=== PATIENT | male | born 1950 | race Caucasian/White ===

== ENCOUNTER 2019-02-05 21:15 | Inpatient (IN) | payer MEDICARE, OTHER, SELFPAY ==
[2019-02-05 21:16] VITALS: BP 155/86; PULSE 52; RESP 18; TEMP 36.6; O2SAT 98; BMI 27.5
--- NOTE | 2019-02-05 21:18 | EKG12_ITS ---
Test Reason : REPEAT Blood Pressure : / mmHG Vent. Rate : 055 BPM Atrial Rate : 055 BPM P-R Int : 178 ms QRS Dur : 094 ms QT Int : 458 ms P-R-T Axes : 022 -01 037 degrees QTc Int : 438 ms Sinus bradycardia with sinus arrhythmia Possible Inferior infarct , age undetermined Anterior infarct , age undetermined Abnormal ECG Confirmed by DAMON VILLARREAL ([id number]), editor managing newspaper SUZE FAULKNER ([id number]) on 02/07/2019 1:41:21 PM Referred By: Confirmed By:DAMON VILLARREAL
--- NOTE | 2019-02-05 21:20 | RAD_ITS ---
STUDY: X-RAY CHEST REASON FOR EXAM: Male, 68 years old. Chest pain TECHNIQUE: AP portable COMPARISON: June 12, 2017 FINDINGS: Diminished inspiratory effort is noted however the lungs are clear.. There is no demonstrated pleural abnormality. Postop change status post median sternotomy and CABG Normal size heart. Normal mediastinum and harriet. Normal visualized pulmonary arteries. Normal visualized aortic arch and descending thoracic aorta. Dorsal spine and shoulders demonstrate degenerative change. Normal visualized ribs, and clavicles There is no demonstrated abnormality of the visualized soft tissue structures of the upper abdomen. No significant change since prior study RAD/Chest 1 View (Portable) IMPRESSION: No acute cardiopulmonary pathology Electronically Signed: Jose Joshi MD at 21:41 EDT , Service support ,
[2019-02-05 21:51] LABS: Absolute Lymphocyte Count 2.27 X10^3/ul (0.83-4.51); Absolute Neutrophil Count 3.9 X10^3/uL (2.0-7.7); Basophil# 0.11 X10^3/uL; Basophil% 1.5 % (0-1); Eosinophils% 6.7 % (0-5); Hematocrit 46.2 % (40-54); Hemoglobin 16.6 g/dl (13.0-16.5); Lymphocyte # 2.27 X10^3/ul (4.0); Lymphocyte % 30.5 % (19-41); Mean Corp Hgb Conc 35.9 g/gl (32-36); Mean Corpuscular Hgb 30.4 pg (27.0-32.0); Mean Corpuscular Volume 84.6 fL (80-94); Mean Platelet Vol. 9.5 fl (6.2-12.0); Monocyte# 0.71 X10^3/uL; Monocyte% 9.5 % (0-10); Neutrophil # 3.85 X10^3/uL (2.7-7.7); Neutrophil % 51.8 % (47-70); Platelet Count 184 K/mm3 (150-450); RBC Distribution Width CV 14.4 % (11.6-14.6); RBC Distribution Width SD 43.9 fl (35.1-43.9); Red Blood Count 5.46 M/mm3 (4.6-6.2); White Blood Count 7.4 K/mm3 (4.4-11.0)
[2019-02-05 21:53] LABS: POSITIVE COUNT NO; POSITIVE DIFFERENTIAL NO; POSITIVE MORPHOLOGY NO
[2019-02-05 22:08] LABS: Anion Gap 11 (5-15); BUN 15 mg/dL (7-18); BUN/Creat Ratio 17.3 RATIO (10-20); Calcium,Total 9.9 mg/dL (8.5-10.1); Chloride 107 mmol/L (98-107); Creatinine, Serum 0.87 mg/dL (0.70-1.30); EST Glomerular Filtration Rate 93 mL/min (>60); Est Glom Filt Rate - Afr Amer 112 mL/min (>60); Estimated Creatinine Clearance 74.92 ml/min; Glucose 100 mg/dL (74-106); Potassium 3.3 mmol/L (3.5-5.1); Sodium Level 139 mmol/L (136-145)
[2019-02-05 22:16] VITALS: BP 139/80; PULSE 60; RESP 17; O2SAT 98
[2019-02-05 22:18] LABS: D-Dimer Quantitative (DVT/PE) 0.27 FEU/ug/m (0.27-0.49)
--- NOTE | 2019-02-05 22:47 | ED.DCSUM_ITS ---
- ER Visit Summary Date of Service: 02/05/19 Chief Complaint: Chest pain History of Present Illness: The patient is a 68 M presenting with chest pain. Patient states this has been intermittent for the past couple of days. He states it is waxing and waning pain. He has associated shortness of breath. He has lightheadedness with no syncope. He denies diaphoresis. Pain is in his mid chest and radiates to his neck. He tried 2 nitro at home with no relief. He has a history of hypercholesterolemia but states he no longer takes this medication. He has history of multiple myeloma. Previous CABG. He is not a smoker. Physical Examination: Vitals are stable. Patient is afebrile. Alert no acute distress. HEENT exam is unremarkable. Neck is supple. Lungs are clear and equal bilaterally. Heart is regular rate and rhythm. Abdomen is soft nontender nondistended. Extremities are unremarkable. Skin is warm and dry. No focal neurologic deficit. Remainder of exam is unremarkable. Emergency Department Course and Treatment: Patient was given aspirin on arrival. EKG is sinus rate is 68 with PVCs. CBC, chemistries unremarkable other than potassium 3.3. Troponin is negative. D-dimer 0.27. Chest x-ray shows no acute process. Discussed with the hospitalist for observation. Disposition: Observation Impression: Chest pain This note was generated with [employer] dictation software. It may contain incorrect words, spelling, and punctuation that were not noted in review of the chart prior to signing ED Disposition - Plan for ED Patient: Referrals: Andrea Tello MD [Primary Care Provider] -
[2019-02-05 22:56] VITALS: BP 139/80; PULSE 69; RESP 20; O2SAT 99
[2019-02-05 23:00] VITALS: BP 139/80; PULSE 58; RESP 16; O2SAT 99
--- NOTE | 2019-02-05 23:00 | PCM.HP.STD ---
Problem List (1) Multiple myeloma Status: Chronic Qualifiers: Multiple myeloma remission status: unspecified Qualified Code(s): C90.00 - Multiple myeloma not having achieved remission (2) Hypertension Status: Chronic Qualifiers: Hypertension type: essential hypertension Qualified Code(s): I10 - Essential (primary) hypertension (3) Coronary artery disease Status: Chronic Qualifiers: Coronary Disease-Associated Artery/Lesion type: [place] artery [place] vs. transplanted heart: [place] heart Associated angina: with unstable angina Qualified Code(s): I25.110 - Atherosclerotic heart disease of [place] coronary artery with unstable angina pectoris Comment: Status post stent in 2000. (4) Chest pain Status: Acute Qualifiers: Chest pain type: unspecified Qualified Code(s): R07.9 - Chest pain, unspecified History of Present Illness Date of Admission: 02/05/19 Chief Complaint: Chest pain -2 days The patient is a 68 year old M with a past medical history of CAD status post stents, CABG, hypertension, hyperlipidemia multiple myeloma who comes in with a 1 week history of chest pain described as pressure-like, substernal associated with nausea and lightheadedness. Chest pain is described as worse when he ambulates. He is noncompliant with his cardiology outpatient visits. Last saw a securities counselor 4 years ago. He denies any smoking. Denies orthopnea or PND or leg swelling. Vitals in the ED showed blood pressure 155/86, temperature 97.9 F, heart rate 52, respiratory rate 18, SPO2 98% on room air. Labs in the ED showed BC count 7.4, hemoglobin 16.6, platelet 184, sodium 139, d-dimer 0.27, potassium 3.3, chloride 107, bicarbonate 21, BUN 15, creatinine 0.87, troponin x1 is negative. Admitting EKG shows no acute ST-T changes, PVCs were seen. Chest x-ray showed no acute cardiopulmonary process. Past Medical History Past Medical History (Chronic Problems): Chronic Problems Multiple myeloma (Chronic) Hypertension (Chronic) Coronary artery disease (Chronic) Status post stent in 2000. Allergies morphine Adverse Reaction (Verified 02/05/19 21:16) Other Home Medications: Ambulatory Orders Medication Instructions Recorded Gabapentin [Neurontin] 600 mg PO TID 02/21/14 Hydrocodone Bitart/Apap 5-325 1 - 2 tablet PO Q6H PRN PRN 02/21/14 [[place] 5/325] Lenalidomide [Revlimid] 5 mg PO DAILY 06/12/15 Surgical History: - - appendectomy, cardiac stent 2000 x1 Psychiatric History: No pertinent psych hx Smoking Status: Never smoker - *Family History Maternal History Items: No pertinent history Paternal History Items: No pertinent history Review of Systems Constitutional: Denies: Chills, Fever, Weight Change HEENT: Denies: Head Aches, Sinus Congestion, Sinus Drainage Cardiovascular: Denies: Chest Pain, Palpitations Respiratory: Denies: Cough, Shortness of breath at rest, Sputum production Gastrointestinal: Denies: Abdominal Pain, Nausea, Vomiting Genitourinary: Denies: Dysuria Musculoskeletal: Denies: Joint Pain, Joint Tenderness Skin: Denies: Rash, Wounds Neurological: Denies: Numbness, Tingling, Focal weakness Psychiatric: Denies: Anxiety, Depression, Homicidal Ideations, Suicidal Ideations Hematologic/ Lymphatic: Denies: Easy Bruising, Easy Bleeding VTE Information - Inpt Only VTE Present on Admission: No VTE Pharm Prophylaxis ordered?: Yes - Physical Exam General: Alert, Oriented x3, Cooperative, No apparent distress HEENT: Atraumatic, PERRLA, EOMI, Normocephalic Oral: Moist Mucosa Neck: Supple Lungs: Clear to auscultation, Normal air movement Cardiovascular: Regular rate, Regular Rhythm, Normal S1, Normal S2, No murmurs Abdomen: Bowel Sounds Present, Soft, Non Tender, Non-Distended, No Hepato-splenomegaly Extremities: No edema Skin: No rashes Musculoskeletal: No Tenderness to Palpation of Joints or Extremities Lymphatic: No Cervical, Supraclavicular, or Inguinal Adenopathy Neurological: Cranial nerves II-XII grossly intact, Neuro grossly intact Psych/Mental Status: Normal Affect, Appropriate Vital Signs Temp Pulse Resp BP Pulse Ox 97.9 F 60 17 139/80 H 98 02/05/19 21:16 02/05/19 22:16 02/05/19 22:16 02/05/19 22:16 02/05/19 22:16 Oxygen Delivery Method Room Air Weight: 79.8 kg Body Mass Index (BMI) 27.5 Finger Stick Blood Glucose 106 Laboratory Tests Past 24 Hrs 02/05/19 02/05/19 02/05/19 21:30 21:30 21:30 WBC 7.4 RBC 5.46 Hgb 16.6 H Hct 46.2 MCV 84.6 MCH 30.4 MCHC 35.9 RDW 14.4 RDW Differential 43.9 Plt Count 184 MPV 9.5 Immature Gran % (Auto) 0.000 Neut % (Auto) 51.8 Lymph % (Auto) 30.5 [place] % (Auto) 9.5 Eos % (Auto) 6.7 H Baso % (Auto) 1.5 H Absolute Neuts (auto) 3.9 Absolute Lymphs (auto) 2.27 Total Counted Not Reportable D-Dimer Quant (PE/DVT) 0.27 Sodium 139 Potassium 3.3 L Chloride 107 Carbon Dioxide 21.0 Anion Gap 11 BUN 15 Creatinine 0.87 Estim Creat Clear Calc 74.92 Est GFR (MDRD) Af Amer 112 Est GFR (MDRD) Non-Af 93 BUN/Creatinine Ratio 17.3 Glucose 100 Calcium 9.9 Troponin I < 0.015 Assessment/Plan All Active Problems Chest pain (Acute) 68 year old M with a past medical history of CAD status post stents, CABG, hypertension, hyperlipidemia, multiple myeloma who comes in with a 1 week history of chest pain described as pressure-like, substernal associated with nausea and lightheadedness. 1. Chest pain, suggestive of angina, patient with history of CAD status post stent and CABG, noncompliant with follow-ups Admitting EKG shows no acute ST-T changes, troponins x1 is negative Plan: Admit to PCU, trend troponins, monitor on telemetry, continue on aspirin, statin, nitro as needed, stress test in a.m. 2. Hypokalemia, replaced, check magnesium as patient has PVCs on EKG, place if low 3. Hypertension, slightly uncontrolled, not on home medications, continue to monitor, hydralazine as needed 4. Hyperlipidemia, will check fasting lipid profile 5. Multiple myeloma, on Revlimid 6. DVT PPx- Heparin SC 7. Code status; DNR-CCA Code Visit OBSV E&M: [id number] Initial observation care L3
[2019-02-05] MEDS: Aspirin 325 MG Tablet PO (23:01)
--- NOTE | 2019-02-05 23:30 | EKG12_ITS ---
Test Reason : CP Blood Pressure : / mmHG Vent. Rate : 068 BPM Atrial Rate : 068 BPM P-R Int : 156 ms QRS Dur : 088 ms QT Int : 434 ms P-R-T Axes : 011 005 040 degrees QTc Int : 461 ms Sinus rhythm with frequent Premature ventricular complexes and Premature atrial complexes Inferior infarct (cited on or before 22-NOV-2013) Anterior infarct (cited on or before 22-NOV-2013) Abnormal ECG Confirmed by DAMON VILLARREAL ([id number]), sound editor SUZE FAULKNER ([id number]) on 02/07/2019 1:41:05 PM Referred By: ALE Confirmed By:DAMON VILLARREAL
--- NOTE | 2019-02-05 23:30 | ED.RN ---
PT CALLS OUT IN PAIN, PT DIAPHORETIC, RESTLESS AND ANXIOUS. DR GORMAN AWARE, CALLED FOR REPEAT EKG. WILL CONTINUE TO MONITOR.
[2019-02-05] MEDS: HYDROmorphone 0.5 MG/0.5 ML SYRINGE IV (23:37)
[2019-02-05] MEDS: Ondansetron 4 MG/2 ML Vial IV (23:37)
[2019-02-05 23:49] VITALS: BP 158/97; PULSE 66; RESP 17; O2SAT 98
[2019-02-06] VITALS (14 sets, daily range): BP systolic 129–153; BP diastolic 67–95; PULSE 48–60; RESP 15–16; TEMP 36.2–36.9; O2SAT 95–99; BMI 27.6
--- NOTE | 2019-02-06 00:01 | ED.RN ---
PT PAIN RESOLVED. PT SITTING IN UP IN BED ON PHONE. STATES FEELS MUCH BETTER. DENIES NEED FOR ADDITIONAL PAIN MEDICATION AT THIS TIME. DR GORMAN AWARE.
--- NOTE | 2019-02-06 00:21 | EKG12_ITS ---
Test Reason : CP ADMISSION Blood Pressure : / mmHG Vent. Rate : 045 BPM Atrial Rate : 045 BPM P-R Int : 186 ms QRS Dur : 096 ms QT Int : 488 ms P-R-T Axes : 021 -12 031 degrees QTc Int : 422 ms Sinus bradycardia Inferior infarct (cited on or before 22-NOV-2013) Anterior infarct (cited on or before 22-NOV-2013) Abnormal ECG When compared with ECG of 13-JUN-2017 05:40, Premature ventricular complexes are no longer Present Confirmed by DAMON VILLARREAL ([id number]), telegraph editor SUZE FAULKNER ([id number]) on 02/07/2019 2:06:04 PM Referred By: AMELIA Confirmed By:DAMON VILLARREAL
[2019-02-06] MEDS: 0.9% Normal Saline 1,000 ML 75 ML IV (00:49)
[2019-02-06] MEDS: Mag Hydrox/Al Hydrox/Simeth 30 ML UDC 15 ML PO (01:16)
[2019-02-06 01:22] LABS: Magnesium 1.7 mg/dL (1.6-2.6)
[2019-02-06 03:37] LABS: Absolute Lymphocyte Count 2.08 X10^3/ul (0.83-4.51); Absolute Neutrophil Count 3.7 X10^3/uL (2.0-7.7); Basophil# 0.09 X10^3/uL; Basophil% 1.2 % (0-1); Eosinophils% 8.3 % (0-5); Hematocrit 46.6 % (40-54); Hemoglobin 16.7 g/dl (13.0-16.5); Lymphocyte # 2.08 X10^3/ul (4.0); Lymphocyte % 28.8 % (19-41); Mean Corp Hgb Conc 35.8 g/gl (32-36); Mean Corpuscular Hgb 29.8 pg (27.0-32.0); Mean Corpuscular Volume 83.1 fL (80-94); Mean Platelet Vol. 9.5 fl (6.2-12.0); Monocyte# 0.76 X10^3/uL; Monocyte% 10.5 % (0-10); Neutrophil # 3.68 X10^3/uL (2.7-7.7); Neutrophil % 50.9 % (47-70); Platelet Count 181 K/mm3 (150-450); RBC Distribution Width CV 14.3 % (11.6-14.6); RBC Distribution Width SD 43.1 fl (35.1-43.9); Red Blood Count 5.61 M/mm3 (4.6-6.2); White Blood Count 7.2 K/mm3 (4.4-11.0)
[2019-02-06 03:45] LABS: POSITIVE COUNT NO; POSITIVE DIFFERENTIAL NO; POSITIVE MORPHOLOGY NO
[2019-02-06] MEDS: HYDROmorphone 0.5 MG/0.5 ML SYRINGE IV ×2 (03:56→21:29)
[2019-02-06] MEDS: 0.9% NaCl Peripheral Flush Adult/Peds IV ×2 (03:58→21:29)
[2019-02-06 04:11] LABS: Anion Gap 8 (5-15); BUN 13 mg/dL (7-18); BUN/Creat Ratio 16.1 RATIO (10-20); Calcium,Total 8.9 mg/dL (8.5-10.1); Chloride 110 mmol/L (98-107); Creatinine, Serum 0.81 mg/dL (0.70-1.30); EST Glomerular Filtration Rate 100 mL/min (>60); Est Glom Filt Rate - Afr Amer 122 mL/min (>60); Estimated Creatinine Clearance 80.47 ml/min; Glucose 88 mg/dL (74-106); Magnesium 1.9 mg/dL (1.6-2.6); Potassium 3.5 mmol/L (3.5-5.1); Sodium Level 141 mmol/L (136-145)
[2019-02-06 04:58] LABS: Cholesterol 130 mg/dL (200); High Density Lipoprotein 36 mg/dL; Triglycerides 163 mg/dL; Very Low Density Lipoprotein 33 mg/dL (5-40)
[2019-02-06] MEDS: Aspirin E.C. 81 MG Tablet PO (05:33)
[2019-02-06] MEDS: Gabapentin 600 MG Tablet PO ×3 (05:33→21:28)
--- NOTE | 2019-02-06 05:55 | ECHOCS_ITS ---
Reason For Study: Chest Pain Procedure This was a 2D Doppler, Color Flow transthoracic echocardiogram. The study was technically difficult. Contrast injection was performed. Exam performed portable in patient room. Left Ventricle Normal size and thickness. The estimated ejection fraction is 60 %. Stage 1 diastolic dysfunction. Anterior [place] : Mildly hypokinetic. Mid-anteroseptal : Mildly hypokinetic. Right Ventricle Normal size and thickness. Normal systolic function. Atria The left atrium is mildly enlarged. Normal right atrium. Normal atrial septum. Mitral Valve The mitral valve is structurally normal. No prolapse or stenosis seen. Trivial mitral valve insufficiency. Tricuspid Valve Normal tricuspid valve. Trivial tricuspid valve insufficiency. Right ventricular systolic pressure estimated to be 34 mmHg. Aortic Valve Trisinus/trileaflet aortic valve. Mild diffuse aortic valve thickening. There is no aortic stenosis. Pulmonic Valve Normal pulmonic valve. Great Vessels Normal aortic root. Normal arch. Normal inferior vena cava. Inferior vena cava collapse with sniff. Pericardium/Pleural No pericardial effusion. Medication Diluted definity 3ml given slow IV push to enhance endocardial definition. MMode/2D Measurements & Calculations LVIDd: 5.1 cm IVSd: 0.99 cm Ao root diam: 3.3 cm LVIDs: 3.2 cm LVPWd: 0.72 cm RVDd: 4.4 cm FS: 37.4 % LAV(MOD-bp): 64.6 ml LVAd ap4: 35.1 cm2 SV(MOD-sp4): 79.7 ml LAV(MOD-bp) Indexed: 33.7 ml/m2 EDV(MOD-sp4): 118.5 ml LAV(MOD-sp2): 63.2 ml EDV(sp4-el): 124.9 ml LAV(MOD-sp4): 60.3 ml LVAs ap4: 17.9 cm2 ESV(MOD-sp4): 38.8 ml ESV(sp4-el): 40.5 ml EF(MOD-sp4): 67.2 % EF(sp4-el): 67.6 % SV(sp4-el): 84.4 ml LA A4 area: 22.0 cm2 LA dimension(2D): 3.6 cm RA A4 area: 13.2 cm2 Doppler Measurements & Calculations MV E max dima: 66.1 cm/sec Lat Peak E' Dima: 7.9 cm/sec Med Peak E' Dima: 4.4 cm/sec MV A max dima: 75.9 cm/sec E/E' lat: 8.4 E/E' med: 15.1 MV E/A: 0.87 Ao V2 max: 104.8 cm/sec LV V1 max: 75.1 cm/sec PA V2 max: 92.5 cm/sec Ao max P.4 mmHg LV V1 max P.3 mmHg Ao V2 mean: 72.1 cm/sec Ao mean P.3 mmHg Ao V2 VTI: 23.8 cm TR max dima: 263.9 cm/sec TR max P.9 mmHg Interpretation Summary The estimated ejection fraction is 60 %. Stage 1 diastolic dysfunction. Trivial mitral valve insufficiency. Trivial tricuspid valve insufficiency. Right ventricular systolic pressure estimated to be 34 mmHg. Compared to echo report dated 05/22/2014, LV function has improved from 45% to 60%; RVSP has remained the same. The study was technically difficult. Contrast injection was performed. Ordering Physician: Jo Gilmore Referring Physician: Andrea Tello Performed By: Elvie Osborn, MEGHNA, RVT
--- NOTE | 2019-02-06 05:55 | EKG12_ITS ---
Test Reason : AM EKG Blood Pressure : / mmHG Vent. Rate : 053 BPM Atrial Rate : 053 BPM P-R Int : 174 ms QRS Dur : 100 ms QT Int : 476 ms P-R-T Axes : 005 -11 013 degrees QTc Int : 446 ms Sinus bradycardia Inferior infarct , age undetermined Anteroseptal infarct , age undetermined Abnormal ECG When compared with ECG of 06-FEB-2019 00:30, MANUAL COMPARISON REQUIRED, DATA IS UNCONFIRMED Confirmed by DAMON VILLARREAL ([id number]), editor newspaper SUZE FAULKNER ([id number]) on 02/07/2019 2:07:03 PM Referred By: AMELIA Confirmed By:DAMON VILLARREAL
[2019-02-06 07:12] LABS: Hemoglobin A1c 5.2 % (4.2-6.3)
--- NOTE | 2019-02-06 12:37 | STRESSREP ---
Stress Test Report Date: 02-06-19 Procedure: Pharmacologic stress nuclear imaging study Indications: Chest pain; CAD; PCI; CABG Consent: Per the patient Procedure: The patient underwent pharmacologic (regadenoson) evaluation with a peak heart rate of 81 bpm (53% predicted maximal heart rate) with a peak blood pressure 150/90 mmHg. The baseline ECG demonstrated normal sinus rhythm with poor R wave progression with an anterior [place] pattern of indeterminate age cannot be excluded. The peak pharmacologic ECG demonstrated no obvious ECG changes. There was a rare PVC pretest. There was no reported chest discomfort during pharmacologic infusion or recovery. The examination was discontinued secondary to completion of protocol Impression: 1. Pharmacologic (regadenoson) evaluation 2. Peak pharmacologic ECG with no obvious ECG changes 3. Rare PVC pretest 4. Nuclear images pending Myocardial perfusion imaging study: Technique: The patient was injected with 11.8 mCi of technetium 99m Cardiolite and subsequently rest SPECT Cardiolite nuclear imaging was obtained and horizontal long, vertical long, and short axis views. The patient underwent pharmacologic (regadenoson) evaluation with a peak heart rate of 81 bpm (53% predicted maximal heart rate) with a peak blood pressure of 150/90 mmHg. The patient was injected with 33.9 mCi of technetium 99m Cardiolite and subsequently stress SPECT Cardiolite nuclear imaging was obtained in the horizontal long, vertical long, and short axis views. A gated Cardiolite study at peak stress was obtained. Interpretation: Rest and stress SPECT current nuclear imaging status post realignment, normalization, and attenuation correction, demonstrates an area of subtle diminished tracer uptake near the distal anterior/anterior apical segments at rest. Status post stress there is notation of additional areas of diminished tracer uptake in the mid to distal anterior segments as well as the anterior apical segments and inferior apical segments. There are similar type findings on the resting and stress polar map images. There is diminished end systolic thickening and brightening in the aforementioned areas. The gated coronary study demonstrates diminished myocardial thickening and a normal motion. The reported LVEF is 54%. Impression: 1. Rest and stress SPECT current nuclear imaging demonstrate myocardial perfusion changes potentially compatible with area of previous myocardial injury/infarction involving portions of the distal anterior/anteroapical segments with post stress myocardial perfusion changes appearing compatible with aracelis-infarct related myocardial ischemia involving portions of the mid to distal anterior, anteroapical, and inferoapical segments. 2. The gated Cardiolite study reports an LVEF of 54%. This note was generated using a voice recognition system and there may be incorrect words, spelling or punctuation that were not noted when reviewing the office note prior to saving.
[2019-02-06] MEDS: Clopidogrel Bisulfate 300 MG Tablet PO (15:19)
[2019-02-06] MEDS: Carvedilol 6.25 MG Tablet PO ×2 (15:21→21:28)
--- NOTE | 2019-02-06 15:47 | CON.PCM_ITS ---
Problem List (1) Coronary artery disease Status: Chronic Qualifiers: Coronary Disease-Associated Artery/Lesion type: [place] artery [place] vs. transplanted heart: [place] heart Associated angina: with unstable angina Qualified Code(s): I25.110 - Atherosclerotic heart disease of [place] coronary artery with unstable angina pectoris Comment: Status post stent in 2000. (2) Chest pain Status: Acute Qualifiers: Chest pain type: unspecified Qualified Code(s): R07.9 - Chest pain, unspecified Reason for Consult Date of Consultation: 02/06/19 Reason for Consultation: Unstable angina, abnormal stress test, coronary disease, status post bypass surgery History of Present Illness: The patient is a 68 year old M, nondiabetic, non-smoker, with a history of hypertension, hypercholesterolemia, very poor medical compliance, previous stents in 2000 in 2008, with subsequent 5 vessel bypass surgery of unknown vessels by Dr. Harmon at [facility] in 2014. Patient has not followed up with cardiology since then, and has discontinued all of his cardiac medications. He also has a history of multiple myeloma, and has been compliant with his daily multiple myeloma oral medications. Patient was in good health up until around and a half ago when he developed recurrent substernal chest pressure, chest pain, with associated shortness of breath, nausea but no vomiting. He attempted to take a sublingual nitroglycerin, which provided no relief. Patient sought medical attention [facility], where an EKG was performed showed normal sinus rhythm, and old anteroseptal and inferior wall microinfarction, and what appeared to be pseudonormalization along the inferolateral leads. He was ruled out for myocardial infarction underwent a non-walking nuclear stress test this morning which was abnormal for aracelis-infarct ischemia, with anteroapical infarct noted. In addition he underwent a 2D echo with Doppler which demonstrated improved LV function from 2013 with an EF of around 60%. Patient states that he is unable to ambulate effectively on a stress test. [] Past Medical History Allergies/Adverse Reactions: Allergies morphine Adverse Reaction (Verified 02/05/19 21:16) Other Home Medications: Ambulatory Orders Medication Instructions Recorded Gabapentin [Neurontin] 600 mg PO TID 02/21/14 Hydrocodone Bitart/Apap 5-325 1 - 2 tablet PO Q6H PRN PRN 02/21/14 [[place] 5/325] Lenalidomide [Revlimid] 5 mg PO DAILY 06/12/15 Past Medical History (Chronic Problems): Chronic Problems Multiple myeloma (Chronic) Hypertension (Chronic) Coronary artery disease (Chronic) Status post stent in 2000. Surgical History: - - appendectomy, cardiac stent 2000 x1 Psychiatric History: No pertinent psych hx - *Family History Maternal History Items: No pertinent history Paternal History Items: No pertinent history Smoking Status: Never smoker Review of Systems - Review of Systems General: Denies: Fever, Night Sweats, Fatigue Cardiovascular: Reports: Chest Discomfort, Chest Discomfort at Rest, Chest Dis comfort with Exertion. Denies: Shortness of Breath, Orthopnea, PND, Peripheral Edema, Palpitations, Lightheadedness, Dizziness, Near Syncope, Syncope Respiratory: Denies: Cough, Sputum Production, Hemoptysis Gastrointestinal: Denies: Hematemesis, Hematochezia, Melena Genitourinary: Denies: Dysuria, Hematuria Skin: Denies: Rash Objective: Vital Signs Temp Pulse Resp BP Pulse Ox 97.1 F L 60 16 129/83 H 97 02/06/19 15:20 02/06/19 15:20 02/06/19 15:20 02/06/19 15:20 02/06/19 15:20 Oxygen Delivery Method Room Air Weight: 173 lb 11.588 oz Body Mass Index (BMI) 27.6 Finger Stick Blood Glucose 106 Intake and Output for Last 24 Hours 02/04/19 02/05/19 02/06/19 23:59 23:59 23:59 Intake Total 575 / 575 Balance 575 / 575 General: Awake, Alert, Oriented x 3 HEENT: PERRL, EOMI, Sclera Non Icteric Neck: Supple, Good ROM, No Lymph Node Enlargement Lungs: Clear to auscultation Cardiovascular: Regular Rhythm, Normal S1, Normal S2, No Murmurs, No Rubs, No Gallops Vascular: No Carotid Bruits, Normal Femoral Pulses, Normal Radial Pulses, Normal Dorsalis Pedal Pulse, Normal Posterior Tibial Pulses Abdomen: Bowel Sounds Present, Soft, Non Tender, No HSM, No Organomegaly Extremities: No Cyanosis, No Clubbing, No edema Neurological: No Focal Motor or Sensory Deficit 02/05/19 21:30: WBC 7.4, RBC 5.46, Hgb 16.6 H, Hct 46.2, MCV 84.6, MCH 30.4, MCHC 35.9, RDW 14.4, RDW Differential 43.9, Plt Count 184, MPV 9.5, Immature Gran % (Auto) 0.000, Neut % (Auto) 51.8, Lymph % (Auto) 30.5, Rankin % (Auto) 9.5, Eos % (Auto) 6.7 H, Baso % (Auto) 1.5 H, Absolute Neuts (auto) 3.9, Total Counted Not Reportable 02/05/19 21:30: Sodium 139, Potassium 3.3 L, Chloride 107, Carbon Dioxide 21.0, Anion Gap 11, BUN 15, Creatinine 0.87, Est GFR (MDRD) Af Amer 112, Est GFR (MDRD) Non-Af 93, BUN/Creatinine Ratio 17.3, Glucose 100, Calcium 9.9, Troponin I < 0.015 02/05/19 21:30: D-Dimer Quant (PE/DVT) 0.27 02/06/19 01:00: Magnesium 1.7 02/06/19 01:00: Troponin I < 0.015 02/06/19 03:30: WBC 7.2, RBC 5.61, Hgb 16.7 H, Hct 46.6, MCV 83.1, MCH 29.8, MCHC 35.8, RDW 14.3, RDW Differential 43.1, Plt Count 181, MPV 9.5, Immature Gran % (Auto) 0.300, Neut % (Auto) 50.9, Lymph % (Auto) 28.8, Rankin % (Auto) 10.5 H, Eos % (Auto) 8.3 H, Baso % (Auto) 1.2 H, Absolute Neuts (auto) 3.7, Total Counted Not Reportable 02/06/19 03:30: Sodium Cancelled, Potassium Cancelled, Chloride Cancelled, Carbon Dioxide Cancelled, Anion Gap Cancelled, BUN Cancelled, Creatinine Cancelled, Est GFR (MDRD) Af Amer Cancelled, Est GFR (MDRD) Non-Af Cancelled, BUN/Creatinine Ratio Cancelled, Glucose Cancelled, Calcium Cancelled, Magnesium Cancelled 02/06/19 03:30: Sodium 141, Potassium 3.5, Chloride 110 H, Carbon Dioxide 23.0, Anion Gap 8, BUN 13, Creatinine 0.81, Est GFR (MDRD) Af Amer 122, Est GFR (MDRD) Non-Af 100, BUN/Creatinine Ratio 16.1, Glucose 88, Calcium 8.9, Magnesium 1.9, Troponin I < 0.015 02/06/19 03:30: Triglycerides 163, Cholesterol 130, LDL Cholesterol 61, VLDL Cholesterol 33, HDL Cholesterol 36 L 02/06/19 03:30: Hemoglobin A1c 5.2 Rhythm: EKG: ECHO: Stress Test: Cardiac Cath: PCI: CT Surgery: Holter monitor: EPS: PPM: CXR: Chest CT Scan: Assessment/Plan 1. Coronary artery disease: The patient presents with recurrent signs and symptoms of coronary occlusive disease consistent with previous angina, as evidenced by a noninvasive non-walking stress test with evidence of anterior apical infarct with aracelis-infarct ischemia. I recommended the patient undergo a repeat left heart catheterization and graft angiography. Prior to this will be restarted and reloaded with aspirin 324 mg x 1, followed by 81 mg a day, as well as Plavix 300 mg x 1 now followed by 75 mg daily. In addition because of his multiple myeloma we will start him on IV fluids at 150 cc/h for the next 12 hours. I had a long thorough discussion regarding the risks/benefits of the procedure including specific attention to lack of on-site surgical back-up, and the patient is agreed to proceed. In addition we will start him on his Coreg 6.25 mill grams p.o. twice daily. Once he is tolerating this, we will consider an Cozaar 25 mg a day. 2. Hyperlipidemia: His LDL is 61, and HDL is 36. The patient denied any complaints of myalgias with previous statin therapy. Resume Lipitor, and repeat lipid profile in 6 weeks time. 3. Patient will follow-up with Dr. Simpson going forward. I explained to him the importance of following up from cardiology standpoint in order to attempt graft preservation as long as possible. The patient voiced understanding and agrees to comply. 4. Thank you very much for the opportunity to precipitate in the cardiac care of your patient. Consultation time took place between 330 and 4 PM. Code Visit Inpatient E&M: 08353 Init Hosp L2
[2019-02-06] MEDS: 0.9% Normal Saline 1,000 ML 150 ML IV ×2 (16:11→22:37)
--- NOTE | 2019-02-06 17:19 | PN_ITS ---
Subjective: She was seen and examined today, he was placed in observation status yesterday for complaints of chest discomfort which she described as burning in nature, patient had a coronary artery bypass 4 years ago and was lost to [id number] stated that he did not like any of his tube coater and did not follow-up concerning his cardiac care. Patient is currently taking no medications at home-including aspirin. Patient had a stress test today which showed some aracelis-infarction ischemia, patient's echocardiogram showed preserved EF. I talked at length with the patient today and he has agreed to see Dr. Simpson for consultation and possibly undergo cardiac catheterization. Patient was made a full admission today, I started the patient on Plavix, statin, and beta-kandis. - Physical Exam General: Alert, Oriented x3, Cooperative, No apparent distress, Well developed HEENT: Atraumatic, PERRLA, EOMI, Normocephalic Oral: Moist Mucosa Neck: Supple, Trachea Midline, Thyroid Normal Size and Texture Lungs: Clear to auscultation, Normal air movement, No rhonchi, No wheeze, No rales Cardiovascular: Regular rate, Regular Rhythm, Normal S1, Normal S2, No murmurs Abdomen: Bowel Sounds Present, Soft, Non Tender, Non-Distended Extremities: No clubbing, No cyanosis, No edema, Capillary Refill Less than 3 Seconds Skin: No rashes, No breakdown Musculoskeletal: No Tenderness to Palpation of Joints or Extremities Neurological: Cranial nerves II-XII grossly intact, Neuro grossly intact, Sensory exam intact to light touch and pain, Coordination normal Psych/Mental Status: Normal Affect, Appropriate, Alert and oriented to time, nazanin ce, person, mood and affect Vital Signs Temp Pulse Resp BP Pulse Ox 97.1 F L 60 16 129/83 H 97 02/06/19 15:20 02/06/19 15:20 02/06/19 15:20 02/06/19 15:20 02/06/19 15:20 Oxygen Delivery Method Room Air Weight: 78.8 kg Body Mass Index (BMI) 27.6 Finger Stick Blood Glucose 106 Intake and Output for Last 24 Hours 02/04/19 02/05/19 02/06/19 23:59 23:59 23:59 Intake Total 575 / 575 Balance 575 / 575 Laboratory Tests Past 24 Hrs 02/05/19 02/05/19 02/05/19 21:30 21:30 21:30 WBC 7.4 RBC 5.46 Hgb 16.6 H Hct 46.2 MCV 84.6 MCH 30.4 MCHC 35.9 RDW 14.4 RDW Differential 43.9 Plt Count 184 MPV 9.5 Immature Gran % (Auto) 0.000 Neut % (Auto) 51.8 Lymph % (Auto) 30.5 [place] % (Auto) 9.5 Eos % (Auto) 6.7 H Baso % (Auto) 1.5 H Absolute Neuts (auto) 3.9 Absolute Lymphs (auto) 2.27 Total Counted Not Reportable D-Dimer Quant (PE/DVT) 0.27 Sodium 139 Potassium 3.3 L Chloride 107 Carbon Dioxide 21.0 Anion Gap 11 BUN 15 Creatinine 0.87 Estim Creat Clear Calc 74.92 Est GFR (MDRD) Af Amer 112 Est GFR (MDRD) Non-Af 93 BUN/Creatinine Ratio 17.3 Glucose 100 Hemoglobin A1c Calcium 9.9 Magnesium Troponin I < 0.015 Triglycerides Cholesterol LDL Cholesterol VLDL Cholesterol HDL Cholesterol 02/06/19 02/06/19 02/06/19 01:00 01:00 03:30 WBC 7.2 RBC 5.61 Hgb 16.7 H Hct 46.6 MCV 83.1 MCH 29.8 MCHC 35.8 RDW 14.3 RDW Differential 43.1 Plt Count 181 MPV 9.5 Immature Gran % (Auto) 0.300 Neut % (Auto) 50.9 Lymph % (Auto) 28.8 [place] % (Auto) 10.5 H Eos % (Auto) 8.3 H Baso % (Auto) 1.2 H Absolute Neuts (auto) 3.7 Absolute Lymphs (auto) 2.08 Total Counted Not Reportable D-Dimer Quant (PE/DVT) Sodium Potassium Chloride Carbon Dioxide Anion Gap BUN Creatinine Estim Creat Clear Calc Est GFR (MDRD) Af Amer Est GFR (MDRD) Non-Af BUN/Creatinine Ratio Glucose Hemoglobin A1c Calcium Magnesium 1.7 Troponin I < 0.015 Triglycerides Cholesterol LDL Cholesterol VLDL Cholesterol HDL Cholesterol 02/06/19 02/06/19 02/06/19 03:30 03:30 03:30 WBC RBC Hgb Hct MCV MCH MCHC RDW RDW Differential Plt Count MPV Immature Gran % (Auto) Neut % (Auto) Lymph % (Auto) [place] % (Auto) Eos % (Auto) Baso % (Auto) Absolute Neuts (auto) Absolute Lymphs (auto) Total Counted D-Dimer Quant (PE/DVT) Sodium Cancelled 141 Potassium Cancelled 3.5 Chloride Cancelled 110 H Carbon Dioxide Cancelled 23.0 Anion Gap Cancelled 8 BUN Cancelled 13 Creatinine Cancelled 0.81 Estim Creat Clear Calc Cancelled 80.47 Est GFR (MDRD) Af Amer Cancelled 122 Est GFR (MDRD) Non-Af Cancelled 100 BUN/Creatinine Ratio Cancelled 16.1 Glucose Cancelled 88 Hemoglobin A1c Calcium Cancelled 8.9 Magnesium Cancelled 1.9 Troponin I < 0.015 Triglycerides 163 Cholesterol 130 LDL Cholesterol 61 VLDL Cholesterol 33 HDL Cholesterol 36 L 02/06/19 03:30 WBC RBC Hgb Hct MCV MCH MCHC RDW RDW Differential Plt Count MPV Immature Gran % (Auto) Neut % (Auto) Lymph % (Auto) [place] % (Auto) Eos % (Auto) Baso % (Auto) Absolute Neuts (auto) Absolute Lymphs (auto) Total Counted D-Dimer Quant (PE/DVT) Sodium Potassium Chloride Carbon Dioxide Anion Gap BUN Creatinine Estim Creat Clear Calc Est GFR (MDRD) Af Amer Est GFR (MDRD) Non-Af BUN/Creatinine Ratio Glucose Hemoglobin A1c 5.2 Calcium Magnesium Troponin I Triglycerides Cholesterol LDL Cholesterol VLDL Cholesterol HDL Cholesterol Medical Necessity - Tobacco Use Smoking Status: Never smoker Assessment/Plan All Active Problems Chest pain (Acute) #1 unstable angina-patient will be seen by cardiology this afternoon, I have mad e additional changes to his medications. #2 coronary artery disease #3 noncompliance with medical regimen-I stressed that it was important for the patient to follow-up with cardiology ongoing #4 multiple myeloma Code Visit Inpatient E&M: 69120 Init Hosp L3
[2019-02-06] MEDS: Atorvastatin Calcium 40 MG Tablet PO (21:28)
--- NOTE | 2019-02-06 21:28 | EKG12_ITS ---
Test Reason : CP Blood Pressure : / mmHG Vent. Rate : 059 BPM Atrial Rate : 059 BPM P-R Int : 180 ms QRS Dur : 088 ms QT Int : 446 ms P-R-T Axes : 019 002 018 degrees QTc Int : 441 ms Sinus bradycardia Inferior infarct , age undetermined Anteroseptal infarct , age undetermined Abnormal ECG When compared with ECG of 06-FEB-2019 05:05, MANUAL COMPARISON REQUIRED, DATA IS UNCONFIRMED Confirmed by STEPHANY PULIDO, JANA ([id number]), rewrite editor SUZE FAULKNER ([id number]) on 02/08/2019 12:43:37 PM Referred By: AMELIA Confirmed By:HAYDE HAMMOND MD
[2019-02-07] VITALS (28 sets, daily range): BP systolic 107–155; BP diastolic 59–95; PULSE 48–63; RESP 14–20; TEMP 36.2–37; O2SAT 93–99
[2019-02-07] MEDS: Clopidogrel Bisulfate 75 MG Tablet PO (05:36)
[2019-02-07] MEDS: DiphenhydrAMINE 25 MG Capsule 50 MG PO (05:36)
[2019-02-07] MEDS: Aspirin E.C. 81 MG Tablet PO (05:36)
[2019-02-07] MEDS: Gabapentin 600 MG Tablet PO ×3 (05:36→22:17)
[2019-02-07] MEDS: 0.9% Normal Saline 1,000 ML 15 ML IV (05:36)
[2019-02-07 05:48] LABS: International Normalized Ratio 1.1
[2019-02-07 05:49] LABS: Absolute Lymphocyte Count 1.87 X10^3/ul (0.83-4.51); Absolute Neutrophil Count 2.4 X10^3/uL (2.0-7.7); Basophil# 0.08 X10^3/uL; Basophil% 1.5 % (0-1); Eosinophil# 0.49 X10^3/uL; Hematocrit 42.7 % (40-54); Lymphocyte # 1.87 X10^3/ul (4.0); Lymphocyte % 34.5 % (19-41); Mean Corp Hgb Conc 35.1 g/gl (32-36); Mean Corpuscular Hgb 30.3 pg (27.0-32.0); Mean Corpuscular Volume 86.3 fL (80-94); Mean Platelet Vol. 9.5 fl (6.2-12.0); Monocyte# 0.54 X10^3/uL; Neutrophil # 2.44 X10^3/uL (2.7-7.7); Partial Thromboplast Time 30.3 Seconds (24.1-36.2); Platelet Count 162 K/mm3 (150-450); RBC Distribution Width CV 14.5 % (11.6-14.6); RBC Distribution Width SD 45.1 fl (35.1-43.9); Red Blood Count 4.95 M/mm3 (4.6-6.2); White Blood Count 5.4 K/mm3 (4.4-11.0)
--- NOTE | 2019-02-07 05:55 | EKG12_ITS ---
Test Reason : AM EKG Blood Pressure : / mmHG Vent. Rate : 048 BPM Atrial Rate : 048 BPM P-R Int : 182 ms QRS Dur : 100 ms QT Int : 488 ms P-R-T Axes : 015 -11 012 degrees QTc Int : 435 ms Sinus bradycardia Inferior infarct , age undetermined Anteroseptal infarct , age undetermined Abnormal ECG When compared with ECG of 06-FEB-2019 21:34, MANUAL COMPARISON REQUIRED, DATA IS UNCONFIRMED Confirmed by STEPHANY PULIDO, JANA ([id number]), editorial director SUZE FAULKNER ([id number]) on 02/08/2019 12:44:39 PM Referred By: STIVEN Confirmed By:HAYDE HAMMOND MD
[2019-02-07 06:02] LABS: Anion Gap 7 (5-15); BUN 11 mg/dL (7-18); BUN/Creat Ratio 13.6 RATIO (10-20); Calcium,Total 7.7 mg/dL (8.5-10.1); Chloride 113 mmol/L (98-107); Creatinine, Serum 0.81 mg/dL (0.70-1.30); EST Glomerular Filtration Rate 100 mL/min (>60); Est Glom Filt Rate - Afr Amer 121 mL/min (>60); Estimated Creatinine Clearance 80.47 ml/min; Glucose 89 mg/dL (74-106); Potassium 3.3 mmol/L (3.5-5.1); Sodium Level 143 mmol/L (136-145)
[2019-02-07 06:15] LABS: POSITIVE COUNT NO; POSITIVE DIFFERENTIAL NO; POSITIVE MORPHOLOGY NO
--- NOTE | 2019-02-07 07:01 | NURSING ---
Called report to Radha in Photonics Engineering Technician
[2019-02-07 07:28] LABS: Glucose, Dipstick Normal (Normal); Ketone-Dipstick 5 mg/dl (Negative); Leukocyte Esterase-Dipstick 25 /ul (Negative); Nitrite-Dipstick Negative (Negative); Occult Blood-Urine Negative /ul (Negative); Protein-Dipstick Negative (Negative); Urine Bilirubin Dipstick Negative (Negative); Urine Urobilinogen Normal (Normal)
[2019-02-07 07:29] LABS: Color, Urine Yellow (Yellow); Urine Clarity Clear (Clear)
[2019-02-07 08:45] LABS: ACT Activated Clotting Time 175 sec (74-137)
--- NOTE | 2019-02-07 08:52 | CL.I_ITS ---
Patient Name: NADIA RICK Study Date: 02/07/2019 Performing: Talib Simpson MD Ht: 66.92 inches 170 cm : 1950 Wt: 174.17 lbs 79 kg Age: 68 Gender: male BSA: 1.91 PROCEDURE(S) PERFORMED [id number]/COR/LV/CABG [id number], SINGLE CORONARY ARTERY CLINICAL PROFILE AND CO-MORBIDITIES Indications: New Onset Angina <= 2 months, Stable Known CAD, LV Dysfunction Heart Failure: NYHA Class: 1, Newly Diagnosed: No, Heart Failure Type: Systolic Stress/Imaging Date: 02/06/2019 Stress Test with SPECT MPI: Positive Low Risk Angina Classification Anginal Classification w/in 2 Weeks: CCS III CAD Presentations: Unstable angina. Other: Dyspnea on exertion Comorbidities/Risk Factors: Hypertension Dyslipidemia Prior PCI Prior CABG CONCLUSIONS Elevated Left Ventricular End Diastolic Pressure LVEF: by LV gram 45 % Segmented LV systolic dysfunction- Severe Triple vessel CAD of the LM, LAD, LCX and RCA Widely patent LUCAS to LAD; LAD is very small Patent SVG to OM#3 Patent SVG to DIAG Patent SVG to acute marginal of RCA with retrograde flow impeded by ostial 85% acute marginal. Successful PCI with PTCA to the mid RCA with a 2.0 x 12 and 2.5 x 12 Emerge balloon. Despite multiple balloon inflations and double wire technique with stiffer run through wire, we were unable to cross lesion with stent. Pt had identical chest pain symptoms with balloon inflations. [place] III flow at conclusion of procedu re and with adequate flow vis a vis SVG to acute marginal, as well as concerns for IV dye load given h/o multiple myeloma, procedure halted RECOMMENDATIONS Referred for immediate PCI Management as per referring Production Leader Highly recommend quitting all tobacco products Follow up with primary collaborating supervising physician Risk factor modification ASA Indefinitley Plavix for at least 12 months Routine post interventional care Refer for Outpatient Cardiac Rehab Manual sheath removal per protocol Follow up with Dr. Simpson asa/plavix for life Manual sheath removal. DESCRIPTION OF PROCEDURE The patient arrived to the procedure lab. The risks and benefits of the procedure as well as a full d escription of our services here and lack of surgical backup were fully explained to the patient and/o r their significant other prior to the catheterization. The Timeout was completed, verifying the lex ect patient and procedure. The patient's procedural site was prepped and draped in the usual fashion. Local anesthetic was given subcutaneously to right groin region with Lidocaine 2%. Using a modified Seldinger technique, arterial access was obtained via the right femoral artery, a 4Fr sheath was inse rted. Left Coronary Artery selective angiography was performed in multiple views using a 4 Fr. JL5 c atheter. Right Coronary Artery selective angiography was then performed in multiple views using a 4 F r. 3DRC catheter. Saphenous Vein graft to the Acute marginal selective angiography was performed in m ultiple views using a 4 Fr. 3DRC catheter. Saphenous Vein graft to the OM 1 selective angiography was performed in multiple views using a 4 Fr. 3DRC catheter. Left internal mammary artery graft to the LAD selective angiography was performed in multiple views using a 4 Fr. 3DRC catheter. Saphenous Vein graft to the DIAG 1 selective angiography was performed in multiple views using a 4 Fr . AR MOD 2 catheter. Left Ventriculography was performed in [place] projection using a 4 Fr. Pigtail cath eter. LV to AO pullback pressures were then recordedThe images were reviewed and options discussed. A decision was then made to proceed with an Intervention, IVUS or other adjunct procedure. Arterial sheath was exchanged for a 6 Fr Sheath. HS II SH Guide catheter was inserted and engaged into the RCA. BMW Pierron Guide wire was advanced to the PDA. Emerge 2.0 x 12 Balloon catheter was inserted. Balloon catheter was advanced across lesion in the right coronary, mid. PTCA balloon infla kiki at 6 atms for 7 secs. PTCA balloon inflated at 6 atms for 6 secs. PTCA balloon inflated at 6 atms for 8 secs. PTCA balloon inflated at 7 atms for 12 secs. PTCA balloon inflated at 6 atms for 9 secs. PTCA balloon inflated at 6 atms for 8 secs. Angiogram performed post balloon dilatation. PTCA balloo n inflated at 6 atms for 6 secs. PTCA balloon inflated at 6 atms for 6 secs. PTCA balloon inflated at 6 atms for 7 secs. Synergy 2.25 x 16 Drug Eluting stent was inserted. Angiogram performed pre stent deployment. Drug Eluting stent was removed intact, failed to cross lesion Emerge 2.5 x 12 Balloon cat heter was inserted. Balloon catheter was advanced across lesion in the right coronary, mid. PTCA balloon inflated at 6 atms for 8 secs. PTCA balloon inflated at 6 atms for 7 secs. PTCA bal loon inflated at 7 atms for 9 secs. PTCA balloon inflated at 6 atms for 6 secs. Synergy 2.25 x 16 Damian g Eluting stent was reinserted Runthrough Guide wire was inserted as a marbin wire Synergy 2.25 x 16 D rug Eluting stent was inserted. Contrast was injected through the sheath and the Right Iliac and Femo ral artery were assessed for possible closure device. The arterial sheath was pulled and manual comp ression applied until hemostasis is achieved. CORONARY ANGIOGRAPHY DOMINANCE: Right Dominant LEFT HEART ASSESSMENT Left Ventricular Ejection Fraction: by LV Gram 45 % Depressed Left Ventricular systolic function LVEDP: 20 mmHg Elevated Left Ventricular End Diastolic Pressure Inferior Apical Hypokinesis - Severe LEFT MAIN: 40 distal % Stenosis LEFT ANTERIOR DESCENDING ARTERY: PROX LAD: Previously placed stent has an instent 60 % restenosis MID LAD: Mild luminal irregularities less than 30% CIRCUMFLEX ARTERY: MID CIRC: Previously placed stent has an instent 70 % restenosis RIGHT CORONARY ARTERY: MID RCA: 85 % Stenosis, Moderate calcification DISTAL RCA: Moderate luminal irregularities up to 50% RT PDA: Mid - Mild luminal irregularities less than 30% ACUTE MARGINAL: 85 ostial % Stenosis GRAFTS: LUCAS graft to the LAD is patent Saphenous Vein graft to the 1st Diagonal is patent Saphenous Vein graft to the RCA is patent Saphenous Vein graft to the 3rd OM is patent INTERVENTION INFORMATION LESION SITE: RCA (Mid) Lesion Complexity: High/C, lesion at bifurcation: No, thrombus present: No, lesion length: 45 mm, cul prit lesion: Yes Pre Stenosis: 85 % Pre intervention [place] flow: 3 PROCEDURE: Balloon Angioplasty Post Stenosis: 50 % Post intervention [place] flow: 3 Lesion Devices: [employer] 6 Fr HSII SH 100cm Guide Catheter Matthews .014 BMW Pierron Straight 190cm Harpal Sci EMERGE MR 2.00x12 BALLOON Harpal Sci Synergy MR PILY 2.25x16 Harpal Sci EMERGE MR 2.50x12 BALLOON Terumo .014 Runthrough Extra Floppy 180cm straight COMPLICATIONS No Complications PROCEDURE MEDICATIONS Oxygen: 2 L/min via nasal cannula Heparin 6000 unit(s) IV 02/07/2019 08:03:54 Nitro 200 mcg IC 02/07/2019 08:11:45 Nitro 200 mcg IC 02/07/2019 08:11:45 IV Bolus: .9 NaCl 500 ml total 02/07/2019 08:04:31 IV Fluids: .9 NaCl decreased to 150 ml/hr 02/07/2019 08:35:27 SUMMARY OF HEMODYNAMIC DATA Time AIR REST ECG 07:20:05 AO 119/71 (92) SA 07:44:29 LV 139/-8, 17 07:59:31 LV 143/-9, 16 07:59:38 LVp 142/-10, 23 07:59:44 AOp 143/66 (94) 07:59:49 Signed By Talib Simpson MD On 02/07/2019 08:51:55 Talib Simpson MD
--- NOTE | 2019-02-07 09:10 | NURSING ---
In ICU 202 per bed from laborer filter plant, laboratory technology teacher RN in attendance
--- NOTE | 2019-02-07 09:33 | EKG12_ITS ---
Test Reason : AMEKG Blood Pressure : / mmHG Vent. Rate : 060 BPM Atrial Rate : 060 BPM P-R Int : 180 ms QRS Dur : 090 ms QT Int : 442 ms P-R-T Axes : 018 002 019 degrees QTc Int : 442 ms Normal sinus rhythm Inferior infarct , age undetermined Anterior infarct , age undetermined Abnormal ECG When compared with ECG of 07-FEB-2019 09:22, MANUAL COMPARISON REQUIRED, DATA IS UNCONFIRMED Confirmed by STEPHANY PULIDO, JANA ([id number]), telegraph editor SUZE FAULKNER ([id number]) on 02/15/2019 1:57:28 PM Referred By: STIVEN Confirmed By:HAYDE HAMMOND MD
[2019-02-07] MEDS: HYDROmorphone 0.5 MG/0.5 ML SYRINGE IV (09:53)
--- NOTE | 2019-02-07 11:08 | CRPHASE1_ITS ---
Patient Communication Former Patient:: Phase II PHII Cardiac Rehab Discussed with Patient:: Yes Guide to Cardiac Rehab Given to Patient:: Yes Cardiac Rehab Facility Choice List Given to Patient:: Yes Choice Program [facility] CR PHII:: Communication Given to CR, Refer to [facility] Choice Program Other:: Communication Given to CR, With permission faxed order and referral information [employer]:: Talib Simpson Phase II Cardiac Rehab:: Yes Sessions:: 36 sessions - 3 days/wk, 12 weeks - DAUGHTER AT BEDSIDE. PT EAGER TO START CR... PREVIOUS PATIENT Risk Factors/Lifestyle Smoking Status: Never smoker Hx Hypertension: Yes Hx Diabetes Mellitus Type 1: No Hx Diabetes Mellitus Type 2: No Hx Metabolic Disorders: Yes Hx Dyslipidemia: Yes Hx Obesity: No - BMI 27.2 Height: 5 ft 7 in Stress: Home/Family Risk Factor for Sedentary Lifestyle: Moderate Risk Past Cardiac Illness: Coronary Artery Disease, Previous PCI w/Stent, Coronary Artery Bypass Graft Laboratory Values: Cardiac Rehab Phase I Labs 5.2 % (4.2-6.3) 02/06/19 03:30 Triglycerides 163 mg/dL (-199) 02/06/19 03:30 Cholesterol 130 mg/dL (200) 02/06/19 03:30 61 mg/dL (0-130) 02/06/19 03:30 36 mg/dL (40-) L 02/06/19 03:30 Phase I Education Given On:: [place], Nutrition, Antiplatelet medication Issues Affecting Care:: None Knowledge of Condition:: Yes Learning Preferences: Verbal, Written - PATIENT IS UNCOMPLIANT WITH MEDICATIONS AND FOLLOW-UPS Hospital Course Presenting Symptoms:: UNSTABLE ANGINA Medical/Surgical History VT:: No Angina:: Yes - UNSTABLE CAD:: Yes Cardiomyopathy:: No Diabetes:: No Hypertension:: Yes Dyslipidemia:: Yes Arrhythmias:: No Cancer:: Yes - HX MULTIPLE MYELOMA CABG: Yes PTCA:: Yes - X2 Discharge/Home/Social Eval Discharge Disposition: Home Cardiac Rehabilitation Info Cardiac Rehabilitation Program Information: Cardiac Rehabilitation is important for patients like you who are recovering from a heart problem. Cardiac rehabilitation programs are recognized as integral to the continued care of the patient with coronary heart disease. The cardiac rehabilitation program is designed to optimize a patient's physical, psychological, and social functioning. Health plant health care technician work in cardiac rehabilitation programs and assist you with getting the treatm ents you need to get stronger and healthier - like exercise, healthy eating habits, and medications. Cardiac rehabilitation has been show to help people with heart problems live longer and have better life enjoyment than people who do not go to cardiac rehabilitation. Please contact the Cardiac Rehabilitation Program at [facility] at in two weeks if you have not heard from them.
[2019-02-07] MEDS: Carvedilol 6.25 MG Tablet PO (11:11)
--- NOTE | 2019-02-07 11:12 | CRPH1.INSTRU ---
General Education CAD and cardiac anatomy and function:: Patient communicates acknowledgment, Family communicates acknowledgment Explanation of diagnoses and procedures:: Patient communicates acknowledgment, Family communicates acknowledgment Sign/Symptoms of IL:: Patient communicates acknowledgment, Family communicates acknowledgment Antiplatelet therapy: Patient communicates acknowledgment, Family communicates acknowledgment Proper use of NTG-SL: Not instructed Emergency procedures and activation of EMS: Patient communicates acknowledgment, Family communicates acknowledgment Compliance of all prescribed medications: Patient communicates acknowledgment, Family communicates acknowledgment Smoking Recommendations Include:: Previous smoker; encourage continued cessation Nicotine/Smoking Response Code:: Patient communicates acknowledgment Dyslipidemia Patient Dyslipidemia Risk Factors Are:: Total Cholesterol, Triglycerides, HDL, LDL Recommendations Include:: Lipid profile provided, Reviewed NCEP/ATP guidelines, Therapeutic Lifestyle Change dietary guidelines Dyslipidemia Response Code:: Patient communicates acknowledgment, Family communicates acknowledgment Overweight/Obesity Patient Overweight/Obesity Risk Factors Are:: Overweight = 26-29 Recommendations Include:: Weight loss of 5-10%, Reduced calorie diet, Exercise 5-7 times/week Overweight/Obesity:: Patient communicates acknowledgment Hypertension Recommendations Include:: Maintain BP <130/85, DASH dietary guidelines, Decrease/maintain normal body weight, Moderation of ETOH Hypertension:: Patient communicates acknowledgment, Family communicates acknowledgment Heart Disease Patient Heart Disease Risk Factors Are:: Previous cardiac event Recommendations Include:: Educated family members of their risk, Educated family members of importance of prevention of heart disease Heart Disease Response Code:: Patient communicates acknowledgment, Family communicates acknowledgment Diabetes Patient Diabetes Risk Factors Are:: No documented hx of diabetes Metabolic Syndrome Patient Metabolic Syndrome Risk Factors Are [3 of 5]:: High triglyceride >150, Hypertension, Low HDL <40 [male] or < 50 [female] Recommendations Include:: Reinforce compliance to risk factor modifications, Encouraged follow-up with Primary Care Physician Metabolic Syndrome Response Code:: Patient communicates acknowledgment, Family communicates acknowledgment Sedentary Patient Sedentary Risk Factors Are:: Lack of regular exercise Recommendations Include:: Aerobic exercise 5-7 times/week for 20-30 minutes continuously, Benefits of regular exercise, Discussed home walking program, Monitored Outpatient Cardiac Rehab Sedentary Response Code:: Patient communicates acknowledgment, Family communicates acknowledgment Stress Recommendations Include:: Identification of stressors, and assessment of coping skills, Stress management techniques Stress Response Code:: Patient communicates acknowledgment, Family communicates acknowledgment
[2019-02-07] MEDS: 0.9% Normal Saline 1,000 ML 150 ML IV (12:55)
--- NOTE | 2019-02-07 14:35 | CASEMGMT ---
RN CM Assessment Presentation: presented with chest pain. PTCA intervention 02/07/19. To ICU post procedure Intro role of CM and purpose of RN CM assessment to patient in room. Pt is awake, alert and able to participate in assessment.. Demographics, PCP and Pharmacy verified. Pt states he is independent, no DME and does not anticipate any discharge needs. PCP: Dr. Tello Specialists: Dr. Simpson Preferred Pharmacy: Pt states he prefers [facility] pharmacy in [place]. Insurance: [facility] Prescription Benefit: yes. Anticipate pt will return home on Plavix LNOK: SonJose A Living Arrangements: Lives independently at home. Denies any care needs. Transportation: Drives DME: none HHC: none Patient DC goals: Home on discharge DC PLAN: Home. No care needs identified. Checo MCKEEN RN ACM
--- NOTE | 2019-02-07 16:20 | PCM.PROGNOTE ---
Subjective: Patient was seen and examined today, he underwent coronary angiogram today which showed occlusive disease in the mid right coronary artery, and the patient had a balloon angioplasty-a stent was unable be placed. Patient has no complaints of any chest pain or shortness of breath at the time my examination this afternoon. Nursing mentioned to me that they thought he might be depressed, I did not directly ask him about depression but I asked him if he had any other medical issues that he would want to discuss and he said no. - Physical Exam General: Alert, Oriented x3, Cooperative HEENT: Atraumatic, PERRLA, EOMI, Normocephalic Oral: Moist Mucosa Neck: Supple, No Nuchal Rigidity, Trachea Midline, Thyroid Normal Size and Texture Lungs: Clear to auscultation, Normal air movement, No rhonchi, No wheeze, No rales Cardiovascular: Regular rate, Regular Rhythm, Normal S1, Normal S2, No murmurs, PMI Normal, No rub noted, No Gallop Abdomen: Bowel Sounds Present, Soft, Non Tender, Non-Distended, No hernias noted Extremities: No edema, Capillary Refill Less than 3 Seconds Skin: No rashes, No breakdown Musculoskeletal: No Tenderness to Palpation of Joints or Extremities Neurological: Cranial nerves II-XII grossly intact, Neuro grossly intact, Sensory exam intact to light touch and pain, Coordination normal Psych/Mental Status: Normal Affect, Appropriate, Alert and oriented to time, place, person, mood and affect Vital Signs Temp Pulse Resp BP Pulse Ox 98.6 F 49 L 14 123/66 H 95 02/07/19 12:00 02/07/19 14:00 02/07/19 14:00 02/07/19 14:00 02/07/19 14:00 Oxygen Delivery Method Room Air Weight: 78.8 kg Body Mass Index (BMI) 27.6 Finger Stick Blood Glucose 106 Intake and Output for Last 24 Hours 02/05/19 02/06/19 02/07/19 23:59 23:59 23:59 Intake Total 3142 / 3142 1288 / 1288 Output Total 300 / 300 Balance 3142 / 3142 988 / 988 Laboratory Tests Past 24 Hrs 02/07/19 02/07/19 02/07/19 05:15 05:15 05:15 WBC 5.4 RBC 4.95 Hgb 15.0 Hct 42.7 MCV 86.3 MCH 30.3 MCHC 35.1 RDW 14.5 RDW Differential 45.1 H Plt Count 162 MPV 9.5 Immature Gran % (Auto) 0.000 Neut % (Auto) 45.0 L Lymph % (Auto) 34.5 [place] % (Auto) 10.0 Eos % (Auto) 9.0 H Baso % (Auto) 1.5 H Absolute Neuts (auto) 2.4 Absolute Lymphs (auto) 1.87 Total Counted Not Reportable PT 14.0 INR 1.1 APTT 30.3 Activated Clotting Time Sodium 143 Potassium 3.3 L Chloride 113 H Carbon Dioxide 23.0 Anion Gap 7 BUN 11 Creatinine 0.81 Estim Creat Clear Calc 80.47 Est GFR (MDRD) Af Amer 121 Est GFR (MDRD) Non-Af 100 BUN/Creatinine Ratio 13.6 Glucose 89 Calcium 7.7 L Urine Color Urine Clarity Urine pH Ur Specific [place] Urine Protein Urine Glucose (UA) Urine Ketones Urine Occult Blood Urine Nitrite Urine Bilirubin Urine Urobilinogen Ur Leukocyte Esterase 02/07/19 02/07/19 08:31 Unknown WBC RBC Hgb Hct MCV MCH MCHC RDW RDW Differential Plt Count MPV Immature Gran % (Auto) Neut % (Auto) Lymph % (Auto) [place] % (Auto) Eos % (Auto) Baso % (Auto) Absolute Neuts (auto) Absolute Lymphs (auto) Total Counted PT INR APTT Activated Clotting Time 175 H Sodium Potassium Chloride Carbon Dioxide Anion Gap BUN Creatinine Estim Creat Clear Calc Est GFR (MDRD) Af Amer Est GFR (MDRD) Non-Af BUN/Creatinine Ratio Glucose Calcium Urine Color Yellow Urine Clarity Clear Urine pH 6.0 Ur Specific [place] 1.020 Urine Protein Negative Urine Glucose (UA) Normal Urine Ketones 5 H Urine Occult Blood Negative Urine Nitrite Negative Urine Bilirubin Negative Urine Urobilinogen Normal Ur Leukocyte Esterase 25 H Medical Necessity - Tobacco Use Smoking Status: Never smoker Assessment/Plan All Active Problems (Last Updated 02/07/19 @ 16:05 by Joanna Worthy) Chest pain (Acute) #1 unstable angina-patient underwent angioplasty this morning, his grafts are currently open #2 occlusive coronary artery disease-patient will need to stay on medications and be compliant-I talked with him about this and he assured me that he would #3 coronary artery disease #4 noncompliance with medical regimen #5 multiple myeloma #6 nonocclusive coronary artery disease-medical treatment is indicated #7 multiple myeloma Code Visit Inpatient E&M: 44496 Subs Hosp L2
[2019-02-07] MEDS: 0.9% NaCl Peripheral Flush Adult/Peds IV (17:24)
[2019-02-07] MEDS: HYDROcodone Bitartrate/Apap 5/325 Tablet PO (20:09)
[2019-02-07] MEDS: Hydrocortisone 2.5% Crm 1 APPLIC TOPICAL (22:16)
[2019-02-07] MEDS: Atorvastatin Calcium 40 MG Tablet PO (22:17)
[2019-02-08] VITALS (12 sets, daily range): BP systolic 104–160; BP diastolic 45–95; PULSE 53–68; RESP 15–24; TEMP 36.7–37; O2SAT 93–97
[2019-02-08 04:23] LABS: Hematocrit 41.8 % (40-54); Hemoglobin 14.8 g/dl (13.0-16.5); Mean Corp Hgb Conc 35.4 g/gl (32-36); Mean Corpuscular Hgb 30.1 pg (27.0-32.0); Mean Corpuscular Volume 85.1 fL (80-94); Mean Platelet Vol. 9.4 fl (6.2-12.0); Platelet Count 156 K/mm3 (150-450); RBC Distribution Width CV 14.6 % (11.6-14.6); Red Blood Count 4.91 M/mm3 (4.6-6.2); White Blood Count 5.5 K/mm3 (4.4-11.0)
[2019-02-08 04:25] LABS: Scan Indicated on CBC? Y/N NO
[2019-02-08 04:34] LABS: Anion Gap 6 (5-15); BUN 8 mg/dL (7-18); BUN/Creat Ratio 10.8 RATIO (10-20); Chloride 114 mmol/L (98-107); Creatinine, Serum 0.74 mg/dL (0.70-1.30); EST Glomerular Filtration Rate 111 mL/min (>60); Est Glom Filt Rate - Afr Amer 134 mL/min (>60); Estimated Creatinine Clearance 65.18 ml/min; Glucose 95 mg/dL (74-106); Potassium 3.5 mmol/L (3.5-5.1); Sodium Level 143 mmol/L (136-145)
[2019-02-08] MEDS: Gabapentin 600 MG Tablet PO (06:05)
--- NOTE | 2019-02-08 07:44 | DCINST_ITS ---
- Discharge Diagnoses Current Active Problems: Current Active and Chronic Problems (Last Updated 02/07/19 @ 16:05 by Joanna Worthy) Atherosclerotic heart disease of [place] coronary artery without angina pectoris (Chronic) Elevated Left Ventricular End Diastolic Pressure LVEF: by LV gram 45 % Segmented LV systolic dysfunction- Severe Triple vessel CAD of the LM, LAD, LCX and RCA Widely patent LUCAS to LAD; LAD is very small Patent SVG to OM#3 Patent SVG to DIAG; Patent SVG to acute marginal of RCA with retrograde flow impeded by ostial 85% acute marginal. Successful PCI with PTCA to the mid RCA with a 2.0 x 12 and 2.5 x 12 Emerge balloon. Despite multiple balloon inflations and double wire technique with stiffer run through wire, we were unable to cross lesion with stent. Pt had identical chest pain symptoms with balloon inflations. [place] III flow at conclusion of procedure and with adequate flow vis a vis SVG to acute marginal, as well as concerns for IV dye load given h/o multiple myeloma, procedure halted. 02/07/2019 per JIE @ [facility] 02/24/[address] Simpson: Mcguffey Monorail 2.5X8mm from proximal to mid CX; BMS 2.5 X 16 mm placed from mid to distal left posterior atrioventricular artery; 3 .0 X 12 mm to proximal to mid CX Stented coronary artery (Chronic 02/07/19) Elevated Left Ventricular End Diastolic Pressure LVEF: by LV gram 45 % Segmented LV systolic dysfunction- Severe Triple vessel CAD of the LM, LAD, LCX and RCA Widely patent LUCAS to LAD; LAD is very small Patent SVG to OM#3 Patent SVG to DIAG; Patent SVG to acute marginal of RCA with retrograde flow impeded by ostial 85% acute marginal. Successful PCI with PTCA to the mid RCA with a 2.0 x 12 and 2.5 x 12 Emerge balloon. Despite multiple balloon inflat ions and double wire technique with stiffer run through wire, we were unable to cross lesion with stent. Pt had identical chest pain symptoms with balloon inflations. [place] III flow at conclusion of procedure and with adequate flow vis a vis SVG to acute marginal, as well as concerns for IV dye load given h/o multiple myeloma, procedure halted. 02/07/2019 per JIE @ [facility] 02/24/[address] Simpson: [place]guf[place] Monorail 2.5X8mm from proximal to mid CX; BMS 2.5 X 16 mm placed from mid to distal left posterior atrioventricular artery; 3 .0 X 12 mm to proximal to mid CX Multiple myeloma (Chronic) You will use the following diet at home:: No restrictions Your food should be the consistency of: Regular Your liquids should be the consistency of: Regular/Thin Discharge Activity: Return to Normal Activity Weight Bearing Status: Full weight bearing Allergies/Adverse Reactions: Allergies morphine Adverse Reaction (Verified 02/05/19 21:16) Other Medications to take at Discharge Gabapentin [Neurontin] 600 mg PO TID 02/21/14 Hydrocodone Bitart/Apap 5-325 [[place] 5/325] 1 - 2 tablet PO Q6H PRN PRN 02/21/14 Lenalidomide [Revlimid] 5 mg PO DAILY 06/12/15 Aspirin E.C. [Ecotrin] 81 mg PO DAILY@0800 tab 02/08/19 Atorvastatin Calcium [Lipitor] 40 mg PO QHS #30 tab 02/08/19 Carvedilol [Coreg (Beta Wen)] 12.5 mg PO BID #120 tab 02/08/19 Clopidogrel Bisulfate [Plavix] 75 mg PO DAILY #30 tab 02/08/19 Lisinopril 5 mg PO DAILY #30 tab 02/08/19 Nitroglycerin 0.4 mg SL UD #20 tab.subl 02/08/19 The following prescriptions were given: Carvedilol [Coreg (Beta Wen)] 12.5 mg PO BID #120 tab Transmission Status: Received by [facility] Atorvastatin Calcium [Lipitor] 40 mg PO QHS #30 tab Transmission Status: Received by [facility] Lisinopril 5 mg PO DAILY #30 tab Transmission Status: Received by [facility] Nitroglycerin 0.4 mg SL UD #20 tab.subl Transmission Status: Received by [facility] Clopidogrel Bisulfate [Plavix] 75 mg PO DAILY #30 tab Transmission Status: Received by [facility] Orders to be completed after discharge: Phase II, Outpatient Cardiac Rehab Location: None Selected Primary Care Physician: Andrea Tello MD [Primary Care Provider] - Please follow up with your Primary Care Physician in: in 2-3 weeks Test Results: Test results from this visit will be discussed in further detail at your follow- up appointment, if applicable. Please Follow Up With: Talib Simpson MD When: next week
[2019-02-08] MEDS: Carvedilol 6.25 MG Tablet PO (08:18)
[2019-02-08] MEDS: Aspirin E.C. 81 MG Tablet PO (08:18)
[2019-02-08] MEDS: Clopidogrel Bisulfate 75 MG Tablet PO (08:18)
--- NOTE | 2019-02-08 09:13 | PN.CARD_ITS ---
Subjectve: Patient doing very well this morning, and in fact feels much better. No chest pain overnight. Telemetry normal sinus rhythm with rare PVCs. EKG shows normal sinus rhythm with old inferior and anterior wall myocardial infarction, no acute changes. Hemoglobin and creatinine are within nominal limits. Right groin is clean/dry/intact without evidence of thrills, bruits or hematoma. Objective: Vital Signs Temp Pulse Resp BP Pulse Ox 98.6 F 58 L 19 H 160/75 H 95 02/08/19 08:00 02/08/19 08:00 02/08/19 08:00 02/08/19 08:00 02/08/19 08:00 Oxygen Delivery Method Room Air Weight: 176 lb 5.917 oz Body Mass Index (BMI) 27.6 Finger Stick Blood Glucose 106 Intake and Output for Last 24 Hours 02/06/19 02/07/19 02/08/19 23:59 23:59 23:59 Intake Total 3142 / 3142 2468 / 2468 0 / 0 Output Total 925 / 925 0 / 0 Balance 3142 / 3142 1543 / 1543 0 / 0 General: Awake, Alert, Oriented x 3 HEENT: PERRL, EOMI, Sclera Non Icteric Neck: Supple, Good ROM, No Lymph Node Enlargement Lungs: Clear to auscultation Cardiovascular: Regular Rhythm, Normal S1, Normal S2, No Murmurs, No Rubs, No Gallops Vascular: No Carotid Bruits, Normal Femoral Pulses, Normal Radial Pulses, Normal Dorsalis Pedal Pulse, Normal Posterior Tibial Pulses Abdomen: Bowel Sounds Present, Soft, Non Tender, No HSM, No Organomegaly Extremities: No Cyanosis, No Clubbing, No edema Neurological: No Focal Motor or Sensory Deficit 02/08/19 04:05: WBC 5.5, RBC 4.91, Hgb 14.8, Hct 41.8, MCV 85.1, MCH 30.1, MCHC 35.4, RDW 14.6, RDW Differential 44.0 H, Plt Count 156, MPV 9.4 02/08/19 04:05: Sodium 143, Potassium 3.5, Chloride 114 H, Carbon Dioxide 23.0, Anion Gap 6, BUN 8, Creatinine 0.74, Est GFR (MDRD) Af Amer 134, Est GFR (MDRD) Non-Af 111, BUN/Creatinine Ratio 10.8, Glucose 95, Calcium 8.0 L Rhythm: EKG: ECHO: Stress Test: Cardiac Cath: PCI: CT Surgery: Holter monitor: EPS: PPM: CXR: Chest CT Scan: Medical Necessity - Tobacco Use Smoking Status: Never smoker Assessment/Plan 1. Coronary artery disease: The patient presents with recurrent signs and symptoms of coronary occlusive disease consistent with previous angina, as evidenced by a noninvasive non-walking stress test with evidence of anterior apical infarct with aracelis-infarct ischemia. I recommended the patient undergo a repeat left heart catheterization and graft angiography. This was performed yesterday, 02/07/2019 which demonstrated severe three-vessel coronary disease, widely patent LUCAS to the LAD, widely patent saphenous vein graft to the diagonal, widely patent saphenous vein graft to the distal circumflex, and widely patent saphenous vein graft to the acute marginal branch. The patient had severe [place] proximal and mid right coronary artery stenosis, and the retrograde leg of the acute marginal branch appeared to have an ostial lesion in it. Because of this an attempt was made at balloon angioplasty only of his proximal and mid right coronary artery with a fairly decent result. Due to the small nature of the vessel, and its calcification, we are unable to place any stents. The patient however did very well overnight, had no further chest pain and effect feels much better. At this point I would recommend continuing the patient on baby aspirin, Plavix for life given his multivessel coronary disease and peripheral vascular disease. I would not make any further attempts at angioplasty of his RCA without rotablation consideration, and that may even be too risky given the small caliber nature of the vessel. In addition we will start him on his Coreg 6.25 mill grams p.o. twice daily. Once he is tolerating this, we will consider an Cozaar 25 mg a day. 2. Hyperlipidemia: His LDL is 61, and HDL is 36. The patient denied any complaints of myalgias with previous statin therapy. Resume Lipitor, and repeat lipid profile in 6 weeks time. 3. Patient will follow-up with Dr. Simpson going forward. I explained to him the importance of following up from cardiology standpoint in order to attempt graft preservation as long as possible. The patient voiced understanding and agrees to comply. 4. Thank you very much for the opportunity to precipitate in the cardiac care of your patient. Patient may be discharged home and follow-up with Dr. Simpson going forward. Code Visit Inpatient E&M: 37705 Subs Hosp L2
--- NOTE | 2019-02-08 09:33 | EKG12_ITS ---
Test Reason : Blood Pressure : / mmHG Vent. Rate : 055 BPM Atrial Rate : 055 BPM P-R Int : 180 ms QRS Dur : 098 ms QT Int : 480 ms P-R-T Axes : 018 -03 047 degrees QTc Int : 459 ms Sinus bradycardia Inferior infarct , age undetermined Anteroseptal infarct , age undetermined Abnormal ECG When compared with ECG of 07-FEB-2019 05:32, MANUAL COMPARISON REQUIRED, DATA IS UNCONFIRMED Confirmed by STEPHANY PULIDO, JANA ([id number]), fan mail editor SUZE FAULKNER ([id number]) on 02/15/2019 1:58:34 PM Referred By: Confirmed By:HAYDE HAMMOND MD
--- NOTE | 2019-02-10 09:13 | PCM.DC.SUM ---
Discharge Date and Diagnosis Date of Admission: 02/05/19 Date of Discharge: 02/08/19 - Primary Discharge Diagnosis #1 unstable angina #2 occlusive coronary artery disease #3 nonocclusive coronary artery disease #4 noncompliance with medical regimen #5 multiple myeloma #6 multiple myeloma #7 ischemic cardiomyopathy with EF 45% - Secondary Discharge Diagnosis Chronic Problems (Last Updated 02/07/19 @ 16:05 by Joanna Worthy) Atherosclerotic heart disease of [place] coronary artery without angina pectoris (Chronic) Elevated Left Ventricular End Diastolic Pressure LVEF: by LV gram 45 % Segmented LV systolic dysfunction- Severe Triple vessel CAD of the LM, LAD, LCX and RCA Widely patent LUCAS to LAD; LAD is very small Patent SVG to OM#3 Patent SVG to DIAG; Patent SVG to acute marginal of RCA with retrograde flow impeded by ostial 85% acute marginal. Successful PCI with PTCA to the mid RCA with a 2.0 x 12 and 2.5 x 12 Emerge balloon. Despite multiple balloon inflations and double wire technique with stiffer run through wire, we were unable to cross lesion with stent. Pt had identical chest pain symptoms with balloon inflations. [place] III flow at conclusion of procedure and with adequate flow vis a vis SVG to acute marginal, as well as concerns for IV dye load given h/o multiple myeloma, procedure halted. 02/07/2019 per JIE @ [facility] 02/24/[address] Simpson: [place] Mon[place] 2.5X8mm from proximal to mid CX; BMS 2.5 X 16 mm placed from mid to distal left posterior atrioventricular artery; 3 .0 X 12 mm to proximal to mid CX Stented coronary artery (Chronic 02/07/19) Elevated Left Ventricular End Diastolic Pressure LVEF: by LV gram 45 % Segmented LV systolic dysfunction- Severe Triple vessel CAD of the LM, LAD, LCX and RCA Widely patent LUCAS to LAD; LAD is very small Patent SVG to OM#3 Patent SVG to DIAG; Patent SVG to acute marginal of RCA with retrograde flow impeded by ostial 85% acute marginal. Successful PCI with PTCA to the mid RCA with a 2.0 x 12 and 2.5 x 12 Emerge balloon. Despite multiple balloon inflations and double wire technique with stiffer run through wire, we were unable to cross lesion with stent. Pt had identical chest pain symptoms with balloon inflations. [place] III flow at conclusion of procedure and with adequate flow vis a vis SVG to acute marginal, as well as concerns for IV dye load given h/o multiple myeloma, procedure halted. 02/07/2019 per JIE @ [facility] 02/24/[address] Simpson: [place] 2.5X8mm from proximal to mid CX; BMS 2.5 X 16 mm placed from mid to distal left posterior atrioventricular artery; 3 .0 X 12 mm to proximal to mid CX Multiple myeloma (Chronic) Hypertension (Chronic) Hospital Course and Treatment Operations: None Procedures: Cardiac catheterization - With angioplasty to right coronary artery Summary of Care Provided: The patient is a 68 year old M who was seen in the emergency room at [facility] with chief complaint of chest pain which was intermittent, work-up in the emergency room revealed no ischemic changes on his EKG, potassium was 3.3, troponin was unremarkable, chest x-ray showed no acute process. Patient has had a history of coronary artery bypass and he did not follow-up with cardiology as directed and was taking no medications at home. Patient was admitted to PCU, enzymes were cycled and these remained negative, patient was seen in consultation by cardiology who recommended repeat cardiac catheterization, cardiac catheterization was carried out and showed occlusive coronary disease and right coronary artery, this area was angioplastied but a stent was unable be placed. Patient also had triple-vessel disease with an EF of 45%. On 02/08/2019, patient was seen and examined: On examination he appeared in good health and spirits. Vital signs as documented. Skin warm and dry and without overt rashes. Neck without JVD. Lungs clear. Heart exam notable for regular rhythm, normal sounds and absence of murmurs, rubs or gallops. Abdomen unremarkable and without evidence of organomegaly, masses, or abdominal aortic enlargement. Extremities nonedematous. Neuro: Cranial nerves II through XII are grossly intact, no focal motor deficits were noted, sensation to light touch and pinprick intact. Psych: Patient is alert and oriented x3, he does not appear anxious or depressed On 02/08/2019, patient was seen and examined in follow-up in stable condition for discharge home. - Physical Exam Vital Signs Temp Pulse Resp BP Pulse Ox 98.6 F 65 18 135/85 H 95 02/08/19 09:10 02/08/19 09:10 02/08/19 09:10 02/08/19 09:10 02/08/19 09:10 Oxygen Delivery Method Room Air Weight: 80 kg Body Mass Index (BMI) 27.6 Finger Stick Blood Glucose 106 Intake and Output for Last 24 Hours 02/08/19 02/09/19 02/10/19 23:59 23:59 23:59 Intake Total 0 / 0 Output Total 0 / 0 Balance 0 / 0 Discharge Activity: Return to Normal Activity Weight Bearing Status: Full weight bearing Home Medications: Medications to take at Discharge Gabapentin [Neurontin] 600 mg PO TID 02/21/14 Hydrocodone Bitart/Apap 5-325 [Pease 5/325] 1 - 2 tablet PO Q6H PRN PRN 02/21/14 Lenalidomide [Revlimid] 5 mg PO DAILY 06/12/15 Aspirin E.C. [Ecotrin] 81 mg PO DAILY@0800 tab 02/08/19 Atorvastatin Calcium [Lipitor] 40 mg PO QHS #30 tab 02/08/19 Carvedilol [Coreg (Beta Wen)] 12.5 mg PO BID #120 tab 02/08/19 Clopidogrel Bisulfate [Plavix] 75 mg PO DAILY #30 tab 02/08/19 Lisinopril 5 mg PO DAILY #30 tab 02/08/19 Nitroglycerin 0.4 mg SL UD #20 tab.subl 02/08/19 Following Prescrptions Were Given to Patient: Carvedilol [Coreg (Beta Wen)] 12.5 mg PO BID #120 tab Transmission Status: Received by [facility] Atorvastatin Calcium [Lipitor] 40 mg PO QHS #30 tab Transmission Status: Received by [facility] Lisinopril 5 mg PO DAILY #30 tab Transmission Status: Received by [facility] Nitroglycerin 0.4 mg SL UD #20 tab.subl Transmission Status: Received by [facility] Clopidogrel Bisulfate [Plavix] 75 mg PO DAILY #30 tab Transmission Status: Received by [facility] Other Amb Orders: Phase II, Outpatient Cardiac Rehab Location: None Selected Primary Care Physician: Andrea Tello MD [Primary Care Provider] - Please follow up with your Primary Care Physician in: in 2-3 weeks Please Follow Up With: Talib Simpson MD When: next week Disposition: Home Minutes spent on discharge:: 34 Patient Condition:: Stable Medical Necessity - Tobacco Use Smoking Status: Never smoker Meaningful Use Info Meaningful Use Diagnoses (Choose all that apply): None applicable Code Visit Inpatient E&M: 46494 Disch Hosp
== END 2019-02-08 10:20 | disposition home or self-care (01) | DRG 251 ==
LOC: ED 23:15 → PCU 23:21 → ICU 02-07 10:32
PROVIDERS: Internal Medicine Cardiovascular Disease; Admitting Provider Internal Medicine; Emergency Provider Emergency Medicine; Family Provider Family Medicine; PCP Family Medicine; Visit Provider Internal Medicine
DX: I25.110 Atherosclerotic heart disease of native coronary artery with unstable angina pectoris (principal); C90.00 Multiple myeloma not having achieved remission; T82.855A Stenosis of coronary artery stent, initial encounter; E87.6 Hypokalemia; Z95.1 Presence of aortocoronary bypass graft; Z95.5 Presence of coronary angioplasty implant and graft; Z91.19 Patient's noncompliance with other medical treatment and regimen; Z66 Do not resuscitate; E78.5 Hyperlipidemia, unspecified; I25.5 Ischemic cardiomyopathy; I10 Essential (primary) hypertension
CPT/HCPCS: 36415; 71045; 78452; 80048; 80061; 81002; 83036; 83735; 84484; 85025; 85027; 85347; 85379; 85610; 85730; 92920; 93005; 93017; 93306; 93459; 99285; A9500; J7030; Q9957; Q9967; A4216; C1725; C1769; C1887; C1894; C8929; J2405; J2785

== ENCOUNTER → 2019-02-19 | Outpatient (CLI) | payer MEDICARE, OTHER, SELFPAY ==
[2019-02-06 00:31] VITALS: BMI 27.6
--- NOTE | 2019-02-19 09:21 | CR.HP_ITS ---
CR - History & Physical - General Arrival date:: 02/19/19 Arrival time:: 09:21 Date of Referral:: 02/07/19 Date of CR Evaluation:: 02/19/19 Referring Physician: DR. DAMON SIMPSON Primary Diagnosis: PTCA, PCI W/CORONARY STENTING - History of Present Cardiac Event Onset Date: Enter Onset Date of cardiac illnesses in Comment field below PTCA or coronary stenting:: Yes - 02/07/2019 Type of Symptoms:: DISCOMFORT, SHORTNESS OF BREATH Interventions with present event:: LEFT HEART CATH, STRESS TEST. Were there any complications?: NONE - Medications Home Medications: Ambulatory Orders Medication Instructions Recorded Gabapentin [Neurontin] 600 mg PO TID 02/21/14 Hydrocodone Bitart/Apap 5-325 1 - 2 tablet PO Q6H PRN PRN 02/21/14 [[place] 5/325] Lenalidomide [Revlimid] 5 mg PO DAILY 06/12/15 Aspirin E.C. [Ecotrin] 81 mg PO DAILY@0800 tab 02/08/19 Atorvastatin Calcium [Lipitor] 40 mg PO QHS #30 tab 02/08/19 Carvedilol [Coreg (Beta Wen)] 12.5 mg PO BID #120 tab 02/08/19 Clopidogrel Bisulfate [Plavix] 75 mg PO DAILY #30 tab 02/08/19 Lisinopril 5 mg PO DAILY #30 tab 02/08/19 Nitroglycerin 0.4 mg SL UD #20 tab.subl 02/08/19 - Allergies Allergies/Adverse Reactions: Allergies morphine Adverse Reaction (Verified 02/05/19 21:16) Other - Sleep Disorder Evaluation Hx of Sleep Apnea: Yes Do you snore loudly (louder than talking or can be heard through closed doors)?: Yes Do you often feel tired/ fatigued/ sleepy during daytime?: No Has anyone observed you stop breathing during sleep?: No History of Hypertension (for STOP score): Yes - HAD A SLEEP STUDY, AND WORE CPAP, SENT IT BACK (NON-COMLIANT) STOP Results: Positive Advanced Directives - Advanced Directives Power of Chief Mate: Yes - BOTH OF HIS CHILDREN ARE POA FOR HEALTHCARE Living Will: Yes Advance Directives Information Provided: No Advance Directives on File: No DNR Order?:: No - MOLST See MOLST form: No Past Medical History - Past Medical Illness Medical History: Past Medical History (Last Updated 02/07/19 @ 16:05 by Joanna Worthy) Atherosclerotic heart disease of [place] coronary artery without angina pectoris (Chronic) I25.10 Elevated Left Ventricular End Diastolic Pressure LVEF: by LV gram 45 % Segmented LV systolic dysfunction- Severe Triple vessel CAD of the LM, LAD, LCX and RCA Widely patent LUCAS to LAD; LAD is very small Patent SVG to OM#3 Patent SVG to DIAG; Patent SVG to acute marginal of RCA with retrograde flow impeded by ostial 85% acute marginal. Successful PCI with PTCA to the mid RCA with a 2.0 x 12 and 2.5 x 12 Emerge balloon. Despite multiple balloon inflations and double wire technique with stiffer run through wire, we were unable to cross lesion with stent. Pt had identical chest pain symptoms with balloon inflations. [place] III flow at conclusion of procedure and with adequate flow vis a vis SVG to acute marginal, as well as concerns for IV dye load given h/o multiple myeloma, procedure halted. 02/07/2019 per JIE @ [facility] 02/24/[address] Simpson: [place] Mon[place]ail 2.5X8mm from proximal to mid CX; BMS 2.5 X 16 mm placed from mid to distal left posterior atrioventricular artery; 3 .0 X 12 mm to proximal to mid CX - Past Surgical History Surgical History: Past Surgical History (Last Updated 02/07/19 @ 15:55 by Joanna Worthy) Stented coronary artery (Chronic) Onset Date: 02/07/19 Z95.5 Elevated Left Ventricular End Diastolic Pressure LVEF: by LV gram 45 % Segmented LV systolic dysfunction- Severe Triple vessel CAD of the LM, LAD, LCX and RCA Widely patent LUCAS to LAD; LAD is very small Patent SVG to OM#3 Patent SVG to DIAG; Patent SVG to acute marginal of RCA with retrograde flow impeded by ostial 85% acute marginal. Successful PCI with PTCA to the mid RCA with a 2.0 x 12 and 2.5 x 12 Emerge balloon. Despite multiple balloon inflations and double wire technique with stiffer run through wire, we were unable to cross lesion with stent. Pt had identical chest pain symptoms with balloon inflations. [place] III flow at conclusion of procedure and with adequate flow vis a vis SVG to acute marginal, as well as concerns for IV dye load given h/o multiple myeloma, procedure halted. 02/07/2019 per JIE @ [facility] 02/24/[address] Simpson: [place] 2.5X8mm from proximal to mid CX; BMS 2.5 X 16 mm placed from mid to distal left posterior atrioventricular artery; 3 .0 X 12 mm to proximal to mid CX Surgical History: - - appendectomy, cardiac stent 2000 x1 Social History - Smoking History Smoking Status: Never smoker Hx Tobacco Use: No Hx Smoking Exposure: No - Alcohol Use Alcohol Usage: No - Substance Abuse Hx Substance Use: No - Occupation Occupation (List type of work in comments):: Retired - Hobbies, Recreation, Social Activities Hobbies: Exercise - [employer] AT HOME, Other - [employer], [employer], [employer] GOING ON ROAD TRIPS. Recreational Activities: I am able to engage in all my recreational activities Social Environment - Status Marital Status: - Current Living Arrangements Living Environment:: Alone - Children How many children do you have?: 2 Do any of your children live nearby?: Yes - [place] AND [place], [place] - Safety Do you feel safe in your surroundings?: Yes - HAVE [place] FAMILY KEEPS AN EYE ON ME. - Assistance Do you need any assistance at home?: NONE Review of Systems - Review of Systems Hints: Right click = Denies (Slash). Left click = Reports ([place]) Review of Present Symptoms: Reports: Shortness of Breath at Rest - INCREASED HEAT AND HUMIDITY LAST COUPLE OF DAYS HAVE NOTICED MORE SHORTNESS OF BREATH., Shortness of Breath with Exertion - WITH HEAT AND HUMIDITY, Dizziness /Lightheadedness - OCCASSIONAL, Fatigue - MORE TIRED THAN NORMAL, GOING TO TALK TO DR. SIMPSON ON MONDAY ABOUT SOME OF THE MEDICATIONS, Appetite - Normal, Sleep - Normal. Denies: Heart Arrhythmia/Irregularities, Appetite - Special Diet - Pain Is Patient Pain Free?: Yes Pain Location: none Pain Level: 0/10 Risk Factor Assessment - Chief Complaint Chief Complaint: PATIENT PRESENTS TO CARDIAC REHAB TODAY FOLLOWING RECENT ABNORMAL STRESS TEST AND LEFT HEART CATH RELATED TO CHEST DISCOMFORT AND SHORTNESS OF BREATH. - Vital Signs Temperature: 98.7 F Respiratory Rate: 16 Pulse Ox: 95 Blood Pressure: 135/85 Nailbeds:: NORMAL - Pulse Pulse Rate: 76 Pulse Rhythm: Regular - Hypertension How long have you been treated?: 2000 Blood Pressure Sitting - Right Arm: 135/85 - Diabetes Nutrition Referral for Diabetes: No - Obesity Height: 5 ft 7 in Weight:: 176 lb Weight in Pounds: 176.0 lbs Weight Source: Stated by Patient Body Mass Index (BMI): 27.6 Nutritional Referral for Obesity: No - Physical Inactivity Physical Inactivity: Reg Exercise 30 min/day - [employer] AT HOME HE USED ABOUT 30-45 MINUTES - Risk Stratification Risk Guidelines: Lowest Risk: Risk Factor for Smoking, Risk Factor for Diabetes, Risk Factor for Sedentary Lifestyle, Risk Factor for Depression, Moderate Risk: Risk Factor for Dyslipidemia, Risk Factor for Obesity, Risk Factor for Hypertension - For Smoking Smoking Risk Guidelines: Smoking Low Risk: None or quit greater than 6 months ago. Smoking Moderate Risk: Smoker or quit 6 months or less ago. Smoking High Risk: Smoker - For Dyslipidemia Dyslipidemia Risk Guidelines: Low Risk: Moderate Risk: High Risk: 15-25% fat 25.1-29% fat >/= 30% fat. <7% sat fat 7-9% sat fat >9% sat fat. <150 mg chol 150-299 mg chol >/= 300 mg chol. LDL <100 LDL 100-129 LDL >/= 130. Chol/HDL ratio <5.0 Chol/HDL ratio 5.0-6.0 Chol/HDL ratio >6.0. Triglycerides <100 Triglycerides 100- 149 Triglycerides >/= 150 - For Diabetes Mellitus Diabetes Risk Guidelines: Diabetes Low Risk: HgA1c <6.5% and/or FBG <120. Diabetes Moderate Risk: HgA1c 6.6-7.9% and/or FBG 120-180. Diabetes High Risk: HgA1c >/= 8% and/or FBG >180 - For Obesity/Overweight Obesity/Overweight Risk Guidelines: Obesity Low Risk: BMI <25.0. Obesity Moderate Risk: BMI 25-29.9. Obesity High Risk: BMI >/= 30.0 - For Hypertension Hypertension Risk Guidelines: Hypertension Low Risk: Systolic <120 and Diastolic <80. Hypertension Moderate Risk: Systolic 120-139 and Diastolic 80-89. Hypertension High Risk: Systolic >/= 140 and Diastolic >/= 90 - For Sedentary Lifestyle Sedentary Lifestyle Risk Guidelines: Sedentary Lifestyle Low Risk: >/= 1,500 kcal/week. Sedentary Lifestyle Moderate Risk: 700-1,499 kcal/week. Sedentary Lifestyle High Risk: < 700 kcal/week - For Depression Depression Risk Guidelines: Depression Low Risk: Not clinically depressed. Depression Moderate Risk: Mildly depressed. Depression High Risk: Clinically depressed Motivation - Motivation to Participate On a scale of 1 to 10, how prepared are you to commit to attending program?: 10 What do you see as barriers to successfully being able to complete the program?: NONE What do you see as the benefits of succesfully completing the program? In other words, what do you hope to get out of participating in the program?: LIVE LONGER, WANT TO BE AROUND FOR MY GRANDCHILDREN Are there issues you are dealing with that will interfere with completing the program?: NONE Do you have a spouse or signficant other, family or friends who will help support you to complete the program?: YES.
[2019-02-19 09:34] VITALS: BP 135/85; PULSE 76; RESP 16; TEMP 37.1; O2SAT 95; BMI 27.6
--- NOTE | 2019-02-19 10:42 | CR.ITP_ITS ---
General Information - General Information Admitting Diagnosis: PTCA PCI - Education/Goals Barriers to Learning: Hearing Impairment Individual Counseling: Initial Assessment: Abnormal Cholesterol Levels, High Blood Pressure, Overweight/Obesity Cardiac Rehabilitation Goals: 1. Maintain the individual as the primary focus of care. 2. To improve the patient's quality of life. 3. Identification of cardiac risk factors and provide cardiac risk factor management. 4. Enhance the psychosocial status of the patient. 5. Reconditioning enough to allow the patient to resume customary activities. 6. Control symptoms of cardiac disease Scale for measuring improvement of personal goals: Enter appropriate number in Comments. 2 = Unchanged. 3 = Slightly Better. 4 = Moderate Improvement. 5 = Met my Goal Personal Goals: Initial Assessment: Improve management of stress and emotions, Improve energy level, Participate in home exercise program, Improve muscle strength and endurance, Control risk factors (learn risk factor modification) Exercise - Initial Assessment - Visit Date of Eval: 02/19/19 Session #:: 0 - STARTING CR 02/25/2019 - Stages of Change Stages of Change:: Action - Physician Prescribed Exercise Modalities: Treadmill, Rower, NuStep Frequency (days/week): 3x/week for 12 weeks [36 sessions] Duration (Minutes):: 30-45 Intensity: 60-80% age predicted maximum heart rate reserve METs - Progression: 0.5-1.0 MET, RPE 11-14 WEEK: 2.5 - Hypertension Do any of the following apply?: Yes, Medication Resting Blood Pressure:: 134/84 - Intervention Home Exercise/Activity Goal:: Moderate Exercise 30 min/day x 5 days/wk - Education Goals:: Warm-up, RPE LORETO Scale, S/S, Safe Exercise, Self-Monitoring - Exercise Program Goals Exercise Program Goals: Aerobic Activity >30 min - PATIENT HAS HISTORY OF MEDICAL NON-COMPLIANCE Nutrition - Initial Assessment - Program Goals Nutrition Program Goals: LDL <70. Total Cholesterol <200. HDL >45. Triglycerides <150. HgbA1C <7%. BMI <25 - Visit Date of Assessment:: 02/19/19 - Stages of Change Stages of Change:: Action - Diabetes Diabetes:: No Insulin: No Non-Insulin Dependent?: No Do you monitor your blood sugar at home?: Yes - TWICE DAILY - Weight Management Height: 5 ft 7 in Weight:: 176 lb Body Fat %:: 27.6 - Intervention Referral to dietitian:: No Referral to Diabetic Clinic:: No Will attend diet classes:: No - PATIENT DECLINED EDUCATION DUE TO PRIOR CR PARTICIPATION. MAY REVIEW SOME. - Education Gave educational materials for:: Healthy eating Tobacco - Initial Assessment - Program Goals Tobacco Program Goals: Complete smoking cessation. Attend education classes. Improve Knowledge Test score - Stage of Change Stages of Change:: Action - Learning Barriers Learning Barriers: Hearing, Ready to Learn - Family Support Do you have family support?: Yes - Tobacco Use Tobacco Use: Non-smoker Do you use smokeless tobacco?: No - Intervention Smoking Cessation Referral:: No Individual Education/Counseling:: No Education Schedule Given:: Yes - Education Attended class for:: Treating Heart Disease, How The Heart Works, What it means to have Heart Disease, How Coronary Artery Disease is Diagnosed, Heart Procedures, What Heart Medications Do, Risk Factors & Modifications, Living an Active Life, Nutrition, Emotions & Heart Disease, Stress Management & Relaxation, Sleep Disorders & Heart Disease Psychosocial - Initial Assess - Target Goals Target Goals: Assess presence or absence of depression. Using a valid screening tool, maximizes coping skills. Positive support system - Stages of Change Stages of Change:: Action - Psychosocial Test Tool Used:: HANDS Depression Questionnaire - Intervention PS - Interventions: Yes Attend Stress Management Classes, Yes Uses Stress Management Skills, No Referral to Mental Health, No Referral to [facility] Case Management, No Referral to Physician - Education Gave educational materials for:: Coping techniques, Signs & symptoms of depression, Stress management, Relaxation techniques - Patient/Program Goal Preventative Medication(s):: Aspirin, Clopidogrel, Beta kandis, Statin/lipid - Assistive Devices Assistive Devices:: None Fall Risk Assessed:: Yes Patient Health Questionnaire Initial Assessment 1. Little interest or pleasure in doing things: Not at all 2. Feeling down, depressed, or hopeless: Not at all 3. Trouble falling or staying asleep, or sleeping too much: Several days 4. Feeling tired or having little energy: Nearly every day 5. Poor appetite or overeating: Not at all 6. Feeling bad about yourself -- or that you are a failure or have let yourself or your family down: Not at all 7. Trouble concentrating on things, such as reading the newspaper or watching television: Not at all 8. Moving or speaking so slowly that other people could have noticed. Or the opposite - being so fidgety or restless that you have been moving around a lot more than usual: Several days 9. Thoughts that you would be better off , or of hurting yourself in some way: Not at all Total Score: 5 IVAN-Q SV Test - Statements CAD is a disease of the arteries in the heart: False Examples of risk factors for heart disease: True Angina is chest pain or discomfort: True The benefits of resistance training include: I Don't Know Eating more meat and dairy products: I Don't Know Anti-platelet medications such as aspirin are important: True The only effective way to manage stress: False An exercise warm-up slowly increases heart rate: True Prepared, processed foods usually have high sodium: True Depression is common after a heart attack: True The statin medications lower cholesterol: I Don't Know To control blood pressure, lower the amount of sodium: True If someone gets chest discomfort during walking: False Transfats are partially hydrogenated vegetable oils: False Sleep apnea that is not treated increases the risk: False To control cholesterol, one should become a vegetarian: False Someone knows if he/she is exercising at the right level: True Diabetes cannot be prevented with exercise & health eating: False Stress is a large risk for heart attack: True A diet that can help lower blood pressure is rich in: True - Total Score Total Correct Responses: 16 Self-Efficacy Initial Assessment We would like to know how confident you are in doing certain activities. Please select your confidence level for:: Select your confidence level for the following using the scale 1-10 where 1 is not at all confident and 10 is totally confident. Your score is the average of all 6 responses. Fatigue: How confident are you that you can keep the fatigue caused by your disease from interfering with the things you want to do? Select Number: 10 Physical Discomfort or Pain: How confident are you that you can keep the physical discomfort or pain of your disease from interfering with the things you want to do? Select Number: 10 Emotional Distress: How confident are you that you can keep the emotional dist ress caused by your disease from interfering with the things you want to do? Select Number: 9 Other Symptoms or Health Problems: How confident are you that you can keep other symptoms or health problems from interfering with the things you want to do? Select Number: 10 Different Tasks and Activities: How confident are you that you can do the different tasks and activities needed to manage your health condition so as to reduce your need to see a doctor? Select Number: 10 Medication: How confident are you that you can do things other than just taking medication to reduce how much your illness affects your everyday life? Select Number: 10 Total Score:: 9 Nutrition Survey - Nutrition Survey Instructions Scoring Instructions: Scoring is as follows: Yes = 1 points. No = 0 point. Patient score that is >/=12 is considered to be at potential nutritional risk and could benefit from a referral to a registered dietitian. - Nutrition Survey Initial Have you lost >10 lbs over the past 2 months without trying?: Yes Are you following a special diet at home for diabetes, low fat, or low salt?: No Are you interested in meeting with a dietitian for help understanding your diet?: No Do you eat less than 3 meals a day?: No Do you eat fatty meats (davey, sausage, ribs, etc), fried foods, desserts, large amounts of salad dressings, margarine, butter, or cheese most days?: Yes Do you have food allergies? [Enter types in comment field]: No Do you eat in restaurants more than 3 times a week?: Yes Do you season food with salt, seasoning salt, or garlic salt?: Yes Do you used canned, boxed, frozen meals, or soups, seasoning packets?: Yes Total Score:: 5
[2019-02-19 10:49] VITALS: BP 134/84
== END | disposition home or self-care (01) ==
LOC: CR 08:54
PROVIDERS: Family Provider Family Medicine; PCP Family Medicine; Referring Provider Internal Medicine Cardiovascular Disease; Visit Provider Internal Medicine Cardiovascular Disease
DX: I25.10 Atherosclerotic heart disease of native coronary artery without angina pectoris (principal); Z95.5 Presence of coronary angioplasty implant and graft

== ENCOUNTER 2019-02-27 11:12 | Outpatient (RCR) | payer MEDICARE, OTHER, SELFPAY ==
[2019-02-19 09:34] VITALS: BMI 27.6
[2019-02-22 11:23] VITALS: BMI 27.8
== END 2019-02-27 23:59 ==
LOC: CR 11:12
PROVIDERS: Family Provider Family Medicine; PCP Family Medicine; Referring Provider Internal Medicine Cardiovascular Disease; Visit Provider Internal Medicine Cardiovascular Disease
DX: I25.10 Atherosclerotic heart disease of native coronary artery without angina pectoris (principal); Z95.5 Presence of coronary angioplasty implant and graft
CPT/HCPCS: 93798

== ENCOUNTER → 2019-03-13 | Outpatient (CLI) | payer MEDICARE, OTHER, SELFPAY ==
[2019-02-22 11:23] VITALS: BMI 27.8
[2019-03-13 12:07] LABS: AST(SGOT) 20 U/L (15-37); Alanine Aminotransfer ALT/SGPT 27 U/L (16-61); Alkaline Phosphatase 66 U/L (45-117); Bilirubin, Direct 0.29 mg/dL (0.00-0.30); Cholesterol 83 mg/dL (200); Globulin 3.4 g/dL (2.2-4.2); High Density Lipoprotein 39 mg/dL; Protein, Total 7.4 g/dL (6.4-8.2); Triglycerides 83 mg/dL; Very Low Density Lipoprotein 17 mg/dL (5-40)
== END | disposition home or self-care (01) ==
PROVIDERS: Family Provider Family Medicine; PCP Family Medicine; Referring Provider Physician Assistant Medical; Visit Provider Physician Assistant Medical
DX: I25.10 Atherosclerotic heart disease of native coronary artery without angina pectoris (principal)
CPT/HCPCS: 36415; 80061; 80076

== ENCOUNTER 2019-03-29 10:15 | Outpatient (RCR) | payer MEDICARE, OTHER, SELFPAY ==
[2019-02-22 11:23] VITALS: BMI 27.8
--- NOTE | 2019-03-20 12:02 | CR.ITP_ITS ---
Exercise - 30-day Assessment - Visit Date of Eval: 03/20/19 Session #:: 10 - Stages of Change Stages of Change:: Action - Physician Prescribed Exercise Modalities: Treadmill, Rower, Airdyne, NuStep Frequency (days/week): 3 Duration (Minutes):: 30-45 Intensity: 60-80% age predicted maximum heart rate reserve METs - Progression: 0.5-1.0 MET, RPE 11-14 WEEK: 3.0 Target Heart Rate:: 98-128 - Hypertension Resting Blood Pressure:: 140/70 Peak Exercise Blood Pressure:: 140/70 Medication Changes:: No - Intervention Home Exercise/Activity Goal:: Moderate Exercise 30 min/day x 5 days/wk - Education Goals:: Warm-up, RPE LORETO Scale, S/S, Safe Exercise, Self-Monitoring - Exercise Program Goals Exercise Program Goals: Aerobic Activity >30 min Nutrition - Initial Assessment - Program Goals Nutrition Program Goals: LDL <70. Total Cholesterol <200. HDL >45. Triglycerides <150. HgbA1C <7%. BMI <25 - Diabetes Do you monitor your blood sugar at home?: Yes - TWICE DAILY Nutrition - 30-Day Assessment - Program Goals Nutrition Program Goals: LDL <70. Total Cholesterol <200. HDL >45. Triglycerides <150. HgbA1C <7%. BMI <25 - Visit Date of Eval: 03/20/19 - Stages of Change Stages of Change:: Action - Lipids Has the patient seen the dietitian?: No - Diabetes Diabetes:: No Insulin: No Non-Insulin Dependent?: No - Weight Management Weight:: 177 lb - up from 173.5 - Intervention Referral to dietitian:: No Referral to Diabetic Clinic:: No Will attend diet classes:: Yes - Education Attended class for:: Healthy eating Tobacco - Initial Assessment - Program Goals Tobacco Program Goals: Complete smoking cessation. Attend education classes. Improve Knowledge Test score - Learning Barriers Learning Barriers: Hearing, Ready to Learn Tobacco - 30-Day Assessment - Program Goals Tobacco Program Goals: Complete smoking cessation. Attend education classes. Improve Knowledge Test score - Stage of Change Stages of Change:: Action - Learning Barriers Learning Barriers: Participates in education, Change in behavior - Family Support Do you have family support?: Yes - Tobacco Use Tobacco Use: Non-smoker Do you use smokeless tobacco?: No - Intervention Smoking Cessation Referral:: No Individual Education/Counseling:: No Education Schedule Given:: Yes - Education Attended class for:: Treating Heart Disease, How The Heart Works, What it means to have Heart Disease, How Coronary Artery Disease is Diagnosed, Heart Procedures, What Heart Medications Do, Risk Factors & Modifications, Living an Active Life, Nutrition, Emotions & Heart Disease, Stress Management & Relaxation, Sleep Disorders & Heart Disease Psychosocial - Initial Assess - Target Goals Target Goals: Assess presence or absence of depression. Using a valid screening tool, maximizes coping skills. Positive support system - Psychosocial Test Tool Used:: HANDS Depression Questionnaire - Assistive Devices Fall Risk Assessed:: Yes Psychosocial - 30-Day Assess - Target Goals Target Goals: Assess presence or absence of depression. Using a valid screening tool, maximizes coping skills. Positive support system - Stages of Change Stages of Change:: Action - Psychosocial Test Tool Used:: HANDS Depression Questionnaire - Intervention PS - Interventions: Yes Attend Stress Management Classes, Yes Uses Stress Management Skills, No Referral to Mental Health, No Referral to [facility] Case Management, No Referral to Physician - Education Attended classes for:: Coping techniques, Signs & symptoms of depression, Stress management, Relaxation techniques - Patient/Program Goal Preventative Medication(s):: Aspirin, IRASEMA inhibitor, Clopidogrel, Beta kandis, Statin/lipid - Assistive Devices Assistive Devices:: None Fall Risk Assessed:: Yes Patient Health Questionnaire 30-Day Re-eval Assessment 1. Little interest or pleasure in doing things: Not at all 2. Feeling down, depressed, or hopeless: Not at all 3. Trouble falling or staying asleep, or sleeping too much: Several days 4. Feeling tired or having little energy: More than half the days 5. Poor appetite or overeating: Not at all 6. Feeling bad about yourself -- or that you are a failure or have let yourself or your family down: Not at all 7. Trouble concentrating on things, such as reading the newspaper or watching television: Not at all 8. Moving or speaking so slowly that other people could have noticed. Or the opposite - being so fidgety or restless that you have been moving around a lot more than usual: Several days 9. Thoughts that you would be better off , or of hurting yourself in some way: Not at all How difficult have these problems made it for you to do your work, take care of things at home, or get along with other people?: Somewhat difficult Total Score: 4 Self-Efficacy 30-Day Re-eval Assessment We would like to know how confident you are in doing certain activities. Please select your confidence level for:: Select your confidence level for the following using the scale 1-10 where 1 is not at all confident and 10 is totally confident. Your score is the average of all 6 responses. Fatigue: How confident are you that you can keep the fatigue caused by your disease from interfering with the things you want to do? Select Number: 10 Physical Discomfort or Pain: How confident are you that you can keep the physical discomfort or pain of your disease from interfering with the things you want to do? Select Number: 10 Emotional Distress: How confident are you that you can keep the emotional distress caused by your disease from interfering with the things you want to do? Select Number: 10 Other Symptoms or Health Problems: How confident are you that you can keep other symptoms or health problems from interfering with the things you want to do? Select Number: 10 Different Tasks and Activities: How confident are you that you can do the different tasks and activities needed to manage your health condition so as to reduce your need to see a doctor? Select Number: 10 Medication: How confident are you that you can do things other than just taking medication to reduce how much your illness affects your everyday life? Select Number: 10 Total Score:: 10
[2019-03-20 12:06] VITALS: BP 140/70
== END 2019-03-30 23:59 ==
LOC: CR 10:15
PROVIDERS: Family Provider Family Medicine; PCP Family Medicine; Referring Provider Internal Medicine Cardiovascular Disease; Visit Provider Internal Medicine Cardiovascular Disease
DX: I25.10 Atherosclerotic heart disease of native coronary artery without angina pectoris (principal); Z95.5 Presence of coronary angioplasty implant and graft
CPT/HCPCS: 93798

== ENCOUNTER 2019-04-26 10:15 | Outpatient (RCR) | payer MEDICARE, OTHER, SELFPAY ==
[2019-02-22 11:23] VITALS: BMI 27.8
[2019-03-31 01:03] VITALS: BP 140/70
--- NOTE | 2019-04-19 08:02 | CR.ITP_ITS ---
General Information - General Information Admitting Diagnosis: PCI with coronary stent - Education/Goals Barriers to Learning: None Cardiac Rehabilitation Goals: 1. Maintain the individual as the primary focus of care. 2. To improve the patient's quality of life. 3. Identification of cardiac risk factors and provide cardiac risk factor management. 4. Enhance the psychosocial status of the patient. 5. Reconditioning enough to allow the patient to resume customary activities. 6. Control symptoms of cardiac disease Scale for measuring improvement of personal goals: Enter appropriate number in Comments. 2 = Unchanged. 3 = Slightly Better. 4 = Moderate Improvement. 5 = Met my Goal Exercise - 60-Day Assessment - Visit Date of Eval: 04/19/19 Session #:: 19 - Stages of Change Stages of Change:: Action - Physician Prescribed Exercise Modalities: Treadmill, Rower, NuStep Frequency (days/week): 3 Duration (Minutes):: 30-45 Intensity: 60-80% age predicted maximum heart rate reserve METs - Progression: 0.5-1.0 MET, RPE 11-14 WEEK: 5.5 Target Heart Rate:: 98-128 Max HR 114 - Hypertension Resting Blood Pressure:: 102/40 Peak Exercise Blood Pressure:: 118/52 Medication Changes:: Yes - dec metoprolol to 25 mg, added lisinopril 2.5 mg, ta msulusin .4mg, rosovast - Intervention Home Exercise/Activity Goal:: Sitting Time <3 hrs/day - Education Goals:: Warm-up, RPE LORETO Scale, S/S, Safe Exercise, Self-Monitoring - Exercise Program Goals Exercise Program Goals: Aerobic Activity >30 min, B/P <130/80 Nutrition - Initial Assessment - Program Goals Nutrition Program Goals: LDL <70. Total Cholesterol <200. HDL >45. Triglycerides <150. HgbA1C <7%. BMI <25 - Diabetes Do you monitor your blood sugar at home?: Yes - TWICE DAILY Nutrition - 60-Day Assessment - Program Goals Nutrition Program Goals: LDL <70. Total Cholesterol <200. HDL >45. Triglycerides <150. HgbA1C <7%. BMI <25 - Visit Date of Eval: 04/19/19 - Stages of Change Stages of Change:: Action - Lipids Has the patient seen the dietitian?: No - Weight Management Weight:: 79.379 kg - Intervention Referral to dietitian:: No Referral to Diabetic Clinic:: No Will attend diet classes:: Yes - Education Attended class for:: Signs & symptoms of hypoglycemia, Signs & symptoms of hyperglycemia, Relate diabetes to coronary artery disease, Healthy eating Tobacco - Initial Assessment - Program Goals Tobacco Program Goals: Complete smoking cessation. Attend education classes. Improve Knowledge Test score - Learning Barriers Learning Barriers: Hearing, Ready to Learn Tobacco - 60-Day Assessment - Program Goals Tobacco Program Goals: Complete smoking cessation. Attend education classes. Improve Knowledge Test score - Stage of Change Stages of Change:: Action - Learning Barriers Learning Barriers: Participates in education - Family Support Do you have family support?: Yes - Tobacco Use Tobacco Use: Non-smoker Do you use smokeless tobacco?: No - Intervention Smoking Cessation Referral:: No Individual Education/Counseling:: No Education Schedule Given:: Yes - Education Attended class for:: Treating Heart Disease, How The Heart Works, What it means to have Heart Disease, How Coronary Artery Disease is Diagnosed, Heart Procedures, What Heart Medications Do, Risk Factors & Modifications, Living an Active Life, Nutrition, Emotions & Heart Disease, Stress Management & Relaxation, Sleep Disorders & Heart Disease Psychosocial - Initial Assess - Target Goals Target Goals: Assess presence or absence of depression. Using a valid screening tool, maximizes coping skills. Positive support system - Psychosocial Test Tool Used:: HANDS Depression Questionnaire - Assistive Devices Fall Risk Assessed:: Yes Psychosocial - 60-Day Assess - Target Goals Target Goals: Assess presence or absence of depression. Using a valid screening tool, maximizes coping skills. Positive support system - Stages of Change Stages of Change:: Action - Psychosocial Test Tool Used:: HANDS Depression Questionnaire - Intervention PS - Interventions: Yes Attend Stress Management Classes, Yes Uses Stress Man agement Skills, No Referral to Mental Health, No Referral to [facility] Case Management, No Referral to Physician - Education Attended classes for:: Coping techniques, Signs & symptoms of depression, Stress management, Relaxation techniques - Assistive Devices Assistive Devices:: None Fall Risk Assessed:: Yes Patient Health Questionnaire 60-Day Re-eval Assessment 1. Little interest or pleasure in doing things: Not at all 2. Feeling down, depressed, or hopeless: Not at all 3. Trouble falling or staying asleep, or sleeping too much: Several days 4. Feeling tired or having little energy: More than half the days 5. Poor appetite or overeating: Not at all 6. Feeling bad about yourself -- or that you are a failure or have let yourself or your family down: Not at all 7. Trouble concentrating on things, such as reading the newspaper or watching television: Not at all 8. Moving or speaking so slowly that other people could have noticed. Or the opposite - being so fidgety or restless that you have been moving around a lot more than usual: Several days 9. Thoughts that you would be better off , or of hurting yourself in some way: Not at all How difficult have these problems made it for you to do your work, take care of things at home, or get along with other people?: Somewhat difficult Total Score: 4 Self-Efficacy 60-Day Re-eval Assessment We would like to know how confident you are in doing certain activities. Please select your confidence level for:: Select your confidence level for the following using the scale 1-10 where 1 is not at all confident and 10 is totally confident. Your score is the average of all 6 responses. Fatigue: How confident are you that you can keep the fatigue caused by your disease from interfering with the things you want to do? Select Number: 10 Physical Discomfort or Pain: How confident are you that you can keep the physical discomfort or pain of your disease from interfering with the things you want to do? Select Number: 10 Emotional Distress: How confident are you that you can keep the emotional distress caused by your disease from interfering with the things you want to do? Select Number: 10 Other Symptoms or Health Problems: How confident are you that you can keep other symptoms or health problems from interfering with the things you want to do? Select Number: 10 Different Tasks and Activities: How confident are you that you can do the different tasks and activities needed to manage your health condition so as to reduce your need to see a doctor? Select Number: 10 Medication: How confident are you that you can do things other than just taking medication to reduce how much your illness affects your everyday life? Select Number: 10 Total Score:: 10
[2019-04-19 08:15] VITALS: BP 102/40; BP 118/52
== END 2019-04-29 23:59 ==
LOC: CR 10:15
PROVIDERS: Family Provider Family Medicine; PCP Family Medicine; Referring Provider Internal Medicine Cardiovascular Disease; Visit Provider Internal Medicine Cardiovascular Disease
DX: I25.10 Atherosclerotic heart disease of native coronary artery without angina pectoris (principal); Z95.5 Presence of coronary angioplasty implant and graft
CPT/HCPCS: 93798

== ENCOUNTER 2019-05-22 10:15 | Outpatient (RCR) | payer MEDICARE, OTHER, SELFPAY ==
[2019-02-22 11:23] VITALS: BMI 27.8
[2019-04-30 00:56] VITALS: BP 102/40; BP 118/52
--- NOTE | 2019-05-17 09:04 | PCM.CR.ITP ---
Exercise - Final/Discharge - Visit Date of Eval: 05/17/19 Session #:: 33 - Stages of Change Stages of Change:: Action - Physician Prescribed Exercise Modalities: Treadmill, Airdyne, NuStep Frequency (days/week): 3 Duration (Minutes):: 30-45 Intensity: 60-80% age predicted maximum heart rate reserve METs - Progression: 0.5-1.0 MET, RPE 11-14 WEEK: 6 increased from initial 2.5 METs Target Heart Rate:: 98-128 w/max HR 100 - Hypertension Do any of the following apply?: Yes, Medication, Diet Resting Blood Pressure:: 128/82 Peak Exercise Blood Pressure:: 172/88 - Intervention Home Exercise/Activity Goal:: Moderate Exercise 30 min/day x 5 days/wk - Education Goal Progress: Goal Met - Exercise Program Goals Exercise Program Goals: Aerobic Activity >30 min Nutrition - Initial Assessment - Program Goals Nutrition Program Goals: LDL <70. Total Cholesterol <200. HDL >45. Triglycerides <150. HgbA1C <7%. BMI <25 - Diabetes Do you monitor your blood sugar at home?: Yes - TWICE DAILY Nutrition - Final Assessment - Program Goals Nutrition Program Goals: LDL <70. Total Cholesterol <200. HDL >45. Triglycerides <150. HgbA1C <7%. BMI <25 - Visit Date of Eval: 05/17/19 - Stages of Change Stages of Change:: Action - Diabetes Diabetes:: No Insulin: No Non-Insulin Dependent?: No - Weight Management Height: 5 ft 7 in Weight:: 180 lb - Intervention Referral to dietitian:: No Referral to Diabetic Clinic:: No Will attend diet classes:: Yes - Education Education Goal Reached?: Yes Tobacco - Initial Assessment - Program Goals Tobacco Program Goals: Complete smoking cessation. Attend education classes. Improve Knowledge Test score - Learning Barriers Learning Barriers: Hearing, Ready to Learn Tobacco - Final Assessment - Program Goals Tobacco Program Goals: Complete smoking cessation. Attend education classes. Improve Knowledge Test score - Stage of Change Stages of Change:: Action - Learning Barriers Cardiac Knowledge Test Score:: 14 - unchanged; patient did not participate in education & training sessions. - Family Support Do you have family support?: Yes - Tobacco Use Tobacco Use: Non-smoker Do you use smokeless tobacco?: No - Intervention Smoking Cessation Referral:: No Individual Education/Counseling:: No Education Schedule Given:: Yes - Education Education Goal Reached?: Yes Psychosocial - Initial Assess - Target Goals Target Goals: Assess presence or absence of depression. Using a valid screening tool, maximizes coping skills. Positive support system - Psychosocial Test Tool Used:: HANDS Depression Questionnaire - Assistive Devices Fall Risk Assessed:: Yes Psychosocial - Final Assessmen - Target Goals Target Goals: Assess presence or absence of depression. Using a valid screening tool, maximizes coping skills. Positive support system - Stages of Change Stages of Change:: Action - Psychosocial Test Tool Used:: HANDS Depression Questionnaire - Intervention PS - Interventions: Yes Attend Stress Management Classes, Yes Uses Stress Management Skills, No Referral to Mental Health, No Referral to [facility] Case Management, No Referral to Physician - Education Education Goal Reached?: Yes - Patient/Program Goal Preventative Medication(s):: Aspirin, IRASEMA inhibitor, Clopidogrel, Beta kandis, Statin/lipid - Assistive Devices Assistive Devices:: None Fall Risk Assessed:: Yes Patient Health Questionnaire Discharge Assessment 1. Little interest or pleasure in doing things: Not at all 2. Feeling down, depressed, or hopeless: Not at all 3. Trouble falling or staying asleep, or sleeping too much: Several days 4. Feeling tired or having little energy: More than half the days 5. Poor appetite or overeating: Not at all 6. Feeling bad about yourself -- or that you are a failure or have let yourself or your family down: Not at all 7. Trouble concentrating on things, such as reading the newspaper or watching television: Not at all 8. Moving or speaking so slowly that other people could have noticed. Or the opposite - being so fidgety or restless that you have been moving around a lot more than usual: Several days 9. Thoughts that you would be better off , or of hurting yourself in some way: Not at all How difficult have these problems made it for you to do your work, take care of things at home, or get along with other people?: Somewhat difficult Total Score: 4 IVAN-Q SV Test - Statements CAD is a disease of the arteries in the heart: False Examples of risk factors for heart disease: True Angina is chest pain or discomfort: True The benefits of resistance training include: True Eating more meat and dairy products: I Don't Know Anti-platelet medications such as aspirin are important: I Don't Know The only effective way to manage stress: True An exercise warm-up slowly increases heart rate: False Prepared, processed foods usually have high sodium: True Depression is common after a heart attack: True The statin medications lower cholesterol: I Don't Know To control blood pressure, lower the amount of sodium: True If someone gets chest discomfort during walking: False Transfats are partially hydrogenated vegetable oils: False Sleep apnea that is not treated increases the risk: False To control cholesterol, one should become a vegetarian: False Someone knows if he/she is exercising at the right level: True Diabetes cannot be prevented with exercise & health eating: False Stress is a large risk for heart attack: True A diet that can help lower blood pressure is rich in: True - Total Score Total Correct Responses: 14 Self-Efficacy Discharge Assessment We would like to know how confident you are in doing certain activities. Please select your confidence level for:: Select your confidence level for the following using the scale 1-10 where 1 is not at all confident and 10 is totally confident. Your score is the average of all 6 responses. Fatigue: How confident are you that you can keep the fatigue caused by your disease from interfering with the things you want to do? Select Number: 10 Physical Discomfort or Pain: How confident are you that you can keep the physical discomfort or pain of your disease from interfering with the things you want to do? Select Number: 10 Emotional Distress: How confident are you that you can keep the emotional distress caused by your disease from interfering with the things you want to do? Select Number: 10 Other Symptoms or Health Problems: How confident are you that you can keep other symptoms or health problems from interfering with the things you want to do? Select Number: 10 Different Tasks and Activities: How confident are you that you can do the different tasks and activities needed to manage your health condition so as to reduce your need to see a doctor? Select Number: 10 Medication: How confident are you that you can do things other than just taking medication to reduce how much your illness affects your everyday life? Select Number: 10 Total Score:: 10
[2019-05-17 09:11] VITALS: BP 128/82; BP 172/88
== END 2019-05-30 23:59 ==
LOC: CR 10:15
PROVIDERS: Family Provider Family Medicine; PCP Family Medicine; Referring Provider Internal Medicine Cardiovascular Disease; Visit Provider Internal Medicine Cardiovascular Disease
DX: I25.10 Atherosclerotic heart disease of native coronary artery without angina pectoris (principal); Z95.5 Presence of coronary angioplasty implant and graft
CPT/HCPCS: 93798

== ENCOUNTER → 2019-06-12 08:42 | Outpatient (CLI) | payer MEDICARE, OTHER, SELFPAY ==
[2019-02-22 11:23] VITALS: BMI 27.8
[2019-06-12 12:05] LABS: Absolute Lymphocyte Count 1.52 X10^3/uL (0.83-4.51); Absolute Neutrophil Count 4.3 X10^3/uL (2.0-7.7); Basophil# 0.05 X10^3/uL; Basophil% 0.7 % (0-1); Eosinophil# 0.42 X10^3/uL; Hematocrit 49.6 % (40-54); Hemoglobin 16.2 g/dL (13.0-16.5); Lymphocyte # 1.52 X10^3/ul (4.0); Lymphocyte % 21.6 % (19-41); Mean Corp Hgb Conc 32.7 g/dL (32-36); Mean Corpuscular Hgb 29.9 pg (27.0-32.0); Mean Corpuscular Volume 91.7 fL (80-94); Mean Platelet Vol. 10.7 fl (6.2-12.0); Monocyte# 0.63 X10^3/uL; NRBC Flagged by Analyzer 0 % (0-5); Neutrophil # 4.33 X10^3/uL (2.7-7.7); Neutrophil % 61.6 % (47-70); Platelet Count 180 K/mm3 (150-450); RBC Distribution Width SD 47.2 fl (35.1-43.9); Red Blood Count 5.41 M/mm3 (4.6-6.2)
[2019-06-12 12:40] LABS: Hemoglobin A1c 5.1 % (4.2-6.3)
[2019-06-12 12:53] LABS: ALB/GLOB Ratio 1.4 RATIO (0.9-2.4); AST(SGOT) 25 U/L (15-37); Alanine Aminotransfer ALT/SGPT 39 U/L (16-61); Albumin, Serum 4.2 g/dL (3.2-5.0); Alkaline Phosphatase 66 U/L (45-117); Anion Gap 6 (5-15); BUN 16 mg/dL (7-18); BUN/Creat Ratio 18.4 RATIO (10-20); Calcium,Total 9.1 mg/dL (8.5-10.1); Chloride 110 mmol/L (98-107); Creatinine, Serum 0.87 mg/dL (0.70-1.30); EST Glomerular Filtration Rate 92 mL/min (>60); Est Glom Filt Rate - Afr Amer 112 mL/min (>60); Globulin 3.1 g/dL (2.2-4.2); Glucose 117 mg/dL (74-106); Potassium 3.8 mmol/L (3.5-5.1); Protein, Total 7.3 g/dL (6.4-8.2); Sodium Level 141 mmol/L (136-145); Thyroid Stim Hormone (TSH) 2.42 uIU/mL (0.358-3.74)
[2019-06-14 12:07] LABS: PROEL- A/G Ratio 1.2 (0.7-1.7); PROEL- Albumin 3.7 g/dL (2.9-4.4); PROEL- Alpha-1 Globulin 0.2 g/dL (0.0-0.4); PROEL- Alpha-2 Globulin 0.8 g/dL (0.4-1.0); PROEL- Globulin, Total 3.1 g/dL (2.2-3.9); PROEL- TOTAL PROTEIN 6.8 g/dL (6.0-8.5); PROELU- Albumin, Urine 41.7 % (.); PROELU- Alpha-1-Globulin,Ur 3.2 % (.); PROELU- Alpha-2-Globulin,Ur 14.7 % (.); PROELU- Beta Globulin, Ur 28.6 % (.); PROELU- Gamma Globulin, Ur 11.7 % (.); Total Protein, Ur 31.2 mg/dL (Not Estab.)
[2019-06-14 15:39] LABS: Immunoglobulin M 46 mg/dL (20-172)
[2019-06-16 20:10] LABS: Immunoglobulin A 136 mg/dL (61-437); Immunoglobulin E 14 IU/mL (6-495); Immunoglobulin G 1030 mg/dL (700-1600)
== END ==
PROVIDERS: Family Provider Family Medicine; PCP Family Medicine; Visit Provider Family Medicine
DX: C90.00 Multiple myeloma not having achieved remission (principal); G62.9 Polyneuropathy, unspecified; E78.5 Hyperlipidemia, unspecified; R73.01 Impaired fasting glucose
CPT/HCPCS: 36415; 80053; 82784; 82785; 83036; 84165; 84166; 84443; 85025

== ENCOUNTER → 2019-06-26 12:09 | Outpatient (CLI) | payer MEDICARE, OTHER, SELFPAY ==
[2019-06-19 13:40] VITALS: BMI 29.0
--- NOTE | 2019-06-26 12:25 | RAD_ITS ---
STUDY: X-RAY BONE SURVEY COMPLETE REASON FOR EXAM: Male, 69 years old. TECHNIQUE: One view of the pelvis was obtained. views of the cervical spine were obtained. views of the thoracic spine were obtained. views of the lumbar spine were obtained. views of the femur. views of the humerus. : views of the skull were obtained. COMPARISON: None. FINDINGS: CHEST: The lungs are clear and expanded. There is no demonstrated pleural abnormality. Normal size heart. Normal mediastinum and harriet. Normal visualized pulmonary arteries. Normal visualized aortic arch and descending thoracic aorta. Normal visualized thoracic spine. Normal visualized ribs, clavicles, and shoulders. There is no demonstrated abnormality of the visualized soft tissue structures of the upper abdomen. PELVIS: There is a non-specific bowel gas pattern. Normal visualized soft tissue structures. Normal bilateral iliac wings, sacroiliac joints and visualized sacrum. Normal visualized bilateral superior and inferior pubic rami. Normal pubic symphysis. Normal ischial tuberosities. Normal visualized right femoral head. Normal right acetabulum. Normal right hip joint. Normal visualized left femoral head. Normal left acetabulum. Normal left hip joint. CERVICAL SPINE: Normal anterior atlantoaxial articulation. Normal odontoid process. Normal cervical lordosis. Normal vertebral bodies and endplates. Normal disc space heights. Normal visualized intervertebral neuroforamina. The soft tissue structures are unremarkable. THORACIC SPINE: Normal kyphosis of the thoracic spine. There is no substantial scoliosis. Normal thoracic vertebrae and endplates with moderate hypertrophic changes in the mid dorsal spine.. Normal disc space heights. The soft tissue structures are unremarkable. LUMBAR SPINE: There is straightening of the lumbar lordosis. There is vertebroplasty is seen involving L1 and L2 with markedly narrowing cough the intervertebral disc in between. There is also narrowing of the disc material. At L5-S1. No obvious lytic lesion seen. There is some of the intervertebral discs are maintained. RIGHT FEMUR: There is small punched out lesion in the mid femur. LEFT FEMUR: There are multiple small punched-out lesions . RIGHT HUMERUS : There are multiple punched out lesions in the right humerus LEFT HUMERUS:Normal visualized humerus. There is no demonstrated fracture or osseous destructive process. There is no demonstrated soft tissue abnormality. SKULL: There are multiple punched-out lesions involving the entire skull RAD/Bone Survey Comp(Axial&Append) IMPRESSION: The findings in the skeletal survey are consistent with multiple myeloma. Electronically Signed: Aicha Quiñonez, at 16:37 EST Tel , Service support ,
== END ==
PROVIDERS: Family Provider Family Medicine; PCP Family Medicine; Referring Provider Internal Medicine Hematology & Oncology; Visit Provider Internal Medicine Hematology & Oncology
DX: C90.00 Multiple myeloma not having achieved remission (principal)
CPT/HCPCS: 77075

== ENCOUNTER → 2020-07-14 17:24 | Outpatient (CLI) | payer MEDICARE, OTHER, SELFPAY ==
[2020-06-22 14:50] VITALS: BMI 29.6
== END ==
PROVIDERS: PCP Family Medicine; Referring Provider Family Medicine; Visit Provider Family Medicine
DX: R50.9 Fever, unspecified (principal)
CPT/HCPCS: 87635; C9803; U0003

== ENCOUNTER 2020-08-30 13:18 | Emergency (ER) | payer MEDICARE, OTHER, SELFPAY ==
[2020-08-13 10:48] VITALS: BMI 30.4
[2020-08-30 13:18] VITALS: PULSE 68; RESP 17; O2SAT 97
[2020-08-30 13:19] VITALS: BP 187/76; PULSE 67; RESP 20; TEMP 36.5; O2SAT 99; BMI 33.3
--- NOTE | 2020-08-30 13:23 | ED.RN ---
FRIEND RASTA BOATENG [phone]
[2020-08-30 13:27] VITALS: BMI 33.3
--- NOTE | 2020-08-30 13:28 | EKG12_ITS ---
Test Reason : NEURO Blood Pressure : / mmHG Vent. Rate : 067 BPM Atrial Rate : 067 BPM P-R Int : 150 ms QRS Dur : 084 ms QT Int : 414 ms P-R-T Axes : 029 -08 028 degrees QTc Int : 437 ms Normal sinus rhythm Inferior infarct , age undetermined Anteroseptal infarct , age undetermined Abnormal ECG Confirmed by DENIA PULIDO, TAMELA ([id number]), editorial specialist STERLING GOMES ([id number]) on 08/31/2020 1:10:12 PM Referred By: MR Confirmed By:TAMELA LOZA MD
--- NOTE | 2020-08-30 13:29 | CT_ITS ---
STUDY: CT BRAIN WITH AND WITHOUT CONTRAST REASON FOR EXAM: Male, 70 years old. RIGHT FACIAL DROOP THIS AMHX-MULTIPLE MYELOMA RADIATION DOSAGE (If Supplied By Facility): CTDIvol = ( 44.99 ) mGy, DLP = ( 1648.46 ) mGycm TECHNIQUE: Transaxial CT imaging of the brain was performed pre and post contrast administration. The examination was performed with intravenous administration of IV 50mL Isovue-370. Individualized dose optimization techniques were used for this CT. COMPARISON: 06/12/2015 FINDINGS: Normal soft tissue structures. There are multiple lytic lesions of the calvarium compatible with history provided of multiple myeloma. There is mild cerebral atrophy with widening of the extra-axial spaces and ventricular dilatation. There are areas of decreased attenuation within the white matter tracts of the supratentorial brain, consistent with microvascular disease changes. Normal basal ganglia and thalami. Normal brainstem. Normal cerebellum. There is no intracranial hemorrhage. There are no findings of an acute ischemic infarction. No abnormal contrast enhancement. Normal visualized paranasal sinuses. CT/Brain/Head W/WO Contrast IMPRESSION: 1. No acute intracranial hemorrhage or mass effect. No abnormal contrast enhancement. 2. Multiple calvarial lytic lesions compatible with multiple myeloma, grossly similar. Electronically Signed: Sina Flores MD ([place]) at 14:02 EST , Service support ,
[2020-08-30 13:31] LABS: Bedside Glucose 84 mg/dL (70-110)
[2020-08-30 13:32] VITALS: BP 151/90; PULSE 70; RESP 18; O2SAT 99
[2020-08-30 13:37] LABS: Absolute Lymphocyte Count 1.41 X10^3/uL (0.83-4.51); Absolute Neutrophil Count 4.7 X10^3/uL (2.0-7.7); Basophil# 0.21 X10^3/uL; Basophil% 2.2 % (0-1); Eosinophil# 1.99 X10^3/uL; Eosinophils% 20.8 % (0-5); Hematocrit 46.3 % (40-54); Hemoglobin 15.5 g/dL (13.0-16.5); Lymphocyte # 1.41 X10^3/ul (4.0); Lymphocyte % 14.8 % (19-41); Mean Corp Hgb Conc 33.5 g/dL (32-36); Mean Corpuscular Hgb 30.2 pg (27.0-32.0); Mean Corpuscular Volume 90.3 fL (80-94); Mean Platelet Vol. 9.4 fl (6.2-12.0); Monocyte% 11.5 % (0-10); NRBC Flagged by Analyzer 0 % (0-5); Neutrophil # 4.69 X10^3/uL (2.7-7.7); Neutrophil % 49.1 % (47-70); Platelet Count 281 K/mm3 (150-450); RBC Distribution Width CV 15.3 % (11.6-14.6); RBC Distribution Width SD 49.8 fl (35.1-43.9); Red Blood Count 5.13 M/mm3 (4.6-6.2); White Blood Count 9.6 K/mm3 (4.4-11.0)
[2020-08-30 13:42] LABS: Prothrombin Time (Protime)PT. 12.6 SECONDS (11.7-14.9)
[2020-08-30 13:43] LABS: Partial Thromboplast Time 28.8 Seconds (24.1-36.2)
[2020-08-30 13:51] LABS: Anion Gap 5 (5-15); BUN 25 mg/dL (7-18); BUN/Creat Ratio 23.1 RATIO (10-20); Calcium,Total 8.9 mg/dL (8.5-10.1); Chloride 106 mmol/L (98-107); Creatinine, Serum 1.08 mg/dL (0.70-1.30); EST Glomerular Filtration Rate 72 mL/min (>60); Est Glom Filt Rate - Afr Amer 87 mL/min (>60); Estimated Creatinine Clearance 58.65 ml/min; Glucose 87 mg/dL (74-106); Potassium 3.9 mmol/L (3.5-5.1); Sodium Level 138 mmol/L (136-145)
[2020-08-30 14:17] VITALS: BP 145/88; PULSE 74; RESP 17; O2SAT 97
--- NOTE | 2020-08-30 14:30 | ED.DCSUM_ITS ---
History of Present Illness Chief Complaint: Neuro S/Sx Narrative: Patient presenting for evaluation secondary to right-sided facial weakness. Patient reports that his last known well was last night. Patient has a underlying history of multiple myeloma, is currently undergoing treatment. Patient states that today he noted that he woke up and was having some pain underneath his right ear. He states that that was associated with a numb and weakness feeling over the right side of his face with some facial droop and difficulty with closing his eye. He reports that he has been suffering from dry eyes due to difficulty with blinking. He denies any visual changes associated with this. He denies any numbness or weakness of the upper or lower extremities, speech difficulty. Patient denies any facial rashes. Review of systems otherwise negative. Past Medical History - Allergies and Home Meds Allergies/Adverse Reactions: Allergies oxycodone Allergy (Severe, Verified 08/30/20 13:18) Anaphylaxis UNAWARE OF SURROUNDINGS BECAME UNCONSCIOIUS morphine Adverse Reaction (Severe, Verified 08/30/20 13:18) Anaphylaxis Primary Care Physician: Andrea Tello MD [Primary Care Provider] - Prior records reviewed: Yes Past Medical History: - - Multiple myeloma Surgical History: - - appendectomy, cardiac stent 2000 x1 Smoking Status: Never smoker Alcohol: None Drugs: None - Family History Maternal Family History: Family History (Last Reviewed 08/13/20 @ 10:46 by Jade Swift) Father Brain cancer Sister Liver cancer Mother Leukemia Family History: Reports: No pertinent history Paternal Family History: Family History (Last Reviewed 08/13/20 @ 10:46 by Jade Swift) Father Brain cancer Sister Liver cancer Mother Leukemia Family History: Reports: No pertinent history Review of Systems All systems negative except as indicated General: Denies: Chills, Fever, Sweats Eyes: Denies: Visual changes - bilaterally, Diplopia ENT: Denies: Rhinorrhea, Sore throat Cardiovascular: Denies: Chest pain, Palpitations Respiratory: Denies: Dyspnea, Cough, Dyspnea on exertion Gastrointestinal: Denies: Abdominal pain, Nausea, Vomiting, Diarrhea, Melena, Hematochezia Genitourinary: Denies: Dysuria, Hematuria, Frequency Musculoskeletal: Denies: Back pain, Extremity Pain Skin: Denies: Rash, Wounds Neurological: Reports: Weakness, Parasthesia Physical Exam Vital Signs/Narrative: Vital Signs Temp Pulse Resp BP Pulse Ox 08/30/20 14:17 74 17 145/88 H 97 08/30/20 13:32 70 18 151/90 H 99 08/30/20 13:19 97.7 F L 67 20 H 187/76 H 99 08/30/20 13:18 68 17 97 Inital Vital Signs reviewed: Yes General: Well nourished, Well developed, No Acute Distress Head: Normocephalic, Atraumatic, - - Right-sided facial droop Eyes: Perrl, EOMI ENT: Moist mucous membranes, No rhinorrhea Neck: Supple, Nontender Cardiovascular: Regular rate, Regular rhythm, No murmurs Respiratory: No distress, CTA bilaterally, Chest nontender Abdomen: Soft, Nontender, Nondistended, Normal bowel sounds Back: Nontender, Normal Inspection Extremities: Nontender, No edema Skin: Normal color, No rash Neurological: Alert, Oriented x3, - - NIH stroke scale is 3. Patient has weakness of the right side of his face. This involves the lower face, as well as significantly the right eyelid. Patient is able to minimally move his right forehead although this is decreased compared to the left. Decreased sensation of the right face Psychological: Normal affect, Normal Mood Diagnostic/Tx/Re-eval Clinical Impression(s) from Imaging Studies Brain CT 08/30/20 13:29 IMPRESSION: 1. No acute intracranial hemorrhage or mass effect. No abnormal contrast enhancement. 2. Multiple calvarial lytic lesions compatible with multiple myeloma, grossly similar. Electronically Signed: Sina Flores MD ([place]) at 14:02 EST , Service support , Laboratory Data 08/30/20 08/30/20 08/30/20 13:25 13:25 13:25 WBC 9.6 RBC 5.13 Hgb 15.5 Hct 46.3 MCV 90.3 MCH 30.2 MCHC 33.5 RDW Std Deviation 49.8 H RDW Coeff of Amrita 15.3 H Plt Count 281 MPV 9.4 Immature Gran % (Auto) 1.600 H Neut % (Auto) 49.1 Lymph % (Auto) 14.8 L Throckmorton % (Auto) 11.5 H Eos % (Auto) 20.8 H Baso % (Auto) 2.2 H Absolute Neuts (auto) 4.7 Absolute Lymphs (auto) 1.41 Nucleated RBC % 0 PT 12.6 INR 1.0 APTT 28.8 Sodium 138 Potassium 3.9 Chloride 106 Carbon Dioxide 27.0 Anion Gap 5 BUN 25 H Creatinine 1.08 Estim Creat Clear Calc 58.65 Est GFR (MDRD) Af Amer 87 Est GFR (MDRD) Non-Af 72 BUN/Creatinine Ratio 23.1 H Glucose 87 Calcium 8.9 Troponin I < 0.015 POC Glucose 08/30/20 13:28 WBC RBC Hgb Hct MCV MCH MCHC RDW Std Deviation RDW Coeff of Amrita Plt Count MPV Immature Gran % (Auto) Neut % (Auto) Lymph % (Auto) Throckmorton % (Auto) Eos % (Auto) Baso % (Auto) Absolute Neuts (auto) Absolute Lymphs (auto) Nucleated RBC % PT INR APTT Sodium Potassium Chloride Carbon Dioxide Anion Gap BUN Creatinine Estim Creat Clear Calc Est GFR (MDRD) Af Amer Est GFR (MDRD) Non-Af BUN/Creatinine Ratio Glucose Calcium Troponin I POC Glucose 84 - EKG Initial EKG Interpretation: - - Sinus rhythm at 67, isoelectric ST segments normal T waves, inferior and anteroseptal Q waves, no evidence of acute ischemia. - Medical Decision Making Patient presented secondary to facial weakness. Patient has a significant amount of involvement of his upper eyelid but is still able to somewhat move his forehead so I did perform work-up including lab work EKG and CT imaging. CT imaging was performed both with and without contrast due to his history of multiple myeloma. This shows only changes of his multiple myeloma, no evidence of intracranial issues. Lab work grossly unremarkable, EKG shows no signs of ischemia. Did repeat evaluation on the patient. 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 Patient is already on Valtrex due to his multiple myeloma be placed on a weeks worth of steroids. I contacted his primary care doctor who agrees to see the patient in follow-up in 2 days. Patient was discharged in stable condition. ED Disposition - Plan for ED Patient: Disposition: Home or Assisted Living Diagnosis: Olvera's palsy Instructions: ED Olvera's Palsy Prescriptions: Prednisone [Deltasone] 60 mg PO DAILY #21 tab Prescription Printed Referrals: Andrea Tello MD [Primary Care Provider] - 09/01/20 3:00 pm
[2020-08-30 14:57] VITALS: BP 145/95; PULSE 68; RESP 23; O2SAT 97
== END 2020-08-30 14:58 | disposition home or self-care (01) ==
PROVIDERS: Emergency Provider Emergency Medicine; PCP Family Medicine
DX: G51.0 Bell's palsy (principal); C90.00 Multiple myeloma not having achieved remission; Z79.899 Other long term (current) drug therapy
CPT/HCPCS: 70470; 80048; 82962; 84484; 85025; 85610; 85730; 93005; 99284; Q9967; A4216

== ENCOUNTER 2020-09-16 10:56 | Outpatient (RCR) | payer MEDICARE, OTHER, SELFPAY ==
[2020-09-07 11:49] VITALS: BMI 31.1
--- NOTE | 2020-09-16 11:00 | SOAP_ITS ---
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 The patient reports occasional right sided bolus loss particularly during ingestion of liquids (though occasionally with solids) along with intermittent coughing during ingestion, though with less frequency over the past week. he denies any further overt signs and symptoms of aspiration. He reports occasional diurnal sialorrhea (drooling during the daytime), though this too is improving. He denies issues with dysgeusia / hypogeusia / ageusia / hyposmia; denies issues with xerostomia (dry mouth); denies any symptoms associate with trismus; denies odynophagia (pain during swallow); denies issues with reflux / heartburn, globus sensation, post prandial substernal discomfort, or feelings of bolus stasis; denies any current or previous issues with aspiration related pulmonary complications, to include pneumonia, bronchitis, or unexplained asthma symptoms. He appears cognitively intact, affect appears appropriate. The patient is fully ambulatory with occasional use of assistive devices (walking cane); no difficulties with posture maintenance; appears well nourished. 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, atherosclerotic heart disease of [place] coronary artery without angina pectoris, myocardial infarction (x4), angina, atrial fibrillation, coronary artery disease, status post coronary artery bypass graft, status post coronary artery stent, hypertension, hyperlipidemia, vertebroplasty of L1-L2, chronic back pain, neuropathy, arthritis, status post appendectomy, hard of hearing, recovering alcoholic PREVIOUS MODIFIED BARIUM SWALLOW STUDY: None ADDITIONAL OBJECTIVE ASSESSMENT RESULTS: 08/30/2020 CT of the brain revealed no acute intracranial hemorrhage or mass effect; no abnormal contrast enhancement; multiple calvarial lytic lesions compatible with multiple myeloma, grossly similar. 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 ORAL MOTOR / MODIFIED CRANIAL NERVE ASSESSMENT: TRIGEMINAL NERVE (CNV): no clinically significant abnormalities observed FACIAL NERVE (CNVII): impaired; right facial asymmetry at rest / upon retraction; right labial asymmetry at rest / upon retraction / upon protrusion GLOSSOPHARYNGEAL NERVE (CNIX): no clinically significant abnormalities observed VAGUS NERVE (CNX): no clinically significant abnormalities observed HYPOGLOSSAL NERVE (CNXII): no clinically significant abnormalities observed CLINICAL ASSESSMENT OF SWALLOW FUNCTION (QUANTITATIVE): SIALORRHEA SCORING SCALE (SSS): SSS SCORE: 4 (of 9) SSS DESCRIPTION: moderate, wet on the lips and chin, occasionally REPETITIVE SALIVA SWALLOWING TEST (RSST): RSST RESULT: pass RSST DESCRIPTION: able to elicit 2 dry swallows within 30 seconds. 1OZ WATER SWALLOWING TEST (1OZ WST): 1OZ WST RESULTS: normal ? 1 (of 5) 1OZ WST DESCRIPTION: single swallow without coughing during ingestion DRINKING EPISODES: none 3OZ WATER SWALLOWING TEST (3OZ WST): 3OZ WST RESULTS: abnormal DRINKING EPISODES: stopping and starting MADRID ASSESSMENT OF SWALLOWING ABILITY (MASA): MASA SEVERITY SCORE: 192 MASA SEVERITY SCORE DESCRIPTION: unremarkable MASA ASPIRATION SEVERITY SCORE: 192 MASA ASPIRATION SEVERITY SCORE DESCRIPTION: unremarkable MASA DYSPHAGIA RISK RATING: possible; lowered probability of disorder CLINICAL ASSESSMENT OF SWALLOW FUNCTION (QUALITATIVE): ORAL PREPARATORY PHASE: competent bolus manipulation without fragmented swallowing (piecemeal deglutition); sufficient anterior oral containment during manipulation (though occasional right sided loss reported); preserved management of breathing / bolus formation without disrupted E ? S ? E pattern ORAL TRANSITIONAL PHASE: no signs of transitional incompetence; no signs of bolus consolidation impairments; no signs or symptoms of premature posterior bolus loss; PHARYNGEAL PHASE: appropriate hyolaryngeal excursion upon digital palpation; no obvious findings suggestive of pharyngeal phase delay / dyssynchrony; no subjective signs of pharyngeal dysmotility; no subjective signs of velopharyngeal impairments; no signs or symptoms of penetration / aspiration throughout trials. ESOPHAGEAL PHASE: esophageal phase appears unremarkable CLINICAL ASSESSMENT OF SWALLOW FUNCTION (SEVERITY GRADING): SWALLOWING PERFORMANCE SCALE (SPS): SPS SCORE: 3 (of 7) SPS SEVERITY LEVEL: mild SPS SCORE DESCRIPTION: mild dysfunction in oral or pharyngeal stage; requires modified diet or need for therapeutic swallowing precautions. INTERVENTION CONSIDERATIONS AND RECOMMENDATIONS: We discussed options for continued dysphagia based interventions, though the patient elected to proceed without continued intervention, stating a desire to continue with recommended strategies provided this date, which is reasonable given the anticipated improvements that he will achieve, though will continue to inform his care team in regard to his reported dysphagia symptoms and desires for further intervention. RECOMMENDATIONS FOR INTERVENTION: No further speech-language pathology services warranted at this time targeting dysphagia. DIET TEXTURE RECOMMENDATIONS: Regular ? easy to chew textured (IDDSI: 7), thin liquid diet (IDDSI: 0) diet RECOMMENDED COMPENSATORY STRATEGIES: Left sided bolus placement, seated upright at 90 degrees during PO intake, remain upright for 30-60 minutes post meal (GERD precaution) Can Rincon M.A., CCC-[place], CBIS MBSImP Certified, LSVT Certified [facility] Speech-Language Pathology Department Email: [email or web address]
== END 2020-09-16 19:00 | disposition home or self-care (01) ==
LOC: SP 10:56
PROVIDERS: PCP Family Medicine; Referring Provider Nurse Practitioner Family; Visit Provider Nurse Practitioner Family
DX: G51.0 Bell's palsy (principal); R13.10 Dysphagia, unspecified
CPT/HCPCS: 92610

== ENCOUNTER → 2020-09-24 11:29 | Outpatient (CLI) | payer MEDICARE, OTHER, SELFPAY ==
[2020-09-21 14:22] VITALS: BMI 31.8
--- NOTE | 2020-09-24 11:32 | RAD_ITS ---
STUDY: X-RAY - LUMBAR SPINE REASON FOR EXAM: Male, 70 years old. WORSENING NEUROPATHY BILAT FEET UP THRU KNEES X 6YRS. GETTING WORSE TECHNIQUE: 5 view(s) of the lumbar spine were obtained. COMPARISON: 06/24/2015. FINDINGS: The patient is status post interval L1 and L2 vertebroplasty. There is minimal, grade 1 degenerative listhesis at L5-S1. No evidence of lysis on the submitted oblique views. Moderate multilevel spondylosis involving L4, L5, L2, L1 and T12. Moderate L4-L5 and L5-S1 degenerative disc disease. No acute fracture lucency or cortical step-off. No acute compression fracture/deformity. The soft tissue structures are unremarkable. RAD/L/S Spine Min 4 Views IMPRESSION: Status post L1 and L2 vertebroplasty. Spondylosis and degenerative disc disease as above. No acute osseous abnormality. Electronically Signed: Joel Curry MD at 8:27 EST , Service support ,
== END ==
PROVIDERS: PCP Family Medicine; Referring Provider Family Medicine; Visit Provider Family Medicine
DX: M54.9 Dorsalgia, unspecified (principal); G89.29 Other chronic pain; G62.9 Polyneuropathy, unspecified; S22.080A Wedge compression fracture of T11-T12 vertebra, initial encounter for closed fracture
CPT/HCPCS: 72110

== ENCOUNTER → 2020-09-28 06:12 | Outpatient (CLI) | payer MEDICARE, OTHER, SELFPAY ==
[2020-09-07 11:49] VITALS: BMI 31.1
[2020-09-21 14:22] VITALS: BMI 31.8
[2020-09-28 07:43] LABS: Cholesterol 116 mg/dL (200); High Density Lipoprotein 44 mg/dL; Triglycerides 127 mg/dL; Very Low Density Lipoprotein 25 mg/dL (5-40)
[2020-09-28 08:16] LABS: Hemoglobin A1c 5.6 % (3.8-5.6)
== END ==
PROVIDERS: PCP Family Medicine; Referring Provider Family Medicine; Visit Provider Family Medicine
DX: I10 Essential (primary) hypertension (principal); R73.01 Impaired fasting glucose
CPT/HCPCS: 36415; 80061; 83036

== ENCOUNTER → 2020-09-29 14:11 | Outpatient (CLI) | payer MEDICARE, OTHER, SELFPAY ==
[2020-09-21 14:22] VITALS: BMI 31.8
[2020-09-29 17:33] LABS: Vitamin B12 1188 pg/mL (211-911)
[2020-09-29 17:41] LABS: ALB/GLOB Ratio 1.1 RATIO (0.9-2.4); AST(SGOT) 22 U/L (15-37); Alanine Aminotransfer ALT/SGPT 36 U/L (16-61); Albumin, Serum 4.1 g/dL (3.2-5.0); Alkaline Phosphatase 81 U/L (45-117); Anion Gap 8 (5-15); BUN 22 mg/dL (7-18); BUN/Creat Ratio 17.7 RATIO (10-20); Calcium,Total 9.2 mg/dL (8.5-10.1); Chloride 107 mmol/L (98-107); Creatinine, Serum 1.24 mg/dL (0.70-1.30); EST Glomerular Filtration Rate 61 mL/min (>60); Est Glom Filt Rate - Afr Amer 74 mL/min (>60); Globulin 3.7 g/dL (2.2-4.2); Glucose 117 mg/dL (74-106); Potassium 4.2 mmol/L (3.5-5.1); Protein, Total 7.8 g/dL (6.4-8.2); Sodium Level 138 mmol/L (136-145); Thyroid Stim Hormone (TSH) 1.04 uIU/mL (0.358-3.74)
== END ==
PROVIDERS: PCP Family Medicine; Visit Provider Family Medicine
DX: C90.00 Multiple myeloma not having achieved remission (principal); I10 Essential (primary) hypertension; R25.1 Tremor, unspecified
CPT/HCPCS: 36415; 80053; 82607; 84439; 84443

== ENCOUNTER 2021-06-15 10:46 | Emergency (ER) | payer MEDICARE, OTHER, SELFPAY ==
[2021-06-15] VITALS (11 sets, daily range): BP systolic 112–158; BP diastolic 52–91; PULSE 80–113; RESP 18–28; TEMP 36.6–38.7; O2SAT 91–95; BMI 30.4
--- NOTE | 2021-06-15 10:54 | EKG12_ITS ---
Test Reason : SOB Blood Pressure : / mmHG Vent. Rate : 088 BPM Atrial Rate : 088 BPM P-R Int : 156 ms QRS Dur : 092 ms QT Int : 360 ms P-R-T Axes : 026 -04 072 degrees QTc Int : 435 ms Normal sinus rhythm Inferior infarct , age undetermined Anteroseptal infarct , age undetermined Abnormal ECG Confirmed by PALMA PULIDO, ALFREDA ([id number]), metropolitan editor STERLING GOMES ([id number]) on 06/16/2021 1:13:14 PM Referred By: BURKE Confirmed By:ALFREDA WALDROP MD
--- NOTE | 2021-06-15 11:08 | RAD_ITS ---
STUDY: X-RAY CHEST REASON FOR EXAM: Male, 71 years old. COUGH AND FEVER TECHNIQUE: Single AP portable view of the chest. COMPARISON: 02/05/2019 FINDINGS: EKG leads overlie the chest The lungs are clear and expanded. There is no demonstrated pleural abnormality. Sternal cerclage wires and vascular clips are present from a prior sternotomy and coronary artery bypass graft procedure (CABG). Normal mediastinum and harriet. Normal visualized pulmonary arteries. Normal visualized aortic arch and descending thoracic aorta. There are diffuse degenerative changes of the visualized thoracic spine. There is degenerative osteoarthritis of the bilateral shoulders. There is no demonstrated abnormality of the visualized soft tissue structures of the upper abdomen. RAD/Chest 1 View (Portable) IMPRESSION: No acute pulmonary process Electronically Signed: Tyler David MD at 11:26 EST , Service support ,
[2021-06-15] MEDS: Albuterol 2.5 MG/3 ML VIAL.NEB. INHALATION ×3 (11:10→12:39)
--- NOTE | 2021-06-15 11:35 | EDS_ITS ---
HPI History of Present Illness Chief Complaint: Shortness of Breath Narrative Narrative: Patient with past medical history of bone cancer on chemotherapy (oral) presents with upper respiratory infection type symptoms and difficulty breathing over the last 5 days. States has had intermittent fever, nasal congestion and rhinorrhea, and increased difficulty breathing. He has an occasional cough. He was states he was tested for Covid at the urgent care on Monday, 4 days ago, and was negative. Said intermittent fevers and wheezing. Called EMS today because his breathing is getting worse even though he is on medication from the urgent care for his breathing difficulty. He denies any past medical history of asthma or COPD, does not wear oxygen at home. No chest pain or leg swelling. PFSH PFSH Medical History Acute bronchitis, unspecified Atherosclerotic heart disease of [place] coronary artery without angina pectoris Chronic back pain Encounter for screening for COVID-19 [place] (hard of hearing) Hyperlipidemia Hypertension Left-sided Olvera's palsy Multiple myeloma Neuropathy Recovering alcoholic Home Medications nitroglycerin 0.4 mg SUBLINGUAL UD #20 tab.subl 02/08/19 [Rx Last Taken Unknown] aspirin 81 mg tablet,delayed release 81 mg PO DAILY@0800 #90 tab 05/14/19 [Rx Last Taken 06/14/21] lisinopril 5 mg tablet 5 mg PO DAILY #90 tab 06/14/19 [Rx Last Taken 06/14/21] ondansetron 4 mg PO Q8H PRN PRN #30 tab 07/14/20 [Rx Last Taken Unknown] melatonin 10 mg capsule 10 mg PO HS PRN 05/31/21 [History Last Taken 06/14/21] amoxicillin 875 mg-potassium clavulanate 125 mg tablet 1 tab PO BID #20 tab 06/14/21 [Rx Last Taken 06/13/21] albuterol sulfate [Ventolin HFA] 2 puff INHALATION Q4H PRN PRN #1 ea 06/15/21 [Rx Last Taken Unknown] atorvastatin 40 mg PO QHS 06/15/21 [History Last Taken 06/14/21] gabapentin 600 mg PO TID 06/15/21 [History Last Taken 06/14/21] polyethylene glycol 3350 17 g PO DAILY 06/15/21 [History Last Taken 06/14/21] pomalidomide [Pomalyst] 4 mg PO DAILY 06/15/21 [History Last Taken 06/14/21] prednisone 40 mg PO DAILY #14 tab 06/15/21 [Rx Last Taken Unknown] Allergy/AdvReac Type Severity Reaction Status Date / Time morphine Allergy Severe Anaphylaxis Verified 05/24/21 13:05 oxycodone Allergy Severe Anaphylaxis Verified 05/24/21 13:05 Family History Father Brain cancer Sister Liver cancer Mother Leukemia Surgical History Hx of CABG Stented coronary artery (02/07/19) Social History housing: house Smoking Status: Never smoker details: occasionally wine substance use type: does not use what type of physical activity do you participate in: walking frequency: daily duration: 15-30 minutes/day [place]/church: [employer] do you feel safe at home: Yes ROS ROS ED ROS Narrative Constitutional: No fever, no chills. HEENT: Intermittent sore throat. No neck pain. No loss of vision. Positive nasal congestion and rhinorrhea. Cardiovascular: No chest pain. No palpitations. No pedal edema. Respiratory: Occasional cough, positive shortness of breath. Positive wheezing Abdominal: No abdominal pain. No nausea. No vomiting. Genitourinary: No dysuria. No hematuria. Musculoskeletal: No myalgias. No arthralgias. Neurologic: No headaches. No dizziness. No lightheadedness. Skin: No rash. No change in color. Psychiatric: No depression. No anxiety. EXAM Physical Exam Narrative Exam Narrative: Afebrile. Vital signs noted. HEENT: Normocephalic. Atraumatic. PERRL, EOMI. Neck soft and supple. No point tenderness or step off. Cardiovascular: Regular rate and rhythm. No murmurs, rubs, or gallops appreciated. Respiratory: Positive tachypnea. Audible wheezing. Occasional rhonchi. Gastrointestinal: Abdomen soft, nontender, with normoactive bowel sounds. No rebound or guarding. Neurological: Awake. Alert. Nonfocal, nonlateralizing. Skin: No rash. Normal color. No pallor. Musculoskeletal: No pedal edema. Full range of motion extremities. Const Vital Signs: 06/15/21 10:47 06/15/21 11:10 06/15/21 11:40 Temperature 101.0 F H 101.6 F H Temperature Source Oral Oral Pulse Rate 93 88 106 H Respiratory Rate 28 H 24 H 18 Respiratory Effort Short of Breath Respiratory Pattern Tachypnea Blood Pressure 144/71 H 158/91 H Blood Pressure Mean 95 113 Pulse Ox 91 92 95 Oxygen Delivery Method Room Air Room Air Room Air 06/15/21 11:57 06/15/21 12:00 06/15/21 12:39 Temperature 98 F 98 F Temperature Source Temporal Temporal Pulse Rate 113 H 103 H 110 H Respiratory Rate 18 20 H 24 H Respiratory Effort Respiratory Pattern Blood Pressure 146/73 H 146/73 H Blood Pressure Mean 97 97 Pulse Ox 93 93 93 Oxygen Delivery Method Room Air 06/15/21 12:55 06/15/21 13:15 06/15/21 14:00 Temperature 98 F 100 F H 100 F H Temperature Source Temporal Oral Oral Pulse Rate 105 H 106 H 95 Respiratory Rate 20 H 20 H 20 H Respiratory Effort Respiratory Pattern Blood Pressure 146/73 H 112/69 124/52 H Blood Pressure Mean 97 83 76 Pulse Ox 93 93 94 Oxygen Delivery Method Room Air Room Air 06/15/21 15:00 Temperature 99.6 F H Temperature Source Oral Pulse Rate 85 Respiratory Rate 18 Respiratory Effort Respiratory Pattern Blood Pressure 118/64 Blood Pressure Mean 82 Pulse Ox 94 Oxygen Delivery Method Room Air MDM MDM MDM Narrative Medical decision making narrative: Patient has a fever of 101 ?F here in the emergency department. Pulse ox is 91 to 92% on room air. He was placed on nasal cannula oxygen for comfort. Comprehensive/sepsis work-up was pursued. His work-up is essentially negative. He has a white count of 5.0, hemoglobin hemoconcentrated at 17.0, hematocrit 48.8. Platelet count slightly low at 141, coags are negative. Lactic acid is normal at 1.2. Sodium slightly low 133, BUN of 21 with a creatinine normal at 1.05. Glucose appropriately elevated at 119. His Covid swab was negative, but given his profound wheezing he was given a DuoNeb by squad and 2 albuterol aerosols and Solu-Medrol 125 mg here in the emergency department. His pulse ox remained 92% at rest. I obtained a CT of the chest with IV contrast to rule out pulmonary embolism which shows bilateral infiltrates consistent with Covid pneumonia. PCR was sent. We will treat him as a Covid pneumonia. However, when he ambulated his pulse ox stayed 94% and improved. I had initially discussed possible admission with Dr. Santos, but currently he does not meet any admission criteria for Covid as he is not hypoxic. He and his are instructed to get a pulse ox and return should he become hypoxic. He was given a prescription for an albuterol MDI and a prednisone burst for the next 7 days. Return instructions to the emergency department were reviewed. Although his Covid swab/rapid swab was negative, given his findings of multifocal infiltrates bilaterally, he will be assumed to have COVID-19 and treat will be symptomatic. Return instructions were reviewed. His PCR is currently pending. Disposition is discharged home in stable condition. Lab Data Attestation: I reviewed the patient's lab results. Labs: Laboratory Results - last 24 hr 06/15/21 06/15/21 06/15/21 11:00 11:00 11:00 WBC 5.0 RBC 5.56 Hgb 17.0 H Hct 48.8 MCV 87.8 MCH 30.6 MCHC 34.8 RDW Std Deviation 46.0 H RDW Coeff of Amrita 14.5 Plt Count 141 L MPV 10.6 Immature Gran % (Auto) 0.800 Neut % (Auto) 71.4 H Lymph % (Auto) 10.3 L [place] % (Auto) 13.5 H Eos % (Auto) 1.4 Baso % (Auto) 2.6 H Absolute Neuts (auto) 3.5 Absolute Lymphs (auto) 0.51 L Nucleated RBC % 0 PT 13.0 INR 1.0 APTT 30.5 Sodium 133 L Potassium 3.7 Chloride 100 Carbon Dioxide 23.0 Anion Gap 10 BUN 21 H Creatinine 1.05 Estim Creat Clear Calc 57.39 Est GFR (MDRD) Af Amer 89 Est GFR (MDRD) Non-Af 74 BUN/Creatinine Ratio 20.0 Glucose 119 H Lactic Acid Calcium 8.5 Total Bilirubin 1.20 H AST 17 ALT 23 Alkaline Phosphatase 78 Total Protein 8.8 H Albumin 3.6 Globulin 5.2 H Albumin/Globulin Ratio 0.7 L 06/15/21 11:00 WBC RBC Hgb Hct MCV MCH MCHC RDW Std Deviation RDW Coeff of Amrita Plt Count MPV Immature Gran % (Auto) Neut % (Auto) Lymph % (Auto) [place] % (Auto) Eos % (Auto) Baso % (Auto) Absolute Neuts (auto) Absolute Lymphs (auto) Nucleated RBC % PT INR APTT Sodium Potassium Chloride Carbon Dioxide Anion Gap BUN Creatinine Estim Creat Clear Calc Est GFR (MDRD) Af Amer Est GFR (MDRD) Non-Af BUN/Creatinine Ratio Glucose Lactic Acid 1.2 Calcium Total Bilirubin AST ALT Alkaline Phosphatase Total Protein Albumin Globulin Albumin/Globulin Ratio Radiography Diagnostic Testing: Clinical Impression(s) from Imaging Studies Chest X-Ray 06/15/21 11:08 IMPRESSION: No acute pulmonary process Electronically Signed: Tyler David MD at 11:26 EST , Service support , Chest CTA 06/15/21 13:10 IMPRESSION: No demonstrated PE, or thoracic aortic aneurysm or dissection Diffuse interstitial and airspace opacifications in both lung pinto suspicious for Covid pneumonia. Remote CABG Degenerative bony changes Electronically Signed: Tyler David MD at 13:48 EST , Service support , Discharge Plan Triage Chief Complaint: Shortness of Breath ED Provider: Lauri Rivas Dx/Rx/DC Orders Clinical Impression: Suspected 2019 novel coronavirus infection, SOB (shortness of breath), Wheezing Instructions: Coronavirus Disease 2019 (COVID-19): Overview, ED Bronchitis with Wheezing (Adult), ED Dyspnea Prescriptions: New albuterol sulfate [Ventolin HFA] 90 mcg/actuation HFA aerosol inhaler 2 puff inhalation Q4H PRN PRN (Reason: Wheezing) Qty: 1 RF: 0 prednisone 20 mg tablet 40 mg PO DAILY Qty: 14 RF: 0 No Action lisinopril 5 mg tablet 5 mg PO DAILY Qty: 90 RF: 3 melatonin 10 mg capsule 10 mg PO HS PRN (Reason: Sleep) RF: 0 amoxicillin-pot clavulanate 875-125 mg tablet 1 tab PO BID Qty: 20 RF: 0 nitroglycerin 0.4 MG tablet, sublingual 0.4 mg sublingual UD Qty: 20 RF: 0 ondansetron 4 MG tablet 4 mg PO Q8H PRN PRN (Reason: Nausea/Vomiting) Qty: 30 RF: 1 gabapentin 600 mg tablet 600 mg PO TID RF: 0 polyethylene glycol 3350 17 gram/dose Powder 17 g PO DAILY RF: 0 Pomalyst 4 mg capsule 4 mg PO DAILY RF: 0 atorvastatin 40 mg tablet 40 mg PO QHS RF: 0 aspirin 81 mg tablet,delayed release (DR/EC) 81 mg PO DAILY@0800 Qty: 90 RF: 3 Primary Care Provider: Adnrea Tello Referrals: Andrea Tello MD [Primary Care Provider] - 06/17/21 Disposition Disposition: Home, Self Care
[2021-06-15 11:52] LABS: Absolute Lymphocyte Count 0.51 X10^3/uL (0.83-4.51); Absolute Neutrophil Count 3.5 X10^3/uL (2.0-7.7); Basophil# 0.13 X10^3/uL; Basophil% 2.6 % (0-1); Eosinophil# 0.07 X10^3/uL; Eosinophils% 1.4 % (0-5); Hematocrit 48.8 % (40-54); Lymphocyte # 0.51 X10^3/ul (0.83-4.51); Lymphocyte % 10.3 % (19-41); Mean Corp Hgb Conc 34.8 g/dL (32-36); Mean Corpuscular Hgb 30.6 pg (27.0-32.0); Mean Corpuscular Volume 87.8 fL (80-94); Mean Platelet Vol. 10.6 fl (6.2-12.0); Monocyte# 0.67 X10^3/uL; Monocyte% 13.5 % (0-10); NRBC Flagged by Analyzer 0 % (0-5); Neutrophil # 3.53 X10^3/uL (2.7-7.7); Neutrophil % 71.4 % (47-70); POSITIVE DIFFERENTIAL YES; Platelet Count 141 K/mm3 (150-450); RBC Distribution Width CV 14.5 % (11.6-14.6); Red Blood Count 5.56 M/mm3 (4.6-6.2)
[2021-06-15 11:55] LABS: Differential Indicated SCAN CRITERIA MET
[2021-06-15 12:01] LABS: Partial Thromboplast Time 30.5 Seconds (24.1-36.2)
[2021-06-15 12:02] LABS: Lactic Acid 1.2 mmol/L (0.4-1.9)
[2021-06-15 12:03] LABS: ALB/GLOB Ratio 0.7 RATIO (0.9-2.4); AST(SGOT) 17 U/L (15-37); Alanine Aminotransfer ALT/SGPT 23 U/L (16-61); Albumin, Serum 3.6 g/dL (3.2-5.0); Alkaline Phosphatase 78 U/L (45-117); Anion Gap 10 (5-15); BUN 21 mg/dL (7-18); Calcium,Total 8.5 mg/dL (8.5-10.1); Chloride 100 mmol/L (98-107); Creatinine, Serum 1.05 mg/dL (0.70-1.30); EST Glomerular Filtration Rate 74 mL/min (>60); Est Glom Filt Rate - Afr Amer 89 mL/min (>60); Estimated Creatinine Clearance 57.39 ml/min; Globulin 5.2 g/dL (2.2-4.2); Glucose 119 mg/dL (74-106); Potassium 3.7 mmol/L (3.5-5.1); Protein, Total 8.8 g/dL (6.4-8.2); Sodium Level 133 mmol/L (136-145)
[2021-06-15] MEDS: Acetaminophen 325 MG Tablet 650 MG PO (12:51)
--- NOTE | 2021-06-15 13:10 | CT_ITS ---
STUDY: CTA CHEST REASON FOR EXAM: Male, 71 years old. Shortness of Breath, Wheezing RADIATION DOSAGE (If Supplied By Facility): CTDIvol = ( 9.40 ) mGy, DLP = ( 386.55 ) mGycm TECHNIQUE: The examination was performed with the intravenous administration of IV 100ML ISOVUE 370. Post-processing of the angiographic images was performed, with multiplanar reformation and 3D reconstruction. Individualized dose optimization techniques were used for this CT. COMPARISON: None. FINDINGS: Normal enhancement of the main pulmonary artery and right and left pulmonary arteries. Normal enhancement of the bilateral peripheral pulmonary arteries. There is no demonstrated pulmonary embolism. There is atherosclerotic calcification of the aortic arch with tortuosity. There is no demonstrated aortic dissection. Sternal cerclage wires and vascular clips are present from a prior sternotomy and coronary artery bypass graft procedure (CABG). Normal mediastinum. Normal hilar regions. There is peribronchial thickening. The lungs are well expanded. Diffuse interstitial and airspace opacifications in both lung pinto without effusions. This pattern of opacification is consistent with, and suspicious for Covid pneumonia. Normal pleura. Normal chest wall structures. There are degenerative changes of thoracic spine. Normal visualized upper abdomen. CT/CTA Chest W/WO Contrast IMPRESSION: No demonstrated PE, or thoracic aortic aneurysm or dissection Diffuse interstitial and airspace opacifications in both lung pinto suspicious for Covid pneumonia. Remote CABG Degenerative bony changes Electronically Signed: Tyler David MD at 13:48 EST , Service support ,
[2021-06-15] MEDS: MethylPREDNISolone 125 MG/2 ML Vial IV (14:15)
== END 2021-06-15 16:24 | disposition home or self-care (01) ==
PROVIDERS: Emergency Provider Emergency Medicine; PCP Family Medicine
DX: R06.02 Shortness of breath (principal); R06.2 Wheezing; Z20.822 Contact with and (suspected) exposure to COVID-19; I10 Essential (primary) hypertension; G62.9 Polyneuropathy, unspecified; G89.29 Other chronic pain; I25.10 Atherosclerotic heart disease of native coronary artery without angina pectoris; E78.5 Hyperlipidemia, unspecified; Z95.1 Presence of aortocoronary bypass graft; Z79.82 Long term (current) use of aspirin; Z79.899 Other long term (current) drug therapy
CPT/HCPCS: 71045; 71275; 80053; 83605; 85025; 85610; 85730; 87040; 87426; 87635; 93005; 94640; 96374; 99285; Q9967; U0005; A4216; U0003

== ENCOUNTER → 2021-07-02 | Outpatient (CLI) | payer MEDICARE, OTHER, SELFPAY | END | disposition home or self-care (01) | LOC: LABSPEC 15:49 | PROVIDERS: PCP Family Medicine; Referring Provider Family Medicine; Visit Provider Family Medicine | DX: Z20.828 Contact with and (suspected) exposure to other viral communicable diseases (principal) | CPT/HCPCS: 87633; 87635; U0005; U0003 ==

== ENCOUNTER 2021-11-09 13:00 | Outpatient (RCR) | payer MEDICARE, OTHER, SELFPAY ==
--- NOTE | 2021-10-07 15:23 | HP.PTEVAL_ITS ---
Patient's Visit Information NADIA RICK is a 71 year old M referred to Physical Therapy by Dr. Andrea Tello MD with a diagnosis of Imbalance. Date of Evaluation: 10/07/21 Physical Therapist: Jillian Butler DPT - Visit Plan Frequency: 2x /Week Duration: 4 Weeks Plan: Balance Assessment- focus on balance, LE and core strength/stabilization with a focus on functional mobility - Subjective Patient reports that he reports he has had declining balance 8-9 years ago. Falls down at least 2x a week- turns really quick, gets out of bed and falls, or can just be standing there and down he goes. Does a lot of fishing and he is tired of falling in the water. He is in a boat- ties himself to the seat and wears a lifejacket. Does not fall one way or the other he just falls down. Fell yesterday- does not normally hit his head- usually catches himself on his knees. He can get himself back up but it takes effort as he has bad knees. Does have low back pain- 8 years ago had back surgery- L1-3 fusion. Does feel that it has contributed to his balance. No radiating back pain- does not know if his back and balance are related. has neuropathy in his feet on both sides to his knees- takes medications. Does not feel that his legs buckle under him but they hurt. When he gets up he has to take a minute to get his balance before he can move. Dizziness when he looks up and sometimes when he rolls over in bed. Lives alone- has life alert- fully I with all of his ADL's- does it a lot slower than he use to be. Does have a cane- only uses it when he is on uneven surfaces- will use in the house if he has a bad day. He wears SAS shoes without orthotics- does not like the lace up kind. He has a TM and uses it daily- he walks and performs a slow run- hangs on the rails. No weight training. Does have stairs but uses 2 handrails to help pull him up. PMHx/Meds: see list in chart from oncology 10/07 - Objective Posture: Fh,RS, can correct but does not maintain. Gait: wide base of support- no AD. Stairs: asc/desc 8 recip with 2 HR poor control and retro lean. Balance: SLS: WS each side, Tandem stance: required UE A to attain position but was able to hold 1-2 sec each side, See FGA. ROM: WFL. Sensation: WFL. Strength: Core: fair minus Hip: flexion: 4/5, Abd: 4+/5, Add: 4+/5, Extn: 4/5, IR/ER: 4/5, Knee: Flexion: 4/5, Extn: 4/5, Ankle: 5/5. Flex: HS: severe Gastroc: moderate - Balance/Special Test Scores Functional Gait Assessment Score: 12 % Disability: 60.0000 - Goals Goal 1:: Patient will be I with HEP and progression Goal Time Frame: 4-6 Weeks Goal 2:: Patient will asc/desc 8 recip with 1 HR Goal Time Frame: 4-6 Weeks Goal 3:: Patient will improve TUG to under 10 seconds Goal Time Frame: 4-6 Weeks Goal 4:: Patient will sit to stand without UE A x5 Goal Time Frame: 4-6 Weeks Goal 5:: Patient will improve his FGA to WFL - Rehabilitation Potential Physical Therapy Diagnosis: Patient presents with hypomobility- he has decreased LE and core strength/stabilization, flex, proprioception and endurance leading to poor posture, imbalance and decreased ability to perform safe ADL's. Rehabilitation Potential: Fair - Anticipated Interventions Patient/Client Instruction: Educate patient on: Benefits of Fitness Program Therapeutic Exercise to Include: Strength training, Endurance training, Balance training, Coordination, Agility training, Body mechanics, Postural training, Flexibilty training, Gait and locomotor training, Neuromotor development, Dynamic Lumbar Stabilization, Scapular Strength/Stabilization For the Purpose of:: To improve muscle performance and motor function Thank you for the opportunity to evaluate your patient. For Medicare and Medicare HMO plans, please review the plan of care and approve it. It will need to be FAXED BACK to us at [phone] for Medicare purposes. For Medicare only, by signing this I certify the plan of care. Please let me know if there are questions or concerns regarding this plan of care. Physician Signature: Date:
--- NOTE | 2021-10-13 09:49 | HP.PTCOM_ITS ---
PT Communication Note 10/13/[address] Andrea Tello MD , Thank you for the referral of Ralph to [facility] for balance performance assessment. i have enclosed a copy of the results for your review. In summation, he scored low on vestibular portion of the Sensory Organization. He scored poorly of forward weight shifting in the Limits of stability Test. He also had a slight positive R Hallpike daisy today which I treated with the frank maneuver. With these results in mind, His plan of caare of 2x/week for 4 weeks is appropriate and we will add balance exercises for his specific deficits. We can also montior his needs for positional treatment. Thank you for this referral. Sincerely, Aris Horton, DPT, OCS, CSCS Contact Information
--- NOTE | 2021-11-15 10:10 | HP.PT.NRP ---
NADIA Pope MARLENELVIA was seen in my office for initial evaluation on 10/07/21. The following Plan of Care was established for this patient: Initial Frequency: 2x /Week Initial Duration: 4 Weeks Patient/Client Instruction: Educate patient on: Benefits of Fitness Program Therapeutic Exercise to Include: Strength training, Endurance training, Balance training, Coordination, Agility training, Body mechanics, Postural training, Flexibilty training, Gait and locomotor training, Neuromotor development, Dynamic Lumbar Stabilization, Scapular Strength/Stabilization For the Purpose of:: To improve muscle performance and motor function This patient was last seen in our office . Pertinent comments regarding their Physical therapy will appear below: Patient reports that he does not feel that PT is appropriate and he is not getting better and would like to be discharge from PT. Return to MD for further evaluation. At this point I will be discontinuing this patient from physical therapy. I would be happy to see this patient again in the future if found appropriate by the physician. Thank you! Jillian Butler, DPT Balance/Gait/Functional tests - Balance/Special Test Scores Functional Gait Assessment Score: 12 % Disability: 60.0000 Lower Extremity Functional Score: 23 Tug Test: 20-30sec.=variable mobility
== END 2021-11-09 19:00 | disposition home or self-care (01) ==
LOC: PT 13:00
PROVIDERS: PCP Family Medicine; Referring Provider Family Medicine; Visit Provider Family Medicine
DX: R26.89 Other abnormalities of gait and mobility (principal)
CPT/HCPCS: 97110; 97162; 97750

== ENCOUNTER 2021-11-18 13:23 | Emergency (ER) | payer MEDICARE, OTHER, SELFPAY ==
[2021-11-18 13:24] VITALS: BP 135/71; PULSE 75; RESP 18; TEMP 36.2; O2SAT 96; BMI 29.4
--- NOTE | 2021-11-18 14:05 | EKG12_ITS ---
Test Reason : CP Blood Pressure : / mmHG Vent. Rate : 071 BPM Atrial Rate : 071 BPM P-R Int : 144 ms QRS Dur : 084 ms QT Int : 380 ms P-R-T Axes : 021 -06 059 degrees QTc Int : 412 ms Sinus rhythm with occasional Premature ventricular complexes Inferior infarct , age undetermined Anteroseptal infarct , age undetermined Abnormal ECG Confirmed by PALMA PULIDO, ALFREDA ([id number]), offline editor STERLING GOMES ([id number]) on 11/23/2021 8:52:16 AM Referred By: ASMITA Confirmed By:ALFREDA WALDROP MD
--- NOTE | 2021-11-18 14:08 | CT_ITS ---
STUDY: CTA CHEST REASON FOR EXAM: Male, 71 years old. chest pain, SOB, tachycardia, fatigue x 1 week. Hx multiple myeloma, hypertension, CABG, stents, afib. RADIATION DOSAGE (If Supplied By Facility): CTDIvol = ( 13.81 ) mGy, DLP = ( 443.23 ) mGycm TECHNIQUE: The examination was performed with the intravenous administration of IV 100mL Isovue-370. Post-processing of the angiographic images was performed, with multiplanar reformation and 3D reconstruction. Individualized dose optimization techniques were used for this CT. COMPARISON: 06/15/2021 FINDINGS: Bilateral gynecomastia. Normal enhancement of the main pulmonary artery and right and left pulmonary arteries. Normal enhancement of the bilateral peripheral pulmonary arteries. There is no demonstrated pulmonary embolism. Normal thoracic aorta and visualized great vessels. There is no demonstrated aortic dissection. Normal heart and pericardium. Sternal cerclage wires and vascular clips are present from a prior sternotomy and coronary artery bypass graft procedure (CABG). There are calcified mediastinal lymph nodes. There are calcified bilateral hilar lymph nodes. Normal visualized trachea and bronchi. The lungs are under expanded. No airspace consolidation. Granuloma in the right lower lobe. 5.8 x 6.3 mm nodule in the left lower lobe on image 94 series 2 is not evident on prior CT. Normal pleura. Normal chest wall structures. There are degenerative changes of thoracic spine. Granulomatous calcifications of the liver and spleen. CT/CTA Chest W/WO Contrast IMPRESSION: 1. No central or segmental pulmonary embolism. 2. Clearing of patchy infiltrate seen on prior CTA chest. 3. 5.8 x 6.3 mm nodule in the left lower lobe, new since prior exam. Nodule is below size limitations of PET scan/biopsy. Recommend follow-up CT in 3 months. Electronically Signed: Sina Flores MD ([place]) at 15:02 EDT Reading Location ID and State: , Service support ,
--- NOTE | 2021-11-18 14:14 | EDS_ITS ---
HPI History of Present Illness Chief Complaint: General Illness Informant: patient Narrative Narrative: Patient is a 71-year-old male with history of coronary artery disease status post CABG 5 years ago as well as multiple myeloma currently undergoing treatment with Dr. Thomas, finished cycle 8 yesterday presenting from oncology office for concerns of hypotension tachycardia and chest pain. Patient was at the office today was found to have a blood pressure of 107 systolic and tachycardia. He is also diaphoretic. He told the office that he had chest pain earlier this week that lasted for about an hour and he had to take 3 nitroglycerin for tjis. He does not currently follow with a marine steward but has previously seen Dr. Mcclain. He is not had a stress test or echocardiogram in at least 4 years. He denies any swelling of his legs. He does note these had increased exercise intolerance and dyspnea on exertion over the past month. Per Tania from oncology, he is at increased risk of VTE with his chemotherapy. He had lab work yesterday which showed a potassium of 3.3 but otherwise was unremarkable. Patient denies any other complaints at this time. He denies any current chest pain, shortness of breath or difficulty breathing. He notes he has had some mild nasal congestion and a cold for the past month. Denies any fever or chills. [facility] Medical History Acute bronchitis, unspecified Atherosclerotic heart disease of [place] coronary artery without angina pectoris Chronic back pain Encounter for screening for COVID-19 [place] (hard of hearing) Hyperlipidemia Hypertension Irregular heart rate Left-sided Olvera's palsy Multiple myeloma Neuropathy Recovering alcoholic Tachycardia Home Medications nitroglycerin 0.4 mg SUBLINGUAL UD #20 tab.subl 02/08/19 [Rx Last Taken Unknown] aspirin 81 mg tablet,delayed release 81 mg PO DAILY@0800 #90 tab 05/14/19 [Rx Last Taken 06/14/21] lisinopril 5 mg tablet 5 mg PO DAILY #90 tab 06/14/19 [Rx Last Taken 06/14/21] ondansetron 4 mg PO Q8H PRN PRN #30 tab 07/14/20 [Rx Last Taken Unknown] melatonin 10 mg capsule 10 mg PO HS PRN 05/31/21 [History Last Taken 06/14/21] albuterol sulfate [Ventolin HFA] 2 puff INHALATION Q4H PRN PRN #1 ea 06/15/21 [Rx Last Taken Unknown] atorvastatin 40 mg PO QHS 06/15/21 [History Last Taken 06/14/21] gabapentin 600 mg PO TID 06/15/21 [History Last Taken 06/14/21] polyethylene glycol 3350 17 g PO DAILY 06/15/21 [History Last Taken 06/14/21] dexamethasone 4 mg tablet 20 mg PO .weekly #60 tab 09/22/21 [Rx Last Taken Unknown] Pomalyst 4 mg capsule See Rx Instructions .ROUTE .COMPLEX #21 capsule NS 11/15/21 [Rx Last Taken Unknown] Allergy/AdvReac Type Severity Reaction Status Date / Time morphine Allergy Severe Anaphylaxis Verified 11/18/21 13:27 oxycodone Allergy Severe Anaphylaxis Verified 11/18/21 13:27 Family History Father Brain cancer Sister Liver cancer Mother Leukemia Surgical History Hx of CABG Stented coronary artery (02/07/19) Social History housing: house Smoking Status: Never smoker details: occasionally wine substance use type: does not use what type of physical activity do you participate in: walking frequency: daily duration: 15-30 minutes/day hilton/restoration: Lutheran do you feel safe at home: Yes ROS ROS ED Constitutional Constitutional ED: Reports other Details: Diaphoresis earlier today ; Denies chills, fever(s) or sweats Eyes Eyes: Denies blurry vision or change in vision ENT ENT ED: Reports rhinorrhea; Denies sore throat Cardiovascular Cardiovascular: Reports chest pain; Denies orthopnea or palpitations Respiratory/Chest Respiratory/Chest: Reports cough, dyspnea and dyspnea on exertion; Denies orthopnea Gastrointestinal Gastrointestinal: Denies abdominal pain, diarrhea, melena, nausea or vomiting Genitourinary Genitourinary ED: Denies dysuria or hematuria Musculoskeletal Musculoskeletal: Denies myalgias Integumentary Denies rash Neurologic Neurologic: Denies headache(s), paresthesias or weakness Psychiatric Psychiatric: Denies depression EXAM Physical Exam Const Vital Signs: 11/18/21 13:24 11/18/21 14:06 11/18/21 15:28 Temperature 97.2 F L Temperature Source Temporal Pulse Rate 75 65 Pulse Rate [Lying] Pulse Rate [Sitting (for 1 minute prior to obtaining)] Pulse Rate [Standing (for 1 minute prior to obtaining)] Respiratory Rate 18 18 Respiratory Pattern Normal Blood Pressure 135/71 H Blood Pressure [Lying] Blood Pressure [Sitting (for 1 minute prior to obtaining)] Blood Pressure [Standing (for 1 minute prior to obtaining)] Blood Pressure Mean 92 Blood Pressure Mean [Lying] Blood Pressure Mean [Sitting (for 1 minute prior to obtaining)] Blood Pressure Mean [Standing (for 1 minute prior to obtaining)] Pulse Ox 96 99 Oxygen Delivery Method Room Air Room Air 11/18/21 15:33 Temperature Temperature Source Pulse Rate Pulse Rate [Lying] 63 Pulse Rate [Sitting (for 1 minute prior to obtaining)] 60 Pulse Rate [Standing (for 1 minute prior to obtaining)] 75 Respiratory Rate Respiratory Pattern Blood Pressure Blood Pressure [Lying] 123/74 H Blood Pressure [Sitting (for 1 minute prior to obtaining)] 115/60 Blood Pressure [Standing (for 1 minute prior to obtaining)] 114/74 Blood Pressure Mean Blood Pressure Mean [Lying] 90 Blood Pressure Mean [Sitting (for 1 minute prior to obtaining)] 78 Blood Pressure Mean [Standing (for 1 minute prior to obtaining)] 87 Pulse Ox Oxygen Delivery Method Positive well nourished and well developed General Appearance ED: well developed and NAD HEENT Reports moist mucous membranes Negative for trauma Eyes PERRL and EOMs intact bilaterally Neck supple and no JVD Chest Wall inspection of chest normal and palpation of chest normal Resp normal respiratory effort and clear to auscultation bilaterally Cardio regular rate, regular rhythm and no murmurs GI normal to inspection, nondistended, normoactive bowel sounds and non-tender Palpation: soft Back/Spine no CVA tenderness Neuro oriented x3 Sensorium / Orientation: alert Motor Exam: Negative for general weakness Psych mental status grossly normal Skin no rashes or lesions noted and no wounds MDM MDM MDM Narrative Medical decision making narrative: Patient evaluated for an episode of what sounds like near syncope. He was diaphoretic, hypotensive and tachycardic. The symptoms have resolved since arrival to the ER. Patient's lab work is stable. He does not have any signs of infection. He is at increased risk of PE given his chemotherapy. CTA does not show any acute PE and shows resolution of prior pneumonia. He does have a pulmonary nodule which he is informed of. His high- sensitivity troponin is 12. He had chest pain a week ago but had not had any since. I do not think this episode was cardiac in nature. Clinically patient does not appear to be in heart failure. Case is discussed with cardiology on- call who is agreeable with outpatient follow-up. He has an appointment to see Dr. Mcclain in 2 weeks. Patient is counseled on return precautions. He verbalizes agreement understand this plan. He is discharged home in stable condition. Lab Data Attestation: I reviewed the patient's lab results. Labs: Laboratory Results - last 24 hr 11/18/21 11/18/21 11/18/21 14:00 14:00 14:00 WBC 6.9 RBC 4.93 Hgb 15.0 Hct 44.9 MCV 91.1 MCH 30.4 MCHC 33.4 RDW Std Deviation 48.5 H RDW Coeff of Amrita 14.8 H Plt Count 186 MPV 10.0 Immature Gran % (Auto) 1.900 H Neut % (Auto) 60.1 Lymph % (Auto) 11.7 L [place] % (Auto) 22.6 H Eos % (Auto) 3.3 Baso % (Auto) 0.4 Absolute Neuts (auto) 4.2 Absolute Lymphs (auto) 0.81 L Nucleated RBC % 0 Differential Comment SCANNED PT 12.9 INR 1.0 Sodium 139 Potassium 3.8 Chloride 109 H Carbon Dioxide 24.0 Anion Gap 6 BUN 28 H Creatinine 1.06 Estim Creat Clear Calc 58.89 Est GFR (MDRD) Af Amer 88 Est GFR (MDRD) Non-Af 73 BUN/Creatinine Ratio 26.4 H Glucose 113 H Calcium 9.1 Troponin I High Sens 12 B-Natriuretic Peptide 11/18/21 14:00 WBC RBC Hgb Hct MCV MCH MCHC RDW Std Deviation RDW Coeff of Amrita Plt Count MPV Immature Gran % (Auto) Neut % (Auto) Lymph % (Auto) [place] % (Auto) Eos % (Auto) Baso % (Auto) Absolute Neuts (auto) Absolute Lymphs (auto) Nucleated RBC % Differential Comment PT INR Sodium Potassium Chloride Carbon Dioxide Anion Gap BUN Creatinine Estim Creat Clear Calc Est GFR (MDRD) Af Amer Est GFR (MDRD) Non-Af BUN/Creatinine Ratio Glucose Calcium Troponin I High Sens B-Natriuretic Peptide 111.8 H Radiography Diagnostic Testing: Clinical Impression(s) from Imaging Studies Chest CTA 11/18/21 14:08 IMPRESSION: 1. No central or segmental pulmonary embolism. 2. Clearing of patchy infiltrate seen on prior CTA chest. 3. 5.8 x 6.3 mm nodule in the left lower lobe, new since prior exam. Nodule is below size limitations of PET scan/biopsy. Recommend follow-up CT in 3 months. Electronically Signed: Sina Flores MD ([place]) at 15:02 EDT Reading Location ID and State: [id number] [place] , Service support , Rhythm Strip Rhythm Strip: Sinus Rhythm Rate: 71 Ectopy: PVC(s) EKG Initial EKG: Attestation: I personally reviewed and interpreted this EKG as follows: Interpretation: Sinus Rhythm Comments: Normal sinus rhythm at a rate of 71 with PVCs Normal axis Normal intervals Normal ST segments Subtle T wave flattening in V4 through V6 more pronounced compared to prior EKG on 06/15/2021 Discharge Plan Triage Chief Complaint: General Illness ED Provider: Alise Keller Dx/Rx/DC Orders Clinical Impression: Near syncope, Chest pain, Hx of CABG Instructions: ED Chest Pain, Uncertain Cause, ED Near-Fainting, Uncertain Cause Prescriptions: No Action lisinopril 5 mg tablet 5 mg PO DAILY Qty: 90 RF: 3 melatonin 10 mg capsule 10 mg PO HS PRN (Reason: Sleep) RF: 0 dexamethasone 4 mg tablet 20 mg PO .weekly Qty: 60 RF: 1 nitroglycerin 0.4 MG tablet, sublingual 0.4 mg sublingual UD Qty: 20 RF: 0 ondansetron 4 MG tablet 4 mg PO Q8H PRN PRN (Reason: Nausea/Vomiting) Qty: 30 RF: 1 gabapentin 600 mg tablet 600 mg PO TID RF: 0 polyethylene glycol 3350 17 gram/dose Powder 17 g PO DAILY RF: 0 atorvastatin 40 mg tablet 40 mg PO QHS RF: 0 albuterol sulfate [Ventolin HFA] 90 mcg/actuation HFA aerosol inhaler 2 puff inhalation Q4H PRN PRN (Reason: Wheezing) Qty: 1 RF: 0 aspirin 81 mg tablet,delayed release (DR/EC) 81 mg PO DAILY@0800 Qty: 90 RF: 3 Pomalyst 4 mg capsule See Rx Instructions .ROUTE .COMPLEX Qty: 21 RF: 0 Primary Care Provider: Andrea Tello Referrals: John Mcclain MD [STAFF PHYSICIAN] - Andrea Tello MD [Primary Care Provider] - Disposition Disposition: Home, Self Care
[2021-11-18 14:38] LABS: Absolute Lymphocyte Count 0.81 X10^3/uL (0.83-4.51); Absolute Neutrophil Count 4.2 X10^3/uL (2.0-7.7); Basophil# 0.03 X10^3/uL; Basophil% 0.4 % (0-1); Eosinophil# 0.23 X10^3/uL; Eosinophils% 3.3 % (0-5); Hematocrit 44.9 % (40-54); Lymphocyte # 0.81 X10^3/ul (0.83-4.51); Lymphocyte % 11.7 % (19-41); Mean Corp Hgb Conc 33.4 g/dL (32-36); Mean Corpuscular Hgb 30.4 pg (27.0-32.0); Mean Corpuscular Volume 91.1 fL (80-94); Monocyte# 1.57 X10^3/uL; Monocyte% 22.6 % (0-10); NRBC Flagged by Analyzer 0 % (0-5); Neutrophil # 4.17 X10^3/uL (2.7-7.7); Neutrophil % 60.1 % (47-70); POSITIVE DIFFERENTIAL YES; Platelet Count 186 K/mm3 (150-450); RBC Distribution Width CV 14.8 % (11.6-14.6); RBC Distribution Width SD 48.5 fl (35.1-43.9); Red Blood Count 4.93 M/mm3 (4.6-6.2); White Blood Count 6.9 K/mm3 (4.4-11.0)
[2021-11-18 14:42] LABS: Differential Indicated SCAN CRITERIA MET
[2021-11-18 14:58] LABS: Prothrombin Time (Protime)PT. 12.9 SECONDS (11.7-14.9)
[2021-11-18 15:00] LABS: Anion Gap 6 (5-15); BUN 28 mg/dL (7-18); BUN/Creat Ratio 26.4 RATIO (10-20); Calcium,Total 9.1 mg/dL (8.5-10.1); Chloride 109 mmol/L (98-107); Creatinine, Serum 1.06 mg/dL (0.70-1.30); EST Glomerular Filtration Rate 73 mL/min (>60); Est Glom Filt Rate - Afr Amer 88 mL/min (>60); Estimated Creatinine Clearance 58.89 ml/min; Glucose 113 mg/dL (74-106); Potassium 3.8 mmol/L (3.5-5.1); Sodium Level 139 mmol/L (136-145); Troponin-I HS 12 pg/mL (3.0-78.0)
[2021-11-18 15:08] LABS: BNP,B-Type NATRIURETIC PEPTIDE 111.8 pg/mL (0-100)
[2021-11-18 15:17] LABS: Differential Comment SCANNED
[2021-11-18 15:28] VITALS: PULSE 65; RESP 18; O2SAT 99
[2021-11-18 15:33] VITALS: BP 114/74; BP 115/60; BP 123/74; PULSE 60; PULSE 63; PULSE 75
[2021-11-18 17:05] VITALS: BP 119/99; PULSE 60; RESP 16; O2SAT 99
== END 2021-11-18 17:10 | disposition home or self-care (01) ==
PROVIDERS: Emergency Provider Emergency Medicine; PCP Family Medicine; Visit Provider Emergency Medicine
DX: R07.9 Chest pain, unspecified (principal); C90.02 Multiple myeloma in relapse; R55 Syncope and collapse; R91.1 Solitary pulmonary nodule; I10 Essential (primary) hypertension; I25.10 Atherosclerotic heart disease of native coronary artery without angina pectoris; E78.5 Hyperlipidemia, unspecified; M54.9 Dorsalgia, unspecified; R09.81 Nasal congestion; Z95.1 Presence of aortocoronary bypass graft; I49.3 Ventricular premature depolarization; Z87.01 Personal history of pneumonia (recurrent); R05.9 Cough, unspecified; R06.00 Dyspnea, unspecified; Z79.82 Long term (current) use of aspirin; Z79.899 Other long term (current) drug therapy; G89.29 Other chronic pain; G62.9 Polyneuropathy, unspecified
CPT/HCPCS: 36415; 71275; 80048; 80053; 82784; 83880; 83883; 84165; 84484; 85025; 85610; 86334; 93005; 99284; Q9967; A4216

== ENCOUNTER → 2022-02-04 | Outpatient (CLI) | payer MEDICARE, OTHER, SELFPAY ==
--- NOTE | 2022-02-04 13:33 | ECHOD_ITS ---
Reason For Study: Chest Pain Procedure This was a 2D Doppler, Color Flow transthoracic echocardiogram. The study was technically difficult. Exam performed in department. Left Ventricle Normal LV size. Mild segmental systolic dysfunction (see wall motion). The estimated ejection fraction is 45 %. Diastolic function is indeterminate. Mid-Inferior: Akinetic. Mid-inferoseptal : Akinetic. Mid-anteroseptal : Hypokinetic. Anterior [place] : Akinetic. Inferior [place] : Akinetic. Septal [place] : Hypokinetic. Right Ventricle Normal RV size. Normal systolic function. Atria Normal left atrium. Normal right atrium. No doppler evidence for ASD. Mitral Valve There is no mitral annular calcification. Normal mitral valve. Trivial mitral valve insufficiency. Tricuspid Valve Normal tricuspid valve. Mild tricuspid valve insufficiency. Right ventricular systolic pressure estimated to be 33 mmHg. Aortic Valve Trisinus/trileaflet aortic valve. Mild focal aortic valve calcification. Pulmonic Valve The pulmonic valve is not well visualized. Great Vessels Normal sized aortic root. Pericardium/Pleural No pericardial effusion. MMode/2D Measurements & Calculations LVIDd: 4.3 cm IVSd: 1.5 cm Ao root diam: 3.3 cm LVIDs: 2.9 cm LVPWd: 1.2 cm LA dimension: 3.7 cm RVDd: 3.8 cm FS: 32.4 % LAV(MOD-bp): 70.7 ml LA A4 area: 23.8 cm2 RA A4 area: 13.1 cm2 LAV(MOD-bp) Indexed: 35.0 ml/m2 LAV(MOD-sp2): 66.5 ml LAV(MOD-sp4): 75.7 ml Time Measurements MV dec time: 0.22 sec Doppler Measurements & Calculations MV E max dima: 68.7 cm/sec Lat Peak E' Dima: 7.4 cm/sec Med Peak E' Dima: 5.7 cm/sec MV A max dima: 87.2 cm/sec E/E' lat: 9.3 E/E' med: 12.0 MV E/A: 0.79 MV V2 max: 86.3 cm/sec MV P1/2t max dima: 64.7 cm/sec Ao V2 max: 107.6 cm/sec MV max P.0 mmHg MV P1/2t: 94.2 msec Ao max P.6 mmHg MV V2 mean: 38.2 cm/sec MV dec slope: 201.2 cm/sec2 MV mean P.74 mmHg MVA(P1/2t): 2.3 cm2 MV V2 VTI: 34.9 cm LV V1 max: 80.5 cm/sec TR max dima: 273.3 cm/sec LV V1 max P.6 mmHg TR max P.9 mmHg ECHO/Echo Complete Interpretation Summary The study was technically difficult. Mild segmental systolic dysfunction (see wall motion). The estimated ejection fraction is 45 %. Trivial mitral valve insufficiency. Mild tricuspid valve insufficiency. Mild focal aortic valve calcification. Right ventricular systolic pressure estimated to be 33 mmHg. Diastolic function is indeterminate. Ordering Physician: John Mcclain Referring Physician: Andrea Tello Performed By: Abelino Harkins RCS
== END | disposition home or self-care (01) ==
LOC: CVS 13:30
PROVIDERS: PCP Family Medicine; Referring Provider Internal Medicine Cardiovascular Disease; Visit Provider Internal Medicine Cardiovascular Disease
DX: R07.9 Chest pain, unspecified (principal); I25.119 Atherosclerotic heart disease of native coronary artery with unspecified angina pectoris; Z95.1 Presence of aortocoronary bypass graft
CPT/HCPCS: 93306

== ENCOUNTER → 2022-02-09 | Outpatient (CLI) | payer MEDICARE, OTHER, SELFPAY ==
[2022-02-09 11:15] LABS: Absolute Lymphocyte Count 0.54 X10^3/uL (0.83-4.51); Absolute Neutrophil Count 9.2 X10^3/uL (2.0-7.7); Basophil# 0.05 X10^3/uL; Basophil% 0.5 % (0-1); Eosinophil# 0.02 X10^3/uL; Eosinophils% 0.2 % (0-5); Hematocrit 46.4 % (40-54); Hemoglobin 15.9 g/dL (13.0-16.5); Lymphocyte # 0.54 X10^3/ul (0.83-4.51); Lymphocyte % 5.3 % (19-41); Mean Corp Hgb Conc 34.3 g/dL (32-36); Mean Corpuscular Hgb 31.7 pg (27.0-32.0); Mean Corpuscular Volume 92.4 fL (80-94); Monocyte# 0.23 X10^3/uL; Monocyte% 2.3 % (0-10); NRBC Flagged by Analyzer 0 % (0-5); Neutrophil # 9.15 X10^3/uL (2.7-7.7); Neutrophil % 90.2 % (47-70); POSITIVE DIFFERENTIAL YES; Platelet Count 193 K/mm3 (150-450); RBC Distribution Width CV 15.6 % (11.6-14.6); RBC Distribution Width SD 53.1 fl (35.1-43.9); Red Blood Count 5.02 M/mm3 (4.6-6.2); White Blood Count 10.1 K/mm3 (4.4-11.0)
[2022-02-09 11:20] LABS: Differential Indicated SCAN CRITERIA MET
--- NOTE | 2022-02-09 11:30 | RAD_ITS ---
EXAM: XR CHEST, 2 VIEWS CLINICAL INDICATION: chest pain TECHNIQUE: Frontal and lateral views of the chest. This report was created using [employer] report generation technology. COMPARISON: 06/15/2021 FINDINGS: LUNGS AND PLEURAL SPACES: Unremarkable. No consolidation or edema. No pneumothorax. No effusion. HEART: Unremarkable. Cardiac silhouette not enlarged. MEDIASTINUM: Central airways and mediastinal contour are unremarkable. BONES/JOINTS: Unremarkable. SOFT TISSUES: Unremarkable. RAD/Chest PA and Lateral IMPRESSION: No radiographic evidence of acute cardiopulmonary disease. Electronically Signed: Jordan Kerr MD at 17:59 EDT ,
[2022-02-09 11:33] LABS: Partial Thromboplast Time 26.3 Seconds (24.1-36.2); Prothrombin Time (Protime)PT. 12.5 SECONDS (11.7-14.9)
[2022-02-09 11:37] LABS: AST(SGOT) 15 U/L (15-37); Alanine Aminotransfer ALT/SGPT 23 U/L (16-61); Alkaline Phosphatase 67 U/L (45-117); Anion Gap 8 (5-15); BUN 19 mg/dL (7-18); BUN/Creat Ratio 21.1 RATIO (10-20); Bilirubin, Direct 0.19 mg/dL (0.00-0.30); Calcium,Total 9.7 mg/dL (8.5-10.1); Chloride 106 mmol/L (98-107); Cholesterol 206 mg/dL (200); EST Glomerular Filtration Rate 88 mL/min (>60); Est Glom Filt Rate - Afr Amer 106 mL/min (>60); Globulin 3.6 g/dL (2.2-4.2); Glucose 150 mg/dL (74-106); High Density Lipoprotein 63 mg/dL; Potassium 4.1 mmol/L (3.5-5.1); Protein, Total 7.6 g/dL (6.4-8.2); Sodium Level 136 mmol/L (136-145); Triglycerides 94 mg/dL; Very Low Density Lipoprotein 19 mg/dL (5-40)
[2022-02-14 07:35] VITALS: BMI 31.1
== END | disposition home or self-care (01) ==
LOC: PAT 02-24 13:28
PROVIDERS: PCP Family Medicine; Visit Provider Internal Medicine Cardiovascular Disease
DX: R07.9 Chest pain, unspecified (principal); I25.10 Atherosclerotic heart disease of native coronary artery without angina pectoris; Z95.1 Presence of aortocoronary bypass graft; R06.02 Shortness of breath
CPT/HCPCS: 36415; 71046; 80048; 80061; 80076; 85025; 85610; 85730

== ENCOUNTER 2022-02-12 18:45 | Observation (INO) | payer MEDICARE, OTHER, SELFPAY ==
[2022-02-12 18:47] VITALS: BP 145/73; PULSE 75; RESP 20; TEMP 36.7; O2SAT 94; BMI 32.3
--- NOTE | 2022-02-12 19:09 | EKG12_ITS ---
Test Reason : SYNCOPE Blood Pressure : / mmHG Vent. Rate : 076 BPM Atrial Rate : 076 BPM P-R Int : 154 ms QRS Dur : 082 ms QT Int : 362 ms P-R-T Axes : 015 009 011 degrees QTc Int : 407 ms Sinus rhythm with occasional Premature ventricular complexes Inferior infarct (cited on or before 22-NOV-2013) Anteroseptal infarct (cited on or before 22-NOV-2013) Abnormal ECG Confirmed by DENIA PULIDO, TAMELA ([id number]), metropolitan editor GERTRUDE CEJA ([id number]) on 02/14/2022 11:07:54 AM Referred By: HARPREET Confirmed By:TAMELA LOZA MD
[2022-02-12] MEDS: Aspirin 81 MG TAB.CHEW 324 MG PO (19:18)
[2022-02-12 19:21] LABS: Absolute Lymphocyte Count 0.89 X10^3/uL (0.83-4.51); Absolute Neutrophil Count 2.7 X10^3/uL (2.0-7.7); Basophil# 0.07 X10^3/uL; Basophil% 1.3 % (0-1); Eosinophil# 0.86 X10^3/uL; Eosinophils% 15.5 % (0-5); Hematocrit 45.2 % (40-54); Hemoglobin 15.3 g/dL (13.0-16.5); Lymphocyte # 0.89 X10^3/ul (0.83-4.51); Mean Corp Hgb Conc 33.8 g/dL (32-36); Mean Corpuscular Hgb 31.7 pg (27.0-32.0); Mean Corpuscular Volume 93.6 fL (80-94); Mean Platelet Vol. 10.5 fl (6.2-12.0); Monocyte# 0.99 X10^3/uL; Monocyte% 17.8 % (0-10); NRBC Flagged by Analyzer 0 % (0-5); Neutrophil # 2.67 X10^3/uL (2.7-7.7); Platelet Count 125 K/mm3 (150-450); RBC Distribution Width CV 15.6 % (11.6-14.6); RBC Distribution Width SD 53.9 fl (35.1-43.9); Red Blood Count 4.83 M/mm3 (4.6-6.2); White Blood Count 5.6 K/mm3 (4.4-11.0)
--- NOTE | 2022-02-12 19:24 | RAD_ITS ---
STUDY: X-RAY CHEST REASON FOR EXAM: Male, 71 years old. chest pain TECHNIQUE: Single AP portable view of the chest. COMPARISON: 02/09/2022. FINDINGS: The lungs are clear and expanded. There is no demonstrated pleural abnormality. Normal size heart. Normal mediastinum and harriet. Normal visualized pulmonary arteries. Normal visualized aortic arch and descending thoracic aorta. Normal visualized thoracic spine. Normal visualized ribs, clavicles, and shoulders. There is no demonstrated abnormality of the visualized soft tissue structures of the upper abdomen. RAD/Chest 1 View (Portable) IMPRESSION: Normal x-ray examination of the chest. Electronically Signed: Hanane Castellano MD at 21:50 EDT Reading Location ID and State: [id number] / Tel , Service support ,
[2022-02-12 19:36] LABS: Anion Gap 10 (5-15); BUN 28 mg/dL (7-18); BUN/Creat Ratio 26.2 RATIO (10-20); Calcium,Total 9.6 mg/dL (8.5-10.1); Chloride 109 mmol/L (98-107); Creatinine, Serum 1.07 mg/dL (0.70-1.30); EST Glomerular Filtration Rate 72 mL/min (>60); Est Glom Filt Rate - Afr Amer 87 mL/min (>60); Estimated Creatinine Clearance 58.34 ml/min; Glucose 184 mg/dL (74-106); Potassium 3.6 mmol/L (3.5-5.1); Sodium Level 143 mmol/L (136-145); Troponin-I HS (w/2H Reflex) 80 pg/mL (3.0-78.0)
--- NOTE | 2022-02-12 20:04 | EDS_ITS ---
HPI History of Present Illness Chief Complaint: Syncope Informant: patient and spouse/S.O. Narrative Narrative: Patient had syncopal episode today. He was feeling normally today. He had eaten dinner. He was sitting down. turned and noticed that he really was not responding. She tried to talk to them. He would make some noises. He would wax and wane like this for almost 5 minutes. He then came out of it. He has been feeling normal since. He does not recall her talking to him at any time. He does remember feeling very lightheaded getting sweaty and have his vision narrowed down and then he does not remember anything. She states he was sweaty at the time. On further review of systems I find that the patient has been having increasing chest pain over the last weeks. He was taking 1 2 and now occasionally has had even for nitroglycerin to get rid of the pain. He talked to his water manager. They plan a heart cath for this Monday on the . He does not recall having chest pain with this episode tonight though. He does have a history of heart disease and four-vessel by bypass about 5 years ago. He had stents prior to this but not since. He is taking all his. He is on aspirin. I do not think he is on any other antiplatelet agent. PFSH PFS Medical History Acute bronchitis, unspecified Atherosclerotic heart disease of [place] coronary artery without angina pectoris Olvera's palsy Chronic back pain Congestion of nasal sinus Constipation Cough Encounter for education Encounter for screening for COVID-19 Essential hypertension Heartburn symptom [place] (hard of hearing) Hyperlipidemia Irregular heart rate Left-sided Olvera's palsy Multiple myeloma Neuropathy Recovering alcoholic Sore throat Suspected 2019 novel coronavirus infection Tachycardia Home Medications aspirin 81 mg tablet,delayed release 81 mg PO DAILY@0800 #90 tabs 05/14/19 [Rx Last Taken 06/14/21] ondansetron 4 mg disintegrating tablet 4 mg PO Q8H PRN PRN Nausea/Vomiting #30 tabs 07/14/20 [Rx Last Taken Unknown] melatonin 10 mg capsule 10 mg PO HS PRN Sleep 05/31/21 [History Last Taken 06/14/21] albuterol sulfate 90 mcg/actuation aerosol inhaler (Ventolin HFA) 2 puff inhalation Q4H PRN PRN Wheezing #1 ea 06/15/21 [Rx Last Taken Unknown] gabapentin 600 mg tablet 600 mg PO TID NERVE PAIN 06/15/21 [History Last Taken 06/14/21] dexamethasone 4 mg tablet 20 mg PO .weekly #60 tabs 09/22/21 [Rx Last Taken Unknown] Bacillus coagulans 10 billion cell capsule,delayed release (Probiotic (B. coagulans)) 1 cell PO 01/12/22 [History Last Taken Unknown] atorvastatin 40 mg tablet 40 mg PO DAILY #90 tabs 01/13/22 [Rx Last Taken Unknown] isosorbide mononitrate 30 mg tablet,extended release 24 hr 30 mg PO DAILY #90 tabs 01/13/22 [Rx Last Taken Unknown] lisinopril 5 mg tablet 5 mg PO DAILY #90 tabs 01/13/22 [Rx Last Taken Unknown] metoprolol tartrate 25 mg tablet 25 mg PO BID #180 tabs 01/13/22 [Rx Last Taken Unknown] nitroglycerin 0.4 mg sublingual tablet 0.4 mg sublingual Q5-15M PRN chest pain #25 tabs 01/13/22 [Rx Last Taken Unknown] polyethylene glycol 3350 17 gram/dose oral powder 17 g PO DAILY PRN CONSTIPATION 01/13/22 [History Last Taken Unknown] pomalidomide 4 mg capsule (Pomalyst) 4 mg PO QHS 02/12/22 [History Last Taken Unknown] Allergy/AdvReac Type Severity Reaction Status Date / Time morphine Allergy Severe Anaphylaxis Verified 01/24/22 14:58 oxycodone Allergy Severe Anaphylaxis Verified 01/24/22 14:58 Family History Father Brain cancer Sister Liver cancer Mother Leukemia Surgical History History of coronary artery bypass surgery (~08/15/14) Hx of CABG Stented coronary artery (02/07/19) Social History (Updated 02/12/22 @ 21:39 by Tamika Mcclure) household members: none housing: house number of children: 2 service: Yes ([employer]) current occupational status: retired pets and animals: Yes Smoking Status: Never smoker alcohol intake: former substance use type: does not use what type of physical activity do you participate in: walking frequency: daily duration: 15-30 minutes/day hilton/worship: Sabianist do you feel safe at home: Yes ROS ROS ED Constitutional Constitutional ED: Denies fever(s) Eyes Eyes: Denies change in vision ENT ENT ED: Denies rhinorrhea or sore throat Cardiovascular Cardiovascular: Denies chest pain, palpitations or racing heartbeat Respiratory/Chest Respiratory/Chest: Denies cough or dyspnea Gastrointestinal Gastrointestinal: Denies abdominal pain, nausea or vomiting Genitourinary Genitourinary ED: Denies hematuria Musculoskeletal Musculoskeletal: Denies back pain or neck pain Integumentary Denies rash Neurologic Neurologic: Denies headache(s) Endocrine Endocrinology: Denies polydipsia or polyuria Hematologic/Lymphatic Hematologic/Lymphatic: Denies easy bleeding or easy bruising Allergic/Immunologic Allergic/Immunologic ED: Denies urticaria EXAM Physical Exam Const Vital Signs: 02/12/22 18:47 02/12/22 18:56 02/12/22 20:18 Temperature 98.0 F 98.0 F Temperature Source Oral Oral Pulse Rate 75 68 Respiratory Rate 20 H 15 Respiratory Effort Normal Non-Labored Respiratory Pattern Normal Blood Pressure 145/73 H 129/73 H Blood Pressure Mean 97 91 Pulse Ox 94 94 Oxygen Delivery Method Room Air Room Air Positive well nourished and well developed Constitutional Narrative: Patient reportedly was diaphoretic per but is not at this time. General Appearance ED: well developed and NAD; Negative for diaphoretic or pallor HEENT Reports moist mucous membranes Eyes EOMs intact bilaterally Neck no JVD Chest Wall inspection of chest normal Resp normal respiratory effort and clear to auscultation bilaterally Cardio regular rate and regular rhythm GI normal to inspection, nondistended, normoactive bowel sounds and non-tender Back/Spine no CVA tenderness Extremity normal to inspection General Extremety ED: Negative for tenderness Neuro oriented x3 Psych mental status grossly normal Skin no rashes or lesions noted General Skin Exam: Negative for jaundice or pallor MDM MDM MDM Narrative Medical decision making narrative: NCV seizures no marked abnormalities. Minimally low platelets. Electrolytes show slight elevation in the BUN but I do not think this alone caused his symptoms. Troponin was slightly elevated at 80. Chest x-ray was normal. With this patient's history of heart disease, worsening chest pain and increased use of nitro recently, now syncope I do think this patient should come in the hospital. He does have a slight elevation of his troponin. He is rechecked and is asymptomatic at this time. I discussed case with hospitalist. Lab Data Attestation: I reviewed the patient's lab results. Labs: Laboratory Results - last 24 hr 02/12/22 02/12/22 02/12/22 18:40 18:40 18:40 WBC 5.6 RBC 4.83 Hgb 15.3 Hct 45.2 MCV 93.6 MCH 31.7 MCHC 33.8 RDW Std Deviation 53.9 H RDW Coeff of Amrita 15.6 H Plt Count 125 L MPV 10.5 Immature Gran % (Auto) 1.400 H Neut % (Auto) 48.0 Lymph % (Auto) 16.[address] [place] % (Auto) 17.8 H Eos % (Auto) 15.5 H Baso % (Auto) 1.3 H Absolute Neuts (auto) 2.7 Absolute Lymphs (auto) 0.89 Nucleated RBC % 0 Sodium 143 Potassium 3.6 Chloride 109 H Carbon Dioxide 24.0 Anion Gap 10 BUN 28 H Creatinine 1.07 Estim Creat Clear Calc 58.34 Est GFR (MDRD) Af Amer 87 Est GFR (MDRD) Non-Af 72 BUN/Creatinine Ratio 26.2 H Glucose 184 H Calcium 9.6 Magnesium 1.5 L Troponin I High Sens 80 H Radiography Diagnostic Testing: Clinical Impression(s) from Imaging Studies Chest X-Ray 02/12/22 19:24 IMPRESSION: Normal x-ray examination of the chest. Electronically Signed: Hanane Castellano MD at 21:50 EDT Reading Location ID and State: [id number] / Tel , Service support , EKG Initial EKG: Comments: EKG done for syncope read by me shows sinus rhythm with occasional PVC. Discharge Plan Dx/Rx/DC Orders Clinical Impression: Syncope, Elevated troponin Disposition Disposition: Acute Care Hospital [facility] Discharge Date/Time: 02/12/22 21:10
--- NOTE | 2022-02-12 20:15 | PCM.HP.STD ---
HPI - General General Date of Admission: 02/12/22 Date of Service: 02/12/22 Chief Complaint: Syncopal event. HPI Narrative The patient is a 71 y/o M w/ PMHx: CAD s/p CABG and PCI, HTN, HLD, Hx ETOH abuse in recovery/sober, GERD, Hx Multiple myeloma, Hx L sided Olvera's palsy, Chronic back pain who presents to the [facility] ED on 02/12/22 secondary to syncopal event following dinner, seated talking, went unresponsive and slumped forward for several minutes of decreased responsiveness reporting narrowing vision, diaphoresis and lightheadedness prior to onset of event with no specific chest pain at that time prompting ED evaluation. Patient per report has upcoming pre-planned cardiac catheterization on 02/15/22 with recently Cardiology evaluation 01/13/22 with compliant of chest pain usually starting his left chest with radiation to the left neck as well as left shoulder and subsequently down both upper extremities with nitroglycerin self administration with some discomfort improvement with additionally history of exertional dyspnea although he does have some shortness of breath at baseline as well as mild orthopnea in addition to sensation of dizziness but no prior lightheadedness or syncopal events until presentation currently. Patient with recent evaluation also including 02/04/22 ECHO w/ mild segmental systolic dysfunction, EF 45%, trivial MVI, mild TVI, RVSP 33 mmHg, diastolic function indeterminate. Work-up in the ED included T 98, heart 75, BP 145/73, respiratory rate 20, 94% on room air, CBC with WBC 5.6, hemoglobin 15.3, platelet 125 with increased immature granulocytes, BMP with chloride 109, BUN/creat 20/1.07, glucose 184, troponin 80, chest x-ray with no acute cardiopulmonary findings, EKG with SR with PVC similar to prior without acute evidence of ischemia. In the ED patient ministered full-strength aspirin therapy. FOR[facility]LY [facility] Medical History Acute bronchitis, unspecified Atherosclerotic heart disease of [place] coronary artery without angina pectoris Olvera's palsy Chronic back pain Congestion of nasal sinus Constipation Cough Encounter for education Encounter for screening for COVID-19 Essential hypertension Heartburn symptom [place] (hard of hearing) Hyperlipidemia Irregular heart rate Left-sided Olvera's palsy Multiple myeloma Neuropathy Recovering alcoholic Sore throat Suspected 2019 novel coronavirus infection Tachycardia Home Medications aspirin 81 mg tablet,delayed release 81 mg PO DAILY@0800 #90 tabs 05/14/19 [Rx Last Taken 06/14/21] ondansetron 4 mg disintegrating tablet 4 mg PO Q8H PRN PRN Nausea/Vomiting #30 tabs 07/14/20 [Rx Last Taken Unknown] melatonin 10 mg capsule 10 mg PO HS PRN Sleep 05/31/21 [History Last Taken 06/14/21] albuterol sulfate 90 mcg/actuation aerosol inhaler (Ventolin HFA) 2 puff inhalation Q4H PRN PRN Wheezing #1 ea 06/15/21 [Rx Last Taken Unknown] gabapentin 600 mg tablet 600 mg PO TID NERVE PAIN 06/15/21 [History Last Taken 06/14/21] dexamethasone 4 mg tablet 20 mg PO .weekly #60 tabs 09/22/21 [Rx Last Taken Unknown] Bacillus coagulans 10 billion cell capsule,delayed release (Probiotic (B. coagulans)) 1 cell PO 01/12/22 [History Last Taken Unknown] atorvastatin 40 mg tablet 40 mg PO DAILY #90 tabs 01/13/22 [Rx Last Taken Unknown] isosorbide mononitrate 30 mg tablet,extended release 24 hr 30 mg PO DAILY #90 tabs 01/13/22 [Rx Last Taken Unknown] lisinopril 5 mg tablet 5 mg PO DAILY #90 tabs 01/13/22 [Rx Last Taken Unknown] metoprolol tartrate 25 mg tablet 25 mg PO BID #180 tabs 01/13/22 [Rx Last Taken Unknown] nitroglycerin 0.4 mg sublingual tablet 0.4 mg sublingual Q5-15M PRN chest pain #25 tabs 01/13/22 [Rx Last Taken Unknown] polyethylene glycol 3350 17 gram/dose oral powder 17 g PO DAILY PRN CONSTIPATION 01/13/22 [History Last Taken Unknown] pomalidomide 4 mg capsule (Pomalyst) 4 mg PO QHS 02/12/22 [History Last Taken Unknown] Allergy/AdvReac Type Severity Reaction Status Date / Time morphine Allergy Severe Anaphylaxis Verified 01/24/22 14:58 oxycodone Allergy Severe Anaphylaxis Verified 01/24/22 14:58 Family History Father Brain cancer Sister Liver cancer Mother Leukemia Surgical History History of coronary artery bypass surgery (~08/15/14) Hx of CABG Stented coronary artery (02/07/19) Social History (Updated 02/12/22 @ 20:[address] Mica Yip MD) household members: none housing: house Smoking Status: Never smoker alcohol intake: former substance use type: does not use what type of physical activity do you participate in: walking frequency: daily duration: 15-30 minutes/day hilton/mandaeism: Taoist do you feel safe at home: Yes ROS ROS Narrative Admission Review of Systems: CONSTITUTIONAL: No weight loss, fever, chills, + weakness or fatigue. HEENT: + Transient tunnel vision prior to syncope. Eyes: No visual loss, blurred vision, double vision or yellow sclerae. Ears, Nose, Throat: No hearing loss, sneezing, congestion, runny nose or sore throat. SKIN: No rash or itching, lesions, wounds. CARDIOVASCULAR: + Chest pain, orthopnea, syncopal event. No palpitations, edema. RESPIRATORY: + Shortness of breath, No cough or sputum, wheezing, hemoptysis. GASTROINTESTINAL: + Constipated, but does vascillate with diarrhea. No anorexia, nausea, vomiting or diarrhea, abdominal pain, melena, BRBPR. GENITOURINARY: No dysuria, frequency, urgency or retention. NEUROLOGICAL: + Dizziness, syncope, transient tunnel vision, peripheral chronic neuropathy. No headache, paralysis, ataxia, focal weakness, change in bowel or bladder control, seizure. MUSCULOSKELETAL: + muscle, back pain, joint pain or stiffness. HEMATOLOGIC: No anemia, bleeding or bruising. LYMPHATICS: No enlarged nodes. No history of splenectomy. PSYCHIATRIC: No history of depression or anxiety. ENDOCRINOLOGIC: + reports of sweating, cold or heat intolerance. No polyuria or polydipsia. ALLERGIES: No history of asthma, hives, eczema or rhinitis. Vital Signs Vital Signs Vital Signs: 02/12/22 18:47 02/12/22 18:56 Temperature 98.0 F Temperature Source Oral Pulse Rate 75 Respiratory Rate 20 H Respiratory Effort Normal Non-Labored Respiratory Pattern Normal Blood Pressure 145/73 H Blood Pressure Mean 97 Pulse Ox 94 Oxygen Delivery Method Room Air Weight Weight: 206 lb 12.697 oz Body Mass Index (BMI) 32.3 Physical Exam Narrative Physical Examination: General: Awake, alert, oriented x 3 and cooperative, seated upright in the ED bed, fatigued appearing but otherwise no acute distress. Skin: Normal color, normal turgor, no icterus, no cyanosis. HEENT: AT/NC, EOMI, PERRLA, mild bilateral scleral injection present, MMM, no carotid bruits or JVD noted. Lungs: CTA bilaterally, moderate effort, mild decrease BL bases, no rales, ronchi or wheezing. Heart: Regular rate and rhythm; no gallop, rub audible. Abdomen: Soft, overweight, NTTP, mildly distended, tympanitic, reports sensation of being constipated, mildly hyperactive BS, no HSM. Extremities: No cyanosis, clubbing, or edema. Neurological: Patient awake, alert, oriented as noted, cognitive function intact; pupils equally reactive to light and accommodation, cranial nerves II-XII grossly normal, moving all 4 extremities, no focal deficits, strength preserved. Psychiatric: Affect appears fatigued otherwise normal, no acute evidence of depressive or anxiety feelings. Results Lab / Micro Data Result Diagrams: 02/12/22 18:40 02/12/22 18:40 Labs: Laboratory Results - last 24 hr 02/12/22 18:40: WBC 5.6, RBC 4.83, Hgb 15.3, Hct 45.2, MCV 93.6, MCH 31.7, MCHC 33.8, RDW Std Deviation 53.9 H, RDW Coeff of Amrita 15.6 H, Plt Count 125 L, MPV 10.5, Immature Gran % (Auto) 1.400 H, Neut % (Auto) 48.0, Lymph % (Auto) 16.0 L, [place] % (Auto) 17.8 H, Eos % (Auto) 15.5 H, Baso % (Auto) 1.3 H, Absolute Neuts (auto) 2.7, Absolute Lymphs (auto) 0.89, Nucleated RBC % 0 02/12/22 18:40: Sodium 143, Potassium 3.6, Chloride 109 H, Carbon Dioxide 24.0, Anion Gap 10, BUN 28 H, Creatinine 1.07, Estim Creat Clear Calc 58.34, Est GFR (MDRD) Af Amer 87, Est GFR (MDRD) Non-Af 72, BUN/Creatinine Ratio 26.2 H, Glucose 184 H, Calcium 9.6, Troponin I High Sens 80 H Assessment & Plan Assessment/Plan (1) Syncope: PLAN: Plan The patient is a 71 y/o M w/ PMHx: CAD s/p CABG and PCI, HTN, HLD, Hx ETOH abuse in recovery/sober, GERD, Hx Multiple myeloma, Hx L sided Olvera's palsy, Chronic back pain who presents to the [facility] ED on 02/12/22 secondary to syncopal event following dinner, seated talking, went unresponsive and slumped forward for several minutes of decreased responsiveness reporting narrowing vision, diaphoresis and lightheadedness prior to onset of event with no specific chest pain at that time prompting ED evaluation. #1. Syncopal event w/ Recent Hx Ongoing Chest Pain with indeterminate cardiac enzyme: ED evaluation with troponin 80, chest x-ray with no acute cardiopulmonary findings, EKG with SR with PVC similar to prior without acute evidence of ischemia. Will admit to PCU, place on a monitored bed to assure no acute myocardial infarction with serial cardiac enzymes and EKGs. We will continue with cardiology consultation given recent plans for upcoming cardiac catheterization. FLP in AM. Magnesium level requested. ASA, NG. Noted morphine anaphylaxis allergy. #2. CAD: s/p CABG and PCI, last cardiac catheterization noted 02/07/2019 with LV 45%, segmented LV systolic dysfunction noted to be severe, triple-vessel CAD of the LM, LAD, LCx and RCA with a widely patent LUCAS to LAD, LAD noted to be very small with a patent SVG to OM #3, SVG to diagonal, SVG to acute marginal of RCA with retrograde flow impeded by ostial 85% acute marginal with successful PCI with PTCA, continue asa, metoprolol, lisinopril #3. 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 Encourage continued evaluation with Oncology, Dr. Proctor w/ last evaluation 01/24/22. From current med records maintained on Pomalyst. #4. Hypertension: Continue home regimen including isosorbide, lisinopril, metoprolol with hold parameters as needed, PRN hydralazine. #5. Hyperlipidemia: Continue home statin regimen. AM FLP. #6. Chronic peripheral neuropathy: As noted associated with multiple myeloma treatments, we will continue patient home gabapentin regimen. #7. Obesity: Weight loss and lifestyle changes encouraged. #8. History of alcohol abuse: Encouraged continued sobriety. #9. GERD: Not on regimen, may add PPI versus H2 kandis pending symptoms. #10. DVT prophylaxis: SCDs, Lovenox. #11. CODE status: Patient PRITI is his son Jose A and living will is currently in place. Discussed CODE status at length including difference between FULL code, DNR-CCA and DNR-CC status. Following discussions about the differences in these status, requested DNR-CCA, no intubation status and was very adamant about the status. Advanced Care Planning Face to Face Time: 16 minutes. Charges/Coding Visit Charges OBSV E&M: 66541 Initial observation care L3 Procedures Hospitalists Procedures: 72251 Advncd Care Plan 30 Min
[2022-02-12 20:18] VITALS: BP 129/73; PULSE 68; RESP 15; TEMP 36.7; O2SAT 94
[2022-02-12 20:45] VITALS: BP 115/56; PULSE 69; RESP 20; O2SAT 95
[2022-02-12 21:15] LABS: Reflex Troponin-HS? (from REC) Y
[2022-02-12 21:17] VITALS: BMI 30.9
--- NOTE | 2022-02-12 21:35 | EKG12_ITS ---
Test Reason : am ekg Blood Pressure : / mmHG Vent. Rate : 050 BPM Atrial Rate : 042 BPM P-R Int : 152 ms QRS Dur : 088 ms QT Int : 458 ms P-R-T Axes : 031 003 047 degrees QTc Int : 417 ms Marked sinus bradycardia with occasional Premature ventricular complexes Possible Inferior infarct , age undetermined Anteroseptal infarct , age undetermined Abnormal ECG When compared with ECG of 13-FEB-2022 05:46, MANUAL COMPARISON REQUIRED, DATA IS UNCONFIRMED Confirmed by DENIA PULIDO, TAMELA ([id number]), social media editor STERLING GOMES ([id number]) on 02/22/2022 11:11:16 AM Referred By: Theodora Confirmed By:TAMELA LOZA MD
[2022-02-12 21:39] VITALS: BP 125/75; PULSE 56; RESP 18; TEMP 36.5; O2SAT 97
[2022-02-12 21:47] VITALS: PULSE 69
[2022-02-12 21:58] LABS: Magnesium 1.5 mg/dL (1.6-2.6)
[2022-02-12] MEDS: Gabapentin 600 MG Tablet PO (22:01)
[2022-02-12 22:21] LABS: Troponin-I HS 86 pg/mL (3.0-78.0)
[2022-02-12 22:30] VITALS: BP 125/75; PULSE 69
[2022-02-12] MEDS: Metoprolol Tartrate 25 MG Tablet PO (22:30)
[2022-02-13] VITALS (10 sets, daily range): BP systolic 116–125; BP diastolic 64–81; PULSE 46–57; RESP 16–18; TEMP 36.3–36.8; O2SAT 95–98
[2022-02-13 00:47] LABS: Troponin-I HS 84 pg/mL (3.0-78.0)
[2022-02-13] MEDS: 0.9% Saline Lock 10 ML Syringe IV ×2 (05:57→08:29)
[2022-02-13] MEDS: Gabapentin 600 MG Tablet PO ×3 (06:04→21:35)
[2022-02-13 06:25] LABS: Absolute Lymphocyte Count 0.89 X10^3/uL (0.83-4.51); Absolute Neutrophil Count 1.9 X10^3/uL (2.0-7.7); Basophil# 0.09 X10^3/uL; Basophil% 1.7 % (0-1); Eosinophil# 1.21 X10^3/uL; Eosinophils% 23.4 % (0-5); Hematocrit 43.6 % (40-54); Hemoglobin 14.5 g/dL (13.0-16.5); Lymphocyte # 0.89 X10^3/ul (0.83-4.51); Lymphocyte % 17.2 % (19-41); Mean Corp Hgb Conc 33.3 g/dL (32-36); Mean Corpuscular Hgb 31.5 pg (27.0-32.0); Mean Corpuscular Volume 94.6 fL (80-94); Mean Platelet Vol. 10.7 fl (6.2-12.0); Monocyte# 0.96 X10^3/uL; Monocyte% 18.6 % (0-10); NRBC Flagged by Analyzer 0 % (0-5); Neutrophil # 1.94 X10^3/uL (2.7-7.7); Neutrophil % 37.7 % (47-70); Platelet Count 106 K/mm3 (150-450); RBC Distribution Width CV 15.7 % (11.6-14.6); RBC Distribution Width SD 54.8 fl (35.1-43.9); Red Blood Count 4.61 M/mm3 (4.6-6.2); White Blood Count 5.2 K/mm3 (4.4-11.0)
[2022-02-13 06:43] LABS: Prothrombin Time (Protime)PT. 12.7 SECONDS (11.7-14.9)
[2022-02-13 06:44] LABS: Partial Thromboplast Time 26.1 Seconds (24.1-36.2)
[2022-02-13 06:58] LABS: ALB/GLOB Ratio 1.1 RATIO (0.9-2.4); AST(SGOT) 13 U/L (15-37); Alanine Aminotransfer ALT/SGPT 21 U/L (16-61); Albumin, Serum 3.3 g/dL (3.2-5.0); Alkaline Phosphatase 61 U/L (45-117); Anion Gap 5 (5-15); BUN 23 mg/dL (7-18); BUN/Creat Ratio 27.1 RATIO (10-20); Calcium,Total 8.7 mg/dL (8.5-10.1); Chloride 107 mmol/L (98-107); Cholesterol 150 mg/dL (200); Creatinine, Serum 0.85 mg/dL (0.70-1.30); EST Glomerular Filtration Rate 94 mL/min (>60); Est Glom Filt Rate - Afr Amer 114 mL/min (>60); Estimated Creatinine Clearance 73.44 ml/min; Glucose 107 mg/dL (74-106); High Density Lipoprotein 44 mg/dL; Potassium 3.5 mmol/L (3.5-5.1); Protein, Total 6.3 g/dL (6.4-8.2); Sodium Level 139 mmol/L (136-145); Triglycerides 167 mg/dL; Very Low Density Lipoprotein 33 mg/dL (5-40)
[2022-02-13 08:00] LABS: Hemoglobin A1c 5.3 % (3.8-5.6)
[2022-02-13] MEDS: Aspirin E.C. 81 MG Tablet PO (08:29)
--- NOTE | 2022-02-13 09:34 | CON.PCM.CA_ITS ---
Assessment & Plan Assessment/Plan (1) Syncope: PLAN: He presented with an episode of syncope. The etiology is not entirely clear however it appears that he may have been somewhat dehydrated based on his BUN/creatinine ratio. I would recommend that we increase his fluid intake. His recent echocardiogram performed demonstrated an ejection fraction of 45% with segmental wall motion abnormalities present. (2) History of coronary artery bypass surgery: PLAN: He is status post coronary bypass surgery. His last catheterization in 2019 demonstrated patency of his bypass grafts. He was scheduled to undergo a cardiac catheterization this week. Will defer to primary historic site administrator as to timing of the above. (3) Essential hypertension: PLAN: His blood pressure appears to be under good control. I would not make any changes regarding his medications. (4) Chest pain: QUALIFIERS: Chest pain type: unspecified Qualified Code(s): R07.9 - Chest pain, unspecified PLAN: He does have some chest discomfort which has been present. The etiology is not entirely clear but at this time it appears that he has been scheduled for a cardiac catheterization for further elucidation of the etiology. Thank you for allowing me to participate in the care of your patient. Please don't hesitate to call if any issues arise. . (5) Hyperlipidemia: PLAN: Patient has a history of hyperlipidemia. The plan to be to continue with aggressive risk factor modification. HPI Consult Data Date of Consult: 02/13/22 HPI Narrative HPI Narrative: NADIA RICK, is a 71 M who presents to the emergency room with an episode of syncope. He said that he went to a winery and then he started feeling warm and diaphoretic and apparently passed out for a few seconds. He had not complained of any chest pain prior to the above. The EMS was called and by the time they got there he was conscious. His vital signs were noted to be fairly normal with his EKG demonstrated normal sinus rhythm with a right bundle branch block and premature ventricular complexes. He does have a history of coronary artery disease status post coronary bypass surgery percutaneous PCI as well as hypertension hyperlipidemia and multiple myeloma. He has been followed and was recently seen by Dr. John Mcclain MD of the heart group. He was apparently scheduled to have a heart catheterization on 02/15/2022 for recurrent ongoing atypical chest discomfort. He has not had any previous syncopal episode. He was admitted to the telemetry care unit with mildly abnormal cardiac enzymes and cardiology called for further evaluation and management especially as he was scheduled to undergo a procedure. PENDING SALE TO [facility] Medical History Acute bronchitis, unspecified Atherosclerotic heart disease of [place] coronary artery without angina pectoris Olvera's palsy Chronic back pain Congestion of nasal sinus Constipation Cough Encounter for education Encounter for screening for COVID-19 Essential hypertension Heartburn symptom [place] (hard of hearing) Hyperlipidemia Irregular heart rate Left-sided Olvera's palsy Multiple myeloma Neuropathy Recovering alcoholic Sore throat Suspected 2019 novel coronavirus infection Tachycardia Home Medications aspirin 81 mg tablet,delayed release 81 mg PO DAILY@0800 #90 tabs 05/14/19 [Rx Last Taken 06/14/21] ondansetron 4 mg disintegrating tablet 4 mg PO Q8H PRN PRN Nausea/Vomiting #30 tabs 07/14/20 [Rx Last Taken Unknown] melatonin 10 mg capsule 10 mg PO HS PRN Sleep 05/31/21 [History Last Taken 06/14/21] albuterol sulfate 90 mcg/actuation aerosol inhaler (Ventolin HFA) 2 puff inhalation Q4H PRN PRN Wheezing #1 ea 06/15/21 [Rx Last Taken Unknown] gabapentin 600 mg tablet 600 mg PO TID NERVE PAIN 06/15/21 [History Last Taken 06/14/21] dexamethasone 4 mg tablet 20 mg PO .weekly #60 tabs 09/22/21 [Rx Last Taken Unknown] Bacillus coagulans 10 billion cell capsule,delayed release (Probiotic (B. coagulans)) 1 cell PO 01/12/22 [History Last Taken Unknown] atorvastatin 40 mg tablet 40 mg PO DAILY #90 tabs 01/13/22 [Rx Last Taken Unknown] isosorbide mononitrate 30 mg tablet,extended release 24 hr 30 mg PO DAILY #90 tabs 01/13/22 [Rx Last Taken Unknown] lisinopril 5 mg tablet 5 mg PO DAILY #90 tabs 01/13/22 [Rx Last Taken Unknown] metoprolol tartrate 25 mg tablet 25 mg PO BID #180 tabs 01/13/22 [Rx Last Taken Unknown] nitroglycerin 0.4 mg sublingual tablet 0.4 mg sublingual Q5-15M PRN chest pain #25 tabs 01/13/22 [Rx Last Taken Unknown] polyethylene glycol 3350 17 gram/dose oral powder 17 g PO DAILY PRN CONSTIPATION 01/13/22 [History Last Taken Unknown] pomalidomide 4 mg capsule (Pomalyst) 4 mg PO QHS 02/12/22 [History Last Taken Unknown] Allergy/AdvReac Type Severity Reaction Status Date / Time morphine Allergy Severe Anaphylaxis Verified 01/24/22 14:58 oxycodone Allergy Severe Anaphylaxis Verified 01/24/22 14:58 Family History Father Brain cancer Sister Liver cancer Mother Leukemia Surgical History History of coronary artery bypass surgery (~08/15/14) Hx of CABG Stented coronary artery (02/07/19) Social History (Updated 02/12/22 @ 21:39 by Tamika Mcclure) household members: none housing: house number of children: 2 service: Yes ([employer]) current occupational status: retired pets and animals: Yes Smoking Status: Never smoker alcohol intake: former substance use type: does not use what type of physical activity do you participate in: walking frequency: daily duration: 15-30 minutes/day hilton/mu-ism: Lutheran do you feel safe at home: Yes ROS Constitutional Constitutional: Denies fever(s) or weight loss Eyes Eyes: Reports systems reviewed and no addt'l complaints, except as documented ENT HEENT: Reports systems reviewed and no addt'l complaints, except as documented Cardiovascular Cardiovascular: Reports syncope; Denies chest pain at rest, chest pain with activity, dyspnea at rest, dyspnea on exertion, edema, palpitations or paroxysmal nocturnal dyspnea Respiratory/Chest Respiratory/Chest: Denies dyspnea on exertion, productive cough, shortness of breath at rest or shortness of breath with exertion Gastrointestinal Gastrointestinal: Denies change in bowel habits, nausea, vomiting or weight changes Genitourinary Genitourinary: Denies difficulty urinating Musculoskeletal Musculoskeletal: Denies joint stiffness or muscle weakness Integumentary Integumentary: Denies lesions Neurologic Neurologic: Reports dizziness and syncope Psychiatric Psychiatric: Denies anxiety Endocrine Endocrinology: Denies excessive sweating or fatigue Hematologic/Lymphatic Hematologic/Lymphatic: Denies anemia Allergic/Immunologic Allergic/Immunologic: Denies seasonal rhinorrhea Physical Exam Const alert, oriented x3 and no apparent distress General Appearance: cooperative HEENT hearing grossly normal bilaterally Head and Scalp: atraumatic Eyes EOMs intact bilaterally Neck General: normal visual inspection Chest inspection of chest normal and palpation of chest normal Resp normal respiratory effort Auscultation: clear to auscultation bilaterally Cardio regular rate, regular rhythm, S1 normal heart sound and S2 normal heart sound Jugular Venous Distention: JVD GI normal to inspection, nondistended, normoactive bowel sounds Extremity normal capillary refill and no pedal edema Peripheral Pulses: Yes pulses 2+ throughout and femoral pulses present Skin no rashes or lesions noted Neuro oriented x3 and CN's II-XII intact bilaterally Psych Appearance: grossly normal and appropriate Risk Stratification Risk Stratification Applicable: No Objective Data Vital Signs: Vital Signs Temp Pulse Resp BP Pulse Ox O2 Del Method 97.3 F L 51 L 18 124/64 H 96 Room Air 02/13/22 04:02 02/13/22 06:59 02/13/22 04:02 02/13/22 04:02 02/13/22 04:02 02/13/22 08:43 Oxygen Delivery Method Room Air Weight: 197 lb 12.074 oz Body Mass Index (BMI) 30.9 Intake & Output: Intake and Output for Last 24 Hours 02/11/22 02/12/22 02/13/22 23:59 23:59 23:59 Intake Total 804 / 804 Output Total 700 / 700 Balance 104 / 104 Lab / Micro Data Result Diagrams: 02/13/22 05:50 02/13/22 05:50 Labs: Laboratory Results - last 24 hr 02/12/22 18:40: WBC 5.6, RBC 4.83, Hgb 15.3, Hct 45.2, MCV 93.6, MCH 31.7, MCHC 33.8, RDW Std Deviation 53.9 H, RDW Coeff of Amrita 15.6 H, Plt Count 125 L, MPV 10.5, Immature Gran % (Auto) 1.400 H, Neut % (Auto) 48.0, Lymph % (Auto) 16.0 L, [place] % (Auto) 17.8 H, Eos % (Auto) 15.5 H, Baso % (Auto) 1.3 H, Absolute Neuts (auto) 2.7, Absolute Lymphs (auto) 0.89, Nucleated RBC % 0 02/12/22 18:40: Sodium 143, Potassium 3.6, Chloride 109 H, Carbon Dioxide 24.0, Anion Gap 10, BUN 28 H, Creatinine 1.07, Estim Creat Clear Calc 58.34, Est GFR (MDRD) Af Amer 87, Est GFR (MDRD) Non-Af 72, BUN/Creatinine Ratio 26.2 H, Glucose 184 H, Calcium 9.6, Troponin I High Sens 80 H 02/12/22 18:40: Magnesium 1.5 L 02/12/22 21:31: Troponin I High Sens 86 H 02/13/22 00:10: Troponin I High Sens 84 H 02/13/22 05:50: WBC 5.2, RBC 4.61, Hgb 14.5, Hct 43.6, MCV 94.6 H, MCH 31.5, MCHC 33.3, RDW Std Deviation 54.8 H, RDW Coeff of Amrita 15.7 H, Plt Count 106 L, MPV 10.7, Immature Gran % (Auto) 1.400 H, Neut % (Auto) 37.7 L, Lymph % (Auto) 17.2 L, [place] % (Auto) 18.6 H, Eos % (Auto) 23.4 H, Baso % (Auto) 1.7 H, Absolute Neuts (auto) 1.9 L, Absolute Lymphs (auto) 0.89, Nucleated RBC % 0 02/13/22 05:50: PT 12.7, INR 1.0, APTT 26.1 02/13/22 05:50: Sodium 139, Potassium 3.5, Chloride 107, Carbon Dioxide 27.0, Anion Gap 5, BUN 23 H, Creatinine 0.85, Estim Creat Clear Calc 73.44, Est GFR (MDRD) Af Amer 114, Est GFR (MDRD) Non-Af 94, BUN/Creatinine Ratio 27.1 H, Glucose 107 H, Calcium 8.7, Total Bilirubin 0.60, AST 13 L, ALT 21, Alkaline Phosphatase 61, Total Protein 6.3 L, Albumin 3.3, Globulin 3.0, Albumin/Globulin Ratio 1.1, Triglycerides 167, Cholesterol 150, LDL Cholesterol 73, VLDL Cholesterol 33, HDL Cholesterol 44 02/13/22 05:50: Hemoglobin A1c 5.3 Cardiology Labs/Tests 02/12/22 18:40: WBC 5.6, RBC 4.83, Hgb 15.3, Hct 45.2, MCV 93.6, MCH 31.7, MCHC 33.8, Plt Count 125 L, MPV 10.5, Immature Gran % (Auto) 1.400 H, Neut % (Auto) 48.0, Lymph % (Auto) 16.0 L, [place] % (Auto) 17.8 H, Eos % (Auto) 15.5 H, Baso % (Auto) 1.3 H, Absolute Neuts (auto) 2.7, Nucleated RBC % 0 02/12/22 18:40: Sodium 143, Potassium 3.6, Chloride 109 H, Carbon Dioxide 24.0, Anion Gap 10, BUN 28 H, Creatinine 1.07, Est GFR (MDRD) Af Amer 87, Est GFR (MDRD) Non-Af 72, BUN/Creatinine Ratio 26.2 H, Glucose 184 H, Calcium 9.6 02/12/22 18:40: Magnesium 1.5 L 02/13/22 05:50: WBC 5.2, RBC 4.61, Hgb 14.5, Hct 43.6, MCV 94.6 H, MCH 31.5, MCHC 33.3, Plt Count 106 L, MPV 10.7, Immature Gran % (Auto) 1.400 H, Neut % (Auto) 37.7 L, Lymph % (Auto) 17.2 L, [place] % (Auto) 18.6 H, Eos % (Auto) 23.4 H, Baso % (Auto) 1.7 H, Absolute Neuts (auto) 1.9 L, Nucleated RBC % 0 02/13/22 05:50: PT 12.7, INR 1.0, APTT 26.1 02/13/22 05:50: Sodium 139, Potassium 3.5, Chloride 107, Carbon Dioxide 27.0, Anion Gap 5, BUN 23 H, Creatinine 0.85, Est GFR (MDRD) Af Amer 114, Est GFR (MDRD) Non-Af 94, BUN/Creatinine Ratio 27.1 H, Glucose 107 H, Calcium 8.7, Total Bilirubin 0.60, Triglycerides 167, Cholesterol 150, LDL Cholesterol 73, VLDL Cholesterol 33, HDL Cholesterol 44 02/13/22 05:50: Hemoglobin A1c 5.3 Rhythm: EKG: ECHO: Stress Test: Cardiac Cath: PCI: CT Surgery: Holter monitor: EPS: PPM: CXR: Chest CT Scan: Radiography Diagnostic Testing: Radiology Impression Chest X-Ray 02/12/22 19:24 IMPRESSION: Normal x-ray examination of the chest. Electronically Signed: Hanane Castellano MD at 21:50 EDT Reading Location ID and State: [id number] / Tel , Service support ,
[2022-02-13] MEDS: Enoxaparin 40 MG/0.4 ML Syringe SC (10:43)
[2022-02-13] MEDS: Isosorbide Mononitrate 30 MG Tablet PO (10:43)
--- NOTE | 2022-02-13 12:42 | PN.HOSP_ITS ---
Documented by User: Charlotte Elizabeth NP, [employer] 02/13/22 12:53 Subjective Subjective Patient seen and examined. No further chest pain overnight or this morning. Denies dizziness, lightheadedness. Denies shortness of breath. Objective Data Objective Data Vital Signs: Vital Signs Temp Pulse Resp BP Pulse Ox O2 Del Method 98.2 F 52 L 16 125/71 H 96 Room Air 02/13/22 10:36 02/13/22 10:36 02/13/22 10:36 02/13/22 10:36 02/13/22 10:36 02/13/22 10:36 Oxygen Delivery Method Room Air Weight: 197 lb 12.074 oz Body Mass Index (BMI) 30.9 Intake & Output: Intake and Output for Last 24 Hours 02/11/22 02/12/22 02/13/22 23:59 23:59 23:59 Intake Total 1054 / 1054 Output Total 700 / 700 Balance 354 / 354 Lab / Micro Data Result Diagrams: 02/13/22 05:50 02/13/22 05:50 Labs: Laboratory Results - last 24 hr 02/12/22 18:40: WBC 5.6, RBC 4.83, Hgb 15.3, Hct 45.2, MCV 93.6, MCH 31.7, MCHC 33.8, RDW Std Deviation 53.9 H, RDW Coeff of Amrita 15.6 H, Plt Count 125 L, MPV 10.5, Immature Gran % (Auto) 1.400 H, Neut % (Auto) 48.0, Lymph % (Auto) 16.0 L, Braxton % (Auto) 17.8 H, Eos % (Auto) 15.5 H, Baso % (Auto) 1.3 H, Absolute Neuts (auto) 2.7, Absolute Lymphs (auto) 0.89, Nucleated RBC % 0 02/12/22 18:40: Sodium 143, Potassium 3.6, Chloride 109 H, Carbon Dioxide 24.0, Anion Gap 10, BUN 28 H, Creatinine 1.07, Estim Creat Clear Calc 58.34, Est GFR (MDRD) Af Amer 87, Est GFR (MDRD) Non-Af 72, BUN/Creatinine Ratio 26.2 H, Glucose 184 H, Calcium 9.6, Troponin I High Sens 80 H 02/12/22 18:40: Magnesium 1.5 L 02/12/22 21:31: Troponin I High Sens 86 H 02/13/22 00:10: Troponin I High Sens 84 H 02/13/22 05:50: WBC 5.2, RBC 4.61, Hgb 14.5, Hct 43.6, MCV 94.6 H, MCH 31.5, MCHC 33.3, RDW Std Deviation 54.8 H, RDW Coeff of Amrita 15.7 H, Plt Count 106 L, MPV 10.7, Immature Gran % (Auto) 1.400 H, Neut % (Auto) 37.7 L, Lymph % (Auto) 17.2 L, Braxton % (Auto) 18.6 H, Eos % (Auto) 23.4 H, Baso % (Auto) 1.7 H, Absolute Neuts (auto) 1.9 L, Absolute Lymphs (auto) 0.89, Nucleated RBC % 0 02/13/22 05:50: PT 12.7, INR 1.0, APTT 26.1 02/13/22 05:50: Sodium 139, Potassium 3.5, Chloride 107, Carbon Dioxide 27.0, Anion Gap 5, BUN 23 H, Creatinine 0.85, Estim Creat Clear Calc 73.44, Est GFR (MDRD) Af Amer 114, Est GFR (MDRD) Non-Af 94, BUN/Creatinine Ratio 27.1 H, Glucose 107 H, Calcium 8.7, Total Bilirubin 0.60, AST 13 L, ALT 21, Alkaline Phosphatase 61, Total Protein 6.3 L, Albumin 3.3, Globulin 3.0, Albumin/Globulin Ratio 1.1, Triglycerides 167, Cholesterol 150, LDL Cholesterol 73, VLDL Cholesterol 33, HDL Cholesterol 44 02/13/22 05:50: Hemoglobin A1c 5.3 Radiography Diagnostic Testing: Radiology Impression Chest X-Ray 02/12/22 19:24 IMPRESSION: Normal x-ray examination of the chest. Electronically Signed: Hanane Castellano MD at 21:50 EDT Reading Location ID and State: [id number] / Tel , Service support , Physical Exam Const alert, oriented x3 and no apparent distress Orientation / Consciousness: awake, oriented to person, oriented to place and oriented to time HEENT normocephalic and moist oral mucous membranes Eyes PERRL, EOMs intact bilaterally and conjunctivae normal Neck no lymphadenopathy Resp normal respiratory effort and clear to auscultation bilaterally Cardio regular rate, regular rhythm and no murmurs Peripheral Pulses: pulses 2+ throughout GI normal to inspection, nondistended, normoactive bowel sounds, non-tender and non-distended Extremity normal to inspection Skin no rashes or lesions noted Lesions: no lesions Rashes: no rashes Trauma: no lacerations or abrasions Neuro CN's II-XII intact bilaterally, no focal motor deficits, no sensory deficits noted and deep tendon reflexes 2+ bilaterally Psych mental status grossly normal and affect normal Assessment & Plan Assessment/Plan (1) Syncope: (2) Angina pectoris: PLAN: Plan 1. Syncope/chest pain/abnormal troponin-cardiology consulted. Recent echo with EF 45%, segmental wall motion abnormalities present. Possible heart cath. Continue current medical management. 2. CAD with history of CABG/PCI-continue aspirin, statin, metoprolol. Follows with Dr. Mcclain. 3. Multiple myeloma- Follows with Dr. Proctor. On Pomalyst. 4. Hypertension-stable, continue current regimen. 5. Hyperlipidemia-continue statin. 6. Peripheral neuropathy-on gabapentin. DVT prophylaxis-Lovenox subcu This patient was seen by ANGELA Ball under the supervision of Dr. Quiros. Documented by User: Dr. Uri Quiros MD 02/13/22 13:11 Objective Data Lab / Micro Data Result Diagrams: 02/13/22 05:50 02/13/22 05:50 Assessment & Plan Assessment/Plan (1) Syncope: (2) Angina pectoris: Addt'l Comments This patient was seen in conjunction with ANGELA Ball . I have independently interviewed and examined the patient and reviewed pertinent historical, laboratory, and other data. Please refer to ANGELA Ball note for details of this patient's presentation, findings, and recommendations. I have reviewed ANGELA Ball note and concur with documented findings. In brief, patient is a 71-year-old gentleman with history of coronary artery disease with ischemic cardiomyopathy with an ejection fraction of 45% admitted with syncopal episode found to have elevated troponin admitted to a monitored bed with consultation placed to cardiology Physical Examination: GENERAL: cooperative HEENT: Atraumatic; EYES; Anicteric, Normal Conjunctiva NECK; supple, normal thyroid, RESPIRATORY: Diminished to auscultation CARDIOVASCULAR: Regular S1 S2, GI: soft, normoactive bowel sounds, : No Renal angle tenderness; EXTREMITIES: No edema, no clubbing, MUSCULOSKELETAL: no muscle wasting NEURO: Awake; no lateralizing signs. SKIN: No Rash PSYCH; Flat affect Assessment: 1. Syncopal episode 2. Elevated troponin 3. Coronary artery disease with previous CABG and PCI 4. Ischemic cardiomyopathy with an ejection fraction of 45% with segmental wall motion abnormalities based on a recent echo 5. Essential hypertension 6. Dyslipidemia 7. Multiple myeloma currently followed by oncology as outpatient 8. Peripheral neuropathy 9. Class I obesity with BMI of 31 Recommendations: 1. I have discussed the results of my overview and impressions with the patient 2. Options for management were reviewed Total time spent by myself and the advanced practice practitioner evaluating patient, reviewing labs, subsequent management decisions, discussion with enedelia hernandez as well as other providers 40 minutes ( 25 of which was spent by myself) Charges/Coding Visit Charges OBSV E&M: 24046 Subsequent observation care L3
[2022-02-13] MEDS: Polyethylene Glycol 3350 17 GM PACKET PO (16:44)
[2022-02-13] MEDS: Lisinopril 5 MG Tablet PO (21:20)
[2022-02-13] MEDS: Atorvastatin Calcium 40 MG Tablet PO (21:20)
[2022-02-14] VITALS (16 sets, daily range): BP systolic 97–138; BP diastolic 61–83; PULSE 44–61; RESP 16–20; TEMP 36.4–36.6; O2SAT 93–100
[2022-02-14] MEDS: 0.9% Normal Saline 1,000 ML 100 ML IV ×2 (00:12→10:20)
[2022-02-14] MEDS: 0.9% Saline Lock 10 ML Syringe IV (00:12)
--- NOTE | 2022-02-14 04:42 | NURSING ---
Pt's heart rate dropped to 36 on the telemetry, Bp checked 114/83, hr 46. Pt states he has been having shortness of breath off and on. Encouraged pt to report shortness of breath is it returns. Dr Yip was notified of pt condition. States if symptoms continue may need atropine. Placed pt on 2l o2. Lopressor was dc'd per dr yip
[2022-02-14 05:21] LABS: Absolute Lymphocyte Count 0.92 X10^3/uL (0.83-4.51); Absolute Neutrophil Count 1.6 X10^3/uL (2.0-7.7); Basophil# 0.05 X10^3/uL; Basophil% 1.1 % (0-1); Eosinophil# 1.02 X10^3/uL; Hematocrit 39.8 % (40-54); Hemoglobin 13.1 g/dL (13.0-16.5); Lymphocyte # 0.92 X10^3/ul (0.83-4.51); Lymphocyte % 20.7 % (19-41); Mean Corp Hgb Conc 32.9 g/dL (32-36); Mean Corpuscular Hgb 31.8 pg (27.0-32.0); Mean Corpuscular Volume 96.6 fL (80-94); Mean Platelet Vol. 10.5 fl (6.2-12.0); Monocyte# 0.83 X10^3/uL; Monocyte% 18.7 % (0-10); NRBC Flagged by Analyzer 0 % (0-5); Neutrophil # 1.57 X10^3/uL (2.7-7.7); Neutrophil % 35.4 % (47-70); POSITIVE COUNT YES; Platelet Count 81 K/mm3 (150-450); RBC Distribution Width CV 15.6 % (11.6-14.6); RBC Distribution Width SD 55.5 fl (35.1-43.9); Red Blood Count 4.12 M/mm3 (4.6-6.2); White Blood Count 4.4 K/mm3 (4.4-11.0)
[2022-02-14 05:23] LABS: Differential Indicated SCAN CRITERIA MET
[2022-02-14] MEDS: Isosorbide Mononitrate 30 MG Tablet PO (05:27)
[2022-02-14] MEDS: Aspirin E.C. 81 MG Tablet PO (05:28)
[2022-02-14] MEDS: Gabapentin 600 MG Tablet PO ×2 (05:31→15:05)
[2022-02-14 05:49] LABS: AST(SGOT) 12 U/L (15-37); Alanine Aminotransfer ALT/SGPT 20 U/L (16-61); Alkaline Phosphatase 48 U/L (45-117); Anion Gap 6 (5-15); BUN 21 mg/dL (7-18); BUN/Creat Ratio 27.3 RATIO (10-20); Calcium,Total 8.4 mg/dL (8.5-10.1); Chloride 109 mmol/L (98-107); Creatinine, Serum 0.77 mg/dL (0.70-1.30); EST Glomerular Filtration Rate 105 mL/min (>60); Est Glom Filt Rate - Afr Amer 127 mL/min (>60); Estimated Creatinine Clearance 62.43 ml/min; Globulin 2.9 g/dL (2.2-4.2); Glucose 92 mg/dL (74-106); Potassium 3.7 mmol/L (3.5-5.1); Protein, Total 5.9 g/dL (6.4-8.2); Prothrombin Time (Protime)PT. 12.8 SECONDS (11.7-14.9); Sodium Level 141 mmol/L (136-145)
[2022-02-14 05:50] LABS: Partial Thromboplast Time 29.6 Seconds (24.1-36.2)
--- NOTE | 2022-02-14 05:55 | EKG12_ITS ---
Test Reason : elevated troponin Blood Pressure : / mmHG Vent. Rate : 057 BPM Atrial Rate : 051 BPM P-R Int : 152 ms QRS Dur : 088 ms QT Int : 442 ms P-R-T Axes : 028 000 079 degrees QTc Int : 430 ms Sinus bradycardia with frequent Premature ventricular complexes Inferior infarct , age undetermined Anteroseptal infarct , age undetermined Abnormal ECG When compared with ECG of 12-FEB-2022 19:01, MANUAL COMPARISON REQUIRED, DATA IS UNCONFIRMED Confirmed by DENIA PULIDO, TAMELA ([id number]), proposal editor STERLING GOMES ([id number]) on 02/22/2022 11:12:25 AM Referred By: Confirmed By:TAMELA LOZA MD
[2022-02-14 06:44] LABS: Anisocytosis 1+; Macrocytosis 1+; Platelet Estimate MOD DEC (ADEQ)
--- NOTE | 2022-02-14 08:34 | PCM.PN.CARD ---
Subjective Subjective The patient is awake and alert. He states he has had is intermittent on and off chest discomfort which was concerning based upon his history of CAD/CABG leading to his upcoming outpatient diagnostic cardiac catheterization. In the interim he states [place] the win[place] listening to music after drinking a half a glass of wine he appeared to become unconscious. His states she tried to arouse him and he was slow to arouse and appeared somewhat slumped over . She states she had to call the EMS to bring him to the hospital. Since being here he states he feels tired and fatigued. Objective Data Vital Signs: Vital Signs Temp Pulse Resp BP Pulse Ox O2 Del Method O2 Flow Rate 97.9 F 54 L 16 116/81 H 95 Room Air 2 02/14/22 06:41 02/14/22 07:01 02/14/22 06:41 02/14/22 06:41 02/14/22 08:34 02/14/22 08:34 02/14/22 06:41 Oxygen Flow Rate (L/min) 2 Oxygen Delivery Method Room Air Weight: 199 lb 8.293 oz Body Mass Index (BMI) 30.9 Intake & Output: Intake and Output for Last 24 Hours 02/12/22 02/13/22 02/14/22 23:59 23:59 23:59 Intake Total 1554 / 1854 350 / 350 Output Total 700 / 700 Balance 854 / 1154 350 / 350 Lab / Micro Data Result Diagrams: 02/14/22 04:50 02/14/22 04:50 Labs: Laboratory Results - last 24 hr 02/14/22 04:50: WBC 4.4, RBC 4.12 L, Hgb 13.1, Hct 39.8 L, MCV 96.6 H, MCH 31.8, MCHC 32.9, RDW Std Deviation 55.5 H, RDW Coeff of Amrita 15.6 H, Plt Count 81 L, MPV 10.5, Immature Gran % (Auto) 1.100 H, Neut % (Auto) 35.4 L, Lymph % (Auto) 20.7, Daggett % (Auto) 18.7 H, Eos % (Auto) 23.0 H, Baso % (Auto) 1.1 H, Absolute Neuts (auto) 1.6 L, Absolute Lymphs (auto) 0.92, Nucleated RBC % 0, Platelet Estimate MOD DEC, Anisocytosis 1+, Macrocytosis 1+ 02/14/22 04:50: PT 12.8, INR 1.0, APTT 29.6 02/14/22 04:50: Sodium 141, Potassium 3.7, Chloride 109 H, Carbon Dioxide 26.0, Anion Gap 6, BUN 21 H, Creatinine 0.77, Estim Creat Clear Calc 62.43, Est GFR (MDRD) Af Amer 127, Est GFR (MDRD) Non-Af 105, BUN/Creatinine Ratio 27.3 H, Glucose 92, Calcium 8.4 L, Magnesium 2.0, Total Bilirubin 0.80, AST 12 L, ALT 20, Alkaline Phosphatase 48, Total Protein 5.9 L, Albumin 3.0 L, Globulin 2.9, Albumin/Globulin Ratio 1.0 Cardiology Labs/Tests 02/14/22 04:50: WBC 4.4, RBC 4.12 L, Hgb 13.1, Hct 39.8 L, MCV 96.6 H, MCH 31.8, MCHC 32.9, Plt Count 81 L, MPV 10.5, Immature Gran % (Auto) 1.100 H, Neut % (Auto) 35.4 L, Lymph % (Auto) 20.7, Daggett % (Auto) 18.7 H, Eos % (Auto) 23.0 H, Baso % (Auto) 1.1 H, Absolute Neuts (auto) 1.6 L, Nucleated RBC % 0 02/14/22 04:50: PT 12.8, INR 1.0, APTT 29.6 02/14/22 04:50: Sodium 141, Potassium 3.7, Chloride 109 H, Carbon Dioxide 26.0, Anion Gap 6, BUN 21 H, Creatinine 0.77, Est GFR (MDRD) Af Amer 127, Est GFR (MDRD) Non-Af 105, BUN/Creatinine Ratio 27.3 H, Glucose 92, Calcium 8.4 L, Magnesium 2.0, Total Bilirubin 0.80 Rhythm: Sinus bradycardia; PVCs EKG: Sinus bradycardia; PVCs; anteroseptal [place] of indeterminate age cannot be excluded; inferior [place] of indeterminate age cannot be excluded ECHO: 02-04-2022 Interpretation Summary The study was technically difficult. ? Mild segmental systolic dysfunction (see wall motion). The estimated ejection fraction is 45 %. Trivial mitral valve insufficiency. Mild tricuspid valve insufficiency. Mild focal aortic valve calcification. Right ventricular systolic pressure estimated to be 33 mmHg. Diastolic function is indeterminate. Stress Test Report Date: 02-06-19 Procedure: Pharmacologic stress nuclear imaging study Indications: Chest pain; CAD; PCI; CABG Consent: Per the patient Procedure: The patient underwent pharmacologic (regadenoson) evaluation with a peak heart rate of 81 bpm (53% predicted maximal heart rate) with a peak blood pressure 150/90 mmHg. The baseline ECG demonstrated normal sinus rhythm with poor R wave progression with an anterior [place] pattern of indeterminate age cannot be excluded.? The peak pharmacologic ECG demonstrated no obvious ECG changes. There was a rare PVC pretest. There was no reported chest discomfort during pharmacologic infusion or recovery. The examination was discontinued secondary to completion of protocol Impression: 1.? Pharmacologic (regadenoson) evaluation 2.? Peak pharmacologic ECG with no obvious ECG changes 3.? Rare PVC pretest 4.? Nuclear images pending Myocardial perfusion imaging study: Technique: The patient was injected with 11.8 mCi of technetium 99m Cardiolite and subsequently rest SPECT Cardiolite nuclear imaging was obtained and horizontal long, vertical long, and short axis views.? The patient underwent pharmacologic (regadenoson) evaluation with a peak heart rate of 81 bpm (53% predicted maximal heart rate) with a peak blood pressure of 150/90 mmHg.? The patient was injected with 33.9 mCi of technetium 99m Cardiolite and subsequently stress SPECT Cardiolite nuclear imaging was obtained in the horizontal long, vertical long, and short axis views.? A gated Cardiolite study at peak stress was obtained. Interpretation: Rest and stress SPECT current nuclear imaging status post realignment, normalization, and attenuation correction, demonstrates an area of subtle diminished tracer uptake near the distal anterior/anterior apical segments at rest.? Status post stress there is notation of additional areas of diminished tracer uptake in the mid to distal anterior segments as well as the anterior apical segments and inferior apical segments.? There are similar type findings on the resting and stress polar map images.? There is diminished end systolic thickening and brightening in the aforementioned areas.? The gated coronary study demonstrates diminished myocardial thickening and a normal motion.? The reported LVEF is 54%. Impression: 1.? Rest and stress SPECT current nuclear imaging demonstrate myocardial perfusion changes potentially compatible with area of previous myocardial injury/infarction involving portions of the distal anterior/anteroapical segments with post stress myocardial perfusion changes appearing compatible with aracelis-infarct related myocardial ischemia involving portions of the mid to distal anterior, anteroapical, and inferoapical segments. 2.? The gated Cardiolite study reports an LVEF of 54%. Cardiac Cath: 02-07-2019 Cardiac cath / PCI:? 02/07/2019 CONCLUSIONS Elevated Left Ventricular End Diastolic Pressure LVEF: by LV gram 45 % Segmented LV systolic dysfunction- Severe Triple vessel CAD of the LM, LAD, LCX and RCA Widely patent LUCAS to LAD; LAD is very small Patent SVG to OM#3 Patent SVG to DIAG Patent SVG to acute marginal of RCA with retrograde flow impeded by ostial 85% acute marginal. Successful PCI with PTCA to the mid RCA with a 2.0 x 12 and 2.5 x 12 Emerge balloon. Despite multiple balloon inflations and double wire technique with stiffer run through wire, we were unable to cross lesion with stent. Pt had identical chest pain symptoms with balloon inflations.? [place] III flow at conclusion of procedure and with adequate flow vis a vis SVG to acute marginal, as well as concerns for IV dye load given h/o multiple myeloma, procedure halted RECOMMENDATIONS Referred for immediate PCI Management as per referring Upholstery Technician Highly recommend quitting all tobacco products Follow up with primary surfacing technician Risk factor modification ASA Indefinitley Plavix for at least 12 months Routine post interventional care Refer for Outpatient Cardiac Rehab Manual sheath removal per protocol Follow up with Dr. Calvin arora/luke for life Manual sheath removal. DESCRIPTION OF? PROCEDURE The patient arrived to the procedure lab. The risks and benefits of the procedure as well as a full description of our services here and lack of surgical backup were fully explained to the patient and/or their significant other prior to the catheterization. The Timeout was completed, verifying the correct patient and procedure. The patient's procedural site was prepped and draped in the usual fashion. Local anesthetic was given subcutaneously to right groin region with Lidocaine 2%. Using a modified Seldinger technique, arterial access was obtained via the right femoral artery, a 4Fr sheath was inserted.? Left Coronary Artery selective angiography was performed in multiple views using a 4 Fr. JL5 catheter. Right Coronary Artery selective angiography was then performed in multiple views using a 4 Fr. 3DRC catheter. Saphenous Vein graft to the Acute marginal selective angiography was performed in multiple views using a 4 Fr. 3DRC catheter. Saphenous Vein graft to the OM 1 selective angiography was performed in multiple views using a 4 Fr. 3DRC catheter. Left internal mammary artery graft to the LAD selective angiography was performed in multiple views using a 4 Fr. 3DRC catheter. Saphenous Vein graft to the DIAG 1 selective angiography was performed in multiple views using a 4 Fr. AR MOD 2 catheter. Left Ventriculography was performed in GILLIAM projection using a 4 Fr. Pigtail catheter. LV to AO pullback pressures were then recordedThe images were reviewed and options discussed. A decision was then made to proceed with an Intervention, IVUS or other adjunct procedure. ? ? Arterial sheath was exchanged for a 6 Fr Sheath. HS II SH Guide catheter was inserted and engaged into the RCA. BMW Garber Guide wire was advanced to the PDA. Emerge 2.0 x 12 Balloon catheter was inserted. Balloon catheter was advanced across lesion in the right coronary, mid. PTCA balloon inflated at 6 atms for 7 secs. PTCA balloon inflated at 6 atms for 6 secs. PTCA balloon inflated at 6 atms for 8 secs. PTCA balloon inflated at 7 atms for 12 secs. PTCA balloon inflated at 6 atms for 9 secs. PTCA balloon inflated at 6 atms for 8 secs. Angiogram performed post balloon dilatation. PTCA balloon inflated at 6 atms for 6 secs. PTCA balloon inflated at 6 atms for 6 secs. PTCA balloon inflated at 6 atms for 7 secs. Synergy 2.25 x 16 Drug Eluting stent was inserted. Angiogram performed pre stent deployment. Drug Eluting stent was removed intact, failed to cross lesion Emerge 2.5 x 12 Balloon catheter was inserted. Balloon catheter was advanced across lesion in the right coronary, mid. PTCA balloon inflated at 6 atms for 8 secs. PTCA balloon inflated at 6 atms for 7 secs. PTCA balloon inflated at 7 atms for 9 secs. PTCA balloon inflated at 6 atms for 6 secs. Synergy 2.25 x 16 Drug Eluting stent was reinserted Runthrough Guide wire was inserted as a marbin wire Synergy 2.25 x 16 Drug Eluting stent was inserted. Contrast was injected through the sheath and the Right Iliac and Femoral artery were assessed for possible closure device.? The arterial sheath was pulled and manual compression applied until hemostasis is achieved. CORONARY ANGIOGRAPHY DOMINANCE:? Right Dominant LEFT HEART ASSESSMENT Left Ventricular Ejection Fraction: by LV Gram 45 % Depressed Left Ventricular systolic function LVEDP: 20 mmHg Elevated Left Ventricular End Diastolic Pressure Inferior Apical Hypokinesis - Severe LEFT MAIN: ?40 distal % Stenosis LEFT ANTERIOR DESCENDING ARTERY: PROX LAD: Previously placed stent has an instent 60 % restenosis MID LAD: Mild luminal irregularities less than 30% CIRCUMFLEX ARTERY: MID CIRC: Previously placed stent has an instent 70 % restenosis RIGHT CORONARY ARTERY: MID RCA: 85 % Stenosis, Moderate calcification DISTAL RCA: Moderate luminal irregularities up to 50% RT PDA: Mid - Mild luminal irregularities less than 30% ACUTE MARGINAL: 85 ostial % Stenosis GRAFTS: LUCAS graft to the LAD is patent Saphenous Vein graft to the 1st Diagonal is patent Saphenous Vein graft to the RCA is patent Saphenous Vein graft to the 3rd OM is patent INTERVENTION INFORMATION LESION SITE: RCA (Mid) Lesion Complexity: High/C, lesion at bifurcation: No, thrombus present: No, lesion length: 45 mm, culprit lesion: Yes ?Pre Stenosis: 85 % Pre intervention [place] flow: 3 PROCEDURE: Balloon Angioplasty Post Stenosis: 50 %? Post intervention [place] flow: 3 Lesion Devices: Appthoritytronic 6 Fr HSII SH 100cm Guide Catheter Matthews .014 BMW Garber Straight 190cm Harpal Sci EMERGE MR 2.00x12 BALLOON Harpal Sci Synergy MR PILY 2.25x16 Harpal Sci EMERGE MR 2.50x12 BALLOON Terumo .014 Runthrough Extra Floppy 180cm straight CAB08-15-2014: [place], [place] LUCAS to the LAD SVG to the diagonal branch SVG to the high lateral LCX SVG to the posterior lateral LCX SVG to the acute marginal of the RCA Physical Exam Const alert, oriented x3 and no apparent distress Orientation / Consciousness: awake HEENT normocephalic, head/scalp atraumatic and hearing grossly normal bilaterally Eyes PERRL, EOMs intact bilaterally, conjunctivae normal and no scleral icterus Neck full ROM, supple and no JVD Chest Chest: midline sternotomy incision Resp clear to auscultation bilaterally Cardio regular rhythm, S1 normal heart sound and S2 normal heart sound Rate: bradycardia GI normal to inspection, nondistended, normoactive bowel sounds Extremity no pedal edema Skin no rashes or lesions noted Psych mental status grossly normal Assessment & Plan Assessment/Plan (1) Syncope: PLAN: The patient was reported as having a syncopal event. The etiology is unclear. There are concerns as to whether or not the patient may have been dehydrated and became orthostatic. At the same time there are concerns about his underlying cardiovascular disease based upon his ongoing chest discomfort and his underlying CAD/graft status. There may be concerns with respect to his underlying bradycardia and cardiac ectopy. At the moment he has been receiving IV hydration. He has been receiving his medical management for his underlying cardiovascular disease. Based upon his bradycardia may not be unreasonable to decrease his beta-kandis dose. He has already been evaluated noninvasively earlier this month with a transthoracic echocardiogram with results as noted. He has already been scheduled for an outpatient cardiac catheterization which was due to take place tomorrow. An attempt will be made to have this accomplished today. (2) Atherosclerotic heart disease of [place] coronary artery without angina pectoris: QUALIFIERS: [place] vs. transplanted heart: [place] heart Qualified Code(s): I25.10 - Atherosclerotic heart disease of [place] coronary artery without angina pectoris PLAN: He does have a history of extensive CAD as noted. It appears in 2019 he underwent RCA PTCA/no stent. Based upon his previous clinical concerns he was already scheduled for an upcoming outpatient cardiac catheterization. He will continue medical therapy and proceed with evaluation as best as possible. (3) Stented coronary artery: PLAN: The patient has a history of PCI. His last PCI was in 2019 which included a PTCA to the RCA system. A stent was unable to be deployed. He will continue evaluation care as noted above. (4) History of coronary artery bypass surgery: PLAN: He has a history of CABG. His last cardiac catheterization and subsequent CABG angiography is noted. At the present time he will continue his medical management. Attempt will be made to proceed with his diagnostic cardiac catheterization procedure to reassess his coronary/graft status. (5) Bradycardia: PLAN: He does have a history of bradycardia. Is unclear whether this is contributing to his recent event. His beta-kandis dose will be decreased and depending upon the findings may eventually need to be further adjusted. If there is concern going forward as to whether or not his bradycardia is contributing to any of his symptoms and/or findings then he may need further adjustment of his medication and/or consideration for future pacemaker support. (6) Hyperlipidemia: PLAN: He will continue risk factor evaluation care. (7) Essential hypertension: PLAN: His medicines can be adjusted as deemed appropriate. (8) Angina pectoris: PLAN: Based upon his previous outpatient history and ongoing history of chest discomfort there is been concern is whether or not he has had any angina pectoris. He has been on medical management. He is undergone noninvasive valuation. Has been scheduled for upcoming diagnostic cardiac catheterization. An attempt will be made to have this accomplished today if possible. (9) Multiple myeloma: QUALIFIERS: Multiple myeloma remission status: in relapse Qualified Code(s): C90.02 - Multiple myeloma in relapse PLAN: He will continue evaluation care by his other physicians. Addt'l Comments The above was discussed and reviewed with the patient, his spouse, and Dr. Raymond. This note was generated using a voice recognition system and there may be incorrect words, spelling or punctuation that were not noted when reviewing the office note prior to saving. Procedure Criteria Type of Procedure Procedure Type: Elective Elective Risks - COVID COVID Risk Discussion: The surgeon/proceduralist and patient have discussed in detail the risk of exposure to and/or potential harm posed by the COVID-19 virus with having a surgery/procedure at this time versus the risk of delaying the surgery/procedure. It is not possible to know either the risk of delaying the surgery or procedure or chance of getting an infection with perfect accuracy, but a joint decision was made between the patient and the surgeon/proceduralist to proceed at this time with the scheduled surgery/procedure as indicated on the consent form.
--- NOTE | 2022-02-14 11:00 | CASEMGMT ---
NADYA CM in to complete NUNEZ form with patient. RN LUANN explained NUNEZ form to patient, patient voiced understanding. Patient signed NUNEZ form and filed in chart. Patient provided with copy of signed NUNEZ form. Patient had no further questions or concerns at this time.
--- NOTE | 2022-02-14 11:45 | NURSING ---
Report called to airport maintenance laborer nurse Radha, will assume care of pt during cath
--- NOTE | 2022-02-14 12:47 | PN.HOSP_ITS ---
Subjective Subjective Patient seen and examined. Reports intermittent chest discomfort overnight. Denies shortness of breath. Patient noted to have bradycardia overnight. Objective Data Objective Data Vital Signs: Vital Signs Temp Pulse Resp BP Pulse Ox O2 Del Method O2 Flow Rate 97.9 F 54 L 16 116/81 H 95 Room Air 2 02/14/22 06:41 02/14/22 07:01 02/14/22 06:41 02/14/22 06:41 02/14/22 08:34 02/14/22 09:00 02/14/22 06:41 Oxygen Flow Rate (L/min) 2 Oxygen Delivery Method Room Air Weight: 199 lb 8.293 oz Body Mass Index (BMI) 30.9 Intake & Output: Intake and Output for Last 24 Hours 02/12/22 02/13/22 02/14/22 23:59 23:59 23:59 Intake Total 1554 / 1854 1500 / 1500 Output Total 700 / 700 Balance 854 / 1154 1500 / 1500 Lab / Micro Data Result Diagrams: 02/14/22 04:50 02/14/22 04:50 Labs: Laboratory Results - last 24 hr 02/14/22 04:50: WBC 4.4, RBC 4.12 L, Hgb 13.1, Hct 39.8 L, MCV 96.6 H, MCH 31.8, MCHC 32.9, RDW Std Deviation 55.5 H, RDW Coeff of Amrita 15.6 H, Plt Count 81 L, MPV 10.5, Immature Gran % (Auto) 1.100 H, Neut % (Auto) 35.4 L, Lymph % (Auto) 20.7, Grainger % (Auto) 18.7 H, Eos % (Auto) 23.0 H, Baso % (Auto) 1.1 H, Absolute Neuts (auto) 1.6 L, Absolute Lymphs (auto) 0.92, Nucleated RBC % 0, Platelet Estimate MOD DEC, Anisocytosis 1+, Macrocytosis 1+ 02/14/22 04:50: PT 12.8, INR 1.0, APTT 29.6 02/14/22 04:50: Sodium 141, Potassium 3.7, Chloride 109 H, Carbon Dioxide 26.0, Anion Gap 6, BUN 21 H, Creatinine 0.77, Estim Creat Clear Calc 62.43, Est GFR (MDRD) Af Amer 127, Est GFR (MDRD) Non-Af 105, BUN/Creatinine Ratio 27.3 H, Glucose 92, Calcium 8.4 L, Magnesium 2.0, Total Bilirubin 0.80, AST 12 L, ALT 20, Alkaline Phosphatase 48, Total Protein 5.9 L, Albumin 3.0 L, Globulin 2.9, Albumin/Globulin Ratio 1.0 Physical Exam Const alert, oriented x3 and no apparent distress Orientation / Consciousness: awake, oriented to person, oriented to place and oriented to time HEENT normocephalic and moist oral mucous membranes Eyes PERRL, EOMs intact bilaterally and conjunctivae normal Neck no lymphadenopathy Resp normal respiratory effort and clear to auscultation bilaterally Cardio regular rhythm and no murmurs Cardio Narrative: Mild bradycardia Peripheral Pulses: pulses 2+ throughout GI normal to inspection, nondistended, normoactive bowel sounds, non-tender and non-distended Extremity normal to inspection Skin no rashes or lesions noted Lesions: no lesions Rashes: no rashes Trauma: no lacerations or abrasions Neuro CN's II-XII intact bilaterally, no focal motor deficits, no sensory deficits noted and deep tendon reflexes 2+ bilaterally Psych mental status grossly normal and affect normal Assessment & Plan Assessment/Plan (1) Angina pectoris: (2) Syncope: (3) Bradycardia: PLAN: Plan 1.? Syncope/chest pain-cardiology consulted.? Recent echo with EF 45%, segmental wall motion abnormalities present.? Continue current medical management. Plan is for heart cath. Check orthostatic vitals. 2. Bradycardia-metoprolol decreased to 12.5 mg twice daily. Monitor telemetry. 3. CAD with history of CABG/PCI-continue aspirin, statin, metoprolol. Follows with Dr. Mcclain. 4. Multiple myeloma- Follows with Dr. Proctor.? On Pomalyst. 5. Hypertension-stable, continue current regimen. 6. Hyperlipidemia-continue statin. 7. Peripheral neuropathy-on gabapentin. DVT prophylaxis-Lovenox subcu This patient was seen by ANGELA Ball under the supervision of Dr. Gomez. Time spent examining patient, reviewing data and subsequent management of care: 12 minutes
--- NOTE | 2022-02-14 13:49 | CL.D_ITS ---
Patient Name: NADIA RICK Study Date: 02/14/2022 Performing: John Mcclain MD Ht: 66.93 inches 170 cm : 1950 Wt: 200.62 lbs 91 kg Age: 71 Gender: male BSA: 2.02 PROCEDURE(S) PERFORMED [id number])LHC/COR/CABG CLINICAL PROFILE AND INDICATIONS Indications: Syncope, Worsening Angina, Suspected CAD Heart Failure: None Stress/Imaging Date: 02/06/2019Stress Test with SPECT MPI: Positive Intermediate Risk Angina Classification Anginal Classification w/in 2 Weeks: CCS IV (syncope; worsening angina) CAD Presentations: Other: syncope; worsening angina CONCLUSIONS [place] Multivessel CAD LUCAS to LAD: patent SVG to DX1: patent SVG to LCX Distal: patent SVG to RCA Acute Marginal Branch: patent RECOMMENDATIONS Risk factor modification Medical therapy Comment: c/w the previous cardiac catheterization / PCI (PTCA of the RCA) from 02/07/2019: there are similar type changes DESCRIPTION OF PROCEDURE The patient arrived to the procedure lab. The risks and benefits of the procedure as well as a full d escription of our services here and current unavailability of surgical backup were fully explained to the patient and/or their significant other prior to the catheterization. The Timeout was completed, verifying the correct patient and procedure. The patient's procedural site was prepped and draped in the usual fashion. Local anesthetic was given subcutaneously to right groin region with Lidocaine 2%. Using a modified Seldinger technique, arterial access was obtained via the right femoral artery, a 4 Fr sheath was inserted Left Coronary Artery selective angiography was performed in multiple views us ing a 4 Fr. JL5 catheter. Right Coronary Artery selective angiography was then performed in multiple views using a 4 Fr. 3DRC catheter. Saphenous Vein graft to the OM selective angiography was performed in multiple views using a 4 Fr. 3DRC catheter. Saphenous Vein graft to the RCA selective angiography was performed in multiple views using a 4 Fr. 3DRC catheter. Left internal mammary artery graft to the LAD selective angiography was performed in multiple views using a 4 Fr. 3DRC catheter. Left internal mammary artery graft to the LAD selective angiography was performed in multiple views u sing a 4 Fr. IM catheter. Saphenous Vein graft to the DIAG 1 selective angiography was performed in m ultiple views using a 4 Fr. AR MOD 2 catheter.The arterial sheath was pulled and manual compression a pplied until hemostasis is achieved. CORONARY ANGIOGRAPHY DOMINANCE: Right Dominant LEFT MAIN: Mild luminal irregularities, distal: 50 % Stenosis LEFT ANTERIOR DESCENDING ARTERY: PROX LAD: Previously placed stent has an instent 50 - 75 % restenosis MID LAD: is occluded CIRCUMFLEX ARTERY: Mild luminal irregularities MID CIRC: Previously placed stent has an instent 50 - 75 % restenosis DISTAL CIRC: diffuse: 50 - 75 % Stenosis OM 1: Ostial - small caliber vessel: 85 % Stenosis OM 3: Proximal - small caliber vessel: 75 % Stenosis RIGHT CORONARY ARTERY: diffuse: 85 % Stenosis RT PDA: Proximal - appearing to fill somewhat late and faintly in a retrograde fashion from SVG to th e acute marginal branch GRAFTS: LUCAS graft to the Mid LAD supplying two very small caliber branches with no obvious flow into the re mainder of the mid to distal LAD system Saphenous Vein graft to the 1st Diagonal is patent Saphenous Vein graft to the Distal CIRC is patent Saphenous Vein graft to the Acute Marginal is patent COMPLICATIONS No Complications PROCEDURE MEDICATIONS Versed 1 mg IV Oxygen: 2 L/min via nasal cannula IV Bolus: .9 NaCl 400ml total 02/14/2022 12:35:40 SUMMARY OF HEMODYNAMIC DATA Time AIR REST ECG 12:13:11 AO 71/51 (59) SA 12:35:18 AO 98/59 (76) 12:38:19 Signed By John Mcclain MD On 02/14/2022 13:48:01 John Mcclain MD
--- NOTE | 2022-02-14 14:56 | CHAPLAIN ---
Type of Pastoral Visit _x__ Initial Visit ___ Follow-up Visit ___ On-call Visit ___ General Patient Visit ___ Spiritual Assessment ___ Family Conference ___ Bereavement ___ Rapid Response ___ Code Blue ___ Other (describe below) Pastoral Care Referral From _x__ Patient ___ Family ___ Nurse ___ Physician ___ Sewing Machine Attachment Tester ___ Material Combiner ___ Other (describe below) Sacrament/Intervention _x__ Active listening ___ Anointing ___ Yazidi ___ Bereavement ___ Communion ___ [place] exploration ___ _x__ Life review _x__ Prayer ___ Reconciliation ___ Sacrament of Sick _x__ Supportive presence ___ Wedding ___ Other (describe below) Pastoral Comments patient just returned from [employer] and nothing was found; pt says goal is to find out what is needed; pt gives health history of several surgeries and heart issues; family and SO are in room and giving support; pt states that he is not too concerned as I've been through all this before and it is what it is; pt says that a prayer would be helpful and I know Who is in charge
--- NOTE | 2022-02-14 14:57 | DCINST_ITS ---
Discharge Instructions Diet Discharge Diet: Low fat / Low cholesterol Activity Discharge Activity: Return to Normal Activity and - (Follow-up post cath instructions) Dressing / Incision Call your doctor if your incision/area has: Continuous Slow Oozing, Sudden Increased Bleeding, Increased Pain/ Swelling, Increased Redness, Foul Smelling Discharge and Swelling at the incision site Call your doctor if you observe: Shortness of breath, Dizziness and Chest pain Follow Up Care Test Results: Test results from this visit will be discussed in further detail at your follow- up appointment, if applicable. Discharge Plan Admission Admit Date/Time: 02/12/22 20:19 Primary Reason for Your Visit: Chest pain Attending Provider: Doug Gomez Primary Care Provider: Andrea Tello Consulting Providers: Jesu Raymond ; Mica Yip ; Uri Quiros Instructions Additional Instructions / Restrictions: Hold metoprolol for 2 weeks. Follow-up with cardiology in 2 weeks to discuss resuming/ongoing dose. Discharge Orders/Prescriptions Prescriptions: New isosorbide mononitrate 60 mg Tablet Extended Release 24 Hr 60 mg PO DAILY 30 Days Qty: 30 0RF Continued melatonin 10 mg capsule 10 mg PO HS PRN (Reason: Sleep) dexamethasone 4 mg tablet 20 mg PO .weekly Qty: 60 1RF nitroglycerin 0.4 mg tablet, sublingual 0.4 mg sublingual Q5-15M PRN (Reason: chest pain) Qty: 25 4RF Rx Instructions: use one sub lingual every 5 min to maximum of three doses as needed for chest pain atorvastatin 40 mg tablet 40 mg PO DAILY Qty: 90 3RF lisinopril 5 mg tablet 5 mg PO DAILY Qty: 90 4RF Probiotic (B. coagulans) 10 billion cell capsule,delayed release(DR/EC) 1 cell PO DAILY ondansetron 4 MG tablet 4 mg PO Q8H PRN PRN (Reason: Nausea/Vomiting) Qty: 30 1RF gabapentin 600 mg tablet 600 mg PO TID albuterol sulfate [Ventolin HFA] 90 mcg/actuation HFA aerosol inhaler 2 puff inhalation Q4H PRN PRN (Reason: Wheezing) Qty: 1 0RF polyethylene glycol 3350 17 gram/dose powder 17 g PO DAILY PRN (Reason: CONSTIPATION) Pomalyst 4 mg capsule 4 mg PO QHS Rx Instructions: TAKE 1 CAPSULE DAILY FOR 21 DAYS ON, THEN OFF 7 DAYS EVERY 28 DAYS. aspirin 81 mg tablet,delayed release (DR/EC) 81 mg PO DAILY@0800 Qty: 90 3RF Discontinued isosorbide mononitrate 30 mg tablet extended release 24 hr 30 mg PO DAILY Qty: 90 3RF metoprolol tartrate 25 mg tablet 25 mg PO BID Qty: 180 3RF Referrals / Follow Up: Jayne Proctor MD [STAFF PHYSICIAN] - See Referral Note (As scheduled 02/22/2022) John Mcclain MD [STAFF PHYSICIAN] - Within 2 Weeks Andrea Tello MD [Primary Care Provider] - In 1 Week Disposition Disposition (needs filled in before D/C Order can be placed): Home, Self Care
--- NOTE | 2022-02-14 15:03 | DS.PCM_ITS ---
Documented by User: Charlotte Elizabeth NP, LOADING UNIT OPERATOR-C 02/14/22 15:08 Providers Date of Admission: 02/12/22 Date of Discharge: 02/14/22 Primary Care Physician: Dr. Andrea Tello MD Consultations 02/12/22 21:35 Consult: Cardiology Routine Consulting Provider: Jesu Raymond Reason for Consult: Ongoing chest pain episodes, now syncope event, had planned 02/15 cath plan EMERGENT Consult: No MD Notified: Yes Date Notified: 02/12/22 Time Notified: 21:00 Method of Notification: Text Reason For Visit: SYNCOPE, RECENT CP Diagnosis Discharge Diagnosis (1) Angina pectoris: Status: Acute Code(s): I20.9 - Angina pectoris, unspecified (2) Syncope: Status: Acute Code(s): R55 - Syncope and collapse (3) Bradycardia: Status: Acute Code(s): R00.1 - Bradycardia, unspecified Medications at Discharge Home Medications aspirin 81 mg tablet,delayed release 81 mg PO DAILY@0800 #90 tabs 05/14/19 ondansetron 4 mg disintegrating tablet 4 mg PO Q8H PRN PRN Nausea/Vomiting #30 tabs 07/14/20 melatonin 10 mg capsule 10 mg PO HS PRN Sleep 05/31/21 albuterol sulfate 90 mcg/actuation aerosol inhaler (Ventolin HFA) 2 puff inhalation Q4H PRN PRN Wheezing #1 ea 06/15/21 gabapentin 600 mg tablet 600 mg PO TID NERVE PAIN 06/15/21 dexamethasone 4 mg tablet 20 mg PO .weekly #60 tabs 09/22/21 Bacillus coagulans 10 billion cell capsule,delayed release (Probiotic (B. coa gulans)) 1 cell PO DAILY 01/12/22 atorvastatin 40 mg tablet 40 mg PO DAILY #90 tabs 01/13/22 lisinopril 5 mg tablet 5 mg PO DAILY #90 tabs 01/13/22 nitroglycerin 0.4 mg sublingual tablet 0.4 mg sublingual Q5-15M PRN chest pain #25 tabs 01/13/22 polyethylene glycol 3350 17 gram/dose oral powder 17 g PO DAILY PRN CONSTIPATION 01/13/22 pomalidomide 4 mg capsule (Pomalyst) 4 mg PO QHS 02/12/22 isosorbide mononitrate 60 mg tablet,extended release 24 hr 60 mg PO DAILY 30 days #30 tabs 02/14/22 Hospital Course Operations None Procedures Cardiac catheterization Summary of Care Provided Hospital Course: Patient is a 71-year-old male admitted 02/12/2022 due to chest pain and syncope. 1.? Syncope/chest pain-cardiology consulted during admission.? Recent echo with EF 45%, segmental wall motion abnormalities present. Underwent heart cath which demonstrated [place] multivessel nonobstructive CAD. Continue medical management. Isosorbide increased to 60 mg daily. Bradycardia and mild orthostasis possibly contributing to syncope. Beta-kandis held at discharge. IV fluids during admission. Follow-up with cardiology within 2 weeks. 2.? Bradycardia-hold beta-kandis for 2 weeks. Follow-up with cardiology within 2 weeks to discuss ongoing dose adjustment. 3. CAD with history of CABG/PCI-continue aspirin, statin, Follows with Dr. Mcclain. Continue medical management. Outpatient follow-up. 4. Multiple myeloma- Follows with Dr. Proctor.? On Pomalyst. 5. Hypertension-stable, continue current regimen. 6. Hyperlipidemia-continue statin. 7. Peripheral neuropathy-on gabapentin. Physical Exam Const alert, oriented x3 and no apparent distress Orientation / Consciousness: awake, oriented to person, oriented to place and oriented to time HEENT normocephalic and moist oral mucous membranes Eyes PERRL, EOMs intact bilaterally and conjunctivae normal Neck no lymphadenopathy Resp normal respiratory effort and clear to auscultation bilaterally Cardio regular rhythm and no murmurs Cardio Narrative: Mild bradycardia Peripheral Pulses: pulses 2+ throughout GI normal to inspection, nondistended, normoactive bowel sounds, non-tender and non-distended Extremity normal to inspection Skin no rashes or lesions noted Lesions: no lesions Rashes: no rashes Trauma: no lacerations or abrasions Neuro CN's II-XII intact bilaterally, no focal motor deficits, no sensory deficits noted and deep tendon reflexes 2+ bilaterally Psych mental status grossly normal and affect normal Patient seen and examined prior to discharge. Physical assessment as noted abo ve. Patient is stable for discharge with follow up recommendations as noted above. This patient was seen by ANGELA Ball under the supervision of Dr. Gomez. Time spent examining patient, reviewing data and subsequent management of care: 25 minutes Weight / BMI Weight Weight: 199 lb 8.293 oz Body Mass Index (BMI) 30.9 ABG / Lab / Microbiology Data Result Diagrams: 02/14/22 04:50 02/14/22 04:50 Laboratory: Laboratory Results - last 24 hr 02/14/22 04:50: WBC 4.4, RBC 4.12 L, Hgb 13.1, Hct 39.8 L, MCV 96.6 H, MCH 31.8, MCHC 32.9, RDW Std Deviation 55.5 H, RDW Coeff of Amrita 15.6 H, Plt Count 81 L, MPV 10.5, Immature Gran % (Auto) 1.100 H, Neut % (Auto) 35.4 L, Lymph % (Auto) 20.7, [place] % (Auto) 18.7 H, Eos % (Auto) 23.0 H, Baso % (Auto) 1.1 H, Absolute Neuts (auto) 1.6 L, Absolute Lymphs (auto) 0.92, Nucleated RBC % 0, Platelet Estimate MOD DEC, Anisocytosis 1+, Macrocytosis 1+ 02/14/22 04:50: PT 12.8, INR 1.0, APTT 29.6 02/14/22 04:50: Sodium 141, Potassium 3.7, Chloride 109 H, Carbon Dioxide 26.0, Anion Gap 6, BUN 21 H, Creatinine 0.77, Estim Creat Clear Calc 62.43, Est GFR (MDRD) Af Amer 127, Est GFR (MDRD) Non-Af 105, BUN/Creatinine Ratio 27.3 H, Glucose 92, Calcium 8.4 L, Magnesium 2.0, Total Bilirubin 0.80, AST 12 L, ALT 20, Alkaline Phosphatase 48, Total Protein 5.9 L, Albumin 3.0 L, Globulin 2.9, Albumin/Globulin Ratio 1.0 D/C Instructions Discharge Diet: Low fat / Low cholesterol Call your doctor if your incision/area has: Continuous Slow Oozing, Sudden Increased Bleeding, Increased Pain/ Swelling, Increased Redness, Foul Smelling Discharge and Swelling at the incision site Call your doctor if you observe: Shortness of breath, Dizziness and Chest pain Meaningful Use Info Meaningful Use Diagnoses (Choose all that apply): None applicable Discharge Plan Admission Admit Date/Time: 02/12/22 20:19 Primary Reason for Your Visit: Chest pain Attending Provider: Doug Gomez Primary Care Provider: Andrea Tello Consulting Providers: Jesu Raymond ; Mica Yip ; Uri Quiros Instructions Additional Instructions / Restrictions: Hold metoprolol for 2 weeks. Follow-up with cardiology in 2 weeks to discuss resuming/ongoing dose. Discharge Orders/Prescriptions Prescriptions: New isosorbide mononitrate 60 mg Tablet Extended Release 24 Hr 60 mg PO DAILY 30 Days Qty: 30 0RF Continued melatonin 10 mg capsule 10 mg PO HS PRN (Reason: Sleep) dexamethasone 4 mg tablet 20 mg PO .weekly Qty: 60 1RF nitroglycerin 0.4 mg tablet, sublingual 0.4 mg sublingual Q5-15M PRN (Reason: chest pain) Qty: 25 4RF Rx Instructions: use one sub lingual every 5 min to maximum of three doses as needed for chest pain atorvastatin 40 mg tablet 40 mg PO DAILY Qty: 90 3RF lisinopril 5 mg tablet 5 mg PO DAILY Qty: 90 4RF Probiotic (B. coagulans) 10 billion cell capsule,delayed release(DR/EC) 1 cell PO DAILY ondansetron 4 MG tablet 4 mg PO Q8H PRN PRN (Reason: Nausea/Vomiting) Qty: 30 1RF gabapentin 600 mg tablet 600 mg PO TID albuterol sulfate [Ventolin HFA] 90 mcg/actuation HFA aerosol inhaler 2 puff inhalation Q4H PRN PRN (Reason: Wheezing) Qty: 1 0RF polyethylene glycol 3350 17 gram/dose powder 17 g PO DAILY PRN (Reason: CONSTIPATION) Pomalyst 4 mg capsule 4 mg PO QHS Rx Instructions: TAKE 1 CAPSULE DAILY FOR 21 DAYS ON, THEN OFF 7 DAYS EVERY 28 DAYS. aspirin 81 mg tablet,delayed release (DR/EC) 81 mg PO DAILY@0800 Qty: 90 3RF Discontinued isosorbide mononitrate 30 mg tablet extended release 24 hr 30 mg PO DAILY Qty: 90 3RF metoprolol tartrate 25 mg tablet 25 mg PO BID Qty: 180 3RF Referrals / Follow Up: Jayne Proctor MD [STAFF PHYSICIAN] - See Referral Note (As scheduled 02/22/2022) John Mcclain MD [STAFF PHYSICIAN] - Within 2 Weeks Andrea Tello MD [Primary Care Provider] - In 1 Week Disposition Disposition (needs filled in before D/C Order can be placed): Home, Self Care Documented by User: Dr. Doug Gomez MD 02/14/22 16:02 Providers Date of Admission: 02/12/22 Reason For Visit: SYNCOPE, RECENT CP Diagnosis Discharge Diagnosis (1) Angina pectoris: Status: Acute Code(s): I20.9 - Angina pectoris, unspecified (2) Syncope: Status: Acute Code(s): R55 - Syncope and collapse (3) Bradycardia: Status: Acute Code(s): R00.1 - Bradycardia, unspecified Medications at Discharge Home Medications aspirin 81 mg tablet,delayed release 81 mg PO DAILY@0800 #90 tabs 05/14/19 ondansetron 4 mg disintegrating tablet 4 mg PO Q8H PRN PRN Nausea/Vomiting #30 tabs 07/14/20 melatonin 10 mg capsule 10 mg PO HS PRN Sleep 05/31/21 albuterol sulfate 90 mcg/actuation aerosol inhaler (Ventolin HFA) 2 puff inhalation Q4H PRN PRN Wheezing #1 ea 06/15/21 gabapentin 600 mg tablet 600 mg PO TID NERVE PAIN 06/15/21 dexamethasone 4 mg tablet 20 mg PO .weekly #60 tabs 09/22/21 Bacillus coagulans 10 billion cell capsule,delayed release (Probiotic (B. coagulans)) 1 cell PO DAILY 01/12/22 atorvastatin 40 mg tablet 40 mg PO DAILY #90 tabs 01/13/22 lisinopril 5 mg tablet 5 mg PO DAILY #90 tabs 01/13/22 nitroglycerin 0.4 mg sublingual tablet 0.4 mg sublingual Q5-15M PRN chest pain #25 tabs 01/13/22 polyethylene glycol 3350 17 gram/dose oral powder 17 g PO DAILY PRN CONSTIPATION 01/13/22 pomalidomide 4 mg capsule (Pomalyst) 4 mg PO QHS 02/12/22 isosorbide mononitrate 60 mg tablet,extended release 24 hr 60 mg PO DAILY 30 days #30 tabs 02/14/22 ABG / Lab / Microbiology Data Result Diagrams: 02/14/22 04:50 02/14/22 04:50 Discharge Plan Admission Admit Date/Time: 02/12/22 20:19 Primary Reason for Your Visit: Chest pain Attending Provider: Doug Gomez Primary Care Provider: Andera Tello Consulting Providers: Jesu Raymond ; Mica Yip ; Uri Quiros Instructions Additional Instructions / Restrictions: Hold metoprolol for 2 weeks. Follow-up with cardiology in 2 weeks to discuss resuming/ongoing dose. Discharge Orders/Prescriptions Prescriptions: New isosorbide mononitrate 60 mg Tablet Extended Release 24 Hr 60 mg PO DAILY 30 Days Qty: 30 0RF Continued melatonin 10 mg capsule 10 mg PO HS PRN (Reason: Sleep) dexamethasone 4 mg tablet 20 mg PO .weekly Qty: 60 1RF nitroglycerin 0.4 mg tablet, sublingual 0.4 mg sublingual Q5-15M PRN (Reason: chest pain) Qty: 25 4RF Rx Instructions: use one sub lingual every 5 min to maximum of three doses as needed for chest pain atorvastatin 40 mg tablet 40 mg PO DAILY Qty: 90 3RF lisinopril 5 mg tablet 5 mg PO DAILY Qty: 90 4RF Probiotic (B. coagulans) 10 billion cell capsule,delayed release(DR/EC) 1 cell PO DAILY ondansetron 4 MG tablet 4 mg PO Q8H PRN PRN (Reason: Nausea/Vomiting) Qty: 30 1RF gabapentin 600 mg tablet 600 mg PO TID albuterol sulfate [Ventolin HFA] 90 mcg/actuation HFA aerosol inhaler 2 puff inhalation Q4H PRN PRN (Reason: Wheezing) Qty: 1 0RF polyethylene glycol 3350 17 gram/dose powder 17 g PO DAILY PRN (Reason: CONSTIPATION) Pomalyst 4 mg capsule 4 mg PO QHS Rx Instructions: TAKE 1 CAPSULE DAILY FOR 21 DAYS ON, THEN OFF 7 DAYS EVERY 28 DAYS. aspirin 81 mg tablet,delayed release (DR/EC) 81 mg PO DAILY@0800 Qty: 90 3RF Discontinued isosorbide mononitrate 30 mg tablet extended release 24 hr 30 mg PO DAILY Qty: 90 3RF metoprolol tartrate 25 mg tablet 25 mg PO BID Qty: 180 3RF Referrals / Follow Up: Jayne Proctor MD [STAFF PHYSICIAN] - See Referral Note (As scheduled 02/22/2022) John Mcclain MD [STAFF PHYSICIAN] - Within 2 Weeks Andrea Tello MD [Primary Care Provider] - In 1 Week Disposition Disposition (needs filled in before D/C Order can be placed): Home, Self Care Charges/Coding Addendum Addendum: Addendum: Dr. Gomez I personally examined the patient and reviewed the chart. I agree with the above. 71-year-old male presented to the hospital with multiple episodes of syncope as well as some chest pain and shortness of breath. He was scheduled to have a cardiac catheterization done this week and that was done today which was unremarkable and cardiology recommended further medication management. He was also noted to be bradycardic so his beta-kandis has been discontinued and this is likely the cause of his syncopal episodes. During my examination his heart rate was sitting in the 40s but since he was laying in bed he was asymptomatic. His last dose of beta-kandis was on 02/12/2022 at 10:30 PM so I would anticipate that his heart rate would start climbing over the next several days in the meantime he will need to follow-up with his PCP as an outpatient as well as cardiology. Once he is off the beta-kandis for about 2 to 3 weeks he can get an outpatient Holter monitor or 30-day event monitor to check for any other types of arrhythmias that might explain his syncopal episodes. In the meantime his Imdur was increased to cardiology's recommendation. No other changes were made to his medication regimen. It was noted that he was having some shortness of breath and this is likely cardiac related however I did advise the family to discuss the situation with the oncologist to see if the chemotherapy he is on for multiple myeloma could have any effect in terms of pulmonary fibrosis or any other type entity affecting his pulmonary system. I discussed with him the plan for discharge today he expressed understanding of the risk benefits of going home and wants to go home today. Clinical time spent in all aspects of patient care: 35 minutes Visit Charges OBSV E&M: 64099 Observation care discharge
== END 2022-02-14 14:59 | disposition home or self-care (01) ==
LOC: ED 20:22 → PCU 20:40
PROVIDERS: Admitting Provider Family Medicine; Emergency Provider Emergency Medicine; PCP Family Medicine; Visit Provider Family Medicine
DX: I25.119 Atherosclerotic heart disease of native coronary artery with unspecified angina pectoris (principal); C90.00 Multiple myeloma not having achieved remission; R55 Syncope and collapse; Z68.31 Body mass index [BMI] 31.0-31.9, adult; E66.9 Obesity, unspecified; R73.9 Hyperglycemia, unspecified; I25.5 Ischemic cardiomyopathy; R06.02 Shortness of breath; Z79.82 Long term (current) use of aspirin; G62.9 Polyneuropathy, unspecified; I10 Essential (primary) hypertension; E78.5 Hyperlipidemia, unspecified; G89.29 Other chronic pain; I45.10 Unspecified right bundle-branch block; I49.3 Ventricular premature depolarization; Z79.899 Other long term (current) drug therapy; Z95.1 Presence of aortocoronary bypass graft; Z87.891 Personal history of nicotine dependence; K21.9 Gastro-esophageal reflux disease without esophagitis
CPT/HCPCS: 36415; 71045; 80048; 80053; 80061; 83036; 83735; 84484; 85025; 85610; 85730; 93005; 93455; 96360; 96361; 96372; 99152; 99153; 99218; 99285; J7030; A4216; C1769; G0378; Q9967

== ENCOUNTER → 2022-04-09 | Outpatient (CLI) | payer MEDICARE, OTHER, SELFPAY ==
--- NOTE | 2022-04-09 08:51 | US_ITS ---
STUDY: RENAL ULTRASOUND - COMPLETE REASON FOR EXAM: Male, 72 years old. Chronic kidney disease. TECHNIQUE: Ultrasound evaluation of the kidneys was performed with real-time and static canela-scale imaging. COMPARISON: None. FINDINGS: RIGHT KIDNEY: Normal location of the right kidney, which is normal in size. The right kidney measures 11.1 cm. There is a normal cortex of the right kidney. The renal cortex measures 1.8 cm. There is no right renal mass or cyst. There are no right renal calculi. There is no right hydronephrosis. DISTAL RIGHT URETER: There is non-visualization of the distal right ureter. There is no demonstrated right ureterovesical junction calculus. There is a visualized right ureteral jet. LEFT KIDNEY: Normal location of the left kidney, which is normal in size. The left kidney measures 11.3 cm. There is a normal cortex of the left kidney. The renal cortex measures 1.9 cm. There is no left renal mass or cyst. There are no left renal calculi. There is no left hydronephrosis. DISTAL LEFT URETER: There is non-visualization of the distal left ureter. There is no demonstrated left ureterovesical junction calculus. There is a visualized left ureteral jet. BLADDER: The distended urinary bladder has a volume of 453 ml. There is a normal wall thickness of the distended urinary bladder. There is no demonstrated mass within the urinary bladder. There are no demonstrated bladder calculi. US/Kidney and Bladder IMPRESSION: Normal ultrasound of the kidneys and urinary bladder. Electronically Signed: Jonah Park DO at 17:23 EDT ,
== END | disposition home or self-care (01) ==
LOC: US 08:37
PROVIDERS: PCP Family Medicine; Referring Provider Internal Medicine Nephrology; Visit Provider Internal Medicine Nephrology
DX: N18.32 Chronic kidney disease, stage 3b (principal)
CPT/HCPCS: 76770

== ENCOUNTER 2022-04-11 06:19 | Inpatient (IN) | payer MEDICARE, OTHER, SELFPAY ==
[2022-04-11] VITALS (9 sets, daily range): BP systolic 117–171; BP diastolic 54–90; PULSE 76–88; RESP 16–20; TEMP 37.1–38.2; O2SAT 91–96; BMI 31.3; BMI 30.7
--- NOTE | 2022-04-11 07:27 | CT_ITS ---
STUDY: CT ABDOMEN AND PELVIS WITH CONTRAST REASON FOR EXAM: Male, 72 years old. LLQ pain, GI bleeding RADIATION DOSAGE (If Supplied By Facility): CTDIvol = ( 15.93 ) mGy, DLP = ( 1191.51 ) mGycm TECHNIQUE: Transaxial images were obtained from the dome of the diaphragm to the symphysis pubis without oral contrast. IV 100mL Isovue-370 was administered. Sagittal and coronal images were reconstructed. Individualized dose optimization techniques were used for this CT. COMPARISON: Comparison is made with prior study 11/22/2013. FINDINGS: Mild degree of bibasilar linear atelectasis. Coronary artery calcification. There is decreased attenuation of the liver consistent with steatosis. There is a solitary gallstone in the neck of the gallbladder. It measures 1.5 cm.. There are multiple benign calcified granulomata of the spleen. Normal pancreas. Normal bilateral adrenal glands. Subcentimeters cyst in the upper pole of the right kidney. Normal left kidney. Normal visualized stomach. 1.9 cm diverticulum in the second portion of the duodenum. There is diffuse circumferential wall thickening of the left hemicolon with increased markings in the surrounding peritoneal fat. Colitis should be ruled out. There is also evidence of sigmoid diverticulosis. The appendix is visualized and appears normal. There is diffuse atherosclerotic calcification of the abdominal aorta as well as the splenic artery, without a demonstrated aneurysm. Normal inferior vena cava. Normal retroperitoneum. Normal urinary bladder. There is enlargement of the prostate gland. The prostate measures 4 cm x 4.2 cm. This causes indentation at the bladder base. Normal abdominal wall. There are diffuse degenerative changes of the visualized lumbar spine. Prior vertebroplasty of the L1 and L2 vertebrae. CT/Abdomen/Pelvis W IV Cont ONLY IMPRESSION: Diffuse circumferential wall thickening of the left hemicolon with increased markings in the surrounding peritoneal fat in keeping with the colitis. Sigmoid diverticulosis. Solitary gallstone in the neck of the gallbladder. Electronically Signed: Anthony Macdonald MD at 9:05 EDT ,
--- NOTE | 2022-04-11 07:28 | EDS_ITS ---
HPI History of Present Illness Chief Complaint: GI Bleed Informant: patient Narrative Narrative: Is a 72-year-old male with history of hypertension, CKD 3, multiple myeloma and coronary artery disease presenting with left lower quadrant pain and GI bleeding. Patient states he was constipated for about a week and then started to let up 3 days ago. He started having pain in his left lower quadrant with loose bowel movements. He then started having worsening pain and passing just clots overnight last night. Patient states he was up about every 2 hours having a bowel movement and every other time he would have just blood in there. He denies any fever, chills. [place] any urinary symptoms. Denies any history of GI bleeding. Is supposed to be on 81 mg aspirin but states has not been taking it for couple weeks. Had a colonoscopy but 4 years ago and states it was normal. Chart review shows that patient is on Pomalidomide and dexamethasone for his multiple myeloma. [facility] Medical History Acute bronchitis, unspecified Atherosclerotic heart disease of [place] coronary artery without angina pectoris Olvera's palsy Bradycardia Chronic back pain CKD (chronic kidney disease) stage 3, GFR 30-59 ml/min Congestion of nasal sinus Constipation Cough Encounter for education Encounter for screening for COVID-19 Essential hypertension Heartburn symptom [place] (hard of hearing) Hyperlipidemia Irregular heart rate Left-sided Olvera's palsy Multiple myeloma Neuropathy Recovering alcoholic Sore throat Suspected 2019 novel coronavirus infection Tachycardia Home Medications aspirin 81 mg tablet,delayed release 81 mg PO DAILY@0800 #90 tabs 05/14/19 [Rx Last Taken 06/14/21] ondansetron 4 mg disintegrating tablet 4 mg PO Q8H PRN PRN Nausea/Vomiting #30 tabs 07/14/20 [Rx Last Taken Unknown] melatonin 10 mg capsule 10 mg PO HS PRN Sleep 05/31/21 [History Last Taken 06/14/21] albuterol sulfate 90 mcg/actuation aerosol inhaler (Ventolin HFA) 2 puff inhalation Q4H PRN PRN Wheezing #1 ea 06/15/21 [Rx Last Taken Unknown] gabapentin 600 mg tablet 600 mg PO TID NERVE PAIN 06/15/21 [History Last Taken 06/14/21] dexamethasone 4 mg tablet 20 mg PO .weekly #60 tabs 09/22/21 [Rx Last Taken Unknown] Bacillus coagulans 10 billion cell capsule,delayed release (Probiotic (B. coagulans)) 1 cell PO DAILY 01/12/22 [History Last Taken Unknown] atorvastatin 40 mg tablet 40 mg PO DAILY #90 tabs 01/13/22 [Rx Last Taken Unknown] lisinopril 5 mg tablet 5 mg PO DAILY #90 tabs 01/13/22 [Rx Last Taken Unknown] nitroglycerin 0.4 mg sublingual tablet 0.4 mg sublingual Q5-15M PRN chest pain #25 tabs 01/13/22 [Rx Last Taken Unknown] polyethylene glycol 3350 17 gram/dose oral powder 17 g PO DAILY PRN CONSTIPATION 01/13/22 [History Last Taken Unknown] isosorbide mononitrate 60 mg tablet,extended release 24 hr 60 mg PO DAILY 30 days #30 tabs 02/14/22 [Rx Last Taken Unknown] Pomalyst 4 mg capsule (pomalidomide) See Rx Instructions .Route .COMPLEX #21 CAPSULES 03/17/22 [Rx Last Taken Unknown] Allergy/AdvReac Type Severity Reaction Status Date / Time morphine Allergy Severe Anaphylaxis Verified 03/24/22 11:01 oxycodone Allergy Severe Anaphylaxis Verified 03/24/22 11:01 Family History Father Brain cancer Sister Liver cancer Mother Leukemia Surgical History History of coronary artery bypass surgery (~08/15/14) Hx of CABG Stented coronary artery (02/07/19) Social History household members: none housing: house number of children: 2 current occupational status: retired pets and animals: Yes Smoking Status: Never smoker alcohol intake: former substance use type: does not use what type of physical activity do you participate in: walking frequency: daily duration: 15-30 minutes/day 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: [employer] do you feel safe at home: Yes ROS ROS ED Constitutional Constitutional ED: Denies chills or fever(s) Eyes Eyes: Denies change in vision ENT ENT ED: Denies sore throat Cardiovascular Cardiovascular: Denies chest pain Respiratory/Chest Respiratory/Chest: Denies cough Gastrointestinal Gastrointestinal: Reports abdominal pain, melena and nausea; Denies vomiting Genitourinary Genitourinary ED: Denies dysuria or hematuria Musculoskeletal Musculoskeletal: Denies arthralgias or myalgias Integumentary Denies rash Neurologic Neurologic: Denies headache(s) or weakness Hematologic/Lymphatic Hematologic/Lymphatic: Denies easy bleeding or easy bruising EXAM Physical Exam Const Vital Signs: 04/11/22 06:31 04/11/22 07:46 04/11/22 08:15 Temperature 99.6 F H Temperature Source Oral Pulse Rate 81 88 Respiratory Rate 16 20 H Blood Pressure 171/80 H 159/90 H Blood Pressure Mean 110 113 Pulse Ox 96 95 95 Oxygen Delivery Method Room Air Room Air Nasal Cannula Oxygen Flow Rate (L/min) 2 Positive well nourished and well developed General Appearance ED: well developed and NAD; Negative for pallor Eyes PERRL and EOMs intact bilaterally General Eye ED: Negative for pale conjunctiva Neck supple Chest Wall inspection of chest normal and palpation of chest normal Resp normal respiratory effort and clear to auscultation bilaterally Cardio regular rate, regular rhythm and no murmurs GI Inspection: abdominal distention Auscultation: hyperactive bowel sounds Palpation: tender LLQ and LUQ; Negative for guarding Extremity normal to inspection Neuro oriented x3 Sensorium / Orientation: alert Motor Exam: Negative for general weakness Psych mental status grossly normal Skin no rashes or lesions noted and no wounds General Skin Exam: Negative for pallor MDM MDM MDM Narrative Medical decision making narrative: Evaluated for left side abdominal pain as well as bright red blood per rectum. A mixture of bright red blood and clots. On rectal exam patient does have sonu blood but no active bleeding. Patient hemodynamically stable and mildly hypertensive. He does have some mild desaturation after receiving IV fentanyl but it improves when he takes a couple deep breaths. Lab work is largely unremarkable. Potassium is mildly low at 3.2 his hemoglobin is normal at 16. Lactate is 1.7. Pain improved with fentanyl. CT of the abdomen and pelvis with IV contrast obtained which shows circumferential wall thickening of the left hemicolon with increased markings and surrounding peritoneal fat in keeping with colitis. He also is a solitary gallstone in the neck of his gallbladder but he does not have an associated transaminitis or right upper quadrant pain. This is likely an incidental finding. Patient is given a bolus of IV fluids. Case is discussed with surgery on-call, Dr. Faith who will see the patient in consult. Patient is admitted to the hospitalist service. He is agreeable with this plan of care. Lab Data Attestation: I reviewed the patient's lab results. Labs: Laboratory Results - last 24 hr 04/11/22 04/11/22 04/11/22 07:30 07:30 07:30 WBC 5.6 RBC 5.21 Hgb 16.0 Hct 47.0 MCV 90.2 MCH 30.7 MCHC 34.0 RDW Std Deviation 48.7 H RDW Coeff of Amrita 14.9 H Plt Count 146 L MPV 10.6 Immature Gran % (Auto) 1.400 H Neut % (Auto) 58.4 Lymph % (Auto) 12.3 L [place] % (Auto) 21.2 H Eos % (Auto) 4.4 Baso % (Auto) 2.3 H Absolute Neuts (auto) 3.3 Absolute Lymphs (auto) 0.69 L Nucleated RBC % 0 Sodium 138 Potassium 3.2 L Chloride 104 Carbon Dioxide 26.0 Anion Gap 8 BUN 15 Creatinine 0.96 Estim Creat Clear Calc 64.07 Est GFR (MDRD) Af Amer 99 Est GFR (MDRD) Non-Af 82 BUN/Creatinine Ratio 15.7 Glucose 116 H Lactic Acid 1.7 Calcium 8.6 Total Bilirubin 1.60 H AST 10 L ALT 20 Alkaline Phosphatase 74 Total Protein 7.1 Albumin 3.5 Globulin 3.6 Albumin/Globulin Ratio 1.0 Lipase 74 Radiography Diagnostic Testing: Clinical Impression(s) from Imaging Studies Abdomen/Pelvis CT 04/11/22 07:27 IMPRESSION: Diffuse circumferential wall thickening of the left hemicolon with increased markings in the surrounding peritoneal fat in keeping with the colitis. Sigmoid diverticulosis. Solitary gallstone in the neck of the gallbladder. Electronically Signed: Anthony Macdonald MD at 9:05 EDT , Discharge Plan Triage Chief Complaint: GI Bleed ED Provider: Alise Keller Dx/Rx/DC Orders Clinical Impression: Acute GI bleeding, Left sided colitis, Left sided abdominal pain, Acute hypokalemia Prescriptions: No Action melatonin 10 mg capsule 10 mg PO HS PRN (Reason: Sleep) dexamethasone 4 mg tablet 20 mg PO .weekly Qty: 60 1RF nitroglycerin 0.4 mg tablet, sublingual 0.4 mg sublingual Q5-15M PRN (Reason: chest pain) Qty: 25 4RF Rx Instructions: use one sub lingual every 5 min to maximum of three doses as needed for chest pain atorvastatin 40 mg tablet 40 mg PO DAILY Qty: 90 3RF lisinopril 5 mg tablet 5 mg PO DAILY Qty: 90 4RF Probiotic (B. coagulans) 10 billion cell capsule,delayed release(DR/EC) 1 cell PO DAILY ondansetron 4 MG tablet 4 mg PO Q8H PRN PRN (Reason: Nausea/Vomiting) Qty: 30 1RF gabapentin 600 mg tablet 600 mg PO TID albuterol sulfate [Ventolin HFA] 90 mcg/actuation HFA aerosol inhaler 2 puff inhalation Q4H PRN PRN (Reason: Wheezing) Qty: 1 0RF polyethylene glycol 3350 17 gram/dose powder 17 g PO DAILY PRN (Reason: CONSTIPATION) isosorbide mononitrate 60 mg Tablet Extended Release 24 Hr 60 mg PO DAILY 30 Days Qty: 30 0RF aspirin 81 mg tablet,delayed release (DR/EC) 81 mg PO DAILY@0800 Qty: 90 3RF Pomalyst 4 mg capsule See Rx Instructions .ROUTE .COMPLEX Qty: 21 0RF Dose Instruction: TAKE 1 CAPSULE DAILY FOR 21 DAYS ON THEN 7 DAYS OFF, EVERY 28 DAYS Rx Instructions: TAKE 1 CAPSULE DAILY FOR 21 DAYS ON THEN 7 DAYS OFF, EVERY 28 DAYS Primary Care Provider: Andrea Tello Referrals: Andrea Tello MD [Primary Care Provider] - Disposition Disposition: Acute Care Hospital [facility]
[2022-04-11] MEDS: 0.9% Normal Saline 1,000 ML 1000 ML IV (07:44)
[2022-04-11] MEDS: fentaNYL 100 MCG/2 ML Ampul 50 MCG IV (07:44)
[2022-04-11] MEDS: Ondansetron 4 MG/2 ML Vial IV (07:44)
[2022-04-11 07:53] LABS: Absolute Lymphocyte Count 0.69 X10^3/uL (0.83-4.51); Absolute Neutrophil Count 3.3 X10^3/uL (2.0-7.7); Basophil# 0.13 X10^3/uL; Basophil% 2.3 % (0-1); Eosinophil# 0.25 X10^3/uL; Eosinophils% 4.4 % (0-5); Lymphocyte # 0.69 X10^3/ul (0.83-4.51); Lymphocyte % 12.3 % (19-41); Mean Corpuscular Hgb 30.7 pg (27.0-32.0); Mean Corpuscular Volume 90.2 fL (80-94); Mean Platelet Vol. 10.6 fl (6.2-12.0); Monocyte# 1.19 X10^3/uL; Monocyte% 21.2 % (0-10); NRBC Flagged by Analyzer 0 % (0-5); Neutrophil # 3.28 X10^3/uL (2.7-7.7); Neutrophil % 58.4 % (47-70); Platelet Count 146 K/mm3 (150-450); RBC Distribution Width CV 14.9 % (11.6-14.6); RBC Distribution Width SD 48.7 fl (35.1-43.9); Red Blood Count 5.21 M/mm3 (4.6-6.2); White Blood Count 5.6 K/mm3 (4.4-11.0)
[2022-04-11 08:11] LABS: AST(SGOT) 10 U/L (15-37); Alanine Aminotransfer ALT/SGPT 20 U/L (16-61); Albumin, Serum 3.5 g/dL (3.2-5.0); Alkaline Phosphatase 74 U/L (45-117); Anion Gap 8 (5-15); BUN 15 mg/dL (7-18); BUN/Creat Ratio 15.7 RATIO (10-20); Calcium,Total 8.6 mg/dL (8.5-10.1); Chloride 104 mmol/L (98-107); Creatinine, Serum 0.96 mg/dL (0.70-1.30); EST Glomerular Filtration Rate 82 mL/min (>60); Est Glom Filt Rate - Afr Amer 99 mL/min (>60); Estimated Creatinine Clearance 64.07 ml/min; Globulin 3.6 g/dL (2.2-4.2); Glucose 116 mg/dL (74-106); Lipase 74 U/L (73-393); Potassium 3.2 mmol/L (3.5-5.1); Protein, Total 7.1 g/dL (6.4-8.2); Sodium Level 138 mmol/L (136-145)
[2022-04-11 08:22] LABS: Lactic Acid 1.7 mmol/L (0.4-1.9)
[2022-04-11] MEDS: Ciprofloxacin 400 MG/200 ML BAG 200 MG IV ×2 (09:55→20:54)
[2022-04-11] MEDS: 0.9% Normal Saline 1,000 ML 150 ML IV ×2 (09:55→11:10)
--- NOTE | 2022-04-11 10:04 | HP.PCM.HOS_ITS ---
[facility] - General General Date of Service: 04/11/22 Chief Complaint: GI bleed [facility] Narrative NADIA RICK, is a 72 M who presents with rectal bleeding. Symptoms began 2 days ago and patient had stopped taking his aspirin along with that. He has not been taking any other blood thinners. Patient has been passing blood but also clots and has steadily gotten worse. Also experiencing suprapubic abdominal pain. Patient has never had GI bleeding before. Patient has had a colonoscopy many years ago. Patient presented to the emergency room and his hemoglobin was 16. Patient had a CAT scan that showed diffuse circumferential wall thickening of the left hemicolon with increased markings in the surrounding peritoneal fat in keeping with colitis. Noted sigmoid diverticulosis. Patient states that prior to this, he had been constipated for about a week. Patient states that he is never been constipated like that before. [facility] Medical History Acute bronchitis, unspecified Atherosclerotic heart disease of [place] coronary artery without angina pectoris Olvera's palsy Bradycardia Chronic back pain CKD (chronic kidney disease) stage 3, GFR 30-59 ml/min Congestion of nasal sinus Constipation Cough Encounter for education Encounter for screening for COVID-19 Essential hypertension Heartburn symptom [place] (hard of hearing) Hyperlipidemia Irregular heart rate Left-sided Olvera's palsy Multiple myeloma Neuropathy Recovering alcoholic Sore throat Suspected 2019 novel coronavirus infection Tachycardia Home Medications aspirin 81 mg tablet,delayed release 81 mg PO DAILY@0800 #90 tabs 05/14/19 [Rx Last Taken 06/14/21] ondansetron 4 mg disintegrating tablet 4 mg PO Q8H PRN PRN Nausea/Vomiting #30 tabs 07/14/20 [Rx Last Taken Unknown] melatonin 10 mg capsule 10 mg PO HS PRN Sleep 05/31/21 [History Last Taken 06/14/21] albuterol sulfate 90 mcg/actuation aerosol inhaler (Ventolin HFA) 2 puff inhalation Q4H PRN PRN Wheezing #1 ea 06/15/21 [Rx Last Taken Unknown] gabapentin 600 mg tablet 600 mg PO TID NERVE PAIN 06/15/21 [History Last Taken 06/14/21] dexamethasone 4 mg tablet 20 mg PO .weekly #60 tabs 09/22/21 [Rx Last Taken Unknown] Bacillus coagulans 10 billion cell capsule,delayed release (Probiotic (B. coagulans)) 1 cell PO DAILY 01/12/22 [History Last Taken Unknown] atorvastatin 40 mg tablet 40 mg PO DAILY #90 tabs 01/13/22 [Rx Last Taken Unknown] lisinopril 5 mg tablet 5 mg PO DAILY #90 tabs 01/13/22 [Rx Last Taken Unknown] nitroglycerin 0.4 mg sublingual tablet 0.4 mg sublingual Q5-15M PRN chest pain #25 tabs 01/13/22 [Rx Last Taken Unknown] polyethylene glycol 3350 17 gram/dose oral powder 17 g PO DAILY PRN CONSTIPATION 01/13/22 [History Last Taken Unknown] isosorbide mononitrate 60 mg tablet,extended release 24 hr 60 mg PO DAILY 30 days #30 tabs 02/14/22 [Rx Last Taken Unknown] Pomalyst 4 mg capsule (pomalidomide) See Rx Instructions .Route .COMPLEX #21 CAPSULES 03/17/22 [Rx Last Taken Unknown] Allergy/AdvReac Type Severity Reaction Status Date / Time morphine Allergy Severe Anaphylaxis Verified 03/24/22 11:01 oxycodone Allergy Severe Anaphylaxis Verified 03/24/22 11:01 Family History Father Brain cancer Sister Liver cancer Mother Leukemia Surgical History History of coronary artery bypass surgery (~08/15/14) Hx of CABG Stented coronary artery (02/07/19) Social History household members: none housing: house number of children: 2 current occupational status: retired pets and animals: Yes Smoking Status: Never smoker alcohol intake: former substance use type: does not use what type of physical activity do you participate in: walking frequency: daily duration: 15-30 minutes/day 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 No vomiting nor hematemesis. No chest pain. No shortness of breath. Does complain of lower extremity edema. No other bleeding diathesis. All review of systems were negative except as mentioned above in the history of present illness and the other review of systems. Vital Signs Vital Signs Vital Signs: 04/11/22 06:31 04/11/22 07:46 04/11/22 08:15 Temperature 37.6 C H Temperature Source Oral Pulse Rate 81 88 Respiratory Rate 16 20 H Blood Pressure 171/80 H 159/90 H Blood Pressure Mean 110 113 Pulse Ox 96 95 95 Oxygen Delivery Method Room Air Room Air Nasal Cannula Oxygen Flow Rate (L/min) 2 Weight Weight: 90.7 kg Body Mass Index (BMI) 31.3 Physical Exam Const alert and no apparent distress Constitutional Narrative: Sitting on bedside commode. HEENT normocephalic and hearing grossly normal bilaterally Resp normal respiratory effort, no retractions, no use of accessory muscles and clear to auscultation bilaterally Cardio regular rate, regular rhythm, S1 normal heart sound and S2 normal heart sound GI normal to inspection, nondistended, normoactive bowel sounds, soft to palpation, non-tender and non-distended Extremity normal to inspection and no clubbing, cyanosis or edema Extremity Narrative: No lower extremity edema. Neuro Sensorium / Orientation: awake and alert Psych affect normal Results Lab / Micro Data Result Diagrams: 04/11/22 07:30 04/11/22 07:30 Labs: Laboratory Results - last 24 hr 04/11/22 07:30: WBC 5.6, RBC 5.21, Hgb 16.0, Hct 47.0, MCV 90.2, MCH 30.7, MCHC 34.0, RDW Std Deviation 48.7 H, RDW Coeff of Amrita 14.9 H, Plt Count 146 L, MPV 10.6, Immature Gran % (Auto) 1.400 H, Neut % (Auto) 58.4, Lymph % (Auto) 12.3 L, [place] % (Auto) 21.2 H, Eos % (Auto) 4.4, Baso % (Auto) 2.3 H, Absolute Neuts (auto) 3.3, Absolute Lymphs (auto) 0.69 L, Nucleated RBC % 0 04/11/22 07:30: Sodium 138, Potassium 3.2 L, Chloride 104, Carbon Dioxide 26.0, Anion Gap 8, BUN 15, Creatinine 0.96, Estim Creat Clear Calc 64.07, Est GFR (MDRD) Af Amer 99, Est GFR (MDRD) Non-Af 82, BUN/Creatinine Ratio 15.7, Glucose 116 H, Calcium 8.6, Total Bilirubin 1.60 H, AST 10 L, ALT 20, Alkaline Phosphatase 74, Total Protein 7.1, Albumin 3.5, Globulin 3.6, Albumin/Globulin Ratio 1.0, Lipase 74 04/11/22 07:30: Lactic Acid 1.7 Radiology Impression Abdomen/Pelvis CT 04/11/22 07:27 IMPRESSION: Diffuse circumferential wall thickening of the left hemicolon with increased markings in the surrounding peritoneal fat in keeping with the colitis. Sigmoid diverticulosis. Solitary gallstone in the neck of the gallbladder. Electronically Signed: Anthony Macdonald MD at 9:05 EDT , Assessment & Plan Assessment/Plan (1) Acute GI bleeding: PLAN: Likely due to the patient's colitis but cannot rule out this being due to diverticulosis. Unlikely upper GI source but patient will be on daily IV pantoprazole. Dr. Faith was notified by the emergency room and will be seeing the patient in consultation. He had informed the ER physician that there was not any imminent plans for endoscopy at this time. Did discuss with patient's that surgery would be seeing him and that he may not have any endoscopy while he is inpatient due to potential risk of perforation due to the colitis. Aspirin had already been held by the patient and will continue to hold that for now. (2) Left sided colitis: PLAN: Infectious versus ischemic. Less likely inflammatory. Continue with ciprofloxacin and metronidazole. (3) Acute hypokalemia: PLAN: Replaced in the ED Check magnesium level and replace if low PLAN: Plan Chronic conditions * CAD: Patient had a left heart catheterization that showed no new obstructive coronary artery disease in January. Aspirin on hold. * Hypertension: Stable. Continue with isosorbide, lisinopril * Multiple myeloma: Stable. Follow-up with oncology as outpatient. * CKD 2. Does have CKD 3 on his past medical history but kidney function. To be stable at this time. * Presbycusis: Patient does have hearing aids which she does not have at present. VTE prophylaxis with SCDs as chemical prophylaxis contraindicated. CODE STATUS: Addressed with the patient. Patient wishes to be DNR Comfort Care arrest
[2022-04-11 10:27] LABS: Magnesium 1.9 mg/dL (1.6-2.6)
[2022-04-11] MEDS: Potassium Chloride 10mEq/100mL 10 MEQ/100 ML IV.SOLN. 100 MEQ IV BOLUS ×2 (11:30→12:34)
[2022-04-11] MEDS: Acetaminophen 325 MG Tablet 650 MG PO (11:42)
[2022-04-11] MEDS: 0.9% Saline Lock 10 ML Syringe IV (12:39)
[2022-04-11] MEDS: Lisinopril 5 MG Tablet PO (12:41)
--- NOTE | 2022-04-11 13:32 | EX.PCM.CON.S ---
Assessment & Plan Assessment/Plan (1) Left sided colitis: PLAN: Patient has left-sided colitis with bleeding. I have made the patient n.p.o. and recommend strict bowel rest except for sips with meds and to continue the IV Cipro and Flagyl. Patient's white count is normal as well as his lactate and creatinine. Unsure as to the etiology of the colitis at this time. I did discuss with the patient that if things worsen or he started to get any guarding or peritoneal signs then I would recommend left hemicolectomy with likely colostomy. Patient understands. Continue pain medication, IV fluids, bowel rest, IV antibiotics. Observe hemoglobin and transfuse as needed. Casey Faith MD Pager: [facility] [address] [place] [address], [address] [place] [phone] Office: HPI Consult Data Date of Consult: 04/11/22 HPI Narrative HPI Narrative: NADIA RICK, is a 72 M who presents to the emergency room with abdominal pain blood in the stool. Patient reports is been going on for about 4 days. He says the pain is on the left side. No nausea or vomiting. He says that he has been passing dark and bright red blood. [facility] Medical History (Updated 04/11/22 @ 12:04 by Megha Hernandez) Acute bronchitis, unspecified Anemia Atherosclerotic heart disease of [place] coronary artery without angina pectoris Atrial fibrillation Olvera's palsy Bradycardia Cancer Chronic back pain CKD (chronic kidney disease) stage 3, GFR 30-59 ml/min Congestion of nasal sinus Constipation Cough Encounter for education Encounter for screening for COVID-19 Essential hypertension Heartburn symptom [place] (hard of hearing) Hyperlipidemia Irregular heart rate Left-sided Olvera's palsy Multiple myeloma Myocardial infarct Neuropathy Recovering alcoholic Sore throat Suspected 2019 novel coronavirus infection Tachycardia Home Medications ondansetron 4 mg disintegrating tablet 4 mg PO Q8H PRN PRN Nausea/Vomiting #30 tabs 07/14/20 [Rx Last Taken Unknown] melatonin 10 mg capsule 10 mg PO HS PRN Sleep 05/31/21 [History Last Taken 06/14/21] albuterol sulfate 90 mcg/actuation aerosol inhaler (Ventolin HFA) 2 puff inhalation Q4H PRN PRN Wheezing #1 ea 06/15/21 [Rx Last Taken Unknown] gabapentin 600 mg tablet 600 mg PO TID NERVE PAIN 06/15/21 [History Last Taken 06/14/21] Bacillus coagulans 10 billion cell capsule,delayed release (Probiotic (B. coagulans)) 1 cell PO DAILY 01/12/22 [History Last Taken Unknown] nitroglycerin 0.4 mg sublingual tablet 0.4 mg sublingual Q5-15M PRN chest pain #25 tabs 01/13/22 [Rx Last Taken Unknown] polyethylene glycol 3350 17 gram/dose oral powder 17 g PO DAILY PRN CONSTIPATION 01/13/22 [History Last Taken Unknown] aspirin 81 mg tablet,delayed release 81 mg PO DAILY@0800 Check with primary doctor 04/11/22 [History Last Taken Unknown] atorvastatin 40 mg tablet 40 mg PO DAILY Check with primary doctor 04/11/22 [History Last Taken Unknown] dexamethasone 4 mg tablet 20 mg PO .weekly Check with primary doctor 04/11/22 [History Last Taken Unknown] isosorbide mononitrate 60 mg tablet,extended release 24 hr 60 mg PO DAILY Check with primary doctor 04/11/22 [History Last Taken Unknown] lisinopril 5 mg tablet 5 mg PO DAILY Check with primary doctor 04/11/22 [History Last Taken Unknown] pomalidomide 4 mg capsule (Pomalyst) See Rx Instructions .Route .COMPLEX Check with primary doctor 04/11/22 [History Last Taken Unknown] Allergy/AdvReac Type Severity Reaction Status Date / Time morphine Allergy Severe Anaphylaxis Verified 03/24/22 11:01 oxycodone Allergy Severe Anaphylaxis Verified 03/24/22 11:01 Family History Father Brain cancer Sister Liver cancer Mother Leukemia Surgical History (Updated 04/11/22 @ 12:04 by Megha Hernandez) History of coronary artery bypass surgery (~08/15/14) History of coronary artery stent placement Hx of CABG Stented coronary artery (02/07/19) Social History household members: none housing: house number of children: 2 current occupational status: retired pets and animals: Yes Smoking Status: Never smoker alcohol intake: former substance use type: does not use what type of physical activity do you participate in: walking frequency: daily duration: 15-30 minutes/day hilton/restorationism: Gnosticism do you feel safe at home: Yes ROS Constitutional Constitutional: Denies anorexia, fatigue or fever(s) Eyes Eyes: Denies blurry vision ENT HEENT: Denies abnormal hearing Cardiovascular Cardiovascular: Denies chest pain Respiratory/Chest Respiratory/Chest: Denies cough or productive cough Gastrointestinal Gastrointestinal: Reports abdominal pain, hematochezia and rectal bleeding; Denies constipation, melena or nausea Genitourinary Genitourinary: Denies change in urinary stream Musculoskeletal Musculoskeletal: Denies abnormal gait Integumentary Integumentary: Denies jaundice Neurologic Neurologic: Denies abnormal gait Psychiatric Psychiatric: Denies depression Endocrine Endocrinology: Denies flushing Hematologic/Lymphatic Hematologic/Lymphatic: Denies easy bruising Physical Exam Const alert and oriented x3 HEENT normocephalic Head and Scalp: normal to inspection Eyes PERRL Resp normal respiratory effort Cardio Rate: regular rate Rhythm: regular rhythm GI soft to palpation Palpation: tender LLQ and LUQ; Negative for guarding Extremity normal to inspection Neuro CN's II-XII intact bilaterally Lab / Micro Data Result Diagrams: 04/11/22 07:30 04/11/22 07:30 Labs: Laboratory Results - last 24 hr 04/11/22 07:30: WBC 5.6, RBC 5.21, Hgb 16.0, Hct 47.0, MCV 90.2, MCH 30.7, MCHC 34.0, RDW Std Deviation 48.7 H, RDW Coeff of Amrita 14.9 H, Plt Count 146 L, MPV 10.6, Immature Gran % (Auto) 1.400 H, Neut % (Auto) 58.4, Lymph % (Auto) 12.3 L, Clarke % (Auto) 21.2 H, Eos % (Auto) 4.4, Baso % (Auto) 2.3 H, Absolute Neuts (auto) 3.3, Absolute Lymphs (auto) 0.69 L, Nucleated RBC % 0 04/11/22 07:30: Sodium 138, Potassium 3.2 L, Chloride 104, Carbon Dioxide 26.0, Anion Gap 8, BUN 15, Creatinine 0.96, Estim Creat Clear Calc 64.07, Est GFR (MDRD) Af Amer 99, Est GFR (MDRD) Non-Af 82, BUN/Creatinine Ratio 15.7, Glucose 116 H, Calcium 8.6, Total Bilirubin 1.60 H, AST 10 L, ALT 20, Alkaline Phosphatase 74, Total Protein 7.1, Albumin 3.5, Globulin 3.6, Albumin/Globulin Ratio 1.0, Lipase 74 04/11/22 07:30: Lactic Acid 1.7 04/11/22 07:30: Blood Type O POSITIVE, Antibody Screen NEGATIVE 04/11/22 07:30: Magnesium 1.9 Micro: Microbiology 04/11/22 09:30 Stool Stool Occult Blood (UMAIR) - Final Occult Blood Positive Radiology Impression Abdomen/Pelvis CT 04/11/22 07:27 IMPRESSION: Diffuse circumferential wall thickening of the left hemicolon with increased markings in the surrounding peritoneal fat in keeping with the colitis. Sigmoid diverticulosis. Solitary gallstone in the neck of the gallbladder. Electronically Signed: Anthony Macdonald MD at 9:05 EDT ,
[2022-04-11 14:14] LABS: Hematocrit 41.9 % (40-54); Hemoglobin 14.7 g/dL (13.0-16.5)
[2022-04-11] MEDS: Gabapentin 600 MG Tablet PO ×2 (15:32→20:54)
[2022-04-11] MEDS: metroNIDAZOLE 500 MG/100 ML BAG 100 MG IV (22:02)
[2022-04-12 04:53] VITALS: BP 132/58; PULSE 61; RESP 18; TEMP 36.8; O2SAT 96
[2022-04-12] MEDS: Gabapentin 600 MG Tablet PO ×3 (05:07→21:28)
[2022-04-12] MEDS: metroNIDAZOLE 500 MG/100 ML BAG 100 MG IV ×3 (05:07→22:46)
[2022-04-12 06:12] LABS: Absolute Lymphocyte Count 0.53 X10^3/uL (0.83-4.51); Absolute Neutrophil Count 1.5 X10^3/uL (2.0-7.7); Basophil# 0.08 X10^3/uL; Basophil% 2.7 % (0-1); Eosinophils% 3.4 % (0-5); Hemoglobin 13.5 g/dL (13.0-16.5); Lymphocyte # 0.53 X10^3/ul (0.83-4.51); Lymphocyte % 17.9 % (19-41); Mean Corp Hgb Conc 33.8 g/dL (32-36); Mean Corpuscular Hgb 31.2 pg (27.0-32.0); Mean Corpuscular Volume 92.4 fL (80-94); Monocyte# 0.75 X10^3/uL; Monocyte% 25.3 % (0-10); NRBC Flagged by Analyzer 0 % (0-5); Neutrophil # 1.45 X10^3/uL (2.7-7.7); POSITIVE DIFFERENTIAL YES; Platelet Count 102 K/mm3 (150-450); RBC Distribution Width SD 51.3 fl (35.1-43.9); Red Blood Count 4.33 M/mm3 (4.6-6.2)
[2022-04-12 06:14] LABS: Differential Indicated SCAN CRITERIA MET
[2022-04-12 06:35] LABS: Differential Comment SCANNED
[2022-04-12 06:52] LABS: ALB/GLOB Ratio 0.8 RATIO (0.9-2.4); AST(SGOT) 5 U/L (15-37); Alanine Aminotransfer ALT/SGPT 14 U/L (16-61); Albumin, Serum 2.7 g/dL (3.2-5.0); Alkaline Phosphatase 46 U/L (45-117); Anion Gap 8 (5-15); BUN 13 mg/dL (7-18); BUN/Creat Ratio 13.9 RATIO (10-20); Calcium,Total 7.5 mg/dL (8.5-10.1); Chloride 107 mmol/L (98-107); Creatinine, Serum 0.94 mg/dL (0.70-1.30); EST Glomerular Filtration Rate 84 mL/min (>60); Est Glom Filt Rate - Afr Amer 102 mL/min (>60); Estimated Creatinine Clearance 65.44 ml/min; Globulin 3.2 g/dL (2.2-4.2); Glucose 101 mg/dL (74-106); Potassium 2.9 mmol/L (3.5-5.1); Protein, Total 5.9 g/dL (6.4-8.2); Sodium Level 138 mmol/L (136-145)
--- NOTE | 2022-04-12 07:48 | PN.HOSP_ITS ---
Subjective Subjective Still with left lateral abdominal pain. Still with hematochezia.. Objective Data Objective Data Vital Signs: Vital Signs Temp Pulse Resp BP Pulse Ox O2 Del Method O2 Flow Rate 36.8 C 61 18 132/58 H 96 Nasal Cannula 2 04/12/22 04:53 04/12/22 04:53 04/12/22 04:53 04/12/22 04:53 04/12/22 04:53 04/12/22 04:53 04/12/22 04:53 Oxygen Flow Rate (L/min) 2 Oxygen Delivery Method Nasal Cannula Weight: 88.9 kg Body Mass Index (BMI) 30.7 Intake & Output: Intake and Output for Last 24 Hours 04/10/22 04/11/22 04/12/22 23:59 23:59 23:59 Intake Total 3122.5 / 3122.5 100 / 100 Balance 3122.5 / 3122.5 100 / 100 Lab / Micro Data Result Diagrams: 04/12/22 06:05 04/12/22 06:05 Labs: Laboratory Results - last 24 hr 04/11/22 07:30: WBC 5.6, RBC 5.21, Hgb 16.0, Hct 47.0, MCV 90.2, MCH 30.7, MCHC 34.0, RDW Std Deviation 48.7 H, RDW Coeff of Amrita 14.9 H, Plt Count 146 L, MPV 10.6, Immature Gran % (Auto) 1.400 H, Neut % (Auto) 58.4, Lymph % (Auto) 12.3 L, Crook % (Auto) 21.2 H, Eos % (Auto) 4.4, Baso % (Auto) 2.3 H, Absolute Neuts (au to) 3.3, Absolute Lymphs (auto) 0.69 L, Nucleated RBC % 0 04/11/22 07:30: Sodium 138, Potassium 3.2 L, Chloride 104, Carbon Dioxide 26.0, Anion Gap 8, BUN 15, Creatinine 0.96, Estim Creat Clear Calc 64.07, Est GFR (MDRD) Af Amer 99, Est GFR (MDRD) Non-Af 82, BUN/Creatinine Ratio 15.7, Glucose 116 H, Calcium 8.6, Total Bilirubin 1.60 H, AST 10 L, ALT 20, Alkaline Phosphatase 74, Total Protein 7.1, Albumin 3.5, Globulin 3.6, Albumin/Globulin Ratio 1.0, Lipase 74 04/11/22 07:30: Lactic Acid 1.7 04/11/22 07:30: Blood Type O POSITIVE, Antibody Screen NEGATIVE 04/11/22 07:30: Magnesium 1.9 04/11/22 14:00: Hgb 14.7, Hct 41.9 04/12/22 06:05: WBC 3.0 L, RBC 4.33 L, Hgb 13.5, Hct 40.0, MCV 92.4, MCH 31.2, MCHC 33.8, RDW Std Deviation 51.3 H, RDW Coeff of Amrita 15.0 H, Plt Count 102 L, MPV 10.0, Immature Gran % (Auto) 1.700 H, Neut % (Auto) 49.0, Lymph % (Auto) 17.9 L, Crook % (Auto) 25.3 H, Eos % (Auto) 3.4, Baso % (Auto) 2.7 H, Absolute Neuts (auto) 1.5 L, Absolute Lymphs (auto) 0.53 L, Nucleated RBC % 0, Differential Comment SCANNED, Diff Path Review November04/12/22 06:05: Sodium 138, Potassium 2.9 L, Chloride 107, Carbon Dioxide 23.0, Anion Gap 8, BUN 13, Creatinine 0.94, Estim Creat Clear Calc 65.44, Est GFR (MDRD) Af Amer 102, Est GFR (MDRD) Non-Af 84, BUN/Creatinine Ratio 13.9, Glucose 101, Calcium 7.5 L, Total Bilirubin 1.40 H, AST 5 L, ALT 14 L, Alkaline Phosphatase 46, Total Protein 5.9 L, Albumin 2.7 L, Globulin 3.2, Albumin/Globulin Ratio 0.8 L Micro: Microbiology 04/11/22 09:30 Stool Stool Occult Blood (UMAIR) - Final Occult Blood Positive Radiography Diagnostic Testing: Radiology Impression Abdomen/Pelvis CT 04/11/22 07:27 IMPRESSION: Diffuse circumferential wall thickening of the left hemicolon with increased markings in the surrounding peritoneal fat in keeping with the colitis. Sigmoid diverticulosis. Solitary gallstone in the neck of the gallbladder. Electronically Signed: Anthony Macdonald MD at 9:05 EDT , Physical Exam Const alert and no apparent distress Cardio regular rate, regular rhythm, S1 normal heart sound and S2 normal heart sound GI normal to inspection, nondistended, normoactive bowel sounds and soft to palpation Assessment & Plan Assessment/Plan (1) Acute GI bleeding: PLAN: Likely due to the patient's colitis but cannot rule out this being due to diverticulosis. Unlikely upper GI source but patient will be on daily IV pantoprazole. Dr. Faith was notified by the emergency room and will be seeing the patient in consultation. He had informed the ER physician that there was not any imminent plans for endoscopy at this time. Did discuss with patient's that surgery would be seeing him and that he may not have any endoscopy while he is inpatient due to potential risk of perforation due to the colitis. Aspirin had already been held by the patient and will continue to hold that for now. (2) Left sided colitis: PLAN: Infectious versus ischemic. Less likely inflammatory. Continue with ciprofloxacin and metronidazole. Appreciate general surgery input: conservative measures for now, but if worse, may need left hemicolectomy. Check stool cultures (3) Acute hypokalemia: PLAN: Replaced in the ED Check magnesium level and replace if low (4) Acute blood loss anemia: PLAN: 2/2 GI bleed Hg dropped from 16 to 13.5 no need for transfusion monitor PLAN: Plan Chronic conditions * CAD: Patient had a left heart catheterization that showed no new obstructive coronary artery disease in January. Aspirin on hold. * Hypertension: Stable. Continue with isosorbide, lisinopril * Multiple myeloma: Stable. Follow-up with oncology as outpatient. * CKD 2. Does have CKD 3 on his past medical history but kidney function. To be stable at this time. * Presbycusis: Patient does have hearing aids which she does not have at present. VTE prophylaxis with SCDs as chemical prophylaxis contraindicated. CODE STATUS: Addressed with the patient. Patient wishes to be DNR Comfort Care arrest Charges/Coding Visit Charges Inpatient E&M: 53301 Subs Hosp L2
--- NOTE | 2022-04-12 08:19 | PN.SURG_ITS ---
Subjective Subjective Patient is still having L-sided abdominal pain which is no worse. He did pass a few blood clots per rectum last night. No nausea or vomiting. Objective Data Objective Data Vital Signs: Vital Signs Temp Pulse Resp BP Pulse Ox O2 Del Method O2 Flow Rate 98.2 F 61 18 132/58 H 96 Nasal Cannula 2 04/12/22 04:53 04/12/22 04:53 04/12/22 04:53 04/12/22 04:53 04/12/22 04:53 04/12/22 04:53 04/12/22 04:53 Oxygen Flow Rate (L/min) 2 Oxygen Delivery Method Nasal Cannula Weight: 195 lb 15.855 oz Body Mass Index (BMI) 30.7 Intake & Output: Intake and Output for Last 24 Hours 04/10/22 04/11/22 04/12/22 23:59 23:59 23:59 Intake Total 3122.5 / 3122.5 100 / 100 Balance 3122.5 / 3122.5 100 / 100 Lab / Micro Data Result Diagrams: 04/12/22 06:05 04/12/22 06:05 Labs: Laboratory Results - last 24 hr 04/11/22 07:30: Lactic Acid 1.7 04/11/22 07:30: Blood Type O POSITIVE, Antibody Screen NEGATIVE 04/11/22 07:30: Magnesium 1.9 04/11/22 14:00: Hgb 14.7, Hct 41.9 04/12/22 06:05: WBC 3.0 L, RBC 4.33 L, Hgb 13.5, Hct 40.0, MCV 92.4, MCH 31.2, MCHC 33.8, RDW Std Deviation 51.3 H, RDW Coeff of Amrita 15.0 H, Plt Count 102 L, MPV 10.0, Immature Gran % (Auto) 1.700 H, Neut % (Auto) 49.0, Lymph % (Auto) 17.9 L, Whitley % (Auto) 25.3 H, Eos % (Auto) 3.4, Baso % (Auto) 2.7 H, Absolute Neuts (auto) 1.5 L, Absolute Lymphs (auto) 0.53 L, Nucleated RBC % 0, Differential Comment SCANNED, Diff Path Review November04/12/22 06:05: Sodium 138, Potassium 2.9 L, Chloride 107, Carbon Dioxide 23.0, Anion Gap 8, BUN 13, Creatinine 0.94, Estim Creat Clear Calc 65.44, Est GFR (MDRD) Af Amer 102, Est GFR (MDRD) Non-Af 84, BUN/Creatinine Ratio 13.9, Glucose 101, Calcium 7.5 L, Total Bilirubin 1.40 H, AST 5 L, ALT 14 L, Alkaline Phosphatase 46, Total Protein 5.9 L, Albumin 2.7 L, Globulin 3.2, Albumin/Globulin Ratio 0.8 L Micro: Microbiology 04/11/22 09:30 Stool Stool Occult Blood (UMAIR) - Final Occult Blood Positive Radiography Diagnostic Testing: Radiology Impression Abdomen/Pelvis CT 04/11/22 07:27 IMPRESSION: Diffuse circumferential wall thickening of the left hemicolon with increased markings in the surrounding peritoneal fat in keeping with the colitis. Sigmoid diverticulosis. Solitary gallstone in the neck of the gallbladder. Electronically Signed: Anthony Macdonald MD at 9:05 EDT , Physical Exam Const oriented x3 Resp normal respiratory effort GI Palpation: tender LLQ and LUQ Assessment & Plan Assessment/Plan (1) Left sided colitis: PLAN: Patient does show some improvement but he is still having significant enough pain and I would keep him on an n.p.o. diet until this resolves. Continue IV antibiotics. Continue monitoring hemoglobin. Casey Faith MD Pager: [facility] [address] [place] [address], [address] [place] [address] Office:
[2022-04-12] MEDS: dexAMETHasone 4 MG Tablet 20 MG PO (08:48)
[2022-04-12 08:56] VITALS: BP 107/62; PULSE 58; RESP 18; TEMP 36.8; O2SAT 96
[2022-04-12 09:00] VITALS: PULSE 58; O2SAT 96
[2022-04-12] MEDS: Ciprofloxacin 400 MG/200 ML BAG 200 MG IV ×2 (09:21→21:28)
--- NOTE | 2022-04-12 09:32 | CM.UR ---
Addendum entered by Celine Alfaro 04/12/22 09:46: Received order for therapy from hospitalist. Original Note: RN LUANN Assessment: Face to Face with pt for initial transition planning/care coordination assessment. RN LUANN introduced self and role at [facility], pt voices understanding and consents to assessment. Pt is A/O x4 and answers all questions appropriately at this time. Pt sitting up in chair with oxygen on in no distress. Care providers, pharmacy, and demographics verified/updated. Admitting Dx: ESTHER PCP:Elisha Specialists:Esthela, onc; Sarahi, cardio; Kenn, nephro Preferred Pharmacy: [facility] Insurance: MCR, Prescription Benefit: yes LW/HPOA: Pt denies having a LW/DPOA and denies need for info regarding AD. LNOK: Jose A Iglesias, son Living Arrangements: Pt lives alone in a two story house with a ramp to enter. Pt reports he is I in ADL's and denies concerns at home. Transportation: Pt drives self and denies concerns with transportation. DME/HHC/SNF: Pt has a cane at home as well as a rollator, he does not use rollator. Pt denies previous HHC and has been to [facility]. Pt states no concerns with going home at time of dc. Pt states he feels his strength is good. He denies need for any therapy. Noted pt does not have therapy ordered although 6 clicks showing appropriate for facility s/t. Pt states no further concerns/needs. CM to follow. Advised pt to ask CM if any further question/concerns/needs arise, voices understanding. Pt Goal: Home Plan: Home
[2022-04-12] MEDS: Potassium Chloride 10mEq/100mL 10 MEQ/100 ML IV.SOLN. 100 MEQ IV BOLUS ×4 (11:03→16:56)
[2022-04-12] MEDS: Potassium Chloride Oral Tablet 20 MEQ 40 MEQ PO (11:04)
[2022-04-12 13:57] VITALS: BP 108/58; PULSE 55; RESP 16; TEMP 37; O2SAT 95
[2022-04-12 14:00] VITALS: PULSE 55
[2022-04-12 20:00] VITALS: BP 150/64; PULSE 55; RESP 18; TEMP 36.7; O2SAT 94
[2022-04-13] VITALS (9 sets, daily range): BP systolic 97–111; BP diastolic 53–64; PULSE 45–98; RESP 14–18; TEMP 36.4–36.9; O2SAT 92–100
[2022-04-13 06:01] LABS: Hematocrit 38.9 % (40-54); Hemoglobin 13.3 g/dL (13.0-16.5); Mean Corp Hgb Conc 34.2 g/dL (32-36); Mean Corpuscular Hgb 31.2 pg (27.0-32.0); Mean Corpuscular Volume 91.3 fL (80-94); Mean Platelet Vol. 10.4 fl (6.2-12.0); POSITIVE COUNT YES; POSITIVE DIFFERENTIAL YES; POSITIVE MORPHOLOGY YES; Platelet Count 109 K/mm3 (150-450); RBC Distribution Width CV 14.7 % (11.6-14.6); RBC Distribution Width SD 48.8 fl (35.1-43.9); Red Blood Count 4.26 M/mm3 (4.6-6.2); White Blood Count 2.6 K/mm3 (4.4-11.0)
[2022-04-13 06:06] LABS: Differential Indicated MANUAL DIFF
[2022-04-13] MEDS: metroNIDAZOLE 500 MG/100 ML BAG 100 MG IV ×3 (06:11→22:36)
[2022-04-13] MEDS: Gabapentin 600 MG Tablet PO ×3 (06:12→22:36)
[2022-04-13 06:30] LABS: Anion Gap 9 (5-15); BUN 18 mg/dL (7-18); BUN/Creat Ratio 24.4 RATIO (10-20); Calcium,Total 7.6 mg/dL (8.5-10.1); Chloride 111 mmol/L (98-107); Creatinine, Serum 0.74 mg/dL (0.70-1.30); EST Glomerular Filtration Rate 111 mL/min (>60); Est Glom Filt Rate - Afr Amer 134 mL/min (>60); Estimated Creatinine Clearance 61.51 ml/min; Glucose 134 mg/dL (74-106); Potassium 3.7 mmol/L (3.5-5.1); Sodium Level 139 mmol/L (136-145)
[2022-04-13 06:31] LABS: Lymphocyte 8 % (19-41); Monocyte 15 % (0-10); Neutrophil-Band 6 % (0-5); Neutrophil-Segmented 71 % (47-70); Platelet Estimate SLT DEC (ADEQ); Total Cells Counted 100 (MANUAL DIFF)
[2022-04-13 06:32] LABS: Neutrophil # 1.99 X10^3/uL (2.7-7.7); Red Cell Morphology NORM C+C NORMAL (NORM C&C)
[2022-04-13 06:33] LABS: Absolute Lymphocyte Count 0.21 X10^3/uL (0.83-4.51); Lymphocyte # 0.21 X10^3/ul (0.83-4.51)
--- NOTE | 2022-04-13 07:54 | PN.HOSP_ITS ---
Subjective Subjective Feels better. Objective Data Objective Data Vital Signs: Vital Signs Temp Pulse Resp BP Pulse Ox O2 Del Method O2 Flow Rate 36.4 C L 56 L 15 111/64 95 Room Air 2 04/13/22 03:00 04/13/22 03:00 04/13/22 03:00 04/13/22 03:00 04/13/22 03:00 04/13/22 03:00 04/12/22 13:57 Oxygen Flow Rate (L/min) 2 Oxygen Delivery Method Room Air Weight: 88.9 kg Body Mass Index (BMI) 30.7 Intake & Output: Intake and Output for Last 24 Hours 04/11/22 04/12/22 04/13/22 23:59 23:59 23:59 Intake Total 3122.5 / 3122.5 1525.00 / 1525.00 0 / 0 Balance 3122.5 / 3122.5 1525.00 / 1525.00 0 / 0 Lab / Micro Data Result Diagrams: 04/13/22 05:45 04/13/22 05:45 Labs: Laboratory Results - last 24 hr 04/13/22 05:45: WBC 2.6 L, RBC 4.26 L, Hgb 13.3, Hct 38.9 L, MCV 91.3, MCH 31.2, MCHC 34.2, RDW Std Deviation 48.8 H, RDW Coeff of Amrita 14.7 H, Plt Count 109 L, MPV 10.4, Neut % (Auto) Not Reportable, Absolute Neuts (auto) 2.0, Absolute Lymphs (auto) 0.21 L, Total Counted 100, Neutrophils % (Manual) 71 H, Band Ne utrophils % 6 H, Lymphocytes % (Manual) 8 L, Monocytes % (Manual) 15 H, Platelet Estimate SLT DEC, RBC Morphology NORM C+C 04/13/22 05:45: Sodium 139, Potassium 3.7, Chloride 111 H, Carbon Dioxide 19.0 L , Anion Gap 9, BUN 18, Creatinine 0.74, Estim Creat Clear Calc 61.51, Est GFR (MDRD) Af Amer 134, Est GFR (MDRD) Non-Af 111, BUN/Creatinine Ratio 24.4 H, Glucose 134 H, Calcium 7.6 L Micro: Microbiology 04/12/22 17:39 Stool Stool Lactoferrin - Final 04/11/22 09:30 Stool Stool Occult Blood (UMAIR) - Final Occult Blood Positive Physical Exam Const alert and no apparent distress Resp normal respiratory effort, no retractions, no use of accessory muscles and clear to auscultation bilaterally Cardio regular rate, regular rhythm, S1 normal heart sound and S2 normal heart sound GI normal to inspection, nondistended, normoactive bowel sounds Psych affect normal Assessment & Plan Assessment/Plan (1) Acute GI bleeding: PLAN: Likely due to the patient's colitis but cannot rule out this being due to diverticulosis. Unlikely upper GI source but patient will be on daily IV pantoprazole. Dr. Faith was notified by the emergency room and will be seeing the patient in consultation. He had informed the ER physician that there was not any imminent plans for endoscopy at this time. Did discuss with patient's that surgery would be seeing him and that he may not have any endoscopy while he is inpatient due to potential risk of perforation due to the colitis. Aspirin had already been held by the patient and will continue to hold that for now. (2) Left sided colitis: PLAN: Infectious versus ischemic. Less likely inflammatory. Continue with ciprofloxacin and metronidazole. Appreciate general surgery input: conservative measures for now, but if worse, may need left hemicolectomy. Check stool cultures (3) Acute hypokalemia: PLAN: Replaced in the ED Check magnesium level and replace if low (4) Acute blood loss anemia: PLAN: 2/2 GI bleed Hg dropped from 16 to 13.5, 13.3. Currently stable. no need for transfusion monitor PLAN: Plan Chronic conditions * CAD: Patient had a left heart catheterization that showed no new obstructive coronary artery disease in January. Aspirin on hold. * Hypertension: Stable. Continue with isosorbide, lisinopril * Multiple myeloma: Stable. Follow-up with oncology as outpatient. * CKD 2. Does have CKD 3 on his past medical history but kidney function. To be stable at this time. * Presbycusis: Patient does have hearing aids which she does not have at present. VTE prophylaxis with SCDs as chemical prophylaxis contraindicated. CODE STATUS: Addressed with the patient. Patient wishes to be DNR Comfort Care arrest Charges/Coding Visit Charges Inpatient E&M: 91162 Subs Hosp L2
--- NOTE | 2022-04-13 08:02 | PCM.PN.SRG ---
Subjective Subjective Patient reports that pain is resolved and he had 2 bowel movements with no blood. Objective Data Objective Data Vital Signs: Vital Signs Temp Pulse Resp BP Pulse Ox O2 Del Method O2 Flow Rate 97.6 F L 56 L 15 111/64 95 Room Air 2 04/13/22 03:00 04/13/22 03:00 04/13/22 03:00 04/13/22 03:00 04/13/22 03:00 04/13/22 03:00 04/12/22 13:57 Oxygen Flow Rate (L/min) 2 Oxygen Delivery Method Room Air Weight: 195 lb 15.855 oz Body Mass Index (BMI) 30.7 Intake & Output: Intake and Output for Last 24 Hours 04/11/22 04/12/22 04/13/22 23:59 23:59 23:59 Intake Total 3122.5 / 3122.5 1525.00 / 1525.00 0 / 0 Balance 3122.5 / 3122.5 1525.00 / 1525.00 0 / 0 Lab / Micro Data Result Diagrams: 04/13/22 05:45 04/13/22 05:45 Labs: Laboratory Results - last 24 hr 04/13/22 05:45: WBC 2.6 L, RBC 4.26 L, Hgb 13.3, Hct 38.9 L, MCV 91.3, MCH 31.2, MCHC 34.2, RDW Std Deviation 48.8 H, RDW Coeff of Amrita 14.7 H, Plt Count 109 L, MPV 10.4, Neut % (Auto) Not Reportable, Absolute Neuts (auto) 2.0, Absolute Lymphs (auto) 0.21 L, Total Counted 100, Neutrophils % (Manual) 71 H, Band Neutrophils % 6 H, Lymphocytes % (Manual) 8 L, Monocytes % (Manual) 15 H, Platelet Estimate SLT DEC, RBC Morphology NORM C+C 04/13/22 05:45: Sodium 139, Potassium 3.7, Chloride 111 H, Carbon Dioxide 19.0 L, Anion Gap 9, BUN 18, Creatinine 0.74, Estim Creat Clear Calc 61.51, Est GFR (MDRD) Af Amer 134, Est GFR (MDRD) Non-Af 111, BUN/Creatinine Ratio 24.4 H, Glucose 134 H, Calcium 7.6 L Micro: Microbiology 04/12/22 17:39 Stool Stool Lactoferrin - Final 04/11/22 09:30 Stool Stool Occult Blood (UMAIR) - Final Occult Blood Positive Physical Exam Const oriented x3 Resp normal respiratory effort Cardio regular rate and regular rhythm GI soft to palpation and non-tender Assessment & Plan Assessment/Plan (1) Left sided colitis: PLAN: Patient seems to be improving from his colitis. He is not having any pain today and he had a nonbloody bowel movement. I will start him on a clear liquid diet and advance him to full's today. If he tolerates that with no increase in pain he may have regular diet tomorrow and be discharged tomorrow. I would continue oral antibiotics for 7 days. Casey Faith MD Pager: [facility] [address] [place] [address], [address] [place] [address] Office:
[2022-04-13] MEDS: Lisinopril 5 MG Tablet PO (09:31)
[2022-04-13] MEDS: Isosorbide Mononitrate 60 MG Tablet PO (09:31)
[2022-04-13] MEDS: Ciprofloxacin 400 MG/200 ML BAG 200 MG IV ×2 (10:29→21:08)
[2022-04-13] MEDS: Acetaminophen 325 MG Tablet 650 MG PO (12:03)
--- NOTE | 2022-04-13 15:52 | CASEMGMT ---
NADYA KONG noted pt was recommended for outpt balance therapy. NADYA KONG in to pt room, pt denied need for this. He states that he has done balance training before and he did not like it and left. States it did not help and he does not want to waste his insurances money. Pt denies any therapy at all regarding HHC or outpt. Referral to patient link.
[2022-04-13] MEDS: MELATONIN 3 MG TABLET PO (23:46)
[2022-04-14 04:53] VITALS: BP 108/64; PULSE 86; RESP 18; TEMP 36.6; O2SAT 96
[2022-04-14] MEDS: Gabapentin 600 MG Tablet PO (05:01)
[2022-04-14] MEDS: metroNIDAZOLE 500 MG/100 ML BAG 100 MG IV (05:01)
[2022-04-14 06:07] LABS: Absolute Lymphocyte Count 0.54 X10^3/uL (0.83-4.51); Absolute Neutrophil Count 1.2 X10^3/uL (2.0-7.7); Basophil# 0.01 X10^3/uL; Basophil% 0.4 % (0-1); Eosinophil# 0.08 X10^3/uL; Eosinophils% 3.3 % (0-5); Hematocrit 35.4 % (40-54); Lymphocyte # 0.54 X10^3/ul (0.83-4.51); Lymphocyte % 22.3 % (19-41); Mean Corp Hgb Conc 33.9 g/dL (32-36); Mean Corpuscular Hgb 30.7 pg (27.0-32.0); Mean Corpuscular Volume 90.5 fL (80-94); Mean Platelet Vol. 10.5 fl (6.2-12.0); Monocyte# 0.58 X10^3/uL; NRBC Flagged by Analyzer 0 % (0-5); Neutrophil # 1.18 X10^3/uL (2.7-7.7); Neutrophil % 48.8 % (47-70); POSITIVE DIFFERENTIAL YES; Platelet Count 120 K/mm3 (150-450); RBC Distribution Width CV 14.9 % (11.6-14.6); RBC Distribution Width SD 49.1 fl (35.1-43.9); Red Blood Count 3.91 M/mm3 (4.6-6.2); White Blood Count 2.4 K/mm3 (4.4-11.0)
[2022-04-14 06:22] LABS: Differential Indicated SCAN CRITERIA MET
[2022-04-14 06:26] LABS: Differential Comment SCANNED
[2022-04-14 06:33] LABS: Anion Gap 6 (5-15); BUN 17 mg/dL (7-18); BUN/Creat Ratio 21.2 RATIO (10-20); Calcium,Total 7.8 mg/dL (8.5-10.1); Chloride 111 mmol/L (98-107); EST Glomerular Filtration Rate 100 mL/min (>60); Est Glom Filt Rate - Afr Amer 121 mL/min (>60); Estimated Creatinine Clearance 76.89 ml/min; Glucose 115 mg/dL (74-106); Potassium 3.4 mmol/L (3.5-5.1); Sodium Level 140 mmol/L (136-145)
[2022-04-14 07:23] VITALS: O2SAT 94
--- NOTE | 2022-04-14 07:59 | PN.SURG_ITS ---
Subjective Subjective Patient tolerated diet with no abdominal pain. He did have a small bowel movement yesterday with no blood. Objective Data Objective Data Vital Signs: Vital Signs Temp Pulse Resp BP Pulse Ox O2 Del Method O2 Flow Rate 97.8 F 86 18 108/64 94 Room Air 2 04/14/22 04:53 04/14/22 04:53 04/14/22 04:53 04/14/22 04:53 04/14/22 07:23 04/14/22 07:23 04/14/22 04:53 Oxygen Flow Rate (L/min) 2 Oxygen Delivery Method Room Air Weight: 195 lb 15.855 oz Body Mass Index (BMI) 30.7 Intake & Output: Intake and Output for Last 24 Hours 04/12/22 04/13/22 04/14/22 23:59 23:59 23:59 Intake Total 1525.00 / 1525.00 1890 / 1890 100 / 100 Balance 1525.00 / 1525.00 1890 / 1890 100 / 100 Lab / Micro Data Result Diagrams: 04/14/22 05:53 04/14/22 05:53 Labs: Laboratory Results - last 24 hr 04/14/22 05:53: WBC 2.4 L, RBC 3.91 L, Hgb 12.0 L, Hct 35.4 L, MCV 90.5, MCH 30.7, MCHC 33.9, RDW Std Deviation 49.1 H, RDW Coeff of Amrita 14.9 H, Plt Count 120 L, MPV 10.5, Immature Gran % (Auto) 1.200 H, Neut % (Auto) 48.8, Lymph % (A uto) 22.3, [place] % (Auto) 24.0 H, Eos % (Auto) 3.3, Baso % (Auto) 0.4, Absolute Neuts (auto) 1.2 L, Absolute Lymphs (auto) 0.54 L, Nucleated RBC % 0, Differential Comment SCANNED, Diff Path Review November04/14/22 05:53: Sodium 140, Potassium 3.4 L, Chloride 111 H, Carbon Dioxide 23.0, Anion Gap 6, BUN 17, Creatinine 0.80, Estim Creat Clear Calc 76.89, Est GFR (MDRD) Af Amer 121, Est GFR (MDRD) Non-Af 100, BUN/Creatinine Ratio 21.2 H, Glucose 115 H, Calcium 7.8 L Micro: Microbiology 04/12/22 17:39 Stool Stool Lactoferrin - Final 04/12/22 17:39 Stool Enteric Bacteriology - Final 04/11/22 09:30 Stool Stool Occult Blood (UMAIR) - Final Occult Blood Positive Physical Exam Const oriented x3 GI soft to palpation and non-tender Assessment & Plan Assessment/Plan (1) Left sided colitis: PLAN: Patient is tolerating a diet with no blood in his stool. He is okay to be discharged home. I would send her home on oral antibiotics for 7 days. Patient will follow-up with me in 1 to 2 weeks and we will schedule him for colonoscopy in about 4 to 6 weeks once inflammation subsides. Casey Faith MD Pager: [facility] [address] [place] [address], [address] [place] [address] Office: .
--- NOTE | 2022-04-14 09:02 | DCINST_ITS ---
Discharge Instructions Diet Discharge Diet: Low fat / Low cholesterol Dressing / Incision Call your doctor if you observe: - (blood in stools. dark tarry stools. ) Follow Up Care Test Results: Test results from this visit will be discussed in further detail at your follow- up appointment, if applicable. Discharge Plan Admission Admit Date/Time: 04/11/22 09:54 Primary Reason for Your Visit: coliitis. gastrointestinal bleeding. Attending Provider: Aris Agarwal Primary Care Provider: Andrea Tello Consulting Providers: Casey Faith Discharge Orders/Prescriptions Prescriptions: New ciprofloxacin HCl 500 mg tablet 500 mg PO BID Qty: 14 0RF metronidazole 500 mg tablet 500 mg PO TID Qty: 21 0RF polyethylene glycol 3350 [Miralax] 17 gram/dose powder 17 g PO DAILY Qty: 119 0RF Rx Instructions: hold for loose stools/diarrhea Continued melatonin 10 mg capsule 10 mg PO HS PRN (Reason: Sleep) nitroglycerin 0.4 mg tablet, sublingual 0.4 mg sublingual Q5-15M PRN (Reason: chest pain) Qty: 25 4RF Rx Instructions: use one sub lingual every 5 min to maximum of three doses as needed for chest pain Probiotic (B. coagulans) 10 billion cell capsule,delayed release(DR/EC) 1 cell PO DAILY ondansetron 4 MG tablet 4 mg PO Q8H PRN PRN (Reason: Nausea/Vomiting) Qty: 30 1RF gabapentin 600 mg tablet 600 mg PO TID albuterol sulfate [Ventolin HFA] 90 mcg/actuation HFA aerosol inhaler 2 puff inhalation Q4H PRN PRN (Reason: Wheezing) Qty: 1 0RF polyethylene glycol 3350 17 gram/dose powder 17 g PO DAILY PRN (Reason: CONSTIPATION) atorvastatin 40 mg tablet 40 mg PO DAILY aspirin 81 mg tablet,delayed release (DR/EC) 81 mg PO DAILY@0800 isosorbide mononitrate 60 mg tablet extended release 24 hr 60 mg PO DAILY dexamethasone 4 mg tablet 20 mg PO .weekly lisinopril 5 mg tablet 5 mg PO DAILY Pomalyst 4 mg capsule See Rx Instructions .ROUTE .COMPLEX Rx Instructions: TAKE 1 CAPSULE DAILY FOR 21 DAYS ON THEN 7 DAYS OFF, EVERY 28 DAYS Referrals / Follow Up: Casey Faith MD [Med Staff - Active Staff] - Within 1 Month Andrea Tello MD [Primary Care Provider] - Within 2 Weeks Disposition Disposition (needs filled in before D/C Order can be placed): Home, Self Care
--- NOTE | 2022-04-14 09:06 | DS.PCM_ITS ---
Providers Date of Admission: 04/11/22 Primary Care Physician: Dr. Andrea Tello MD Consultations 04/11/22 10:51 Consult: General Surgery Routine Consulting Provider: Casey Faith Reason for Consult: GI bleed EMERGENT Consult: No MD Notified: Yes Date Notified: 04/11/22 Time Notified: 10:00 Method of Notification: ED Physician Initiated Reason For Visit: GI BLEED Diagnosis Discharge Diagnosis (1) Left sided colitis: Status: Acute Code(s): K51.50 - Left sided colitis without complications Plan: Infectious versus ischemic. Less likely inflammatory. Continue with ciprofloxacin and metronidazole. Appreciate general surgery input: continue conservative measures for now,no need for surgery Follow-up general surgery for colonoscopy. Continue antibiotics for 7 more days (2) Acute GI bleeding: Status: Acute Code(s): K92.2 - Gastrointestinal hemorrhage, unspecified Plan: Resolved likely due to the patient's colitis but cannot rule out this being due to diverticulosis.? Unlikely upper GI source but patient will be on daily IV pantoprazole. Dr. Faith was notified by the emergency room and will be seeing the patient in consultation.? He had informed the ER physician that there was not any i mminent plans for endoscopy at this time. Did discuss with patient's that surgery would be seeing him and that he may not have any endoscopy while he is inpatient due to potential risk of perforation due to the colitis. No bleeding for the past 3 days. We will resume his aspirin. (3) Acute hypokalemia: Status: Acute Code(s): E87.6 - Hypokalemia Plan: Improved but still low replace (4) Acute blood loss anemia: Status: Acute Code(s): D62 - Acute posthemorrhagic anemia Plan: 2/2 GI bleed Hg dropped from 16 to 12. Currently stable. no need for transfusion monitor (5) Constipation: Status: Acute Code(s): K59.00 - Constipation, unspecified Qualifiers: Constipation type: drug induced constipation Qualified Code(s): K59.03 - Drug induced constipation Plan: Has been an ongoing issue. Patient takes a stool softener at home. Uses MiraLAX intermittently. Advised him to use MiraLAX daily with a hold if he is having loose stools or diarrhea. He has been constipated for about a week. Unclear if patient was having some translocation of bacteria due to his constipation that may have led to his colitis or not. Plan Chronic conditions * CAD: Patient had a left heart catheterization that showed no new obstructive coronary artery disease in January. Aspirin on hold. * Hypertension: Stable. Continue with isosorbide, lisinopril * Multiple myeloma: Stable. Follow-up with oncology as outpatient. * CKD 2. Does have CKD 3 on his past medical history but kidney function. To be stable at this time. * Presbycusis: Patient does have hearing aids which she does not have at presen t. VTE prophylaxis with SCDs as chemical prophylaxis contraindicated. CODE STATUS: Addressed with the patient. Patient wishes to be DNR Comfort Care arrest Medications at Discharge Home Medications ondansetron 4 mg disintegrating tablet 4 mg PO Q8H PRN PRN Nausea/Vomiting #30 tabs 07/14/20 melatonin 10 mg capsule 10 mg PO HS PRN Sleep 05/31/21 albuterol sulfate 90 mcg/actuation aerosol inhaler (Ventolin HFA) 2 puff inhalation Q4H PRN PRN Wheezing #1 ea 06/15/21 gabapentin 600 mg tablet 600 mg PO TID NERVE PAIN 06/15/21 Bacillus coagulans 10 billion cell capsule,delayed release (Probiotic (B. coagulans)) 1 cell PO DAILY 01/12/22 nitroglycerin 0.4 mg sublingual tablet 0.4 mg sublingual Q5-15M PRN chest pain #25 tabs 01/13/22 polyethylene glycol 3350 17 gram/dose oral powder 17 g PO DAILY PRN CONSTIPATION 01/13/22 aspirin 81 mg tablet,delayed release 81 mg PO DAILY@0800 Check with primary doctor 04/11/22 atorvastatin 40 mg tablet 40 mg PO DAILY Check with primary doctor 04/11/22 dexamethasone 4 mg tablet 20 mg PO .weekly Check with primary doctor 04/11/22 isosorbide mononitrate 60 mg tablet,extended release 24 hr 60 mg PO DAILY Check with primary doctor 04/11/22 lisinopril 5 mg tablet 5 mg PO DAILY Check with primary doctor 04/11/22 pomalidomide 4 mg capsule (Pomalyst) See Rx Instructions .Route .COMPLEX Check with primary doctor 04/11/22 ciprofloxacin HCl 500 mg tablet 500 mg PO BID #14 tabs 04/14/22 metronidazole 500 mg tablet 500 mg PO TID #21 tabs 04/14/22 polyethylene glycol 3350 17 gram/dose oral powder (Miralax) 17 g PO DAILY #119 grams 04/14/22 Hospital Course Operations None Procedures None Summary of Care Provided Minutes Spent on Discharge: 28 Weight / BMI Weight Weight: 88.9 kg Body Mass Index (BMI) 30.7 ABG / Lab / Microbiology Data Result Diagrams: 04/14/22 05:53 04/14/22 05:53 Laboratory: Laboratory Results - last 24 hr 04/14/22 05:53: WBC 2.4 L, RBC 3.91 L, Hgb 12.0 L, Hct 35.4 L, MCV 90.5, MCH 30.7, MCHC 33.9, RDW Std Deviation 49.1 H, RDW Coeff of Amrita 14.9 H, Plt Count 120 L, MPV 10.5, Immature Gran % (Auto) 1.200 H, Neut % (Auto) 48.8, Lymph % (Auto) 22.3, [place] % (Auto) 24.0 H, Eos % (Auto) 3.3, Baso % (Auto) 0.4, Absolute Neuts (auto) 1.2 L, Absolute Lymphs (auto) 0.54 L, Nucleated RBC % 0, D ifferential Comment SCANNED, Diff Path Review November04/14/22 05:53: Sodium 140, Potassium 3.4 L, Chloride 111 H, Carbon Dioxide 23.0, Anion Gap 6, BUN 17, Creatinine 0.80, Estim Creat Clear Calc 76.89, Est GFR (MDRD) Af Amer 121, Est GFR (MDRD) Non-Af 100, BUN/Creatinine Ratio 21.2 H, Glucose 115 H, Calcium 7.8 L Microbiology: Microbiology 04/12/22 17:39 Stool Stool Lactoferrin - Final 04/12/22 17:39 Stool Enteric Bacteriology - Final 04/11/22 09:30 Stool Stool Occult Blood (UMAIR) - Final Occult Blood Positive D/C Instructions Discharge Diet: Low fat / Low cholesterol Call your doctor if you observe: - (blood in stools. dark tarry stools. ) Meaningful Use Info Meaningful Use Diagnoses (Choose all that apply): None applicable Discharge Plan Admission Admit Date/Time: 04/11/22 09:54 Primary Reason for Your Visit: coliitis. gastrointestinal bleeding. Attending Provider: Aris Agarwal Primary Care Provider: Andrea Tello Consulting Providers: Casey Faith Discharge Orders/Prescriptions Prescriptions: New ciprofloxacin HCl 500 mg tablet 500 mg PO BID Qty: 14 0RF metronidazole 500 mg tablet 500 mg PO TID Qty: 21 0RF polyethylene glycol 3350 [Miralax] 17 gram/dose powder 17 g PO DAILY Qty: 119 0RF Rx Instructions: hold for loose stools/diarrhea Continued melatonin 10 mg capsule 10 mg PO HS PRN (Reason: Sleep) nitroglycerin 0.4 mg tablet, sublingual 0.4 mg sublingual Q5-15M PRN (Reason: chest pain) Qty: 25 4RF Rx Instructions: use one sub lingual every 5 min to maximum of three doses as needed for chest pain Probiotic (B. coagulans) 10 billion cell capsule,delayed release(DR/EC) 1 cell PO DAILY ondansetron 4 MG tablet 4 mg PO Q8H PRN PRN (Reason: Nausea/Vomiting) Qty: 30 1RF gabapentin 600 mg tablet 600 mg PO TID albuterol sulfate [Ventolin HFA] 90 mcg/actuation HFA aerosol inhaler 2 puff inhalation Q4H PRN PRN (Reason: Wheezing) Qty: 1 0RF polyethylene glycol 3350 17 gram/dose powder 17 g PO DAILY PRN (Reason: CONSTIPATION) atorvastatin 40 mg tablet 40 mg PO DAILY aspirin 81 mg tablet,delayed release (DR/EC) 81 mg PO DAILY@0800 isosorbide mononitrate 60 mg tablet extended release 24 hr 60 mg PO DAILY dexamethasone 4 mg tablet 20 mg PO .weekly lisinopril 5 mg tablet 5 mg PO DAILY Pomalyst 4 mg capsule See Rx Instructions .ROUTE .COMPLEX Rx Instructions: TAKE 1 CAPSULE DAILY FOR 21 DAYS ON THEN 7 DAYS OFF, EVERY 28 DAYS Referrals / Follow Up: Casey Faith MD [Med Staff - Active Staff] - Within 1 Month Andrea Tello MD [Primary Care Provider] - Within 2 Weeks Disposition Disposition (needs filled in before D/C Order can be placed): Home, Self Care Charges/Coding Visit Charges Inpatient E&M: 18611 Disch Hosp
--- NOTE | 2022-04-14 09:27 | CASEMGMT ---
NADYA KONG NOTE: Pt being discharged home today. NADYA KONG to room. Introduced self and role. Pt denies having any home-going needs or concerns. He confirms he does not wish to do any further therapy. Pt made aware, if he changes his mind, once he returns home, to discuss this w/his PCP. He voices understanding. Yoandy CRANE RN, CM
[2022-04-14 09:51] VITALS: BP 120/63; PULSE 55; RESP 17; TEMP 36.4; O2SAT 95
[2022-04-14] MEDS: Ciprofloxacin 400 MG/200 ML BAG 200 MG IV (10:00)
[2022-04-14] MEDS: Lisinopril 5 MG Tablet PO (10:00)
[2022-04-14] MEDS: Isosorbide Mononitrate 60 MG Tablet PO (10:00)
[2022-04-14] MEDS: Potassium Chloride Oral Tablet 20 MEQ 40 MEQ PO (10:00)
[2022-04-14 10:24] LABS: Pathologist Review Reviewed
--- NOTE | 2022-04-14 10:50 | PHA.DC.MC ---
Pharmacy Service has performed discharge medication reconciliation and counseling for this patient. The patient was counseled on the following discharge medications and changes in medications for homegoing were reviewed. 1. CIPRO 2. FLAGYL 3. MIRALAX The Reason for Use, instructions for use, and potential side effects were reviewed for all new medications. The patient's questions regarding all of their medications were answered. The patient was able to verbally demonstrate an understanding of their discharge medications. Home Medications ondansetron 4 mg disintegrating tablet 4 mg PO Q8H PRN PRN Nausea/Vomiting #30 tabs 07/14/20 melatonin 10 mg capsule 10 mg PO HS PRN Sleep 05/31/21 albuterol sulfate 90 mcg/actuation aerosol inhaler (Ventolin HFA) 2 puff inhalation Q4H PRN PRN Wheezing #1 ea 06/15/21 gabapentin 600 mg tablet 600 mg PO TID NERVE PAIN 06/15/21 Bacillus coagulans 10 billion cell capsule,delayed release (Probiotic (B. coagulans)) 1 cell PO DAILY 01/12/22 nitroglycerin 0.4 mg sublingual tablet 0.4 mg sublingual Q5-15M PRN chest pain #25 tabs 01/13/22 polyethylene glycol 3350 17 gram/dose oral powder 17 g PO DAILY PRN CONSTIPATION 01/13/22 aspirin 81 mg tablet,delayed release 81 mg PO DAILY@0800 Check with primary doctor 04/11/22 atorvastatin 40 mg tablet 40 mg PO DAILY Check with primary doctor 04/11/22 dexamethasone 4 mg tablet 20 mg PO .weekly Check with primary doctor 04/11/22 isosorbide mononitrate 60 mg tablet,extended release 24 hr 60 mg PO DAILY Check with primary doctor 04/11/22 lisinopril 5 mg tablet 5 mg PO DAILY Check with primary doctor 04/11/22 pomalidomide 4 mg capsule (Pomalyst) See Rx Instructions .Route .COMPLEX Check with primary doctor 04/11/22 ciprofloxacin HCl 500 mg tablet 500 mg PO BID #14 tabs 04/14/22 metronidazole 500 mg tablet 500 mg PO TID #21 tabs 04/14/22 polyethylene glycol 3350 17 gram/dose oral powder (Miralax) 17 g PO DAILY #119 grams 04/14/22 The patient's discharge medication list was reviewed for discrepancies and discrepancies were resolved.
[2022-04-14 15:11] LABS: Pathologist Review Reviewed
== END 2022-04-14 12:00 | disposition home or self-care (01) | DRG 386 ==
LOC: ED 09:46 → MS3 10:21
PROVIDERS: Emergency Provider Emergency Medicine; PCP Family Medicine
DX: K51.511 Left sided colitis with rectal bleeding (principal); D62 Acute posthemorrhagic anemia; K55.9 Vascular disorder of intestine, unspecified; C90.00 Multiple myeloma not having achieved remission; E78.5 Hyperlipidemia, unspecified; K59.03 Drug induced constipation; I48.91 Unspecified atrial fibrillation; G62.9 Polyneuropathy, unspecified; E87.6 Hypokalemia; H91.13 Presbycusis, bilateral; I25.10 Atherosclerotic heart disease of native coronary artery without angina pectoris; I12.9 Hypertensive chronic kidney disease with stage 1 through stage 4 chronic kidney disease, or unspecified chronic kidney disease; N18.2 Chronic kidney disease, stage 2 (mild); K80.20 Calculus of gallbladder without cholecystitis without obstruction; I25.2 Old myocardial infarction; Z79.899 Other long term (current) drug therapy; Z79.82 Long term (current) use of aspirin; Z95.1 Presence of aortocoronary bypass graft; Z66 Do not resuscitate
CPT/HCPCS: 36415; 74177; 76770; 80048; 80053; 82274; 83605; 83630; 83690; 83735; 85014; 85018; 85025; 86850; 86900; 86901; 87506; 97162; 97166; 99285; J7030; J7040; J7050; Q9967; A4216; J0744; J2405

== ENCOUNTER → 2022-05-31 | Outpatient (CLI) | payer MEDICARE, OTHER, SELFPAY ==
[2022-05-31 12:40] LABS: Protein, Urine (Random) 19.1 mg/dL (<11.9); Protein:Creat Ratio 155 mg/g CRE (0-200)
[2022-05-31 12:50] LABS: PTHIN 92.9 pg/mL (18.4-80.1)
== END | disposition home or self-care (01) ==
PROVIDERS: PCP Family Medicine; Visit Provider Internal Medicine Nephrology
DX: N18.32 Chronic kidney disease, stage 3b (principal)
CPT/HCPCS: 36415; 82570; 83970; 84156

== ENCOUNTER 2022-06-17 05:52 | Day surgery (SDC) | payer MEDICARE, OTHER, SELFPAY ==
[2022-06-17] MEDS: Lactated Ringers 1,000 ML 15 ML IV (07:08)
[2022-06-17 07:09] VITALS: BP 122/87; PULSE 90; RESP 18; TEMP 36.3; O2SAT 97; BMI 29.4
--- NOTE | 2022-06-17 07:59 | HP.PCM_ITS ---
History and Physical Date of Admission: 06/17/22 Intake Vital Signs ? 04/11/2217:01 05/11/2210:08 Height 5 ft 7 in 5 ft 7 in Weight: ? 182 lb BMI ? 28.5 BP ? 127/91 H Blood Pressure Location ? Rt brachial Position ? Sitting Respiration ? 16 Intake Visit Reasons:?L SIDED COLITIS Chief Complaint: myeloma on treatment Inspector Watch Train Required: No Is patient in pain?: No Allergies morphine Allergy (Severe, Verified 05/11/22 10:09) Anaphylaxisoxycodone Allergy (Severe, Verified 05/11/22 10:09) Anaphylaxis Medications ondansetron 4 mg disintegrating tablet 4 mg PO Q8H PRN PRN Nausea/Vomiting #30 tabs 07/14/20 [Rx Confirmed 05/11/22] melatonin 10 mg capsule 10 mg PO HS PRN Sleep 05/31/21 [History Confirmed 05/11/22] albuterol sulfate 90 mcg/actuation aerosol inhaler (Ventolin HFA) 2 puff inhalation Q4H PRN PRN Wheezing #1 ea 06/15/21 [Rx Confirmed 05/11/22] gabapentin 600 mg tablet 600 mg PO TID NERVE PAIN 06/15/21 [History Confirmed 05/11/22] Bacillus coagulans 10 billion cell capsule,delayed release (Probiotic (B. coagulans)) 1 cell PO DAILY 01/12/22 [History Confirmed 05/11/22] nitroglycerin 0.4 mg sublingual tablet 0.4 mg sublingual Q5-15M PRN chest pain #25 tabs 01/13/22 [Rx Confirmed 05/11/22] polyethylene glycol 3350 17 gram/dose oral powder 17 g PO DAILY PRN CONSTIPATION 01/13/22 [History Confirmed 05/11/22] aspirin 81 mg tablet,delayed release 81 mg PO DAILY@0800 Check with primary doctor 04/11/22 [History Confirmed 05/11/22] atorvastatin 40 mg tablet 40 mg PO DAILY Check with primary doctor 04/11/22 [History Confirmed 05/11/22] dexamethasone 4 mg tablet 20 mg PO .weekly Check with primary doctor 04/11/22 [History Confirmed 05/11/22] isosorbide mononitrate 60 mg tablet,extended release 24 hr 60 mg PO DAILY Check with primary doctor 04/11/22 [History Confirmed 05/11/22] lisinopril 5 mg tablet 5 mg PO DAILY Check with primary doctor 04/11/22 [History Confirmed 05/11/22] Pomalyst 4 mg capsule (pomalidomide) See Rx Instructions .Route .COMPLEX #21 CAPSULES 04/14/22 [Rx Confirmed 05/11/22] ciprofloxacin HCl 500 mg tablet 500 mg PO BID #14 tabs 04/14/22 [Rx Confirmed 05/11/22] metronidazole 500 mg tablet 500 mg PO TID #21 tabs 04/14/22 [Rx Confirmed 05/11/22] polyethylene glycol 3350 17 gram/dose oral powder (Miralax) 17 g PO DAILY #119 grams 04/14/22 [Rx Confirmed 05/11/22] PFSH Medical History? Acute bronchitis, unspecified Anemia Atherosclerotic heart disease of [place] coronary artery without angina pectoris Atrial fibrillation Olvera's palsy Bradycardia Cancer Chronic back pain CKD (chronic kidney disease) stage 3, GFR 30-59 ml/min Congestion of nasal sinus Constipation Cough Encounter for education Encounter for screening for COVID-19 Essential hypertension Heartburn symptom [place] (hard of hearing) Hyperlipidemia Irregular heart rate Left-sided Olvera's palsy Multiple myeloma Myocardial infarct Neuropathy Neuropathy Recovering alcoholic Sore throat Suspected 2019 novel coronavirus infection Tachycardia Surgical History? History of coronary artery bypass surgery (~08/15/14) History of coronary artery stent placement Hx of CABG Stented coronary artery (02/07/19) Family History? Father Brain cancerSister Liver cancerMother Leukemia Social History? household members:? none housing:? house number of children:? 2 current occupational status:? retired pets and animals:? Yes Smoking Status:? Never smoker alcohol intake:? former substance use type:? does not use what type of physical activity do you participate in:? walking frequency:? daily duration:? 15-30 minutes/day [place]/oriental orthodox:? Roman Catholic do you feel safe at home:? Yes HPI HPI HPI: 72-year-old male following up after admission for left-sided colitis.? The patient had normal blood pressure and hydration and I am unsure as to the cause of his colitis but he reports that he is doing well now and he is not having any abdominal pain and is back to his normal bowel function with no blood.? Patient has not had a colonoscopy in several years.? He currently denies any blood in his stool. ROS General General: No weight change, appetite, fatigue, colon cancer, breast cancer or weakness HEENT HEENT: No difficulty swallowing, eye injury, eye surgery, swollen glands or hoarseness Endo Endocrine: No thyroid disease, diabetes mellitus, thyroid cancer, Hair loss, heat intolerance or cold intolerance Skin Skin: No rash or changing moles Breast Breast: No left breast lump, right breast lump, nipple discharge, breast pain, abnormal mammogram, abnormal US or breast enlargement Musc Musculoskeletal: Yes back problems; No arthritis, rheumatoid arthritis, gout or joint pain Cardio Cardiovascular: Yes heart disease and heart attack; No murmur, pacemaker, atrial fibrillation, high blood pressure, heart stent, palpitations, shortness of breat with exertion or chest pain Psych Psychiatric: No depression, anxiety or hearing voices Resp Respiratory: No shortness of breath, No sleep apnea, No cough, No COPD, No asthma, No emphysema and No wheezing Gastro Gastrointestinal: No abdominal pain, No nausea or vomiting, Yes diarrhea, No constipation, No blood in stool, No acid reflux, No hemorrhoids, No ulcers, No gallbladder problem and No black,tarry stools [place] Hematologic: No blood thinners, No blood disorders, No bleeding, No anemia and No blood clots Neuro Neurologic: No system reviewed and no additional complaints, except as documented, No as per HPI, No abnormal gait, No abnormal hearing, No abnormal movements, No abnormal speech, No behavioral changes, No burning sensations, No confusion, No convulsions, No disequilibrium, No dizziness, No localized weakness, No frequent falls, No headache(s), No lack of coordination, No loss of vision, No memory loss, No numbness, No other visual disturbances, No radicular pain, No restless legs, No sensory deficit, No syncope, No tingling, No tremor(s), No weakness and No other Exam Const General: cooperative Orientation: alert and oriented x3 HENMT Head: normal to inspection Neck Neck: normal visual inspection and full ROM Chest Chest palpation & inspection: normal inspection of the chest Resp Effort & Inspection: normal respiratory effort Auscultation: clear to auscultation bilaterally Cardio Rate: regular rate Rhythm: regular rhythm GI Inspection: non-distended Palpation: soft and nontender Skin General: no rashes or lesions noted Neuro General: patient alert and patient oriented x3 Extrem General: full ROM Psych Appearance: grossly normal Mental Status: mental status grossly normal Assessment and Plan Assessment and Plan (1) Left sided colitis: ?Status:?Resolved (2) Acute GI bleeding: ?Status:?Resolved ? ? ? Orders: Orders Colonoscopy Today ? ? Plan Patient was recently admitted to the hospital with left-sided colitis as well as GI bleeding.? Patient has not had a colonoscopy in a very long time and he appears to be healing well and is doing well and I would recommend performing a colonoscopy to ensure there is no malignancy as the cause of the bleeding or the colitis. I explained endoscopy in detail to the patient.? I explained the risks including but not limited to stroke or heart attack with anesthesia, perforation of the GI tract, bleeding, infection.? I explained that any of these could necessitate further emergency surgery.? The patient understands and all questions were answered sufficiently.? The patient wishes to proceed with procedure. Casey Faith MD Pager: [facility] [address] [place] [address] [address] [place] [address] Office: I have examined the patient and the H&P has been reviewed. There are no clinical changes since date of exam.
[2022-06-17 08:25] VITALS: BP 122/87; BP 93/72; PULSE 91; RESP 18; TEMP 37.3; O2SAT 93
--- NOTE | 2022-06-17 08:27 | OP.COLON_ITS ---
Patient Name: Ralph Iglesias Procedure Date: 06/17/2022 7:59 AM Date of : 1950 Age: 72 Procedure: Colonoscopy Indications: Screening for colorectal malignant neoplasm Providers: Casey Faith MD Medicines: Monitored Anesthesia Care Patient Profile: This is a 72 year old male. Refer to note in patient chart for documentation of history and physical. Last Colonoscopy: more than 10 years ago. Complications: No immediate complications. Procedure: Pre-Anesthesia Assessment: - Prior to the procedure, a History and Physical was performed, and patient medications and allergies were reviewed. The patient's tolerance of previous anesthesia was also reviewed. The risks and benefits of the procedure and the sedation options and risks were discussed with the patient. All questions were answered, and informed consent was obtained. Prior Anticoagulants: The patient has taken no previous anticoagulant or antiplatelet agents. After reviewing the risks and benefits, the patient was deemed in satisfactory condition to undergo the procedure. After I obtained informed consent, the scope was passed under direct vision. Throughout the procedure, the patient's blood pressure, pulse, and oxygen saturations were monitored continuously. The pediatric colonoscope was introduced through the anus and advanced to the cecum, identified by appendiceal orifice and ileocecal valve. The colonoscopy was performed without difficulty. The patient tolerated the procedure well. The quality of the bowel preparation was good. Scope In: 8:09:18 AM Scope Withdrawal Time 0 hours 5 minutes 51 seconds Scope Out: 8:21:36 AM Total Procedure Duration Time 0 hours 12 minutes 18 seconds Findings: The entire examined colon appeared normal on direct and retroflexion views. Impression: - No specimens collected. Recommendation: - Discharge patient to home. - Resume previous diet. - Continue present medications. - Repeat colonoscopy is not recommended due to current age (66 years or older) for screening purposes. Procedure Code(s): --- Professional --- G0121, Colorectal cancer screening; colonoscopy on individual not meeting criteria for high risk Diagnosis Code(s): --- Professional --- Z12.11, Encounter for screening for malignant neoplasm of colon CPT copyright 2017 [employer]. All rights reserved. The codes documented in this report are preliminary and upon sales team recruiter review may be revised to meet current compliance requirements. Casey Faith MD 06/17/2022 8:27:01 AM This report has been signed electronically. Number of Addenda: 0 Note Initiated On: 06/17/2022 7:59 AM
--- NOTE | 2022-06-17 08:28 | OP.CCLET_ITS ---
06/17/2022 Andrea Tello Re : Colonoscopy procedure for Ralph Tello This procedure was performed on Friday, June 17, 2022. My impressions and recommendations are as follows: Impressions : - No specimens collected. Recommendations : - Discharge patient to home. - Resume previous diet. - Continue present medications. - Repeat colonoscopy is not recommended due to current age (66 years or older) for screening purposes. My findings are described in the full procedure note, which is enclosed. If I can be of further assistance, please feel free to contact me at Doctor phone number(s): , Work: . Sincerely, Casey Faith MD 06/17/2022 8:27:01 AM This report has been signed electronically.
[2022-06-17 08:30] VITALS: BP 122/87; BP 95/70; PULSE 88; RESP 16; O2SAT 92
[2022-06-17 08:35] VITALS: BP 122/87; BP 99/69; PULSE 86; RESP 18; O2SAT 93
[2022-06-17 08:40] VITALS: BP 106/66; BP 122/87; PULSE 89; RESP 16; TEMP 36.8; O2SAT 95
== END 2022-06-17 09:17 | disposition home or self-care (01) ==
LOC: EN 05:55 → AC 05:57
PROVIDERS: PCP Family Medicine; Referring Provider Family Medicine; Visit Provider Surgery
PROC: 0DJD8ZZ Inspection of Lower Intestinal Tract, Via Natural or Artificial Opening Endoscopic (ICD-10-PCS; CPT 45378; principal; 2022-06-17 07:55)
DX: Z12.11 Encounter for screening for malignant neoplasm of colon (principal); N18.30 Chronic kidney disease, stage 3 unspecified; K52.9 Noninfective gastroenteritis and colitis, unspecified; I12.9 Hypertensive chronic kidney disease with stage 1 through stage 4 chronic kidney disease, or unspecified chronic kidney disease; I25.10 Atherosclerotic heart disease of native coronary artery without angina pectoris; E78.00 Pure hypercholesterolemia, unspecified; I25.2 Old myocardial infarction; G47.30 Sleep apnea, unspecified; Z95.1 Presence of aortocoronary bypass graft; Z95.5 Presence of coronary angioplasty implant and graft; Z79.82 Long term (current) use of aspirin; Z79.899 Other long term (current) drug therapy
CPT/HCPCS: G0121; J7120; J2405

== ENCOUNTER 2022-07-01 11:20 | Inpatient (IN) | payer MEDICARE, OTHER, SELFPAY ==
[2022-07-01] VITALS (21 sets, daily range): BP systolic 120–201; BP diastolic 65–120; PULSE 61–116; RESP 16–35; TEMP 36.6–39.5; O2SAT 87–95; BMI 30.3; BMI 29.4
--- NOTE | 2022-07-01 11:37 | CT_ITS ---
STUDY: CT BRAIN WITHOUT CONTRAST REASON FOR EXAM: Male, 72 years old. ams RADIATION DOSAGE (If Supplied By Facility): CTDIvol = ( 44.99 ) mGy, DLP = ( 863.60 ) mGycm TECHNIQUE: Transaxial CT imaging of the brain was performed without administration of intravenous contrast material. Individualized dose optimization techniques were used for this CT. COMPARISON: 08/30/2020 FINDINGS: Normal soft tissue structures. Increase in the size and number of innumerable lytic lesions of the skull worrisome for worsening multiple myeloma. There is mild cerebral atrophy with widening of the extra-axial spaces and ventricular dilatation. There are areas of decreased attenuation within the white matter tracts of the supratentorial brain, consistent with microvascular disease changes. Normal basal ganglia and thalami. Normal brainstem. Normal cerebellum. There is no intracranial hemorrhage. There are no findings of an acute ischemic infarction. Normal visualized paranasal sinuses. CT/Brain/Head without Contrast IMPRESSION: Chronic involutional changes of the brain. Worsening multiple myeloma. Electronically Signed: Ramo Hooker MD at 12:36 EST ,
--- NOTE | 2022-07-01 11:37 | EKG12_ITS ---
Test Reason : SYNCOPE Blood Pressure : / mmHG Vent. Rate : 109 BPM Atrial Rate : 109 BPM P-R Int : 150 ms QRS Dur : 090 ms QT Int : 392 ms P-R-T Axes : 023 015 034 degrees QTc Int : 527 ms Sinus tachycardia Possible Left atrial enlargement Inferior infarct , age undetermined Anterior infarct , age undetermined Prolonged QT Abnormal ECG Confirmed by DENIA PULIDO, TAMELA ([id number]), food expeditor STERLING GOMES ([id number]) on 07/05/2022 11:40:38 AM Referred By: JODI/SUSAN Confirmed By:TAMELA LOZA MD
--- NOTE | 2022-07-01 11:37 | CT_ITS ---
STUDY: CT CERVICAL SPINE WITHOUT CONTRAST REASON FOR EXAM: Male, 72 years old. trauma RADIATION DOSAGE (If Supplied By Facility): CTDIvol = ( 27.92 ) mGy, DLP = ( 657.17 ) mGycm TECHNIQUE: High resolution transaxial imaging was performed without contrast material. Sagittal and coronal images were reconstructed. Individualized dose optimization techniques were used for this CT. COMPARISON: None FINDINGS: Normal craniovertebral junction. There are degenerative changes of the anterior atlantoaxial articulation. Normal odontoid process. Normal cervical lordosis. Innumerable small lytic lesions of the visualized skull base and the cervical spine consistent with known multiple myeloma. No large mass to suggest plasmacytoma. C2-3: Normal endplates. Normal disc height and morphology. Normal central canal and intervertebral neuroforamina. C3-4: Normal endplates. Normal disc height and morphology. Normal central canal and intervertebral neuroforamina. C4-5: Moderate facet hypertrophy produces mild right neural foraminal stenosis. No central spinal stenosis. C5-6: Normal endplates. Normal disc height and morphology. Normal central canal and intervertebral neuroforamina. C6-7: Normal endplates. Normal disc height and morphology. Normal central canal and intervertebral neuroforamina. C7-T1: Normal endplates. Normal disc height and morphology. Normal central canal and intervertebral neuroforamina. Normal visualized soft tissue structures. CT/Spine Cervical without Contras IMPRESSION: No acute fracture or subluxation. Known multiple myeloma without CT evidence of plasmacytoma. Electronically Signed: Ramo Hooker MD at 12:41 EST ,
--- NOTE | 2022-07-01 11:39 | EDS_ITS ---
HPI History of Present Illness Chief Complaint: Syncope Informant: patient and EMS Narrative Narrative: 2-year-old male history of coronary artery disease multiple myeloma and lung cancer reportedly was found on the floor of his house today unable to get up. EMS notes that he was covered in stool. They note that he was hypoxic in the 80s and has a fever. When asked if he is having any pain he tells me he thinks he is but he does not know where he is having pain. He denies being on a blood thinner. He states that he is undergoing chemotherapy but does not know when his last chemotherapy was he was placed in a c-collar by EMS [facility] Medical History Acute bronchitis, unspecified Ambulates with cane Anemia Atherosclerotic heart disease of [place] coronary artery without angina pectoris Atrial fibrillation Olvera's palsy Bradycardia Cancer Cardiology follow-up encounter Chronic back pain CKD (chronic kidney disease) stage 3, GFR 30-59 ml/min Congestion of nasal sinus Constipation Cough CPAP (continuous positive airway pressure) dependence Encounter for education Encounter for screening for COVID-19 Essential hypertension Heartburn symptom High cholesterol History of CHF (congestive heart failure) History of echocardiogram History of steroid therapy History of stress test [place] (hard of hearing) Hyperlipidemia Irregular heart rate Left-sided Olvera's palsy Multiple myeloma Myocardial infarct Neuropathy Neuropathy Non-smoker Recovering alcoholic Shortness of breath on exertion Sleep apnea Sore throat Suspected 2019 novel coronavirus infection Tachycardia Wears glasses Wears hearing aid Home Medications ondansetron 4 mg disintegrating tablet 4 mg PO Q8H PRN PRN Nausea/Vomiting #30 tabs 07/14/20 [Rx Last Taken 06/15/22] melatonin 10 mg capsule 10 mg PO HS PRN Sleep 05/31/21 [History Last Taken 06/15/22] gabapentin 600 mg tablet 600 mg PO TID NERVE PAIN 06/15/21 [History Last Taken 06/15/22] Bacillus coagulans 10 billion cell capsule,delayed release (Probiotic (B. coagulans)) 1 cell PO DAILY 01/12/22 [History Last Taken 06/15/22] nitroglycerin 0.4 mg sublingual tablet 0.4 mg sublingual Q5-15M PRN chest pain #25 tabs 01/13/22 [Rx Last Taken 06/15/22] polyethylene glycol 3350 17 gram/dose oral powder 17 g PO DAILY PRN CONSTIPATION 01/13/22 [History Last Taken 06/15/22] aspirin 81 mg tablet,delayed release 81 mg PO DAILY@0800 Check with primary doctor 04/11/22 [History Last Taken 06/15/22] atorvastatin 40 mg tablet 40 mg PO DAILY Check with primary doctor 04/11/22 [History Last Taken 06/15/22] dexamethasone 4 mg tablet 20 mg PO .weekly Check with primary doctor 04/11/22 [History Last Taken 06/15/22] isosorbide mononitrate 60 mg tablet,extended release 24 hr 60 mg PO DAILY Check with primary doctor 04/11/22 [History Last Taken 06/15/22] lisinopril 5 mg tablet 5 mg PO DAILY Check with primary doctor 04/11/22 [History Last Taken 06/15/22] Pomalyst 4 mg capsule (pomalidomide) See Rx Instructions .Route .COMPLEX #21 CAPSULES 05/18/22 [Rx Last Taken 06/15/22] Allergy/AdvReac Type Severity Reaction Status Date / Time morphine Allergy Severe Anaphylaxis Verified 07/01/22 11:27 oxycodone Allergy Severe Anaphylaxis Verified 07/01/22 11:27 Family History Father Brain cancer Sister Liver cancer Mother Leukemia Surgical History History of coronary artery bypass surgery (~08/15/14) History of coronary artery stent placement Hx of CABG Stented coronary artery (02/07/19) Social History household members: none housing: house number of children: 2 current occupational status: retired pets and animals: Yes Smoking Status: Current every day smoker tobacco type: cigarettes alcohol intake: former substance use type: does not use what type of physical activity do you participate in: walking frequency: daily duration: 15-30 minutes/day [place]/orthodox: Yarsanism do you feel safe at home: Yes ROS ROS ED Review of Systems ROS Unobtainable: due to mental status Constitutional Constitutional ED: Reports chills and fever(s) Respiratory/Chest Respiratory/Chest: Reports cough Gastrointestinal Gastrointestinal: Reports diarrhea and nausea EXAM Physical Exam Narrative Exam Narrative: Disheveled fecal matter present on body Patient is sitting up in bed moaning Const Vital Signs: 07/01/22 11:21 07/01/22 11:25 07/01/22 11:31 Temperature 102.4 F H 102.4 F H Temperature Source Temporal Temporal Pulse Rate 116 H 116 H Respiratory Rate 26 H 26 H Respiratory Effort Blood Pressure 201/120 H 201/120 H Blood Pressure Mean 147 147 Pulse Ox 87 87 91 Oxygen Delivery Method Room Air Room Air Nasal Cannula Oxygen Flow Rate (L/min) 2 07/01/22 11:32 07/01/22 11:45 07/01/22 11:54 Temperature Temperature Source Pulse Rate Respiratory Rate Respiratory Effort Short of Breath Blood Pressure 177/106 H Blood Pressure Mean 129 Pulse Ox 93 Oxygen Delivery Method Nasal Cannula Oxygen Flow Rate (L/min) 2 07/01/22 12:31 07/01/22 12:36 07/01/22 13:03 Temperature 102.4 F H 102.4 F H 103.1 F H Temperature Source Core Core Core Pulse Rate 107 H 107 H 105 H Respiratory Rate 35 H 35 H 27 H Respiratory Effort Blood Pressure 180/97 H 180/97 H 155/89 H Blood Pressure Mean 124 124 111 Pulse Ox 93 93 93 Oxygen Delivery Method Nasal Cannula Nasal Cannula Nasal Cannula Oxygen Flow Rate (L/min) 2 2 2 07/01/22 13:04 Temperature 103.1 F H Temperature Source Core Pulse Rate 105 H Respiratory Rate 27 H Respiratory Effort Blood Pressure 155/89 H Blood Pressure Mean 111 Pulse Ox 93 Oxygen Delivery Method Nasal Cannula Oxygen Flow Rate (L/min) 2 Positive well nourished, well developed and obese General Appearance ED: well developed Nutritional Appearance: obese HEENT Reports normocephalic, head/scalp atraumatic and dry mucous membranes Mouth ED: Yes dry mucous membranes Mouth: dry mucous membranes Eyes PERRL and EOMs intact bilaterally Neck no lymphadenopathy, supple and no JVD Resp normal respiratory effort and clear to auscultation bilaterally Cardio regular rate, regular rhythm and no murmurs GI normal to inspection, nondistended, normoactive bowel sounds and non-tender Palpation: soft Back/Spine no CVA tenderness and normal ROM Extremity normal to inspection General Extremety ED: Negative for edema General Extremity: Negative for edema Neuro CN's II-XII intact bilaterally and no sensory deficits noted Sensorium / Orientation: alert and orientation impaired Sensory Exam: No sensory level loss detected Motor Exam: general weakness Psych Mood & Affect: Negative for depressed or tearful Skin no rashes or lesions noted and no wounds MDM MDM MDM Narrative Medical decision making narrative: CT the brain and cervical spine were negative for acute. Changes with multiple myeloma noted. Lactic acid is elevated at 2.6. Total body CK is 2222. Troponin is elevated at 93. My interpretation of the chest x-ray is no acute process. Urinalysis does not show an infection. He is received several liters of fluids as well as breathing treatments. He is RSV positive and is requiring supplemental oxygen. Lab Data Attestation: I reviewed the patient's lab results. Labs: Laboratory Results - last 24 hr 07/01/22 07/01/22 07/01/22 11:32 11:32 11:32 WBC 9.5 RBC 5.43 Hgb 16.4 Hct 47.6 MCV 87.7 MCH 30.2 MCHC 34.5 RDW Std Deviation 47.0 H RDW Coeff of Amrita 14.7 H Plt Count 213 MPV 11.7 Immature Gran % (Auto) 1.000 H Neut % (Auto) 84.0 H Lymph % (Auto) 4.6 L [place] % (Auto) 9.5 Eos % (Auto) 0.2 Baso % (Auto) 0.7 Absolute Neuts (auto) 7.9 H Absolute Lymphs (auto) 0.43 L Nucleated RBC % 0 PT 13.9 INR 1.1 APTT 33.3 Sodium 134 L Potassium 3.8 Chloride 103 Carbon Dioxide 22.0 Anion Gap 9 BUN 20 H Creatinine 1.16 Estim Creat Clear Calc 53.03 Est GFR (MDRD) Af Amer 79 Est GFR (MDRD) Non-Af 66 BUN/Creatinine Ratio 17.2 Glucose 129 H Lactic Acid Calcium 9.0 Total Bilirubin 2.00 H Direct Bilirubin 0.16 AST 72 H ALT 32 Alkaline Phosphatase 70 Total Creatine Kinase 2222 H Troponin I High Sens 93 H Total Protein 8.6 H Albumin 3.9 Globulin 4.7 H Lipase 55 L Urine Color Urine Clarity Urine pH Ur Specific [place] Urine Protein Urine Glucose (UA) Urine Ketones Urine Occult Blood Urine Nitrite Urine Bilirubin Urine Urobilinogen Ur Leukocyte Esterase Urine RBC Urine WBC Ur Squamous Epith Cells Urine Bacteria Urine Mucus 07/01/22 07/01/22 11:32 11:49 WBC RBC Hgb Hct MCV MCH MCHC RDW Std Deviation RDW Coeff of Amrita Plt Count MPV Immature Gran % (Auto) Neut % (Auto) Lymph % (Auto) [place] % (Auto) Eos % (Auto) Baso % (Auto) Absolute Neuts (auto) Absolute Lymphs (auto) Nucleated RBC % PT INR APTT Sodium Potassium Chloride Carbon Dioxide Anion Gap BUN Creatinine Estim Creat Clear Calc Est GFR (MDRD) Af Amer Est GFR (MDRD) Non-Af BUN/Creatinine Ratio Glucose Lactic Acid 2.6 H* Calcium Total Bilirubin Direct Bilirubin AST ALT Alkaline Phosphatase Total Creatine Kinase Troponin I High Sens Total Protein Albumin Globulin Lipase Urine Color Yellow Urine Clarity Clear Urine pH 6.5 Ur Specific [place] 1.015 Urine Protein 500 H Urine Glucose (UA) Normal Urine Ketones 150 A* Urine Occult Blood 250 H Urine Nitrite Negative Urine Bilirubin 1 H Urine Urobilinogen 1 H Ur Leukocyte Esterase 25 H Urine RBC 0-5 SEEN Urine WBC 0-5 SEEN Ur Squamous Epith Cells 0 SEEN Urine Bacteria 0 SEEN Urine Mucus 0 SEEN Radiography Diagnostic Testing: Clinical Impression(s) from Imaging Studies Brain CT 07/01/22 11:37 IMPRESSION: Chronic involutional changes of the brain. Worsening multiple myeloma. Electronically Signed: Ramo Hooker MD at 12:36 EST Reading Location ID and State: [id number] Tel , Service support , Cervical Spine CT 07/01/22 11:37 IMPRESSION: No acute fracture or subluxation. Known multiple myeloma without CT evidence of plasmacytoma. Electronically Signed: Ramo Hooker MD at 12:41 EST Reading Location ID and State: [employer] Tel , Service support , Chest X-Ray 07/01/22 12:05 IMPRESSION: No active disease. Electronically Signed: Ramo Hooker MD at 12:37 EST Reading Location ID and State: [employer] Tel , Service support , EKG Initial EKG: Attestation: I personally reviewed and interpreted this EKG as follows: Comments: Sinus tachycardia with a ventricular rate of 109 bpm Discharge Plan Dx/Rx/DC Orders Clinical Impression: Multiple myeloma, Essential hypertension, History of coronary artery bypass surgery, CKD (chronic kidney disease) stage 3, GFR 30-59 ml/min, RSV bronchitis, Acute hypoxemic respiratory failure, Rhabdomyolysis, Elevated troponin Disposition Disposition: Acute Care [facility]
[2022-07-01] MEDS: 0.9% Normal Saline 1,000 ML 1000 ML IV ×2 (11:44→13:01)
[2022-07-01 11:51] LABS: Absolute Lymphocyte Count 0.43 X10^3/uL (0.83-4.51); Absolute Neutrophil Count 7.9 X10^3/uL (2.0-7.7); Basophil# 0.07 X10^3/uL; Basophil% 0.7 % (0-1); Eosinophil# 0.02 X10^3/uL; Eosinophils% 0.2 % (0-5); Hematocrit 47.6 % (40-54); Hemoglobin 16.4 g/dL (13.0-16.5); Lymphocyte # 0.43 X10^3/ul (0.83-4.51); Lymphocyte % 4.6 % (19-41); Mean Corp Hgb Conc 34.5 g/dL (32-36); Mean Corpuscular Hgb 30.2 pg (27.0-32.0); Mean Corpuscular Volume 87.7 fL (80-94); Mean Platelet Vol. 11.7 fl (6.2-12.0); Monocyte% 9.5 % (0-10); NRBC Flagged by Analyzer 0 % (0-5); Neutrophil # 7.94 X10^3/uL (2.7-7.7); POSITIVE DIFFERENTIAL YES; Platelet Count 213 K/mm3 (150-450); RBC Distribution Width CV 14.7 % (11.6-14.6); Red Blood Count 5.43 M/mm3 (4.6-6.2); White Blood Count 9.5 K/mm3 (4.4-11.0)
[2022-07-01 11:52] LABS: Differential Indicated SCAN CRITERIA MET
[2022-07-01 11:55] LABS: International Normalized Ratio 1.1; Prothrombin Time (Protime)PT. 13.9 SECONDS (11.7-14.9)
[2022-07-01 11:56] LABS: Partial Thromboplast Time 33.3 Seconds (24.1-36.2)
[2022-07-01 11:58] LABS: Bacteria 0 SEEN /hpf (None Seen); Mucous, Urine 0 SEEN /hpf (<or=2+); Squamous Epithelial Cells - UA 0 SEEN /hpf (0-5)
[2022-07-01 12:05] LABS: Color, Urine Yellow (Yellow); Glucose, Dipstick Normal (Normal); Ketone-Dipstick 150 mg/dl (Negative); Leukocyte Esterase-Dipstick 25 /ul (Negative); Nitrite-Dipstick Negative (Negative); Occult Blood-Urine 250 /ul (Negative); Protein-Dipstick 500 mg/dl (Negative); Specific Gravity, Urine 1.015 (1.002-1.030); Urine Bilirubin Dipstick 1 mg/dL (Negative); Urine Clarity Clear (Clear); Urine Urobilinogen 1 mg/dl (Normal); Urine pH 6.5 (5.0 - 8.0)
--- NOTE | 2022-07-01 12:05 | RAD_ITS ---
STUDY: X-RAY CHEST REASON FOR EXAM: Male, 72 years old. fever TECHNIQUE: Single AP portable view of the chest. COMPARISON: 02/12/2022 FINDINGS: Status post median sternotomy. The lungs are clear and expanded. There is no demonstrated pleural abnormality. Normal size heart. Normal mediastinum and harriet. Normal visualized pulmonary arteries. Normal visualized aortic arch and descending thoracic aorta. Normal visualized thoracic spine. Normal visualized ribs, clavicles, and shoulders. There is no demonstrated abnormality of the visualized soft tissue structures of the upper abdomen. RAD/Chest 1 View (Portable) IMPRESSION: No active disease. Electronically Signed: Ramo Hooker MD at 12:37 EST ,
[2022-07-01 12:11] LABS: Red Blood Cells-Urine 0-5 SEEN /hpf (0-5); White Blood Cells 0-5 SEEN /hpf (0-5)
[2022-07-01] MEDS: Ondansetron 4 MG/2 ML Vial IV (12:22)
[2022-07-01] MEDS: Acetaminophen 500 MG Tablet 1000 MG PO (12:22)
[2022-07-01 12:43] LABS: AST(SGOT) 72 U/L (15-37); Alanine Aminotransfer ALT/SGPT 32 U/L (16-61); Albumin, Serum 3.9 g/dL (3.2-5.0); Alkaline Phosphatase 70 U/L (45-117); Anion Gap 9 (5-15); BUN 20 mg/dL (7-18); BUN/Creat Ratio 17.2 RATIO (10-20); Bilirubin, Direct 0.16 mg/dL (0.00-0.30); CPK Total, Creatine Kinase 2222 U/L (39-308); Chloride 103 mmol/L (98-107); Creatinine, Serum 1.16 mg/dL (0.70-1.30); EST Glomerular Filtration Rate 66 mL/min (>60); Est Glom Filt Rate - Afr Amer 79 mL/min (>60); Estimated Creatinine Clearance 53.03 ml/min; Globulin 4.7 g/dL (2.2-4.2); Glucose 129 mg/dL (74-106); Lactic Acid 2.6 mmol/L (0.4-1.9); Lipase 55 U/L (73-393); Potassium 3.8 mmol/L (3.5-5.1); Protein, Total 8.6 g/dL (6.4-8.2); Sodium Level 134 mmol/L (136-145); Troponin-I HS 93 pg/mL (3.0-78.0)
[2022-07-01] MEDS: Ipratropium/Albuterol Sulfate 3 ML AMPUL.NEB INHALATION (13:18)
--- NOTE | 2022-07-01 13:23 | PCM.HP.STD ---
HPI - General General Date of Admission: 07/01/22 Date of Service: 07/01/22 Chief Complaint: Fever, chills, cough, dyspnea, N/V/D. HPI Narrative The patient is a 72 y/o M w/ PMHx: CKD stage III unclear subtype, JESUS on CPAP, PAF, CAD, GERD, Hx L sided Olvera's palsy, Hx EtOH abuse/recovered, Multiple myeloma following w/ Dr. Proctor, Chronic Systolic CHF, CAD s/p CABG and PCI, Tobacco use who presents to the [facility] ED on 07/01/22 with history of onset of fatigue, malaise, nausea, emesis, occasional loose stool, fevers and chills as well as frontal mild throbbing headache in addition to nonproductive cough and dyspnea starting over the last several days however on day of presentation patient found on the bathroom floor disheveled and covered in stool and feces reportedly per EMS hypoxic in the 80s and febrile currently on chemotherapy. Patient notes having been so weak he laid on the bathroom floor the evening prior and denies specifically LOC. He does report that the diarrhea has subsided over the last 24-48 hours. Work-up in the ED included T102.4, heart rate 116, BP 201/120, respiratory rate 26, initially 87% on room air with most recent vital signs T103.1, heart rate 105, BP 155/89, respiratory rate 27, 93% oxygenation on 2 L nasal cannula, CBC with WC 9.5, hemoglobin 16.4, platelet 213 with left shift and lymphopenia, unremarkable coags, BMP with sodium 134, BUN/creatinine 20/1.16, glucose 129, T bili 2.0, D bili 0.16, AST/LT 72/32, alk phos 70, total creatinine kinase 2222, lactic acid 2.6, troponin initial 93, lipase 55, urinalysis with specific remedy 1.015, protein 500, urine ketone 150, occult blood 250, negative nitrite, leukocyte Estrace 25, CT of the brain with chronic involutional changes and worsening multiple myeloma with specifically increase in size and number of innumerable lytic lesions of the skull, CT cervical spine with no acute fracture or subluxation, chest x-ray with no acute cardiopulmonary findings, RSV antigen rapid positive, rapid SARS and influenza antigens negative. In the ED patient ministered normal saline bolus 1 L, Tylenol 1000 mg p.o. x1, DuoNeb therapy and Zofran 4 mg IV x1. PFSH Medical History Acute bronchitis, unspecified Ambulates with cane Anemia Atherosclerotic heart disease of council coronary artery without angina pectoris Atrial fibrillation Olvera's palsy Bradycardia Cancer Cardiology follow-up encounter Chronic back pain CKD (chronic kidney disease) stage 3, GFR 30-59 ml/min Congestion of nasal sinus Constipation Cough CPAP (continuous positive airway pressure) dependence Encounter for education Encounter for screening for COVID-19 Essential hypertension Heartburn symptom High cholesterol History of CHF (congestive heart failure) History of echocardiogram History of steroid therapy History of stress test MARSHALL (hard of hearing) Hyperlipidemia Irregular heart rate Left-sided Olvera's palsy Multiple myeloma Myocardial infarct Neuropathy Neuropathy Non-smoker Recovering alcoholic Shortness of breath on exertion Sleep apnea Sore throat Suspected 2018 novel coronavirus infection Tachycardia Wears glasses Wears hearing aid Home Medications gabapentin 600 mg tablet 1,200 mg PO TID NERVE PAIN 06/15/21 [History Last Taken 2 Days Ago ~06/29/22] nitroglycerin 0.4 mg sublingual tablet 0.4 mg sublingual Q5-15M PRN chest pain #25 tabs 01/13/22 [Rx Last Taken 06/15/22] aspirin 81 mg tablet,delayed release 81 mg PO DAILY@0800 Check with primary doctor 04/11/22 [History Last Taken 06/29/22] atorvastatin 40 mg tablet 40 mg PO DAILY Check with primary doctor 04/11/22 [History Last Taken 06/15/22] isosorbide mononitrate 60 mg tablet,extended release 24 hr 60 mg PO DAILY Check with primary doctor 04/11/22 [History Last Taken 2 Days Ago ~06/29/22] lisinopril 5 mg tablet 5 mg PO DAILY Check with primary doctor 04/11/22 [History Last Taken 2 Days Ago ~06/29/22] Pomalyst 4 mg capsule (pomalidomide) See Rx Instructions .Route .COMPLEX #21 CAPSULES 05/18/22 [Rx Last Taken 06/29/22] dexamethasone 4 mg tablet 4 mg PO QWEEK steroid 07/01/22 [History Last Taken 06/28/22] metoprolol tartrate 25 mg tablet 25 mg PO BID HTN 07/01/22 [History Last Taken Unknown] nabumetone 500 mg tablet 500 - 1,000 mg PO BID PRN Muscle Spasm 07/01/22 [History Last Taken Unknown] sildenafil 50 mg tablet 50 mg PO PRN PRN Erectile Dysfunction 07/01/22 [History Last Taken Unknown] Allergy/AdvReac Type Severity Reaction Status Date / Time morphine Allergy Severe Anaphylaxis Verified 07/01/22 11:27 oxycodone Allergy Severe Anaphylaxis Verified 07/01/22 11:27 Family History Father Brain cancer Sister Liver cancer Mother Leukemia Surgical History History of coronary artery bypass surgery (~08/15/14) History of coronary artery stent placement Hx of CABG Stented coronary artery (02/07/19) Social History household members: none housing: house number of children: 2 current occupational status: retired pets and animals: Yes Smoking Status: Current every day smoker tobacco type: cigarettes alcohol intake: former substance use type: does not use what type of physical activity do you participate in: walking frequency: daily duration: 15-30 minutes/day hilton/oriental orthodox: Quaker do you feel safe at home: Yes ROS ROS Narrative Admission Review of Systems: CONSTITUTIONAL: No weight loss, + fever, chills, weakness or fatigue. HEENT: + congestion, rhinorrhea, mild headache. Eyes: No visual loss, blurred vision, double vision or yellow sclerae. Ears, Nose, Throat: No hearing loss, sneezing. SKIN: No rash or itching, lesions, wounds. CARDIOVASCULAR: No chest pain, chest pressure or chest discomfort, palpitations, edema, orthopnea, syncopal events. RESPIRATORY: + shortness of breath, cough without marked sputum, wheezing, No hemoptysis. GASTROINTESTINAL: + anorexia, nausea, vomiting, diarrhea, No abdominal pain, melena, BRBPR. GENITOURINARY: No dysuria, frequency, urgency or retention. NEUROLOGICAL: + headache, chronic debility with underlying advanced MM, No current syncope, paralysis, ataxia, numbness or tingling in the extremities, focal weakness, seizure. MUSCULOSKELETAL: + muscle, back pain, joint pain or stiffness. HEMATOLOGIC: + anemia, bleeding or bruising. LYMPHATICS: No enlarged nodes. No history of splenectomy. PSYCHIATRIC: No history of depression or anxiety. ENDOCRINOLOGIC: No reports of sweating, cold or heat intolerance. No polyuria or polydipsia. ALLERGIES: + history of anaphylaxis. Vital Signs Vital Signs Vital Signs: 07/01/22 11:21 07/01/22 11:25 07/01/22 11:31 Temperature 102.4 F H 102.4 F H Temperature Source Temporal Temporal Pulse Rate 116 H 116 H Respiratory Rate 26 H 26 H Respiratory Effort Blood Pressure 201/120 H 201/120 H Blood Pressure Mean 147 147 Pulse Ox 87 87 91 Oxygen Delivery Method Room Air Room Air Nasal Cannula Oxygen Flow Rate (L/min) 2 07/01/22 11:32 07/01/22 11:45 07/01/22 11:54 Temperature Temperature Source Pulse Rate Respiratory Rate Respiratory Effort Short of Breath Blood Pressure 177/106 H Blood Pressure Mean 129 Pulse Ox 93 Oxygen Delivery Method Nasal Cannula Oxygen Flow Rate (L/min) 2 07/01/22 12:31 07/01/22 12:36 07/01/22 13:03 Temperature 102.4 F H 102.4 F H 103.1 F H Temperature Source Core Core Core Pulse Rate 107 H 107 H 105 H Respiratory Rate 35 H 35 H 27 H Respiratory Effort Blood Pressure 180/97 H 180/97 H 155/89 H Blood Pressure Mean 124 124 111 Pulse Ox 93 93 93 Oxygen Delivery Method Nasal Cannula Nasal Cannula Nasal Cannula Oxygen Flow Rate (L/min) 2 2 2 07/01/22 13:04 07/01/22 13:20 07/01/22 13:20 Temperature 103.1 F H Temperature Source Core Pulse Rate 105 H 101 H Respiratory Rate 27 H 28 H Respiratory Effort Blood Pressure 155/89 H Blood Pressure Mean 111 Pulse Ox 93 90 Oxygen Delivery Method Nasal Cannula Nasal Cannula Oxygen Flow Rate (L/min) 2 3 07/01/22 13:21 Temperature Temperature Source Pulse Rate Respiratory Rate 28 H Respiratory Effort Short of Breath Blood Pressure Blood Pressure Mean Pulse Ox 90 Oxygen Delivery Method Nasal Cannula Oxygen Flow Rate (L/min) 3 Weight Weight: 193 lb 9.054 oz Body Mass Index (BMI) 30.3 Physical Exam Narrative Physical Examination: General: Awake, alert, oriented to self, place and recent events, fatigued and ill-appearing, mildly increased respiratory rate but no distress noted. Skin: Normal color, normal turgor, no icterus, no cyanosis except occasional staged ecchymoses. HEENT: AT/NC, EOMI, PERRLA, dry MM, no carotid bruits or JVD noted. Lungs: Diffusely diminished, greater bases, mildly increased respiratory rate, diffuse inspiratory and expiratory wheezing, no current rales or rhonchi. Heart: Tachycardic; no gallop, rub audible. Abdomen: Soft, NTTP, ND, distant normal BS, no HSM. Extremities: No cyanosis, clubbing, or edema. Neurological: Patient awake, alert, oriented as noted, cognitive function mildly sluggish but appears intact per discussion with friend present likely secondary to acute illness and fatigue; pupils equally reactive to light and accommodation, cranial nerves grossly normal, moving all 4 extremities, no focal deficits, strength accordingly severely globally decreased Psychiatric: Affect appears fatigued, ill-appearing, no acute evidence of depressive or anxiety feelings. Results Lab / Micro Data Result Diagrams: 07/01/22 11:32 07/01/22 11:32 Labs: Laboratory Results - last 24 hr 07/01/22 11:32: WBC 9.5, RBC 5.43, Hgb 16.4, Hct 47.6, MCV 87.7, MCH 30.2, MCHC 34.5, RDW Std Deviation 47.0 H, RDW Coeff of Amrita 14.7 H, Plt Count 213, MPV 11.7, Immature Gran % (Auto) 1.000 H, Neut % (Auto) 84.0 H, Lymph % (Auto) 4.6 L, Rains % (Auto) 9.5, Eos % (Auto) 0.2, Baso % (Auto) 0.7, Absolute Neuts (auto) 7.9 H, Absolute Lymphs (auto) 0.43 L, Nucleated RBC % 0 07/01/22 11:32: PT 13.9, INR 1.1, APTT 33.3 07/01/22 11:32: Sodium 134 L, Potassium 3.8, Chloride 103, Carbon Dioxide 22.0, Anion Gap 9, BUN 20 H, Creatinine 1.16, Estim Creat Clear Calc 53.03, Est GFR (MDRD) Af Amer 79, Est GFR (MDRD) Non-Af 66, BUN/Creatinine Ratio 17.2, Glucose 129 H, Calcium 9.0, Total Bilirubin 2.00 H, Direct Bilirubin 0.16, AST 72 H, ALT 32, Alkaline Phosphatase 70, Total Creatine Kinase 2222 H, Troponin I High Sens 93 H, Total Protein 8.6 H, Albumin 3.9, Globulin 4.7 H, Lipase 55 L 07/01/22 11:32: Lactic Acid 2.6 H* 07/01/22 11:49: Urine Color Yellow, Urine Clarity Clear, Urine pH 6.5, Ur Specific [place] 1.015, Urine Protein 500 H, Urine Glucose (UA) Normal, Urine Ketones 150 A*, Urine Occult Blood 250 H, Urine Nitrite Negative, Urine Bilirubin 1 H, Urine Urobilinogen 1 H, Ur Leukocyte Esterase 25 H, Urine RBC 0-5 SEEN, Urine WBC 0-5 SEEN, Ur Squamous Epith Cells 0 SEEN, Urine Bacteria 0 SEEN, Urine Mucus 0 SEEN Micro: Microbiology 07/01/22 11:40 Nasal Secretion SARS-CoV-2 & FLU Antigen (Rapid) - Final 07/01/22 11:39 Interface Orders Rapid RSV (DFA) - Final Radiology Impression Brain CT 07/01/22 11:37 IMPRESSION: Chronic involutional changes of the brain. Worsening multiple myeloma. Electronically Signed: Ramo Hooker MD at 12:36 EST Reading Location ID and State: [id number] / [place] Tel , Service support , Cervical Spine CT 07/01/22 11:37 IMPRESSION: No acute fracture or subluxation. Known multiple myeloma without CT evidence of plasmacytoma. Electronically Signed: Ramo Hooker MD at 12:41 EST Reading Location ID and State: [id number] / [place] Tel , Service support , Chest X-Ray 07/01/22 12:05 IMPRESSION: No active disease. Electronically Signed: Ramo Hooker MD at 12:37 EST Reading Location ID and State: [id number] / [place] Tel , Service support , Assessment & Plan Assessment/Plan (1) RSV bronchitis: PLAN: Plan The patient is a 72 y/o M w/ PMHx: CKD stage III unclear subtype, JESUS on CPAP, PAF, CAD, GERD, Hx L sided Olvera's palsy, Hx EtOH abuse/recovered, Multiple myeloma following w/ Dr. Proctor, Chronic Systolic CHF, CAD s/p CABG and PCI, Tobacco use who presents to the [facility] ED on 07/01/22 with history of onset of fatigue, malaise, nausea, emesis, occasional loose stool, fevers and chills as well as frontal mild throbbing headache in addition to nonproductive cough and dyspnea starting over the last several days however on day of presentation patient found on the bathroom floor disheveled and covered in stool and feces reportedly per EMS hypoxic in the 80s and febrile currently on chemotherapy. #1. Acute hypoxia secondary to acute RSV bronchitis with significant bronchospasms, (Ruled out Acute hypoxic respiratory failure as reported per ED currently): Will admit to PCU given mildly elevated troponin although suspected secondary to demand with hypoxia, maintain on oxygen with wean as tolerated to room air, continue ATC duonebs, PRN albuterol, HOB, IS parameters w/ pending sputum cultures, full respiratory viral panel to assure there is no secondary concurrent viral illness and urine antigens. Bld cx x 2 obtained in the ED. low threshold to repeat chest x-ray following judicious overnight hydration. #2. Acute Lactic Acidosis: Suspected secondary to dehydration with GI losses, poor intake as well as his acute hypoxia, will continue judicious hydration given underlying CHF history and trend LA per telemetry protocol. #3. Acute rhabdomyolysis: Admission TCK 2222, likely secondary to patient being on the floor overnight, will continue judicious hydration given underlying CHF history and repeat level in a.m. as well as continued CMP trending. #4. Indeterminate cardiac enzyme: Admission EKG with no acute evidence of ischemia, troponin 93, suspect secondary to demand given hypoxia and acute presentation as noted however be cautious will maintain on telemetry and cycle cardiac enzymes. Magnesium level requested #5. Multiple Myeloma w/ active ongoing chemotherapy: Current evaluation with noted CT of the brain with chronic involutional changes and worsening multiple myeloma with specifically increase in size and number of innumerable lytic lesions of the skull, following with Dr. Del Castillo with most recent visit 06/20/22. Patient per review of history was a [place] exposed to agent orange therefore his cancer has been granted service related status. From review of most recent visit patient did miss his cycle treatment 03/2022 secondary to admission for GI bleed at that time. Strongly encourage especially given CT findings aggressive ongoing follow-up with oncology. Mag and phos requested. #6. Chronic Presumed Systolic CHF: 02/04/22 ECHO w/ mild segmental systolic dysfunction, EF 45%, trivial MVI, mild TVI, RVSP 33 mmHg, diastolic function indeterminate, will continue aspirin, statin, metoprolol, lisinopril home regimen. #7. Hypertension: Continue home regimen including metoprolol lisinopril, isosorbide, PRN hydralazine. #8. Hyperlipidemia: We will continue patient on statin therapy. #9. CAD: Status post CABG and PCI, will continue aspirin, statin, metoprolol and lisinopril regimen and as noted given indeterminate enzyme maintaining on telemetry with enzyme cycling as noted. Patient denies any current chest pain. #10. CKD stage III unclear subtype: Admission BUN/creatinine 20/1.16, baseline creatinine appears primarily 0.7-1.1, continue to trend. #11. Hx EtOH abuse/recovered: Encourage continued sobriety. #12. Tobacco Abuse: Encouraged cessation, inpatient consultation per RT, NR if desired. #13. PAF with hypercoagulable state associated: Not on chronic anticoagulation, potentially fall risk associated, we will continue patient on metoprolol regimen. #14. JESUS: CPAP nightly. #15. DVT prophylaxis: SCDs, Lovenox. #16. CODE status: Patient HCPGEOVANNA is the patient's son and living will is currently in place. Discussed CODE status at length including difference between FULL code, DNR-CCA and DNR-CC status. Following discussions about the differences in these status, requested Full Code status. Advanced Care Planning Face to Face Time: 16 minutes. Charges/Coding Visit Charges Inpatient E&M: 46957 Init Hosp L3 Procedures Hospitalists Procedures: 68062 Advncd Care Plan 30 Min
[2022-07-01 14:18] LABS: Magnesium 2.1 mg/dL (1.6-2.6); Phosphorus 1.9 mg/dL (2.5-4.9)
[2022-07-01] MEDS: 0.9% Normal Saline 1,000 ML 100 ML IV ×2 (15:04→23:03)
[2022-07-01] MEDS: Gabapentin 600 MG Tablet PO ×2 (15:07→22:58)
[2022-07-01] MEDS: Metoprolol Tartrate 25 MG Tablet PO ×2 (15:08→22:58)
[2022-07-01 15:09] LABS: Troponin-I HS 142 pg/mL (3.0-78.0)
[2022-07-01] MEDS: MethylPREDNISolone 125 MG/2 ML Vial IV (15:10)
[2022-07-01 15:33] LABS: Procalcitonin 0.87 ng/mL (0.00-0.09)
[2022-07-01 15:44] LABS: Reflex Lactate? Y
[2022-07-01 17:28] LABS: Troponin-I HS 128 pg/mL (3.0-78.0)
--- NOTE | 2022-07-01 20:09 | CPS ---
pt refusing CPAP at this time
[2022-07-02] VITALS (16 sets, daily range): BP systolic 102–141; BP diastolic 60–78; PULSE 46–98; RESP 18–22; TEMP 36.2–37.3; O2SAT 94–97
[2022-07-02] MEDS: Gabapentin 600 MG Tablet PO ×3 (04:56→21:11)
[2022-07-02] MEDS: Ipratropium/Albuterol Sulfate 3 ML AMPUL.NEB INHALATION ×5 (06:55→22:59)
[2022-07-02 07:44] LABS: Absolute Lymphocyte Count 0.28 X10^3/uL (0.83-4.51); Absolute Neutrophil Count 4.6 X10^3/uL (2.0-7.7); Basophil# 0.01 X10^3/uL; Basophil% 0.2 % (0-1); Hematocrit 41.6 % (40-54); Lymphocyte # 0.28 X10^3/ul (0.83-4.51); Lymphocyte % 5.5 % (19-41); Mean Corp Hgb Conc 33.7 g/dL (32-36); Mean Corpuscular Hgb 30.5 pg (27.0-32.0); Mean Corpuscular Volume 90.6 fL (80-94); Mean Platelet Vol. 10.7 fl (6.2-12.0); Monocyte# 0.23 X10^3/uL; Monocyte% 4.5 % (0-10); NRBC Flagged by Analyzer 0 % (0-5); Neutrophil # 4.55 X10^3/uL (2.7-7.7); POSITIVE DIFFERENTIAL YES; Platelet Count 162 K/mm3 (150-450); RBC Distribution Width CV 15.3 % (11.6-14.6); RBC Distribution Width SD 50.7 fl (35.1-43.9); Red Blood Count 4.59 M/mm3 (4.6-6.2); White Blood Count 5.1 K/mm3 (4.4-11.0)
[2022-07-02 07:46] LABS: Differential Indicated SCAN CRITERIA MET
[2022-07-02 08:26] LABS: ALB/GLOB Ratio 0.9 RATIO (0.9-2.4); AST(SGOT) 56 U/L (15-37); Alanine Aminotransfer ALT/SGPT 28 U/L (16-61); Albumin, Serum 3.1 g/dL (3.2-5.0); Alkaline Phosphatase 53 U/L (45-117); Anion Gap 7 (5-15); BUN 26 mg/dL (7-18); BUN/Creat Ratio 29.2 RATIO (10-20); CPK Total, Creatine Kinase 1532 U/L (39-308); Calcium,Total 7.4 mg/dL (8.5-10.1); Chloride 108 mmol/L (98-107); Cholesterol 153 mg/dL (200); Creatinine, Serum 0.89 mg/dL (0.70-1.30); EST Glomerular Filtration Rate 89 mL/min (>60); Est Glom Filt Rate - Afr Amer 108 mL/min (>60); Estimated Creatinine Clearance 69.11 ml/min; Globulin 3.3 g/dL (2.2-4.2); Glucose 123 mg/dL (74-106); High Density Lipoprotein 32 mg/dL; Potassium 3.7 mmol/L (3.5-5.1); Protein, Total 6.4 g/dL (6.4-8.2); Sodium Level 140 mmol/L (136-145); Triglycerides 127 mg/dL; Very Low Density Lipoprotein 25 mg/dL (5-40)
[2022-07-02 08:35] LABS: Platelet Estimate ADEQUATE (ADEQ); Red Cell Morphology NORM C+C NORMAL (NORM C&C)
[2022-07-02] MEDS: 0.9% Normal Saline 1,000 ML 100 ML IV ×2 (09:41→19:50)
[2022-07-02] MEDS: Aspirin E.C. 81 MG Tablet PO (09:53)
[2022-07-02] MEDS: Isosorbide Mononitrate 60 MG Tablet PO (09:53)
[2022-07-02] MEDS: Metoprolol Tartrate 25 MG Tablet PO ×2 (09:53→22:28)
[2022-07-02] MEDS: Enoxaparin 40 MG/0.4 ML Syringe SC (09:54)
[2022-07-02] MEDS: Lisinopril 5 MG Tablet PO (09:54)
--- NOTE | 2022-07-02 11:10 | CASEMGMT ---
Addendum entered by Mary Rosa 07/02/22 11:50: PT/OT robert reviewed. No additional therapy recommended. NADYA KONG to room to talk w/pt. Pt states he is okay w/discharging home w/out HHC, as he feels he will be able to return to his baseline. He was made aware to notify staff if he has any discharge planning needs or concerns. Original Note: RN CM HAMPER MAKER CM to room to meet with patient for initial transition planning/care coordination assessment. RN LUANN introduced self and role at [facility]. Pt voices understanding and consents to assessment at this time. Pt sitting up in chair in room in no distress at this time. Pt is A/O at this time and answers all questions appropriately. Care providers, pharmacy, and demographics verified/updated at this time. PCP: Dr Tello Specialists: Dr Mcclain-cardiology, Dr Hawk-nephrology, Dr Bonner-oncology Preferred Pharmacy: [facility] [facility] [employer] Prescription Benefit: Yes Living Will/HPOA: Has both LW and HCPOA, who is his son, Alberto CATHERINEOK: Son/POA, Alberto. Dtr, Faiza Living Arrangements: Lives alone in 2-story home w/ramp entrance. FFSU. Independent @ baseline and uses no DME to ambulate. States he walks on treadmill QOD. He states has a lady friend that calls him twice a day and they hang out. He states he manages all home tasks and manages his own medications. Transportation: Pt states drives self and states no transportation concerns at this time. DME: States has the following DME: cane and pulse ox. Pt states he does not have a PAP. Has a rollator available, but does not use. No home O2. Pt provided w/list of local DME companies, should he qualify O2 @ discharge. Made aware [employer] is affiliated w/[facility]. He states okay w/[employer]. He states he does not have a medical alert button, but is interested in information. Given at this time. Pt states no need for further DME at this time. HHC/SNF: Has been to [facility] in [place] in the past. Has not had HHC in the past. He states, if he qualifies for HHC at d/c, he would be interested. PT/OT evals are pending. Pt wishes to return home and states has no concerns with going home at time of discharge. CM to follow for home oxygen needs and any further discharge planning/needs. Pt voices no further concerns/needs at this time. Advised pt to ask for CM if any further questions/concerns/needs arise. Voices understanding. PLAN: Home. Follow for possible Home O2 @ d/c. Green sheet on chart w/instructions for Home O2 set up. PT/OT evals pending. Yoandy CRANE RN CM
[2022-07-02] MEDS: Atorvastatin Calcium 40 MG Tablet PO (11:31)
--- NOTE | 2022-07-02 13:36 | PN.HOSP_ITS ---
Subjective Subjective Patient seen and examined. He complains of some shortness of breath and wheezing. Review of systems is otherwise negative. He is on 2L of oxygen. Objective Data Objective Data Vital Signs: Vital Signs Temp Pulse Resp BP Pulse Ox O2 Del Method O2 Flow Rate 98.8 F 88 20 H 141/72 H 97 Nasal Cannula 2 07/02/22 09:44 07/02/22 10:55 07/02/22 10:55 07/02/22 09:53 07/02/22 09:44 07/02/22 13:17 07/02/22 13:17 Oxygen Flow Rate (L/min) 2 Oxygen Delivery Method Nasal Cannula Weight: 187 lb 6.287 oz Body Mass Index (BMI) 29.4 Intake & Output: Intake and Output for Last 24 Hours 06/30/22 07/01/22 07/02/22 23:59 23:59 23:59 Intake Total 2918.33 / 2918.33 1480 / 1480 Output Total 150 / 450 1000 / 1000 Balance 2768.33 / 2468.33 480 / 480 Lab / Micro Data Result Diagrams: 07/02/22 06:51 07/02/22 06:51 Labs: Laboratory Results - last 24 hr 07/01/22 11:32: Phosphorus 1.9 L, Magnesium 2.1 07/01/22 14:35: Procalcitonin 0.87 H 07/01/22 14:35: Troponin I High Sens 142 H* 07/01/22 17:02: Troponin I High Sens 128 H* 07/01/22 17:02: Lactic Acid 1.0 07/02/22 06:51: WBC 5.1, RBC 4.59 L, Hgb 14.0, Hct 41.6, MCV 90.6, MCH 30.5, MCHC 33.7, RDW Std Deviation 50.7 H, RDW Coeff of Amrita 15.3 H, Plt Count 162, MPV 10.7, Immature Gran % (Auto) 0.800, Neut % (Auto) 89.0 H, Lymph % (Auto) 5.5 L, [place] % (Auto) 4.5, Eos % (Auto) 0.0, Baso % (Auto) 0.2, Absolute Neuts (auto) 4.6, Absolute Lymphs (auto) 0.28 L, Nucleated RBC % 0, Platelet Estimate ADEQUATE, RBC Morphology NORM C+C 07/02/22 06:51: Sodium 140, Potassium 3.7, Chloride 108 H, Carbon Dioxide 25.0, Anion Gap 7, BUN 26 H, Creatinine 0.89, Estim Creat Clear Calc 69.11, Est GFR (MDRD) Af Amer 108, Est GFR (MDRD) Non-Af 89, BUN/Creatinine Ratio 29.2 H, Glucose 123 H, Calcium 7.4 L, Total Bilirubin 0.70, AST 56 H, ALT 28, Alkaline Phosphatase 53, Total Creatine Kinase 1532 H, Total Protein 6.4, Albumin 3.1 L, Globulin 3.3, Albumin/Globulin Ratio 0.9, Triglycerides 127, Cholesterol 153, LDL Cholesterol 96, VLDL Cholesterol 25, HDL Cholesterol 32 L Micro: Microbiology 07/01/22 17:20 Mucosa - Nasopharyngeal Respiratory Panel (PCR) - Final RSV A 07/01/22 18:10 Urine Catheter - Jeffrey Legionella Antigen - Final 07/01/22 18:10 Urine Catheter - Jeffrey Streptococcus pneumoniae Antigen (M - Final 07/01/22 11:39 Interface Orders Rapid RSV (DFA) - Final RSV Antigen 07/01/22 11:40 Nasal Secretion SARS-CoV-2 & FLU Antigen (Rapid) - Final Physical Exam Const alert, oriented x3 and no apparent distress HEENT head/scalp atraumatic, moist oral mucous membranes and oropharynx normal Head and Scalp: normocephalic Mouth: oral and palatal mucosa normal Eyes PERRL and EOMs intact bilaterally Neck no lymphadenopathy and supple Resp Resp Narrative: diminished breath sounds bibasally, with wheezing and few crackles. on 2L of oxygen. Cardio regular rate, regular rhythm, S1 normal heart sound, S2 normal heart sound and no murmurs GI normal to inspection, nondistended, normoactive bowel sounds, soft to palpation, non-tender and non-distended Extremity normal to inspection, full ROM and no clubbing, cyanosis or edema Neuro oriented x3, CN's II-XII intact bilaterally, moves all extremities and no focal motor deficits Sensorium / Orientation: awake and alert Motor Exam: strength 5/5 throughout Psych affect normal Assessment & Plan Assessment/Plan (1) RSV bronchitis: (2) Rhabdomyolysis: (3) Elevated troponin: PLAN: Plan #HYpoxia due to acute bronchitis from RSV infection * on 2L of oxygen. Breathing treatment with bronchodilators * respiratory panel showed no evidence of infection * COVID test negative. * add on iV solumedrol as he is wheezing * titrate oxygen to maintain sat >90% * #Lactic acidosis: resolved #Rhabdomyolysis * CPK was 2222, likely due to patient being on the floor overnight. * has trended down to 1532. * * #Elevated cardiac enzymes * initial troponin was 93, but trended up to 128 * denies any chest pain. * will get 2D echo * denies any chest pain. May have been due to hypoxia * once echo is reviewed, to consider cardiology consults. * #Multiple myeloma * undergoig chemotherapy * follow up with oncology on outpatient basis * #HFrEF: has EF of 45%. on metoprolol and lisinopril. #Hyperlipidemia: on statin #Hypertension: on metoprolol, lisinopril, imdur and hydralazine #CAD s/p CABG and PCI: on aspirin and statin. #Paroxysmal afib with hypercoagulable state * not on chronic anticoagulation likely due to history of falls. * on metoprolol * #JESUS: on CPAP qhs #DVT prophylaxis: lovenox. Charges/Coding Visit Charges Inpatient E&M: 31569 Subs Hosp L3
[2022-07-02] MEDS: 0.9% Saline Lock 10 ML Syringe IV (21:11)
[2022-07-03] VITALS (16 sets, daily range): BP systolic 121–145; BP diastolic 72–80; PULSE 50–79; RESP 16–22; TEMP 36.6–36.8; O2SAT 94–98
[2022-07-03] MEDS: 0.9% Normal Saline 1,000 ML 100 ML IV (04:32)
[2022-07-03] MEDS: Gabapentin 600 MG Tablet PO ×3 (04:53→21:08)
[2022-07-03] MEDS: Ipratropium/Albuterol Sulfate 3 ML AMPUL.NEB INHALATION ×3 (07:01→20:03)
[2022-07-03 07:45] LABS: Absolute Lymphocyte Count 0.39 X10^3/uL (0.83-4.51); Absolute Neutrophil Count 3.9 X10^3/uL (2.0-7.7); Hematocrit 36.2 % (40-54); Hemoglobin 12.1 g/dL (13.0-16.5); Lymphocyte # 0.39 X10^3/ul (0.83-4.51); Lymphocyte % 8.2 % (19-41); Mean Corp Hgb Conc 33.4 g/dL (32-36); Mean Corpuscular Hgb 31.2 pg (27.0-32.0); Mean Corpuscular Volume 93.3 fL (80-94); Mean Platelet Vol. 11.2 fl (6.2-12.0); Monocyte# 0.49 X10^3/uL; Monocyte% 10.3 % (0-10); NRBC Flagged by Analyzer 0 % (0-5); Neutrophil # 3.87 X10^3/uL (2.7-7.7); Neutrophil % 81.1 % (47-70); POSITIVE DIFFERENTIAL YES; POSITIVE MORPHOLOGY YES; Platelet Count 149 K/mm3 (150-450); RBC Distribution Width CV 15.8 % (11.6-14.6); RBC Distribution Width SD 53.7 fl (35.1-43.9); Red Blood Count 3.88 M/mm3 (4.6-6.2); White Blood Count 4.8 K/mm3 (4.4-11.0)
[2022-07-03 07:50] LABS: Differential Indicated SCAN CRITERIA MET
[2022-07-03 08:02] LABS: Anion Gap 5 (5-15); BUN 29 mg/dL (7-18); BUN/Creat Ratio 33.1 RATIO (10-20); Calcium,Total 7.1 mg/dL (8.5-10.1); Chloride 110 mmol/L (98-107); Creatinine, Serum 0.88 mg/dL (0.70-1.30); EST Glomerular Filtration Rate 91 mL/min (>60); Est Glom Filt Rate - Afr Amer 110 mL/min (>60); Glucose 186 mg/dL (74-106); Potassium 3.5 mmol/L (3.5-5.1); Sodium Level 139 mmol/L (136-145)
[2022-07-03] MEDS: Enoxaparin 40 MG/0.4 ML Syringe SC (08:33)
[2022-07-03] MEDS: Isosorbide Mononitrate 60 MG Tablet PO (08:34)
[2022-07-03] MEDS: Metoprolol Tartrate 25 MG Tablet PO ×2 (08:34→21:08)
[2022-07-03] MEDS: Aspirin E.C. 81 MG Tablet PO (08:34)
[2022-07-03] MEDS: Atorvastatin Calcium 40 MG Tablet PO (08:34)
[2022-07-03] MEDS: Lisinopril 5 MG Tablet PO (08:35)
[2022-07-03] MEDS: 0.9% Saline Lock 10 ML Syringe IV ×2 (08:35→21:08)
[2022-07-03 08:38] LABS: Anisocytosis RARE; Ovalocyte 1+; Platelet Estimate ADEQUATE (ADEQ); Poikilocytosis 1+
--- NOTE | 2022-07-03 11:05 | PN.HOSP_ITS ---
Subjective Subjective Patient seen and examined. He still complains of wheezing. He denies any chest pain, palpitations, dizziness, nausea, vomiting or diarrhea. Review of systems is otherwise negative. He has remained hemodynamically stable. Objective Data Objective Data Vital Signs: Vital Signs Temp Pulse Resp BP Pulse Ox O2 Del Method O2 Flow Rate 98.3 F 65 18 145/80 H 97 Nasal Cannula 2 07/03/22 08:18 07/03/22 08:34 07/03/22 08:18 07/03/22 08:34 07/03/22 08:18 07/03/22 08:22 07/03/22 08:22 Oxygen Flow Rate (L/min) 2 Oxygen Delivery Method Nasal Cannula Weight: 187 lb 9.814 oz Body Mass Index (BMI) 29.4 Intake & Output: Intake and Output for Last 24 Hours 07/01/22 07/02/22 07/03/22 23:59 23:59 23:59 Intake Total 2918.33 / 2918.33 2900 / 3140 1310 / 1310 Output Total 150 / 450 1000 / 1000 Balance 2768.33 / 2468.33 1900 / 2140 1310 / 1310 Lab / Micro Data Result Diagrams: 07/03/22 05:16 07/03/22 05:16 Labs: Laboratory Results - last 24 hr 07/03/22 05:16: WBC 4.8, RBC 3.88 L, Hgb 12.1 L, Hct 36.2 L, MCV 93.3, MCH 31.2, MCHC 33.4, RDW Std Deviation 53.7 H, RDW Coeff of Amrita 15.8 H, Plt Count 149 L, MPV 11.2, Immature Gran % (Auto) 0.400, Neut % (Auto) 81.1 H, Lymph % (Auto) 8.2 L, [place] % (Auto) 10.3 H, Eos % (Auto) 0.0, Baso % (Auto) 0.0, Absolute Neuts (auto) 3.9, Absolute Lymphs (auto) 0.39 L, Nucleated RBC % 0, Platelet Estimate ADEQUATE, Poikilocytosis 1+, Anisocytosis RARE, Ovalocytes 1+ 07/03/22 05:16: Sodium 139, Potassium 3.5, Chloride 110 H, Carbon Dioxide 24.0, Anion Gap 5, BUN 29 H, Creatinine 0.88, Estim Creat Clear Calc 69.90, Est GFR (MDRD) Af Amer 110, Est GFR (MDRD) Non-Af 91, BUN/Creatinine Ratio 33.1 H, Glucose 186 H, Calcium 7.1 L Micro: Microbiology 07/02/22 19:54 Interface Orders Gram Stain - Preliminary 07/01/22 17:20 Mucosa - Nasopharyngeal Respiratory Panel (PCR) - Final RSV A 07/01/22 18:10 Urine Catheter - Jeffrey Legionella Antigen - Final 07/01/22 18:10 Urine Catheter - Jeffrey Streptococcus pneumoniae Antigen (M - Final 07/01/22 11:39 Interface Orders Rapid RSV (DFA) - Final RSV Antigen 07/01/22 11:40 Nasal Secretion SARS-CoV-2 & FLU Antigen (Rapid) - Final Physical Exam Const alert, oriented x3 and no apparent distress HEENT head/scalp atraumatic, moist oral mucous membranes and oropharynx normal Head and Scalp: normocephalic Mouth: oral and palatal mucosa normal Eyes PERRL and EOMs intact bilaterally Neck no lymphadenopathy and supple Resp Resp Narrative: diminished breath sounds bibasally, with wheezing and few crackles. on 2L of oxygen. Cardio regular rate, regular rhythm, S1 normal heart sound, S2 normal heart sound and no murmurs GI normal to inspection, nondistended, normoactive bowel sounds, soft to palpation, non-tender and non-distended Extremity normal to inspection, full ROM and no clubbing, cyanosis or edema Neuro oriented x3, CN's II-XII intact bilaterally, moves all extremities and no focal motor deficits Sensorium / Orientation: awake and alert Motor Exam: strength 5/5 throughout Psych affect normal Assessment & Plan Assessment/Plan (1) RSV bronchitis: (2) Rhabdomyolysis: (3) Elevated troponin: PLAN: Plan #HYpoxia due to acute bronchitis from RSV infection * on 2L of oxygen. Breathing treatment with bronchodilators * respiratory panel showed no evidence of infection * COVID test negative. * on IV solumedrol. * titrate oxygen to maintain sat >90% * #Lactic acidosis: resolved #Rhabdomyolysis * resolving. Continue gentle hydration with iVF * * #Elevated cardiac enzymes * initial troponin was 93, but trended up to 142, then trended downwards to 128 * denies any chest pain. * will get 2D echo * denies any chest pain. May have been due to hypoxia * 2D echo to be done tomorrow * #Multiple myeloma * undergoig chemotherapy * follow up with oncology on outpatient basis * #HFrEF: has EF of 45%. on metoprolol and lisinopril. #Hyperlipidemia: on statin #Hypertension: on metoprolol, lisinopril, imdur and hydralazine #CAD s/p CABG and PCI: on aspirin and statin. #Paroxysmal afib with hypercoagulable state * not on chronic anticoagulation likely due to history of falls. * on metoprolol * #JESUS: on CPAP qhs #DVT prophylaxis: lovenox. Charges/Coding Visit Charges Inpatient E&M: 50187 Subs Hosp L2
[2022-07-03] MEDS: MELATONIN 10 MG TABLET PO (21:19)
[2022-07-04] VITALS (21 sets, daily range): BP systolic 113–152; BP diastolic 59–81; PULSE 47–78; RESP 14–18; TEMP 36.3–36.9; O2SAT 92–99
[2022-07-04 05:12] LABS: Basophil# 0.01 X10^3/uL; Basophil% 0.2 % (0-1); Hematocrit 36.6 % (40-54); Hemoglobin 11.9 g/dL (13.0-16.5); Lymphocyte % 17.5 % (19-41); Mean Corp Hgb Conc 32.5 g/dL (32-36); Mean Corpuscular Hgb 29.8 pg (27.0-32.0); Mean Corpuscular Volume 91.5 fL (80-94); Mean Platelet Vol. 10.8 fl (6.2-12.0); Monocyte% 7.5 % (0-10); NRBC Flagged by Analyzer 0 % (0-5); Neutrophil # 2.99 X10^3/uL (2.7-7.7); Neutrophil % 74.6 % (47-70); POSITIVE MORPHOLOGY YES; Platelet Count 145 K/mm3 (150-450); RBC Distribution Width CV 15.9 % (11.6-14.6); RBC Distribution Width SD 53.6 fl (35.1-43.9)
[2022-07-04] MEDS: Gabapentin 600 MG Tablet PO ×3 (05:28→20:58)
[2022-07-04] MEDS: 0.9% Saline Lock 10 ML Syringe IV ×4 (05:28→20:56)
[2022-07-04] MEDS: Polyethylene Glycol 3350 17 GM PACKET PO (05:28)
[2022-07-04 05:37] LABS: Anion Gap 6 (5-15); BUN 26 mg/dL (7-18); BUN/Creat Ratio 38.2 RATIO (10-20); Calcium,Total 7.7 mg/dL (8.5-10.1); Chloride 109 mmol/L (98-107); Creatinine, Serum 0.68 mg/dL (0.70-1.30); EST Glomerular Filtration Rate 121 mL/min (>60); Est Glom Filt Rate - Afr Amer 147 mL/min (>60); Estimated Creatinine Clearance 61.51 ml/min; Glucose 143 mg/dL (74-106); Potassium 3.7 mmol/L (3.5-5.1); Sodium Level 140 mmol/L (136-145)
--- NOTE | 2022-07-04 05:55 | ECHOCS_ITS ---
Reason For Study: Elevated Troponin Procedure This was a 2D Doppler, Color Flow transthoracic echocardiogram. Contrast injection was performed. Exam performed portable in patient room. Left Ventricle Normal LV size. The estimated ejection fraction is 45 %. Mild to moderate segmental systolic dysfunction (see wall motion). Inferior [place] : Akinetic. [place] : Akinetic. Right Ventricle Normal RV size. Normal systolic function. Atria Normal left atrium. Normal right atrium. Mitral Valve Normal mitral valve. Mild (1+) eccentric mitral valve insufficiency. Tricuspid Valve Normal tricuspid valve. Mild (1+) tricuspid valve insufficiency. Pulmonary artery systolic pressure is 38 mmHg. Aortic Valve Trisinus/trileaflet aortic valve. Pulmonic Valve Normal pulmonic valve. Great Vessels Normal aortic root. The pulmonary artery is normal size. Normal inferior vena cava. Pericardium/Pleural No pericardial effusion. Medication Diluted definity 2.5ml given slow IV push to enhance endocardial definition. MMode/2D Measurements & Calculations LVIDd: 5.5 cm IVSd: 0.92 cm Ao root diam: 3.4 cm LVIDs: 3.5 cm LVPWd: 1.1 cm RVDd: 4.4 cm FS: 36.7 % LAV(MOD-bp): 78.2 ml LVAd ap4: 35.2 cm2 SV(MOD-sp4): 56.5 ml LAV(MOD-bp) Indexed: 39.8 ml/m2 LVLd ap4: 8.7 cm LAV(MOD-sp2): 78.5 ml EDV(MOD-sp4): 115.9 ml LAV(MOD-sp4): 77.0 ml EDV(sp4-el): 120.8 ml LVAs ap4: 24.0 cm2 LVLs ap4: 8.1 cm ESV(MOD-sp4): 59.4 ml ESV(sp4-el): 60.3 ml EF(MOD-sp4): 48.8 % EF(sp4-el): 50.1 % SV(sp4-el): 60.5 ml LA A4 area: 25.7 cm2 LA dimension(2D): 4.4 cm RA A4 area: 12.2 cm2 Doppler Measurements & Calculations MV E max dima: 74.4 cm/sec Lat Peak E' Dima: 9.6 cm/sec Med Peak E' Dima: 4.4 cm/sec MV A max dima: 86.7 cm/sec E/E' lat: 7.7 E/E' med: 17.1 MV E/A: 0.86 Ao V2 max: 141.0 cm/sec LV V1 max: 99.6 cm/sec PA V2 max: 94.1 cm/sec Ao max P.0 mmHg LV V1 max P.0 mmHg Ao V2 mean: 87.7 cm/sec Ao mean P.6 mmHg Ao V2 VTI: 28.0 cm TR max dima: 291.8 cm/sec TR max P.1 mmHg ECHO/Echo Complete W/ Contrast Interpretation Summary Normal LV size. The estimated ejection fraction is 45 %. Mild to moderate segmental systolic dysfunction (see wall motion). [place] : Akinetic. Mild (1+) eccentric mitral valve insufficiency. Pulmonary artery systolic pressure is 38 mmHg. Contrast injection was performed. Compared to previous study, the left ventricu lar systolic function is the same.. Ordering Physician: Jaimee Mcintosh Referring Physician: Andrea Tello Performed By: Elvie Osborn, MEGHNA, RVT
[2022-07-04 06:17] LABS: Differential Indicated SCAN CRITERIA MET
[2022-07-04] MEDS: Ipratropium/Albuterol Sulfate 3 ML AMPUL.NEB INHALATION ×4 (06:52→19:39)
[2022-07-04 06:59] LABS: Anisocytosis 1+; Platelet Estimate SLT DEC (ADEQ)
[2022-07-04] MEDS: Furosemide 20 MG/2 ML VIAL IV (08:25)
[2022-07-04] MEDS: Aspirin E.C. 81 MG Tablet PO (08:26)
[2022-07-04] MEDS: Isosorbide Mononitrate 60 MG Tablet PO (08:26)
[2022-07-04] MEDS: Enoxaparin 40 MG/0.4 ML Syringe SC (08:26)
[2022-07-04] MEDS: Atorvastatin Calcium 40 MG Tablet PO (08:26)
[2022-07-04] MEDS: Metoprolol Tartrate 25 MG Tablet PO ×2 (08:26→20:58)
[2022-07-04] MEDS: Lisinopril 5 MG Tablet PO (08:27)
--- NOTE | 2022-07-04 11:54 | PN.HOSP_ITS ---
Subjective Subjective Doing well, no issues overnight. Objective Data Objective Data Vital Signs: Vital Signs Temp Pulse Resp BP Pulse Ox O2 Del Method O2 Flow Rate 97.6 F L 61 16 152/81 H 99 Nasal Cannula 2 07/04/22 08:08 07/04/22 11:33 07/04/22 11:28 07/04/22 08:26 07/04/22 08:08 07/04/22 08:17 07/04/22 08:17 Oxygen Flow Rate (L/min) 2 Oxygen Delivery Method Nasal Cannula Weight: 191 lb 9.307 oz Body Mass Index (BMI) 29.4 Intake & Output: Intake and Output for Last 24 Hours 07/03/22 07/04/22 07/05/22 03:59 03:59 03:59 Intake Total 3140 / 3140 2780 / 2780 660 / 660 Output Total 700 / 700 Balance 2440 / 2440 2780 / 2780 660 / 660 Lab / Micro Data Result Diagrams: 07/04/22 04:17 07/04/22 04:17 Labs: Laboratory Results - last 24 hr 07/04/22 04:17: WBC 4.0 L, RBC 4.00 L, Hgb 11.9 L, Hct 36.6 L, MCV 91.5, MCH 29 .8, MCHC 32.5, RDW Std Deviation 53.6 H, RDW Coeff of Amrita 15.9 H, Plt Count 145 L, MPV 10.8, Immature Gran % (Auto) 0.200, Neut % (Auto) 74.6 H, Lymph % (Auto) 17.5 L, [place] % (Auto) 7.5, Eos % (Auto) 0.0, Baso % (Auto) 0.2, Absolute Neuts (auto) 3.0, Absolute Lymphs (auto) 0.70 L, Nucleated RBC % 0, Platelet Estimate SLT DEC, Anisocytosis 1+ 07/04/22 04:17: Sodium 140, Potassium 3.7, Chloride 109 H, Carbon Dioxide 25.0, Anion Gap 6, BUN 26 H, Creatinine 0.68 L, Estim Creat Clear Calc 61.51, Est GFR (MDRD) Af Amer 147, Est GFR (MDRD) Non-Af 121, BUN/Creatinine Ratio 38.2 H, Glucose 143 H, Calcium 7.7 L Micro: Microbiology 07/02/22 19:54 Sputum, Expectorated/Coughed Gram Stain - Final 07/02/22 19:54 Sputum, Expectorated/Coughed Respiratory Culture - Preliminary Appears to be normal respiratory [place]. Further studies to follow. 07/01/22 17:20 Mucosa - Nasopharyngeal Respiratory Panel (PCR) - Final RSV A 07/01/22 18:10 Urine Catheter - Jeffrey Legionella Antigen - Final 07/01/22 18:10 Urine Catheter - Jeffrey Streptococcus pneumoniae Antigen (M - Final 07/01/22 11:39 Interface Orders Rapid RSV (DFA) - Final RSV Antigen 07/01/22 11:40 Nasal Secretion SARS-CoV-2 & FLU Antigen (Rapid) - Final Physical Exam Narrative General: Alert, Oriented x3, Cooperative, No apparent distress HEENT: Atraumatic, PERRLA, EOMI, Normocephalic Oral: Moist Mucosa Neck: Supple, No JVD Lungs: Managed, Normal air movement, No rhonchi, wheeze, No rales Cardiovascular: Regular rate, Regular Rhythm, Normal S1, Normal S2, No murmurs Abdomen: Soft, Non Tender, Non-Distended, No Hepato-splenomegaly Extremities: No edema, Capillary Refill Less than 3 Seconds Skin: No rashes, No breakdown Musculoskeletal: No Tenderness to Palpation of Joints or Extremities Neurological: Cranial nerves II-XII grossly intact, Motor Exam 5/5 strength throughout, Sensory exam intact to light touch and pain Psych/Mental Status: Normal Affect, Appropriate Assessment & Plan Assessment/Plan (1) RSV bronchitis: (2) Rhabdomyolysis: (3) Elevated troponin: PLAN: Plan 1. Acute hypoxic respiratory failure secondary to bronchitis from RSV/rhabdomyolysis?resolved ? Currently on 2 L nasal cannula, will give him some Lasix ? Continue Solu-Medrol and inhalers, he does state that albuterol does help with his breathing ? Elevated cardiac enzymes are likely related to high cocci and elevated creatinine kinase. No chest pain, echo is pending 2. HTN/HLD/CAD status post CABG and stents/paroxysmal A. fib/chronic systolic CHF ? Blood pressures are stable, will continue with his home medications ? Continue with his aspirin and his statin ? He has been having frequent falls at home so he is not a anticoagulation candidate 3. Multiple myeloma ? He is on chemotherapy which she can resume on discharge ? Follow-up with oncology as an outpatient DVT: [place] Charges/Coding Visit Charges Inpatient E&M: 83196 Subs Hosp L2
--- NOTE | 2022-07-04 15:30 | CASEMGMT ---
Per Araceli RN, pt does not qualify for home oxygen for discharge. CM to follow for any further discharge planning/needs. Francis COVINGTON CM
[2022-07-04] MEDS: MELATONIN 10 MG TABLET PO (20:58)
[2022-07-05] VITALS (9 sets, daily range): BP systolic 133–154; BP diastolic 66–74; PULSE 46–67; RESP 16–20; TEMP 36.4–36.5; O2SAT 95–98
[2022-07-05 05:18] LABS: Absolute Neutrophil Count 3.1 X10^3/uL (2.0-7.7); Hematocrit 37.1 % (40-54); Hemoglobin 12.5 g/dL (13.0-16.5); Lymphocyte % 13.1 % (19-41); Mean Corp Hgb Conc 33.7 g/dL (32-36); Mean Corpuscular Hgb 30.6 pg (27.0-32.0); Mean Corpuscular Volume 90.7 fL (80-94); Monocyte# 0.26 X10^3/uL; Monocyte% 6.8 % (0-10); NRBC Flagged by Analyzer 0 % (0-5); Neutrophil # 3.06 X10^3/uL (2.7-7.7); Neutrophil % 79.8 % (47-70); POSITIVE DIFFERENTIAL YES; POSITIVE MORPHOLOGY YES; Platelet Count 156 K/mm3 (150-450); RBC Distribution Width CV 15.4 % (11.6-14.6); RBC Distribution Width SD 51.4 fl (35.1-43.9); Red Blood Count 4.09 M/mm3 (4.6-6.2); White Blood Count 3.8 K/mm3 (4.4-11.0)
[2022-07-05 05:24] LABS: Differential Indicated SCAN CRITERIA MET
[2022-07-05] MEDS: Gabapentin 600 MG Tablet PO (05:25)
[2022-07-05 05:39] LABS: Anion Gap 8 (5-15); BUN 22 mg/dL (7-18); BUN/Creat Ratio 33.7 RATIO (10-20); Calcium,Total 7.7 mg/dL (8.5-10.1); Chloride 107 mmol/L (98-107); Creatinine, Serum 0.65 mg/dL (0.70-1.30); EST Glomerular Filtration Rate 127 mL/min (>60); Est Glom Filt Rate - Afr Amer 154 mL/min (>60); Estimated Creatinine Clearance 61.51 ml/min; Glucose 143 mg/dL (74-106); Potassium 3.3 mmol/L (3.5-5.1); Sodium Level 141 mmol/L (136-145)
[2022-07-05 05:46] LABS: Differential Comment SCANNED
[2022-07-05] MEDS: Ipratropium/Albuterol Sulfate 3 ML AMPUL.NEB INHALATION ×2 (07:00→10:51)
[2022-07-05] MEDS: Enoxaparin 40 MG/0.4 ML Syringe SC (08:59)
[2022-07-05] MEDS: Atorvastatin Calcium 40 MG Tablet PO (08:59)
[2022-07-05] MEDS: Aspirin E.C. 81 MG Tablet PO (08:59)
[2022-07-05] MEDS: Lisinopril 5 MG Tablet PO (08:59)
[2022-07-05] MEDS: Isosorbide Mononitrate 60 MG Tablet PO (08:59)
[2022-07-05] MEDS: Furosemide 20 MG/2 ML VIAL IV (08:59)
[2022-07-05] MEDS: 0.9% Saline Lock 10 ML Syringe IV (09:00)
[2022-07-05] MEDS: Metoprolol Tartrate 25 MG Tablet PO (09:04)
--- NOTE | 2022-07-05 09:24 | DCINST_ITS ---
Discharge Instructions Diet Discharge Diet: Low fat / Low cholesterol Activity Discharge Activity: Return to Normal Activity Dressing / Incision Call your doctor if you observe: Fever of 101 or Higher, Shortness of breath, Dizziness, Fainting spells, Swelling in the ankles, Chest pain and Increased palpitations (irregular heartbeat) Follow Up Care Test Results: Test results from this visit will be discussed in further detail at your follow- up appointment, if applicable. Discharge Plan Admission Admit Date/Time: 07/01/22 13:28 Attending Provider: Doug Gomez Primary Care Provider: Andrea Tello Consulting Providers: Mica Yip ; Jaimee Mcintosh Discharge Orders/Prescriptions Prescriptions: New prednisone 20 mg tablet 40 mg PO DAILY Qty: 14 0RF albuterol sulfate 90 mcg/actuation aerosol powdr breath activated 2 inh inhalation Q6H PRN (Reason: shortness of breath) Qty: 1 0RF Continued nitroglycerin 0.4 mg tablet, sublingual 0.4 mg sublingual Q5-15M PRN (Reason: chest pain) Qty: 25 4RF Rx Instructions: use one sub lingual every 5 min to maximum of three doses as needed for chest pain gabapentin 600 mg tablet 1,200 mg PO TID atorvastatin 40 mg tablet 40 mg PO DAILY aspirin 81 mg tablet,delayed release (DR/EC) 81 mg PO DAILY@0800 Rx Instructions: Take 1 capsule daily for 21 days on then off 7 days. Every 28 days. isosorbide mononitrate 60 mg tablet extended release 24 hr 60 mg PO DAILY lisinopril 5 mg tablet 5 mg PO DAILY sildenafil 50 mg tablet 50 mg PO PRN PRN (Reason: Erectile Dysfunction) Label Comments: 1 TABLET ORALLY DAILY NEEDED, 30MIN BEFORE INTERCOURSE nabumetone 500 mg Tablet 500 - 1,000 mg PO BID PRN (Reason: Muscle Spasm) metoprolol tartrate 25 mg tablet 25 mg PO BID Label Comments: TAKE 1 TABLET BY MOUTH TWICE A DAY Pomalyst 4 mg capsule See Rx Instructions .ROUTE .COMPLEX Qty: 21 0RF Dose Instruction: TAKE 1 CAPSULE DAILY FOR 21 DAYS ON, THEN 7 DAYS OFF EVERY 28 DAYS. Rx Instructions: TAKE 1 CAPSULE DAILY FOR 21 DAYS ON, THEN 7 DAYS OFF EVERY 28 DAYS. Held dexamethasone 4 mg tablet 4 mg PO QWEEK Hold Instructions: Resume on 07/18/22. Label Comments: 5 TABLETS BY MOUTH ONCE WEEKLY monday Referrals / Follow Up: Andrea Tello MD [Primary Care Provider] - Within 1 Week Disposition Disposition (needs filled in before D/C Order can be placed): Home, Self Care
--- NOTE | 2022-07-05 09:40 | PHA.DC.MR ---
Pharmacy Service has performed discharge medication reconciliation for this patient. The patient's discharge medication list was reviewed for discrepancies and discrepancies were resolved. Home Medications gabapentin 600 mg tablet 1,200 mg PO TID NERVE PAIN 06/15/21 nitroglycerin 0.4 mg sublingual tablet 0.4 mg sublingual Q5-15M PRN chest pain #25 tabs 01/13/22 aspirin 81 mg tablet,delayed release 81 mg PO DAILY@0800 Check with primary doctor 04/11/22 atorvastatin 40 mg tablet 40 mg PO DAILY Check with primary doctor 04/11/22 isosorbide mononitrate 60 mg tablet,extended release 24 hr 60 mg PO DAILY heart 04/11/22 lisinopril 5 mg tablet 5 mg PO DAILY BP 04/11/22 Pomalyst 4 mg capsule (pomalidomide) See Rx Instructions .Route .COMPLEX #21 CAPSULES 05/18/22 dexamethasone 4 mg tablet 4 mg PO QWEEK steroid 07/01/22 metoprolol tartrate 25 mg tablet 25 mg PO BID HTN 07/01/22 nabumetone 500 mg tablet 500 - 1,000 mg PO BID PRN Muscle Spasm 07/01/22 sildenafil 50 mg tablet 50 mg PO PRN PRN Erectile Dysfunction 07/01/22 albuterol sulfate 90 mcg/actuation breath activated powder inhaler 2 inh inhalation Q6H PRN shortness of breath #1 ea 07/05/22 prednisone 20 mg tablet 40 mg PO DAILY #14 tabs 07/05/22
--- NOTE | 2022-07-05 10:15 | CASEMGMT ---
Pt declines any further therapy at discharge and is aware he can contact PCP if he changes his mind once home. Pt does not need any home oxygen at discharge and voices no further questions/concerns/needs. Francis COVINGTON CM
--- NOTE | 2022-07-05 10:32 | PCM.DC.SUM ---
Providers Date of Admission: 07/01/22 Primary Care Physician: Dr. Andrea Tello MD Reason For Visit: HYPOXIA, RSV BRONCHITIS, RHABDO,LACTIC ACIDOSIS Diagnosis Discharge Diagnosis (1) RSV bronchitis: Status: Acute Code(s): J20.5 - Acute bronchitis due to respiratory syncytial virus (2) Rhabdomyolysis: Status: Acute Code(s): M62.82 - Rhabdomyolysis (3) Elevated troponin: Status: Acute Code(s): R77.8 - Other specified abnormalities of plasma proteins Plan 1. Acute hypoxic respiratory failure secondary to bronchitis from RSV/rhabdomyolysis?resolved ? Currently on 2 L nasal cannula, will give him some Lasix ? Continue Solu-Medrol and inhalers, he does state that albuterol does help with his breathing ? Elevated cardiac enzymes are likely related to high cocci and elevated creatinine kinase. No chest pain, echo is pending 2. HTN/HLD/CAD status post CABG and stents/paroxysmal A. fib/chronic systolic CHF ? Blood pressures are stable, will continue with his home medications ? Continue with his aspirin and his statin ? He has been having frequent falls at home so he is not a anticoagulation candidate 3. Multiple myeloma ? He is on chemotherapy which she can resume on discharge ? Follow-up with oncology as an outpatient DVT: Lovenox Medications at Discharge Home Medications gabapentin 600 mg tablet 1,200 mg PO TID NERVE PAIN 06/15/21 nitroglycerin 0.4 mg sublingual tablet 0.4 mg sublingual Q5-15M PRN chest pain #25 tabs 01/13/22 aspirin 81 mg tablet,delayed release 81 mg PO DAILY@0800 Check with primary doctor 04/11/22 atorvastatin 40 mg tablet 40 mg PO DAILY Check with primary doctor 04/11/22 isosorbide mononitrate 60 mg tablet,extended release 24 hr 60 mg PO DAILY heart 04/11/22 lisinopril 5 mg tablet 5 mg PO DAILY BP 04/11/22 Pomalyst 4 mg capsule (pomalidomide) See Rx Instructions .Route .COMPLEX #21 CAPSULES 05/18/22 dexamethasone 4 mg tablet 4 mg PO QWEEK steroid 07/01/22 metoprolol tartrate 25 mg tablet 25 mg PO BID HTN 07/01/22 nabumetone 500 mg tablet 500 - 1,000 mg PO BID PRN Muscle Spasm 07/01/22 sildenafil 50 mg tablet 50 mg PO PRN PRN Erectile Dysfunction 07/01/22 albuterol sulfate 90 mcg/actuation breath activated powder inhaler 2 inh inhalation Q6H PRN shortness of breath #1 ea 07/05/22 prednisone 20 mg tablet 40 mg PO DAILY #14 tabs 07/05/22 Hospital Course Operations None Procedures 2-D Echocardiogram Summary of Care Provided Minutes Spent on Discharge: 42 Hospital Course: Per HPI: The patient is a 72 y/o M w/ PMHx: CKD stage III unclear subtype, JESUS on CPAP, PAF, CAD, GERD, Hx L sided Olvera's palsy, Hx EtOH abuse/recovered, Multiple myeloma following w/ Dr. Proctor, Chronic Systolic CHF, CAD s/p CABG and PCI, Tobacco use who presents to the [facility] ED on 07/01/22 with history of onset of fatigue, malaise, nausea, emesis, occasional loose stool, fevers and chills as well as frontal mild throbbing headache in addition to nonproductive cough and dyspnea starting over the last several days however on day of presentation patient found on the bathroom floor disheveled and covered in stool and feces reportedly per EMS hypoxic in the 80s and febrile currently on chemotherapy. Patient notes having been so weak he laid on the bathroom floor the evening prior and denies specifically LOC. He does report that the diarrhea has subsided over the last 24-48 hours. Work-up in the ED included T102.4, heart rate 116, BP 201/120, respiratory rate 26, initially 87% on room air with most recent vital signs T103.1, heart rate 105, BP 155/89, respiratory rate 27, 93% oxygenation on 2 L nasal cannula, CBC with WC 9.5, hemoglobin 16.4, platelet 213 with left shift and lymphopenia, unremarkable coags, BMP with sodium 134, BUN/creatinine 20/1.16, glucose 129, T bili 2.0, D bili 0.16, AST/LT 72/32, alk phos 70, total creatinine kinase 2222, lactic acid 2.6, troponin initial 93, lipase 55, urinalysis with specific remedy 1.015, protein 500, urine ketone 150, occult blood 250, negative nitrite, leukocyte Estrace 25, CT of the brain with chronic involutional changes and worsening multiple myeloma with specifically increase in size and number of innumerable lytic lesions of the skull, CT cervical spine with no acute fracture or subluxation, chest x-ray with no acute cardiopulmonary findings, RSV antigen rapid positive, rapid SARS and influenza antigens negative.? In the ED patient ministered normal saline bolus 1 L, Tylenol 1000 mg p.o. x1, DuoNeb therapy and Zofran 4 mg IV x1. Hospital Course: 1. Acute hypoxic respiratory failure secondary to bronchitis from RSV/rhabdomyolysis?resolved?72-year-old male presented to the hospital with shortness of breath. He was found to have RSV and was treated with steroids and breathing treatments. He has improved but he had much more significant improvement with the addition of Lasix over the last 2 days and he is currently off of oxygen. He did have an ambulatory pulse ox prior to discharge which was negative for needing any oxygen on discharge. I discussed with him the possibility for discharge today and he expressed understanding of the risks and benefits of is going home and he wants to go home today. He feels much better today than when he came into the hospital. He had an echo on this admission which is unchanged from the echo he had 4 months ago. We will plan to discharge him with an albuterol inhaler as well as a weeks worth of prednisone and I do recommend that he follow-up with his PCP this week if possible 2. Hypertension, hyperlipidemia, CAD status post CABG and stents, paroxysmal A. fib, chronic systolic CHF, multiple myeloma all chronic medical conditions which complicate his care. His home medications were continued where appropriate Physical Exam Narrative General: Alert, Oriented x3, Cooperative, No apparent distress HEENT: Atraumatic, PERRLA, EOMI, Normocephalic Oral: Moist Mucosa Neck: Supple, No JVD Lungs: Managed, Normal air movement, No rhonchi, wheeze, No rales Cardiovascular: Regular rate, Regular Rhythm, Normal S1, Normal S2, No murmurs Abdomen: Soft, Non Tender, Non-Distended, No Hepato-splenomegaly Extremities: No edema, Capillary Refill Less than 3 Seconds Skin: No rashes, No breakdown Musculoskeletal: No Tenderness to Palpation of Joints or Extremities Neurological: Cranial nerves II-XII grossly intact, Motor Exam 5/5 strength throughout, Sensory exam intact to light touch and pain Psych/Mental Status: Normal Affect, Appropriate Weight / BMI Weight Weight: 188 lb 4.396 oz Body Mass Index (BMI) 29.4 ABG / Lab / Microbiology Data Result Diagrams: 07/05/22 04:03 07/05/22 04:03 Laboratory: Laboratory Results - last 24 hr 07/05/22 04:03: WBC 3.8 L, RBC 4.09 L, Hgb 12.5 L, Hct 37.1 L, MCV 90.7, MCH 30.6, MCHC 33.7, RDW Std Deviation 51.4 H, RDW Coeff of Amrita 15.4 H, Plt Count 156, MPV 11.0, Immature Gran % (Auto) 0.300, Neut % (Auto) 79.8 H, Lymph % (Auto) 13.1 L, [place] % (Auto) 6.8, Eos % (Auto) 0.0, Baso % (Auto) 0.0, Absolute Neuts (auto) 3.1, Absolute Lymphs (auto) 0.50 L, Nucleated RBC % 0, Differential Comment SCANNED, Diff Path Review November foll 07/05/22 04:03: Sodium 141, Potassium 3.3 L, Chloride 107, Carbon Dioxide 26.0, Anion Gap 8, BUN 22 H, Creatinine 0.65 L, Estim Creat Clear Calc 61.51, Est GFR (MDRD) Af Amer 154, Est GFR (MDRD) Non-Af 127, BUN/Creatinine Ratio 33.7 H, Glucose 143 H, Calcium 7.7 L Microbiology: Microbiology 07/02/22 19:54 Sputum, Expectorated/Coughed Gram Stain - Final 07/02/22 19:54 Sputum, Expectorated/Coughed Respiratory Culture - Final 07/01/22 17:20 Mucosa - Nasopharyngeal Respiratory Panel (PCR) - Final RSV A 07/01/22 18:10 Urine Catheter - Jeffrey Legionella Antigen - Final 07/01/22 18:10 Urine Catheter - Jeffrey Streptococcus pneumoniae Antigen (M - Final 07/01/22 11:39 Interface Orders Rapid RSV (DFA) - Final RSV Antigen 07/01/22 11:40 Nasal Secretion SARS-CoV-2 & FLU Antigen (Rapid) - Final Radiography Diagnostic Testing: Radiology Impression Echocardiogram 07/04/22 05:55 Interpretation Summary Normal LV size. The estimated ejection fraction is 45 %. Mild to moderate segmental systolic dysfunction (see wall motion). [place] : Akinetic. Mild (1+) eccentric mitral valve insufficiency. Pulmonary artery systolic pressure is 38 mmHg. Contrast injection was performed. Compared to previous study, the left ventricular systolic function is the same.. Ordering Physician: Jaimee Mcintosh Referring Physician: Andrea Tello Performed By: Elvie Osborn, MEGHNA, RVT D/C Instructions Discharge Diet: Low fat / Low cholesterol Call your doctor if you observe: Fever of 101 or Higher, Shortness of breath, Dizziness, Fainting spells, Swelling in the ankles, Chest pain and Increased palpitations (irregular heartbeat) Meaningful Use Info Meaningful Use Diagnoses (Choose all that apply): None applicable Discharge Plan Admission Admit Date/Time: 07/01/22 13:28 Attending Provider: Doug Gomez Primary Care Provider: Andrea Tello Consulting Providers: Mica Yip ; Jaimee Mcintosh Discharge Orders/Prescriptions Prescriptions: New prednisone 20 mg tablet 40 mg PO DAILY Qty: 14 0RF albuterol sulfate 90 mcg/actuation aerosol powdr breath activated 2 inh inhalation Q6H PRN (Reason: shortness of breath) Qty: 1 0RF Continued nitroglycerin 0.4 mg tablet, sublingual 0.4 mg sublingual Q5-15M PRN (Reason: chest pain) Qty: 25 4RF Rx Instructions: use one sub lingual every 5 min to maximum of three doses as needed for chest pain gabapentin 600 mg tablet 1,200 mg PO TID atorvastatin 40 mg tablet 40 mg PO DAILY aspirin 81 mg tablet,delayed release (DR/EC) 81 mg PO DAILY@0800 Rx Instructions: Take 1 capsule daily for 21 days on then off 7 days. Every 28 days. isosorbide mononitrate 60 mg tablet extended release 24 hr 60 mg PO DAILY lisinopril 5 mg tablet 5 mg PO DAILY sildenafil 50 mg tablet 50 mg PO PRN PRN (Reason: Erectile Dysfunction) Label Comments: 1 TABLET ORALLY DAILY NEEDED, 30MIN BEFORE INTERCOURSE nabumetone 500 mg Tablet 500 - 1,000 mg PO BID PRN (Reason: Muscle Spasm) metoprolol tartrate 25 mg tablet 25 mg PO BID Label Comments: TAKE 1 TABLET BY MOUTH TWICE A DAY Pomalyst 4 mg capsule See Rx Instructions .ROUTE .COMPLEX Qty: 21 0RF Dose Instruction: TAKE 1 CAPSULE DAILY FOR 21 DAYS ON, THEN 7 DAYS OFF EVERY 28 DAYS. Rx Instructions: TAKE 1 CAPSULE DAILY FOR 21 DAYS ON, THEN 7 DAYS OFF EVERY 28 DAYS. Held dexamethasone 4 mg tablet 4 mg PO QWEEK Hold Instructions: Resume on 07/18/22. Label Comments: 5 TABLETS BY MOUTH ONCE WEEKLY monday Referrals / Follow Up: Andrea Tello MD [Primary Care Provider] - 07/15/22 10:10 am Disposition Disposition (needs filled in before D/C Order can be placed): Home, Self Care Charges/Coding Visit Charges Inpatient E&M: 00054 Disch Hosp
--- NOTE | 2022-07-05 11:02 | NURSING ---
called Dr Rivas office regarding chemo med. they recommend pt to go ahead and take the rest of what he has when he goes home and then take 7 days off. they reported that they will call him to set up a follow up appointment.
[2022-07-05] MEDS: Potassium Chloride Oral Tablet 20 MEQ 40 MEQ PO (12:13)
[2022-07-06 09:36] LABS: Pathologist Review Reviewed
== END 2022-07-05 13:42 | disposition home or self-care (01) | DRG 202 ==
LOC: ED 13:08 → PCU 13:52
PROVIDERS: Student in an Organized Health Care Education/Training Program; Admitting Provider Family Medicine; Emergency Provider Emergency Medicine; PCP Family Medicine; Visit Provider Family Medicine
DX: J20.5 Acute bronchitis due to respiratory syncytial virus (principal); J96.01 Acute respiratory failure with hypoxia; I13.0 Hypertensive heart and chronic kidney disease with heart failure and stage 1 through stage 4 chronic kidney disease, or unspecified chronic kidney disease; D68.59 Other primary thrombophilia; M62.82 Rhabdomyolysis; E87.21 Acute metabolic acidosis; I50.22 Chronic systolic (congestive) heart failure; C90.00 Multiple myeloma not having achieved remission; I48.0 Paroxysmal atrial fibrillation; N18.30 Chronic kidney disease, stage 3 unspecified; I25.10 Atherosclerotic heart disease of native coronary artery without angina pectoris; E78.00 Pure hypercholesterolemia, unspecified; G47.33 Obstructive sleep apnea (adult) (pediatric); F17.210 Nicotine dependence, cigarettes, uncomplicated; K21.9 Gastro-esophageal reflux disease without esophagitis; Z79.82 Long term (current) use of aspirin; Z20.822 Contact with and (suspected) exposure to COVID-19; Z79.899 Other long term (current) drug therapy; Z95.1 Presence of aortocoronary bypass graft
CPT/HCPCS: 36415; 51702; 70450; 71045; 72125; 80048; 80053; 80061; 80076; 81001; 82550; 83605; 83690; 83735; 84100; 84145; 84484; 85025; 85610; 85730; 87070; 87205; 87428; 87449; 87633; 87807; 93005; 93306; 94640; 97110; 97116; 97162; 97165; 97530; 97535; 99251; 99285; J7030; Q9957; A4216; C8929; G0463; J1940; J2405

== ENCOUNTER → 2023-03-06 | Outpatient (CLI) | payer MEDICARE, OTHER, SELFPAY ==
[2023-03-06 12:22] LABS: Absolute Lymphocyte Count 0.87 X10^3/uL (0.83-4.51); Absolute Neutrophil Count 1.2 X10^3/uL (2.0-7.7); Basophil% 5.6 % (0-1); Eosinophil# 0.56 X10^3/uL; Eosinophils% 15.6 % (0-5); Hematocrit 42.4 % (40-54); Hemoglobin 14.6 g/dL (13.0-16.5); Lymphocyte # 0.87 X10^3/ul (0.83-4.51); Lymphocyte % 24.2 % (19-41); Mean Corp Hgb Conc 34.4 g/dL (32-36); Mean Corpuscular Hgb 30.2 pg (27.0-32.0); Mean Corpuscular Volume 87.8 fL (80-94); Mean Platelet Vol. 10.6 fl (6.2-12.0); Monocyte# 0.73 X10^3/uL; Monocyte% 20.3 % (0-10); NRBC Flagged by Analyzer 0 % (0-5); Neutrophil % 33.2 % (47-70); Platelet Count 141 K/mm3 (150-450); RBC Distribution Width CV 15.2 % (11.6-14.6); Red Blood Count 4.83 M/mm3 (4.6-6.2); White Blood Count 3.6 K/mm3 (4.4-11.0)
[2023-03-06 12:48] LABS: ALB/GLOB Ratio 1.1 RATIO (0.9-2.4); AST(SGOT) 14 U/L (15-37); Alanine Aminotransfer ALT/SGPT 23 U/L (16-61); Albumin, Serum 3.7 g/dL (3.2-5.0); Alkaline Phosphatase 82 U/L (45-117); Anion Gap 3 (5-15); BUN 19 mg/dL (7-18); BUN/Creat Ratio 21.5 RATIO (10-20); Calcium,Total 9.2 mg/dL (8.5-10.1); Chloride 109 mmol/L (98-107); Creatinine, Serum 0.88 mg/dL (0.70-1.30); EST Glomerular Filtration Rate 90 mL/min (>60); Est Glom Filt Rate - Afr Amer 108 mL/min (>60); Globulin 3.3 g/dL (2.2-4.2); Glucose 107 mg/dL (74-106); Potassium 4.2 mmol/L (3.5-5.1); Sodium Level 139 mmol/L (136-145)
--- NOTE | 2023-03-06 13:27 | CT_ITS ---
INDICATION: periumbilical pain x 2 weeks -- IV and oral contrast EXAMINATION: CT ABDOMEN WITH IV CONTRAST CT Abdomen W/ Contrast Injection TECHNIQUE: Helically acquired images were obtained of the abdomen following IV contrast. A radiation dose optimization technique was used for this scan. IV Contrast dosage and agent: 100 cc of Isovue-300. Oral contrast: None. RADIATION DOSAGE (If Supplied By Facility): CTDIvol = ( 16.98 ) mGy, DLP = ( 878.83 ) mGycm COMPARISON: Prior CT scan of the abdomen and pelvis of 04/11/2022. FINDINGS: LOWER CHEST: Essentially unremarkable. No cardiomegaly or pericardial effusion. LIVER: Fatty steatosis. Calcified granulomata. No focal mass. GALLBLADDER AND BILIARY TREE: Contracted gallbladder with solitary gallstone. Prominent common bile duct and proximal pancreatic duct. No definite retained stone. PANCREAS: No focal cystic or solid mass. SPLEEN: Calcified granulomata spleen. ADRENAL GLANDS: No nodules. KIDNEYS AND URETERS: Stable 7 cm bilateral renal cysts appears to be simple and no further follow-up exam is needed. No hydronephrosis. PERITONEUM: No ascites or free air. No other fluid collection. BOWEL: No evidence of acute appendicitis. Normal in caliber small bowel loops. Duodenal diverticulum is again seen. Fecal retention. Diverticulosis of the sigmoid colon without evidence of acute diverticulitis. LYMPH NODES: No enlarged mesenteric or retroperitoneal lymph nodes. VESSELS: Atherosclerotic calcifications of the abdominal aorta without evidence of aneurysm. ABDOMINAL WALL: No discrete abdominal wall hernia. BONES: Expansile lytic lesion in the left ilium unchanged prior examinations. The stability of the lesions consistent with benign process. CT/Abdomen WITH IV Contrast IMPRESSION: 1. No focal acute inflammatory process. 2. Large gallstone unchanged. 3. Diverticulosis without evidence of acute diverticulitis. Electronically Signed: Cade Shipley MD at 11:49 EDT ,
[2023-03-06 19:27] LABS: Xtra Tube EP Lab EXTRA TUBE
[2023-03-07 15:08] LABS: Albumin 3.9 g/dL (2.9-4.4); Alpha-1-Globulins 0.3 g/dL (0.0-0.4); Alpha-2-Globulins 0.8 g/dL (0.4-1.0); Free Kappa Light Chains 40.6 mg/L (3.3-19.4); Free Lambda Light Chains 24.7 mg/L (5.7-26.3); Immunoglobulin A 120 mg/dL (61-437); Immunoglobulin G 946 mg/dL (603-1613); Immunoglobulin M 29 mg/dL (15-143); PROEL- TOTAL PROTEIN 6.8 g/dL (6.0-8.5)
== END | disposition home or self-care (01) ==
PROVIDERS: PCP Family Medicine; Referring Provider Nurse Practitioner Family; Visit Provider Nurse Practitioner Family
DX: R10.33 Periumbilical pain (principal); C90.00 Multiple myeloma not having achieved remission; R17 Unspecified jaundice
CPT/HCPCS: 36415; 74160; 80053; 82784; 83883; 84165; 85025; 86334; Q9967

== ENCOUNTER → 2023-08-17 | Outpatient (CLI) | payer MEDICARE, OTHER, SELFPAY ==
[2023-08-17 16:37] LABS: Vitamin B12 1266 pg/mL (211-911)
[2023-08-17 16:50] LABS: Cholesterol 158 mg/dL (200); High Density Lipoprotein 43 mg/dL; T4 Free Direct 1.07 ng/dL (0.76-1.46); Thyroid Stim Hormone (TSH) 2.44 uIU/mL (0.358-3.74); Triglycerides 134 mg/dL; Very Low Density Lipoprotein 27 mg/dL (5-40)
== END | disposition home or self-care (01) ==
LOC: BIMLAB 14:16
PROVIDERS: PCP Nurse Practitioner; Referring Provider Nurse Practitioner; Visit Provider Nurse Practitioner
DX: I25.10 Atherosclerotic heart disease of native coronary artery without angina pectoris (principal); R41.3 Other amnesia
CPT/HCPCS: 36415; 80061; 82607; 84439; 84443

== ENCOUNTER → 2023-08-29 | Outpatient (CLI) | payer MEDICARE, OTHER, SELFPAY ==
--- NOTE | 2023-08-29 10:13 | MRI_ITS ---
STUDY: MRI BRAIN WITHOUT CONTRAST REASON FOR EXAM: Male, 73 years old. memory loss, syncope TECHNIQUE: Standardized multiplanar fat and water weighted pulse sequences were obtained. COMPARISON: Head CT dated July 01, 2022 FINDINGS: There is mild cerebral atrophy with widening of the extra-axial spaces and ventricular dilatation. There are multiple white matter hyperintensities, distributed throughout the deep white matter tracts of the cerebral hemispheres, consistent with moderate chronic white matter ischemic changes. There is no evidence for recent intracranial ischemia or other cause of cytotoxic edema on diffusion weighted imaging (DWI). Normal T2* images of the brain without demonstrated susceptibility artifact. There is no demonstrated hemosiderin stain. Normal bilateral basal ganglia. Normal thalami. There is no extra-axial fluid accumulation. Normal flow voids within the major intracranial circulation suggesting patency by spin echo criteria. Normal sella turcica, pituitary gland, infundibular stalk, optic chiasm and hypothalamus. Normal tectal plate and pineal gland. Normal midbrain, ara and medulla. Normal cerebellum. Normal basal cisterns. Normal bilateral temporal bones. Normal bilateral internal auditory canals. No demonstrated orbital abnormality, within the constraints of a routine brain study. Normal visualized paranasal sinuses. Redemonstration of extensive small rounded lytic lesions of the skull in this patient with a known history of multiple myeloma. No large or obvious brain parenchymal lesion is seen. Postcontrast imaging can be performed to evaluate for the possibility of occult metastatic disease to the brain of this is of concern. Normal visualized soft tissue structures. Normal visualized upper cervical spine. MRI/Brain without Contrast IMPRESSION: 1. Redemonstration of extensive small rounded lytic lesions of the skull in this patient with a known history of multiple myeloma. No large or obvious brain parenchymal lesion is seen. Postcontrast imaging can be performed to evaluate for the possibility of occult metastatic disease to the brain of this is of concern. 2. Involutional and chronic ischemic changes of the brain, as described above. Electronically Signed: Keanu Lujan MD at 11:43 EST ,
--- OUTSIDE RECORDS SUMMARY | 2023-08-29 10:46 | XMS RPT_ITS | CCD ---
Author Name Unknown Address [facility] [place] [address] Organization [facility] Care Team Providers Care System Controller Name Role Phone Elisha PULIDO, Andrea Abebe Primary Care Provider Allergies Allergy Classification Reported Allergen(s) Allergy Type Date of Onset Reaction(s) Facility (2 sources) Metoprolol Drug Allergy 12-10-2008 Intolerance [facility] (2 sources) Morphine Drug Allergy 02-22-2019 Other: See Comments [facility] Medications Completed/Discontinued Medications Medication Drug Class(es) Dates Sig (Normalized) Sig (Original) acetaminophen 325 mg / HYDROcodone bitartrate 5 mg oral tablet (2 sources) Opioid Agonist Start: 03-29-2019 take 1 tablet by mouth every eight hours as needed HYDROcodone-acetam inophen (NORCO) 5-325 mg per tablet Indications: Multiple myeloma in remission (HCC) , Chronic use of opiate drug for therapeutic purpose , Encounter for palliative care Take 1 tablet by mouth every 8 hours as needed for up to 30 days. Max 3/day 90 tablet 0 03/29/2019 Active Problems Active Problems Problem Classification Problem Date Documented Date Episodic/Chronic Coronary atherosclerosis and other heart disease (2 sources) Chronic ischemic heart disease; Translations: [Chronic ischemic heart disease, unspecified] 06-03-2009 Chronic Disorders of lipid metabolism (2 sources) Mixed hyperlipidemia; Translations: [Mixed hyperlipidemia] 06-05-2007 Chronic Essential hypertension (2 sources) Benign essential hypertension; Translations: [Essential (primary) hypertension] Onset: 06-05-2007 06-05-2007 Chronic Multiple myeloma (2 sources) Multiple myeloma; Translations: [Multiple myeloma not having achieved remission] 10-13-2015 Chronic Neoplasms of unspecified nature or uncertain behavior (2 sources) Immunosecretory disorder; Translations: [Monoclonal gammopathy] Onset: 11-19-2008 11-19-2008 Chronic Other inflammatory condition of skin (2 sources) Psoriasis; Translations: [Other psoriasis] Onset: 09-28-2007 09-28-2007 Chronic Other lower respiratory disease (1 source) Cough; Translations: [Cough] Episodic Other non-epithelial cancer of skin (2 sources) Malignant neoplasm of skin; Translations: [Other and unspecified malignant neoplasm of skin, site unspecified] 06-05-2007 Episodic Other nutritional; endocrine; and metabolic disorders (2 sources) Obesity; Translations: [Obesity, unspecified] 06-05-2007 Chronic Unclassified (2 sources) Open fracture of bone; Translations: [Open fracture of distal phalangeal tuft] Onset: 10-11-2011 10-11-2011 Past or Other Problems Problem Classification Problem Date Documented Da te Episodic/Chronic Other screening for suspected conditions (not mental disorders or infectious disease) (2 sources) Raised prostate specific antigen; Translations: [Elevated prostate specific antigen [PSA]] Onset: 11-18-2008 11-19-2008 Episodic Results Test Name Value Interpretation Reference Range Facil ity Vital Signs Date Time Vital Sign Value Performing Clinician Faci lity 10-26-2021 12:20-0400 Body temperature 98.1 [degF] Jose Garzon APRN.DENTAL EQUIPMENT REPAIRER Work Phone: [facility] 10-26-2021 12:20-0400 Body weight 89.27 kg Jose Garzon APRN.DENTAL EQUIPMENT REPAIRER Work Phone: [facility] 10-26-2021 12:20-0400 Diastolic blood pressure 82 mm[Hg] Jose Garzon WELFARE DIRECTOR.DENTAL EQUIPMENT REPAIRER Work Phone: [facility] 10-26-2021 12:20-0400 Heart rate 89 /min Jose Garzon APRN.DENTAL EQUIPMENT REPAIRER Work Phone: [facility] 10-26-2021 12:20-0400 Respiratory rate 18 /min Jose Garzon APRN.DENTAL EQUIPMENT REPAIRER Work Phone: [facility] 10-26-2021 12:20-0400 SaO2% (BldA) [Mass fraction] 97 % Jose Garzon WELFARE DIRECTOR.DENTAL EQUIPMENT REPAIRER Work Phone: [facility] 10-26-2021 12:20-0400 Systolic blood pressure 136 mm[Hg] Jose Garzon WELFARE DIRECTOR.TIFFANY Work Phone: [facility] Encounters Encounter Date Encounter Type Care Provider Facility Start: 10-26-2021 Telephone encounter Jose roque RAMON.TIFFANY Work Phone: [facility] Procedures Date Procedure Procedure Detail Performing Clinician Start: 01-09-2019 Adult depression scr eening assessment Jose Milesanjel WELFARE DIRECTOR.DENTAL EQUIPMENT REPAIRER Work Phone: Start: 09-20-2007 Colonoscopy Jose roque WELFARE DIRECTOR.TIFFANY Work Phone: Plan of Treatment Date Care Activity Detail Author Start: 03-20-2022 DIABETES SCREEN DIABETES SCREEN [facility] Start: 09-08-2021 COVID-19 VACCINE (4 - Booster for Pfizer series) COVID-19 VACCINE (4 - Booster for Pfizer series) [facility] Start: 07-31-2021 ADVANCE DIRECTIVE DISCUSSION ADVANCE DIRECTIVE DISCUSSION [facility] Start: 01-10-2020 Adult depression scr eening assessment DEPRESSION SCREENING [facility] Start: 09-20-2017 Colonoscopy COLONOSCOPY [facility] Start: 09-20-2017 COLORECTAL CANCER SCREENING COLORECTAL CANCER SCREENING [facility] Start: 05-27-2014 LIPID SCREEN LIPID SCREEN [facility] Start: 2014 PNEUMOVAX AGE 65 AND OVER WITH 5YR LOOKBACK (#1) PNEUMOVAX AGE 65 AND OVER WITH 5YR LOOKBACK (#1) [facility] Start: 05-27-2010 Hepatitis B surface antibody level LDL CHOLESTEROL [facility] Start: 06-06-2007 Urine microalbumin profile DTAP,TDAP ,TD (1 - Tdap) [facility] Start: 1999 SHINGRIX VACCINE (1 of 2) SHINGRIX V ACCINE (1 of 2) [facility] Start: 1994 COLOGUARD (FIT-DNA) COLOGUARD (FIT-D NA) [facility] Start: [address] COLONOGRAPHY [facility] Start: 1994 FECAL OCCULT BLOOD FECAL OCCULT BLOO D [facility] Start: 1994 SIGMOIDOSCOPY SIGMOIDOSCOPY [facility] Start: 1967 ANNUAL PCP TEAM REPAIRER FINISHED METAL LAUREN DISEASE VISIT ANNUAL PCP TEAM CHRONIC DISEASE VISIT [facility] Start: 1967 BP CONTROLLED (<130/80) BP CONTROLLE D (<130/80) [facility] Start: 1967 HEPATITIS C SCREENING HEPATITIS C SC DRAGAN [facility] Immunizations Immunization Date Immunization Notes Care Provider Emeterio frostbeverly 06-05-2007 influenza virus vaccine, unspecified formulation Jose Garzon WELFARE DIRECTOR.DENTAL EQUIPMENT REPAIRER Work Phone: [facility] 06-05-2007 tetanus and diphther ia toxoids, adsorbed, preservative free, for adult use (2 Lf of tetanus toxoid and 2 Lf of diphtheria toxoid) Jose Garzon WELFARE DIRECTOR.DENTAL EQUIPMENT REPAIRER Work Phone: [facility] Payers Date Payer Category Payer Unknown FOR LIFE [id number] 2017-Present [phone] [address] [place] [address] Indemnity [id number] 2014 Medicare MEDICARE MEDICAR E A AND B [id number] 2014-Present [phone] [address] [address] [place] [address] Medicare [id number] Social History Date Type Detail Facility Tobacco smoking stat [facility] Never smoked tobacco [facility] Work Phone: Start: 10-26-2021 Alcohol intake Current drinke r of alcohol (finding) [facility] Start: 06-05-2007 History SDOH Alcohol Comment rare beer [facility] Start: 1950 Sex Assigned At Not on file [facility] Start: 10-16-2021 End: 10-26-2021 Exposure to SARS-CoV-2 (event) Not sure [facility] Progress note 10-26-2021 Note Date & Type Note Facility 10-26-2021 Note HNO ID: [id number] Author: Jose Garzon APRN.DENTAL EQUIPMENT REPAIRER Service: ? Author Type: Nurse Practitioner Type: Progress Notes Filed: 10/26/2021 1:14 PM Note Text: Subjective HPI Nontoxic-appearing male presents urgent care chief complaint cough chest congestion. Duration of symptoms 4 to 5 days. Associated symptom chest congestion cough sore throat headache. Patient states chest congestion has been prominent for 4 days. Does have some shortness of breath with coughing. Has used Mucinex this has helped with chest congestion and cough. Denies any known sick contacts. Denies any fever body aches chills productive cough chest pain current shortness of breath pleuritic pain hemoptysis nausea vomiting abdominal pain change in bowel or bladder habits. Past medical history prescription medication use allergies reviewed. 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 Bruner - Chronic cholecystitis - Compression fracture L1 and L2 - COPD (chronic obstructive pulmonary disease) (HCC) - Debility - Diastolic dysfunction - Diverticulosis of colon (without mention of hemorrhage) - Hypertension - Ischemic cardiomyopathy - Low back pain - LVEF 30% - Mitral valve regurgitation 2+ - Mixed hyperlipidemia - Multiple myeloma (HCC) 11/2013 - NSTEMI (non-ST elevation myocardial infarction) 11/22/2013 - Obesity, unspecified 2000 since jail - Other malignant neoplasm of skin, site unspecified BCC, right shoulder, 1991, excised - Pain management contract signed 07/11/2016 - Thrombocytopenia secondary to myeloma PAST SURGICAL HISTORY Procedure Laterality Date - ANGIOPLASTY HX - COLONOSCOPY FLX DX W/COLLJ SPEC WHEN PFRMD 09/20/2007 Colonoscopy - CORONARY ARTERY BYPASS GRAFT 07/2014 - EXTRACTION, ERUPTED TOOTH OR EXPOSED ROOT (ELEVATION AND/OR FORCEPS REMOVAL) wisdom teeth - INSERT INTRACORONARY STENT 09/2000 x1, [facility] - INSERT INTRACORONARY STENT -2013 x1 [facility] - INSERT INTRACORONARY STENT 02/2014 x2 [facility] - PAST SURGICAL HISTORY OF 02/2007, 09/2009, 11/2013, 02/2014 cath - PAST SURGICAL HISTORY OF 2015 Vetebroplaasty - PAST SURGICAL HISTORY OF Plasmapheresis - TONSILLECTOMY HX ALLERGIES Morphine and Toprol Xl [Metoprolol Succinate] MEDICATIONS dexAMETHasone (DECADRON) 4 mg tablet 5 TABLETS BY MOUTH ONCE WEEKLY aspirin, enteric coated (ASPIRIN, ENTERIC COATED) 81 mg EC tablet Aspirin Aspirin E.C. [Ecotrin] 81 MG PO DAILY@0800 February 08, 2019 Active 02-08-2019 [facility] ([id number]) atorvastatin (LIPITOR) 40 mg tablet 40 mg. carvedilol (COREG) 3.125 mg tablet Take 3.125 mg by mouth twice daily. lisinopril (ZESTRIL, PRINIVIL) 5 mg tablet 5 mg. senna-docusate (SENNA-S) 8.6-50 mg per tablet Take 2 tablets by mouth twice daily. multiv,ca,iron,min/fa/phytoste(CENTRUM CARDIO 3 MG-200 MCG-400 MG TAB) Take one(1) tablet daily. sildenafil (VIAGRA) 50 mg tablet 1 TABLET ORALLY DAILY NEEDED, 30MIN BEFORE INTERCOURSE POMALYST 4 mg capsule clopidogrel (PLAVIX) 75 mg tablet nystatin (MYCOSTATIN) 100,000 unit/mL suspension SWISH, GARGLE, AND SPIT 10ML BY MOUTH 4 TIMES A DAY HYDROcodone bitartrate (HYSINGLA ER) 20 mg TP24 Take 1 tablet by mouth once daily for 30 days. HYDROcodone-acetaminophen (NORCO) 5-325 mg per tablet Take 1 tablet by mouth every 8 hours as needed for up to 30 days. Max 3/day mirtazapine (REMERON) 15 mg tablet Take 1 tablet by mouth daily at bedtime. gabapentin (NEURONTIN) 300 mg capsule Take 1 capsule by mouth three times daily for 30 days. REVLIMID 5 mg capsule Take 1 capsule (5 mg) by mouth once daily. morphine SR (MS CONTIN) 15 mg 12 hr tablet Take 1 tablet by mouth every 12 hours for 30 days.Earliest Fill Date: 12/06/18 nitroglycerin sublingual (NITROQUICK) 0.4 mg SL tablet Dissolve 1 tablet under the tongue as needed. DISSOLVE ON TONGUE FOR CHEST PAIN. IF NO PAIN RELIEF, CALL 911 FAMILY HISTORY Problem Relation Age of Onset - Diabetes Mother - Cancer Mother Leukemia - Cancer Father brain with mets to heart - Colon Cancer Other none - Prostate Cancer Other none - Diabetes Brother - Coronary Artery Disease Brother dx'd age late 50's - other (Myocardial Infarction) Other - Heart Other Social History Tobacco Use - Smoking status: Never Smoker - Smokeless tobacco: Never Used Substance Use Topics - Alcohol use: Yes Comment: rare beer 8 pack every 2 months - Drug use: No BP 136/82 Pulse 89 Temp 36.7 ?C (98.1 ?F) Resp 18 Wt 89.3 kg (196 lb 12.8 oz) SpO2 97% BMI 31.76 kg/m? Review of Systems Constitutional: Positive for malaise/fatigue. Negative for chills and fever. HENT: Positive for congestion and sin (more content not included)... [facility] Progress note 10-26-2021 Note Date & Type Note Facility 10-26-2021 Note HNO ID: [id number] Author: RT Abram(R) Service: ? Author Type: Chinese Herbalist Type: Progress Notes Filed: 10/26/2021 12:49 PM Note Text: Radiology Service Progress Note PATIENT NAME: Nadia Iglesias DATE OF SERVICE: October 26, 2021 TIME: 12:36 PM PATIENT IDENTITY VERIFICATION COMPLETED USING TWO (2) IDENTIFIERS: Name and Date of confirmed by patient verbally. FALL SCREENING: Has the patient had 2 falls in the last year or 1 fall with injury or currently using an Ambulatory Assistive Device (Walker, Cane, Wheelchair, Crutches, etc.)? No PATIENT GENDER DATA: Male PATIENT RELEVANT IMPLANT DATA REVIEWED: Yes RADIOLOGY DEPARTMENT: General X-ray: Exam(s) Completed: Chest X-Ray PERIPHERAL IV DATA: Not applicable SIGNED BY: RT Abram(R) October 26, 2021 12:36 PM [facility] Note 10-26-2021 Telephone Encounter - Jessica Salgado LPN - 10/26/2021 1:19 PM EDTTelephone Encounter - Jessica Olivares - 10/26/2021 1:13 PM EDT Note Date & Type Note Facility 10-26-2021 Miscellaneous Notes Patient returned call and went over results, notes from urgent care provider with understanding. Left message for patient to return call. Jessica Olivares No acute findings noted on chest x-ray. Continue supportive therapies as discussed at today's visit. Follow-up with PCP or through urgent care if symptoms are not improving 3 to 5 days. Jose Garzon APRN.CNP documented in this encounter [facility] Instructions 10-26-2021 Patient Instructions Note Date & Type Note Facility 10-26-2021 Instructions Jose Garzon APRN.CNP - 10/26/2021 12:56 PM EDT COUGH: Your doctor wants you to have this information about coughing. The body has a cough reflex which helps expel mucous secretions and irritants from the lung and airway passages. Cough spasms are periods of continuous coughing lasting several minutes. Most coughs is caused by virus infections which may last for up to 2-3 weeks. Coughing helps to protect the lung from pneumonia. A persistent cough lasting longer than 4-6 weeks requires medical evaluation by your primary care doctor. Treatment of cough includes measures to loosen the cough and thin the mucous. Warm liquids, cough drops, and nonprescription cough medicine may help reduce dry hacking cough. Use a humidifier if necessary as dry air can make coughs worse. Ultrasonic humidifiers are especially useful as they kill molds and many bacteria. Some cough medicines have antihistamines, decongestants, or alcohol in them; there is no proof that any of these help control cough. Prescription cough medicine or those with dextromethorphan (DM) should be reserved for dry coughs that prevent sleep or cause spasms or chest pain. Avoid any exposure to cigarette smoke as this will worsen the cough or make it last much longer. Call your doctor right away if you or your child have increased breathing difficulty, a high fever, a cough that lasts longer than 3 weeks, or other serious complaints. documented in this encounter [facility] History of Present illness Narrative 10-26-2021 Jose Garzon APRN.DENTAL EQUIPMENT REPAIRER - 10/26/2021 12:55 PM EDT Note Date & Type Note Facility 10-26-2021 History of Presen t illness Narrative Subjective HPI Nontoxic-appearing male presents urgent care chief complaint cough chest congestion. Duration of symptoms 4 to 5 days. Associated symptom chest congestion cough sore throat headache. Patient states chest congestion has been prominent for 4 days. Does have some shortness of breath with coughing. Has used Mucinex this has helped with chest congestion and cough. Denies any known sick contacts. Denies any fever body aches chills productive cough chest pain current shortness of breath pleuritic pain hemoptysis nausea vomiting abdominal pain change in bowel or bladder habits. Past medical history prescription medication use allergies reviewed. 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 Bruner Chronic cholecystitis Compression fracture L1 and L2 COPD (chronic obstructive pulmonary disease) (HCC) Debility Diastolic dysfunction Diverticulosis of colon (without mention of hemorrhage) Hypertension Ischemic cardiomyopathy Low back pain LVEF 30% Mitral valve regurgitation 2+ Mixed hyperlipidemia Multiple myeloma (HCC) 11/2013 NSTEMI (non-ST elevation myocardial infarction) 11/22/2013 Obesity, unspecified 2000 since jail Other malignant neoplasm of skin, site unspecified BCC, right shoulder, 1991, excised Pain management contract signed 07/11/2016 Thrombocytopenia secondary to myeloma PAST SURGICAL HISTORY Procedure Laterality Date ANGIOPLASTY HX COLONOSCOPY FLX DX W/COLLJ SPEC WHEN PFRMD 09/20/2007 Colonoscopy CORONARY ARTERY BYPASS GRAFT 07/2014 EXTRACTION, ERUPTED TOOTH OR EXPOSED ROOT (ELEVATION AND/OR FORCEPS REMOVAL) wisdom teeth INSERT INTRACORONARY STENT 09/2000 x1, [facility] INSERT INTRACORONARY STENT -2013 x1 [facility] INSERT INTRACORONARY STENT 02/2014 x2 [facility] PAST SURGICAL HISTORY OF 02/2007, 09/2009, 11/2013, 02/2014 cath PAST SURGICAL HISTORY OF 2015 Vetebroplaasty PAST SURGICAL HISTORY OF Plasmapheresis TONSILLECTOMY HX ALLERGIES Morphine and Toprol Xl [Metoprolol Succinate] MEDICATIONS dexAMETHasone (DECADRON) 4 mg tablet 5 TABLETS BY MOUTH ONCE WEEKLY aspirin, enteric coated (ASPIRIN, ENTERIC COATED) 81 mg EC tablet Aspirin Aspirin E.C. [Ecotrin] 81 MG PO DAILY@0800 February 08, 2019 Active 02-08-2019 [facility] ([id number]) atorvastatin (LIPITOR) 40 mg tablet 40 mg. carvedilol (COREG) 3.125 mg tablet Take 3.125 mg by mouth twice daily. lisinopril (ZESTRIL, PRINIVIL) 5 mg tablet 5 mg. senna-docusate (SENNA-S) 8.6-50 mg per tablet Take 2 tablets by mouth twice daily. multiv,ca,iron,min/fa/phytoste(CENTR UM CARDIO 3 MG-200 MCG-400 MG TAB) Take one(1) tablet daily. sildenafil (VIAGRA) 50 mg tablet 1 TABLET ORALLY DAILY NEEDED, 30MIN BEFORE INTERCOURSE POMALYST 4 mg capsule clopidogrel (PLAVIX) 75 mg tablet nystatin (MYCOSTATIN) 100,000 unit/mL suspension SWISH, GARGLE, & SPIT 10ML BY MOUTH 4 TIMES A DAY HYDROcodone bitartrate (HYSINGLA ER) 20 mg TP24 Take 1 tablet by mouth once daily for 30 days. HYDROcodone-acetaminophen (NORCO) 5-325 mg per tablet Take 1 tablet by mouth every 8 hours as needed for up to 30 days. Max 3/day mirtazapine (REMERON) 15 mg tablet Take 1 tablet by mouth daily at bedtime. gabapentin (NEURONTIN) 300 mg capsule Take 1 capsule by mouth three times daily for 30 days. REVLIMID 5 mg capsule Take 1 capsule (5 mg) by mouth once daily. morphine SR (MS CONTIN) 15 mg 12 hr tablet Take 1 tablet by mouth every 12 hours for 30 days.Earliest Fill Date: 12/06/18 nitroglycerin sublingual (NITROQUICK) 0.4 mg SL tablet Dissolve 1 tablet under the tongue as needed. DISSOLVE ON TONGUE FOR CHEST PAIN. IF NO PAIN RELIEF, CALL 911 FAMILY HISTORY Problem Relation Age of Onset Diabetes Mother Cancer Mother Leukemia Cancer Father brain with mets to heart Colon Cancer Other none Prostate Cancer Other none Diabetes Brother Coronary Artery Disease Brother dx'd age late 50's other (Myocardial Infarction) Other Heart Other Social History Tobacco Use Smoking status: Never Smoker Smokeless tobacco: Never Used Substance Use Topics Alcohol use: Yes Comment: rare beer 8 pack every 2 months Drug use: No BP 136/82 Pulse 89 Temp 36.7 C (98.1 F) Resp 18 Wt 89.3 kg (196 lb 12.8 oz) SpO2 97% BMI 31.76 kg/m Review of Systems Constitutional: Positive for malaise/fatigue. Negative for chills and fever. HENT: Positive for congestion and sinus pain. Negative for ear discharge, ear pain and sore throat. Eyes: Negative for blurred vision, pain, discharge and redness. Respiratory: Positive for cough. Negative for hemoptysis, sputum production, shortness of breath, wheezing and stridor. Cardiovascular: Negative for chest pain. Gastrointestinal: Negative for abdominal pain, diarrhea, nausea and vomiting. Musculoskeletal: Positive for myalgias. Skin: Negative for itching and rash. Neurological: Positive for headaches. Negative for dizziness. Objective Physical Exam Constitutional: General: He is not in acute distress. Appearance: He is not diaphoretic. HENT: Head: Normocephalic. Nose: Congestion present. Mouth/Throat: Mouth: Mucous membranes are moist. Pharynx: Oropharynx is clear. No oropharyngeal exudate or posterior oropharyngeal erythema. Eyes: Conjunctiva/sclera: Conjunctivae normal. Pupils: Pupils are equal, round, and reactive to light. Cardiovascular: Rate and Rhythm: Normal rate. Heart sounds: Normal heart sounds. Pulmonary: Effort: Pulmonary effort is normal. No tachypnea, accessory muscle usage or respiratory distress. Breath sounds: Normal breath sounds. No stridor. No wheezing, rhonchi or rales. Abdominal: Palpations: Abdomen is soft. Tenderness: There is no abdominal tenderness. Musculoskeletal: Cervical back: Normal range of motion and neck supple. No rigidity or tenderness. Lymphadenopathy: Cervical: No cervical adenopathy. Skin: General: Skin is warm and dry. Neurological: Mental Status: He is alert and oriented to person, place, and time. ASSESSMENT/PLAN: 1. Cough - ICD9: 786.2, ICD10: R05.9 - XR CHEST 2V FRONTAL/LAT Lines, tubes, and devices: None. Lungs and pleura: Small lung volume due to inadequate inspiration. No definite consolidations. No masses. No pleural effusions or pneumothorax. Left-sided large pericardial fat pad is noted. Cardiomediastinal silhouette: The cardiac silhouette and mediastinal contour are within normal limits. Bones and soft tissues: Multiple right-sided rib deformities, likely related to prior trauma. The spine shows degenerative changes. Patient is status post median sternotomy. No acute findings noted on chest x-ray. Patient nontoxic-appearing. Lung sounds normal. No new fevers. Symptoms are not worsening. Suspicious of viral etiology. COVID-19 influenza testing offered declined testing at this time. Will follow up with PCP or through urgent care hybrid 3 to 5 days symptoms are not improving. Patient was educated on supportive therapies. Patient was instructed to immediately proceed to emergency room for any new, worsening, or symptoms lasting longer than anticipated. The patient's clinical presentation is otherwise unremarkable at this time. Based on exam and clinical finding, the patient is stable for discharge. Plan of care was discussed with patient. Patient verbalizes understanding and agrees to plan of care. This note was generated using [employer] software. It may contain errors in wording, punctuation, or spelling. Jose Garzon APRN.DENTAL EQUIPMENT REPAIRER documented in this encounter [facility] History of Past illness Narrative 09-28-2007 Note Date & Type Note Facility documented as of this encounter (statuses as of 10/26/2021) [facility] History of Past illness Narrative 09-28-2007 Note Date & Type Note Facility documented as of this encounter (statuses as of 10/26/2021) [facility] Evaluation note Note Date & Type Note Facility documented in this encounter [facility] Summary Purpose Family History No Family History Records FoundNo Family History Records FoundNo Family History Records Found Advance Directives No Advanced Directives Records FoundNo Advanced Directives Records FoundNo Advanced Directives Records Found Additional Source Comments (unrecognized sect ion and content) No Status Records FoundNo Status Records FoundNo Status Records Found INFORMATION SOURCE (unrecogn ized section and content) DATE CREATED AUTHOR AUTHOR'S ORGANIZ ATION 04/17/2019 [facility] [employer] DATE CREATED AUTHOR AUTHOR'S ORGANIZ ATION 10/28/2021 [facility] Source Comments (unrecognize d section and content) In the event this informatio n is protected by the Federal Confidentiality of Alcohol and Drug Abuse Patient Records regulations: The Federal rules restrict any use of the information to criminally investigate or prosecute any alcohol or drug abuse patient.[facility] [place] the event this information is protected by the Federal Confidentiality of Alcohol and Drug Abuse Patient Records regulations: The Federal rules restrict any use of the information to criminally investigate or prosecute any alcohol or drug abuse patient.[facility] Reason for Visit (unrecogniz ed section and content) Reason Comments Results Care Teams (unrecognized sec tion and content) System Controller Relationship Specialty Start Date End Date Andrea Tello MD PCP - General Family Practice 10/13/15 FOR RECORDS PERTAINING TO PATIENTS WHO ARE OR HAVE BEEN ENROLLED IN A CHEMICAL DEPENDENCY/SUBSTANCEABUSE PROGRAM, SOME INFORMATION MAY BE OMITTED. This clinical summary was aggregated from multiple sources. Caution should be exercised in using it in the provision of clinical care. This summary normalizes information from multiple sources, and as a consequence, information in this document may materially change the coding, format and clinical context of patient data. In addition, data may be omitted in some cases. CLINICAL DECISIONS SHOULD BE BASED ON THE PRIMARY CLINICAL RECORDS. [employer] provides no warranty or guarantee of the accuracy or completeness of information in this document.
== END | disposition home or self-care (01) ==
LOC: MRI 10:10
PROVIDERS: PCP Nurse Practitioner; Referring Provider Nurse Practitioner; Visit Provider Nurse Practitioner
DX: R41.3 Other amnesia (principal)
CPT/HCPCS: 70551

== ENCOUNTER → 2023-11-28 | Outpatient (CLI) | payer MEDICARE, OTHER, SELFPAY ==
--- NOTE | 2023-11-28 13:08 | CT_ITS ---
STUDY: CT BRAIN WITH AND WITHOUT CONTRAST REASON FOR EXAM: Male, 73 years old. Head trauma; fall 11/27/23. No loss of consciousness. History of multiple myeloma. RADIATION DOSAGE (If Supplied By Facility): CTDIvol = ( 44.99 ) mGy, DLP = ( 1614.72 ) mGycm TECHNIQUE: Transaxial CT imaging of the brain was performed pre and post contrast administration. The examination was performed with intravenous administration of IV 50mL Isovue-370. Individualized dose optimization techniques were used for this CT. COMPARISON: Comparison is made with prior study dated July 01, 2022. FINDINGS: Normal soft tissue structures. Multiple bilateral diffuse small rounded areas of the lytic lesions involving the skull in keeping with the patient''s history of multiple myeloma. There is mild cerebral atrophy with widening of the extra-axial spaces and ventricular dilatation. There are areas of decreased attenuation within the white matter tracts of the supratentorial brain, consistent with microvascular disease changes. Normal basal ganglia and thalami. Normal brainstem. Normal cerebellum. There is no intracranial hemorrhage. There are no findings of an acute ischemic infarction. Atherosclerotic calcific plaques of the vertebral arteries and cavernous portions of the internal carotid arteries bilaterally. Normal visualized paranasal sinuses. CT/Brain/Head W/WO Contrast IMPRESSION: Chronic involutional changes of the brain. Findings in keeping with multiple myeloma of the skull. Electronically Signed: Anthony Macdonald MD at 14:08 EDT ,
--- NOTE | 2023-11-28 13:10 | RAD_ITS ---
INDICATION: right shoulder pain;fall EXAMINATION/TECHNIQUE: X-RAY - RIGHT XR Shoulder Min 2 Views 4 VIEWS COMPARISON: No relevant prior comparison study available FINDINGS: SOFT TISSUES: No soft tissue swelling or gas. No radiopaque foreign body. BONES/JOINTS: No acute fracture or subluxation.. Normal alignment. Mild hypertrophic degenerative change of the acromioclavicular joint. The visualized ribs are intact. RAD/Shoulder min 2 Views IMPRESSION: No fracture or malalignment. Degenerative changes at the acromioclavicular joint. Electronically Signed: Noah Wilkinson MD at 7:01 EDT ,
== END | disposition home or self-care (01) ==
LOC: CT 13:03
PROVIDERS: PCP Nurse Practitioner; Referring Provider Nurse Practitioner Family; Visit Provider Nurse Practitioner Family
DX: S09.90XA Unspecified injury of head, initial encounter (principal)
CPT/HCPCS: 70470; 73030; Q9967

== ENCOUNTER → 2024-06-14 | Outpatient (CLI) | payer MEDICARE, OTHER, SELFPAY ==
[2024-06-14 18:11] LABS: Cholesterol 163 mg/dL (200); High Density Lipoprotein 43 mg/dL; Triglycerides 134 mg/dL; Very Low Density Lipoprotein 27 mg/dL (5-40)
[2024-06-14 18:22] LABS: Hemoglobin A1c 5.3 % (3.8-5.6)
== END | disposition home or self-care (01) ==
LOC: MFPLAB 14:16
DX: Z13.220 Encounter for screening for lipoid disorders (principal); Z13.1 Encounter for screening for diabetes mellitus
CPT/HCPCS: 36415; 80061; 83036

== ENCOUNTER → 2025-06-16 | Outpatient (CLI) | payer MEDICARE, OTHER, SELFPAY ==
[2025-06-16 17:33] LABS: Hematocrit 49.4 % (40-54); Hemoglobin 16.9 g/dL (13.0-16.5); Immature Granulocytes Count 0.030 X10^3/uL (0.0-0.0); Mean Corp Hgb Conc 34.2 g/dL (32-36); Mean Corpuscular Volume 89.8 fL (80-94); Mean Platelet Vol. 11.7 fl (6.2-12.0); NRBC Flagged by Analyzer 0 % (0-5); Platelet Count 141 K/mm3 (150-450); RBC Distribution Width CV 14.2 % (11.6-14.6); RBC Distribution Width SD 46.4 fl (35.1-43.9); Red Blood Count 5.50 M/mm3 (4.6-6.2); White Blood Count 5.9 K/mm3 (4.4-11.0)
[2025-06-16 18:27] LABS: AST(SGOT) 33 U/L (<=37); Alanine Aminotransfer ALT/SGPT 38 U/L (<=46); Albumin, Serum 4.3 g/dL (3.4-4.8); Alkaline Phosphatase 82 U/L (40-129); Anion Gap 10 (5-15); BUN 22 mg/dL (4-19); BUN/Creat Ratio 23.4 RATIO (10-20); Calcium,Total 9.5 mg/dL (7.6-11.0); Carbon Dioxide 23.1 mmol/L (21.0-32.0); Chloride 105 mmol/L (98-108); Cholesterol 158 mg/dL (<=200); Globulin 4.9 g/dL (2.2-4.2); Glucose 101 mg/dL (70-99); Low Density Lipoprotein Calc. 103 mg/dL; PSA,Total - Annual Screen 11.00 ng/mL (0.02-4.00); Potassium 3.8 mmol/L (3.3-5.1); Triglycerides 89 mg/dL; Very Low Density Lipoprotein 18 mg/dL (5-40); Vitamin D,25 Hydroxy 111.0 ng/mL (30-100); cholesterol:hdl ratio screen 4.15
== END | disposition home or self-care (01) ==
LOC: MFPLAB 15:28
PROVIDERS: Visit Provider Family Medicine
DX: I10 Essential (primary) hypertension (principal); C90.00 Multiple myeloma not having achieved remission; Z12.5 Encounter for screening for malignant neoplasm of prostate
CPT/HCPCS: 36415; 80053; 80061; 82306; 84153; 85025; G0103

== ENCOUNTER → 2025-06-17 | Outpatient (CLI) | payer MEDICARE, OTHER, SELFPAY ==
--- NOTE | 2025-06-17 11:30 | RAD_ITS ---
PROCEDURE: KNEE 4 OR MORE VIEWS 06/17/2025 REASON FOR EXAM: PAIN IN KNEE TECHNIQUE: Procedure Code: RADKN Modality: DX Procedure: KNEE 4 OR MORE VIEWS Laterality: Right COMPARISON: None FINDINGS: There is no evidence of fracture or dislocation. There is mild arthritis of the patellofemoral joint. There is moderate arthritis of the medial joint space compartment of the knee. There is no significant arthritis of the lateral joint space compartment of the knee. There is no knee joint effusion. There is enthesopathy of the patella. There are vascular calcifications in the distal thigh. RAD/Knee 4 or More Views IMPRESSION: [id number] arthritis of the right knee. Other findings as noted. Reading Location: [place] [id number]
== END | disposition home or self-care (01) ==
LOC: MTRAD 11:19
PROVIDERS: PCP Family Medicine; Referring Provider Family Medicine; Visit Provider Family Medicine
DX: M25.561 Pain in right knee (principal)
CPT/HCPCS: 73564